=== PATIENT | male | born 1985 | race Caucasian/White ===

== ENCOUNTER 2017-01-15 16:52 | Observation (INO) | payer OTHER ==
[2017-01-15] MEDS ORDERED: Sodium Chloride 0.9% 1000 ML 1,000 ML IV STA (17:12)
[2017-01-15] MEDS ORDERED: Hydromorphone 1 mg/ml Ampule IV ONE ×3 (17:12→19:33)
[2017-01-15] MEDS ORDERED: Zofran 4 MG/2 ML VIAL IV ONE (17:12)
--- NOTE | 2017-01-15 17:17 | ERPHSYRPT ---
- History of Present Illness Time Seen by Provider: 01/15/17 17:12 Historian: patient Exam Limitations: no limitations Patient Subjective Stated Complaint: ABD PAIN AND VOMITING SINCE 0300 TODAY. ALSO HAVING FLANK PAIN. STATES HAS BRIGHT RED BLOOD IN STOOLS INTERMITTENTLY FOR TWO MONTHS. Triage Nursing Assessment: TO ROOM PER W/C, SKIN PALE, W/D, RESP NONLABORED. ABD SOFT, TENDER RLQ. 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 Past medical history includes GERD, gallbladder disease, irritable bowel syndrome, pancreatitis, depression, chronic abdominal pain Past surgical history includes shoulder surgery, ERCP, tonsillectomy adenoidectomy, cholecystectomy. Timing/Duration: today (3 AM today) Activities at Onset: rest Quality: aching Abdominal Pain Onset Location: epigastric, flank (right flank) Pain Radiation: epigastric, flank (right flank), scapula Severity of Pain-Current: moderate Modifying Factors: Improves With: nothing, vomiting Associated Symptoms: back (right flank pain), nausea, vomiting, No chest pain, No diaphoresis, No diarrhea, No fever/chills, No fatigue, No headache, No heartburn, No loss of appetite, No neck pain, No rash, No shortness of breath, No syncope, No testicular pain Previous symptoms: no prior history, other (patient has a history of chronic abdominal pain however he states this is different) Allergies/Adverse Reactions: No Known Drug Allergies Allergy (Verified 01/15/17 17:05) Home Medications: Omeprazole 20 MG [Prilosec 20 mg] 20 mg PO DAILY 12/02/13 [History] Ascorbic Acid 500 mg [Vitamin C 500 MG] 500 mg PO DAILY PRN PRN 08/04/15 [ History] Dicyclomine HCl [Bentyl] 20 mg PO DAILY 08/04/15 [History] Venlafaxine HCl ER 75 mg [Effexor XR 75 MG] 75 mg PO DAILY 08/04/15 [ History] Hx Tetanus, Diphtheria Vaccination/Date Given: No Hx Influenza Vaccination/Date Given: Yes Hx Pneumococcal Vaccination/Date Given: No - Review of Systems Constitutional: No Fever, No Chills Eyes: No Symptoms Ears, Nose, & Throat: No Symptoms Respiratory: No Cough, No Dyspnea Cardiac: No Chest Pain, No Edema, No Syncope Abdominal/Gastrointestinal: Abdominal Pain, Nausea, Vomiting, Hematochezia ( Chronic intermittent hematochezia), No Diarrhea, No Constipation, No Hematemesis , No Melena, No Dysphagia, No Appetite Changes Genitourinary Symptoms: No Dysuria Musculoskeletal: No Back Pain, No Neck Pain Skin: No Rash Neurological: No Dizziness, No Focal Weakness, No Sensory Changes Psychological: No Symptoms Endocrine: No Symptoms All Other Systems: Reviewed and Negative - Past Medical History Pertinent Past Medical History: No Neurological History: No Pertinent History ENT History: No Pertinent History Cardiac History: No Pertinent History Respiratory History: No Pertinent History Endocrine Medical History: No Pertinent History Musculoskeletal History: No Pertinent History GI Medical History: GERD, Gallbladder Disease, Irritable Bowel, Pancreatitis History: No Pertinent History Psycho-Social History: Depression Male Reproductive Disorders: No Pertinent History Other Medical History: HX OF ABD PAIN - Past Surgical History Past Surgical History: Yes Neuro Surgical History: No Pertinent History Cardiac: No Pertinent History Respiratory: No Pertinent History Gastrointestinal: Cholecystectomy Genitourinary: No Pertinent History Musculoskeletal: No Pertinent History, Orthopedic Surgery Male Surgical History: No Pertinent History Other Surgical History: R shoulder reconstruction. ERCP. T&A as child - Social History Smoking Status: Never smoker Exposure to second hand smoke: No Drug Use: none Patient Lives Alone: Yes - Nursing Vital Signs Nursing Vital Signs: Initial Vital Signs Temperature 98.9 F Temperature Source Oral Pulse Rate 85 Respiratory Rate 18 Blood Pressure [] 144/86 Pain Intensity 10 - Physical Exam General Appearance: moderate distress, other (well-developed well-nourished white male moderate distress) Eye Exam: PERRL/EOMI, eyes nml inspection Ears, Nose, Throat Exam: normal ENT inspection, pharynx normal, moist mucous membranes Neck Exam: normal inspection, non-tender, supple, full range of motion Respiratory Exam: normal breath sounds, lungs clear, No respiratory distress Cardiovascular Exam: regular rate/rhythm, normal heart sounds Gastrointestinal/Abdomen Exam: soft, normal bowel sounds, tenderness ( epigastric right upper quadrant tenderness) Back Exam: CVA tenderness (right flank tenderness) Extremity Exam: normal inspection, normal range of motion, pelvis stable Neurologic Exam: No motor deficits Skin Exam: normal color, warm, dry SpO2 Interpretation: normal (100%) SpO2: 100 Oxygen Delivery: Room Air - Course Nursing assessment & vital signs reviewed: Yes - CT Exams Abdomen/Pelvis CT Interpretation: Discussed w/radiologist (CT abdomen and pelvis: Compared to December 17, 2015.new mild fluid distended small bowel loops with fluid leveling , ileus vs. enteritis appendix 9 mm with new appendicolith but no wall thickening or stranding. cannot exclude mild or early appendicitis. Again scattered small mesenteric nodes. Probable adenitis. 13.5 cm splenomegaly.) Ordered Tests: Active Orders 24 hr Category Date Time Status IV Insertion STAT Care 01/15/17 17:12 Active ABDOMEN AND PELVIS W CONTRAST [CT] Stat Exams 01/15/17 17:52 Taken AMYLASE Stat Lab 01/15/17 17:10 Completed CBC W DIFF Stat Lab 01/15/17 17:10 Completed CMP Stat Lab 01/15/17 17:10 Completed LIPASE Stat Lab 01/15/17 17:10 Completed Lactic Acid Urgent Lab 01/15/17 17:30 Completed UA Stat Lab 01/15/17 18:30 Completed Medication Summary Discontinued Medications Generic Name Dose Route Start Last Admin Trade Name Freq PRN Reason Stop Dose Admin Hydromorphone HCl 1 mg 01/15/17 17:12 01/15/17 17:33 Hydromorphone 1 Mg/Ml Ampule IV 01/15/17 17:13 1 mg STAT ONE Administration Hydromorphone HCl Confirm 01/15/17 17:26 Hydromorphone 1 Mg/Ml Ampule Administered 01/15/17 17:27 Dose 1 mg .ROUTE .STK-MED ONE Hydromorphone HCl 1 mg 01/15/17 17:51 01/15/17 18:06 Hydromorphone 1 Mg/Ml Ampule IV 01/15/17 17:52 1 mg STAT ONE Administration Hydromorphone HCl Confirm 01/15/17 18:05 Hydromorphone 1 Mg/Ml Ampule Administered 01/15/17 18:06 Dose 1 mg .ROUTE .STK-MED ONE Sodium Chloride 1,000 mls @ 999 mls/hr 01/15/17 17:12 01/15/17 17:33 Sodium Chloride 0.9% 1000 Ml IV 01/15/17 18:12 999 mls/hr .Q1H1M STA Administration Sodium Chloride Confirm 01/15/17 17:22 Sodium Chloride 0.9% 1000 Ml Administered 01/15/17 17:23 Dose 1,000 mls @ ud .ROUTE .STK-MED ONE Ondansetron HCl 4 mg 01/15/17 17:12 01/15/17 17:33 Zofran 4 Mg/2 Ml Vial IV 01/15/17 17:13 4 mg STAT ONE Administration Ondansetron HCl Confirm 01/15/17 17:21 Zofran 4 Mg/2 Ml Vial Administered 01/15/17 17:22 Dose 4 mg .ROUTE .STK-MED ONE Lab/Rad Data: Laboratory Result Diagrams 01/15/17 17:10 01/15/17 17:10 Laboratory Results 01/15/17 01/15/17 01/15/17 Range/Units 18:30 17:30 17:10 WBC (4.0-10.5) K/mm3 RBC (4.1-5.6) M/mm3 Hgb (12.5-18.0) gm/dl Hct (42-50) % MCV (78-100) fl MCH (26-32) pg MCHC (32-36) g/dl RDW (11.5-14.0) % Plt Count (150-450) K/mm3 MPV (6-9.5) fl Gran % (36.0-66.0) % Lymphocytes % (24.0-44.0) % Monocytes % (0.0-12.0) % Eosinophils % (0.00-5.0) % Basophils % (0.0-0.4) % Basophils # (0-0.4) Sodium 141 (136-145) mEq/L Potassium 4.1 (3.5-5.1) mEq/L Chloride 100 (98-107) mEq/L Carbon Dioxide 28.0 (21-32) mEq/L Anion Gap 17.0 H (5-15) MEQ/L BUN 15 (9-20) mg/dL Creatinine 0.87 (0.55-1.30) mg/dl Estimated GFR > 60 ML/MIN Glucose 83 (70-110) MG/DL Lactic Acid 1.5 (0.4-2.0) Calcium 9.1 (8.5-10.1) mg/dL Total Bilirubin 0.8 (0.2-1.0) mg/dL AST 30 (15-37) U/L ALT 33 (12-78) U/L Alkaline Phosphatase 84 (46-116) U/L Serum Total Protein 8.6 H (6.4-8.2) gm/dL Albumin 4.8 (3.4-5.0) g/dL Amylase 66 (25-115) U/L Lipase 158 (73-393) U/L Ur Collection Type CLEAN CATCH Urine Color YELLOW (YELLOW) Urine Appearance CLEAR (CLEAR) Urine pH 7.5 (5-6) Ur Specific [place] 1.015 (1.005-1.025) Urine Protein NEGATIVE (Negative) Urine Glucose (UA) NEGATIVE (NEGATIVE) mg/dL Urine Ketones NEGATIVE (NEGATIVE) Urine Nitrite NEGATIVE (NEGATIVE) Urine Bilirubin NEGATIVE (NEGATIVE) Urine Urobilinogen 0.2 (0-1) mg/dL Urine WBC (Auto) NEGATIVE (NEGATIVE) Urine RBC (Auto) NEGATIVE (0-5) Shaji/ul Specimen Received 01/15/17:1830 01/15/17 Range/Units 17:10 WBC 13.5 H (4.0-10.5) K/mm3 RBC 5.16 (4.1-5.6) M/mm3 Hgb 15.8 (12.5-18.0) gm/dl Hct 47.7 (42-50) % MCV 92.4 (78-100) fl MCH 30.6 (26-32) pg MCHC 33.1 (32-36) g/dl RDW 12.8 (11.5-14.0) % Plt Count 302 (150-450) K/mm3 MPV 10.5 H (6-9.5) fl Gran % 84.3 H (36.0-66.0) % Lymphocytes % 6.2 L (24.0-44.0) % Monocytes % 8.5 (0.0-12.0) % Eosinophils % 0.9 (0.00-5.0) % Basophils % 0.1 (0.0-0.4) % Basophils # 0.01 (0-0.4) Sodium (136-145) mEq/L Potassium (3.5-5.1) mEq/L Chloride (98-107) mEq/L Carbon Dioxide (21-32) mEq/L Anion Gap (5-15) MEQ/L BUN (9-20) mg/dL Creatinine (0.55-1.30) mg/dl Estimated GFR ML/MIN Glucose (70-110) MG/DL Lactic Acid (0.4-2.0) Calcium (8.5-10.1) mg/dL Total Bilirubin (0.2-1.0) mg/dL AST (15-37) U/L ALT (12-78) U/L Alkaline Phosphatase (46-116) U/L Serum Total Protein (6.4-8.2) gm/dL Albumin (3.4-5.0) g/dL Amylase (25-115) U/L Lipase (73-393) U/L Ur Collection Type Urine Color (YELLOW) Urine Appearance (CLEAR) Urine pH (5-6) Ur Specific [place] (1.005-1.025) Urine Protein (Negative) Urine Glucose (UA) (NEGATIVE) mg/dL Urine Ketones (NEGATIVE) Urine Nitrite (NEGATIVE) Urine Bilirubin (NEGATIVE) Urine Urobilinogen (0-1) mg/dL Urine WBC (Auto) (NEGATIVE) Urine RBC (Auto) (0-5) Shaji/ul Specimen Received - Progress Progress: improved Progress Note: 01/15/17 19:34 31-year-old white male with history of irritable bowel syndrome chronic abdominal pain who has had a cholecystectomy in the past. He is having pain in the epigastric region right upper quadrant radiating to the right flank. CT of the abdomen shows new mild fluid distended small bowel loops with fluid leveling ileus versus enteritis there is also the appendix which is 9 mm with new appendicolith but no wall thickening or stranding cannot exclude mild or early appendicitis patient also with 13.5 cm splenomegaly patient is receiving his third milligram Dilaudid. Case is discussed with Dr. Barry Villafana who is rehabilitation construction specialist for Dr. Stuart. Will place patient on observation nothing by mouth IV fluids pain medication. I have also contacted Dr Fleming he recommends placing on observation with the patient's family doctor and he will consult with him in the morning. . - Departure Time of Disposition: 19:37 Departure Disposition: Observation Clinical Impression: Abdominal pain Qualifiers: Abdominal location: right upper quadrant Qualified Code(s): R10.11 - Right upper quadrant pain Condition: Fair Critical Care Time: No
[2017-01-15] MEDS ORDERED: Zofran 4 MG/2 ML VIAL ONE (17:21)
[2017-01-15] MEDS ORDERED: Sodium Chloride 0.9% 1000 ML 1,000 ML ONE (17:22)
[2017-01-15 17:24] LABS: BASOPHIL % 0.1 % (0.0-0.4); Eosinophil % 0.9 % (0.00-5.0); Granulocytes % 84.3 % (36.0-66.0); Lymphocytes % 6.2 % (24.0-44.0); Mean Cell Volume 92.4 fl (78-100); Mean Corpuscular Hemoglobin 30.6 pg (26-32); Mean Platelet Volume 10.5 fl (6-9.5); Monocytes % 8.5 % (0.0-12.0); Platelet Count 302 K/mm3 (150-450); Red Blood Count 5.16 M/mm3 (4.1-5.6); Red Cell Distribution Width 12.8 % (11.5-14.0); White Blood Count 13.5 K/mm3 (4.0-10.5)
[2017-01-15] MEDS ORDERED: Hydromorphone 1 mg/ml Ampule ONE ×3 (17:26→19:37)
[2017-01-15 17:47] LABS: ALBUMIN 4.8 g/dL (3.4-5.0); ALKALINE PHOSPHATASE 84 U/L (46-116); BILIRUBIN,TOTAL 0.8 mg/dL (0.2-1.0); BLOOD UREA NITROGEN 15 mg/dL (9-20); CHLORIDE 100 mEq/L (98-107); Glucose 83 MG/DL (70-110); LIPASE 158 U/L (73-393); Potassium 4.1 mEq/L (3.5-5.1); SGOT/AST 30 U/L (15-37); SGPT/ALT 33 U/L (12-78); SODIUM 141 mEq/L (136-145); Total Protein 8.6 gm/dL (6.4-8.2)
[2017-01-15 18:48] LABS: Collection Type CLEAN CATCH
[2017-01-15 18:53] LABS: COMPLETE URINE MICROSCOPIC? NO; Ph 7.5 (5-6)
[2017-01-15] MEDS ORDERED: Zofran 4 MG/2 ML VIAL IV PRN (20:24)
[2017-01-15] MEDS: Sodium Chloride 0.9% 1000 ML 1,000 ML IV SCH (20:43)
--- NOTE | 2017-01-15 20:49 | XRAY ---
Indication: Left abdominal pain, vomiting, and nausea. Syncope. Multiple contiguous axial images obtained through the abdomen and pelvis using 80 cc of Isovue-370 contrast only. Comparison: December 17, 2015. Lung bases again demonstrates bibasilar dependent atelectasis. Heart is not enlarged. Noncontrasted stomach and bowel loops appear nonobstructed. Stomach fluid distended with scattered tiny radiopacities presumed ingested medication. Small bowel loops are now mildly fluid distended throughout with some fluid leveling, ileus versus enteritis. No focal bowel dilatation. Appendix is now prominent up to 9 mm diameter with distal appendicolith but no wall thickening/stranding. Mild/early appendicitis is not completely excluded. No free fluid/air. There remains scattered small mesenteric nodes with minimal stranding, possible adenitis. Incidental 13.5 cm splenomegaly and cholecystectomy clips. Remaining liver, pancreas, spleen, adrenal glands, kidneys, ureters, bladder, and aorta appear unremarkable. Osseous structures intact. Impression: 1. New fluid distended stomach and small bowel loops, ileus versus gastroenteritis. 2. Appendix is now prominent with distal appendicolith but no wall thickening/stranding. Cannot completely exclude mild/early appendicitis in the right clinical setting. 3. Again scattered small mesenteric nodes with stranding, possible mesenteric adenitis. 4. Incidental splenomegaly. CTDI 20.16
[2017-01-15] MEDS: MORPHINE SULFATE 4 MG INJ IV PRN (21:14)
[2017-01-16] MEDS: DILAUDID 2 MG INJECTION IV PRN ×3 (00:54→17:05)
[2017-01-16] MEDS: Sodium Chloride 0.9% 1000 ML 1,000 ML IV SCH (05:28)
[2017-01-16] MEDS: MORPHINE SULFATE 4 MG INJ IV PRN (05:29)
[2017-01-16 05:34] LABS: ANION GAP 13.6 MEQ/L (5-15); BLOOD UREA NITROGEN 12 mg/dL (9-20); CHLORIDE 105 mEq/L (98-107); Glucose 86 MG/DL (70-110); SODIUM 141 mEq/L (136-145)
[2017-01-16 05:53] LABS: BASOPHIL % 0.3 % (0.0-0.4); Eosinophil % 1.1 % (0.00-5.0); Granulocytes % 70.3 % (36.0-66.0); Lymphocytes % 13.3 % (24.0-44.0); Mean Cell Volume 94.2 fl (78-100); Mean Corpuscular Hemoglobin 30.8 pg (26-32); Platelet Count 227 K/mm3 (150-450); Red Blood Count 4.28 M/mm3 (4.1-5.6); Red Cell Distribution Width 12.7 % (11.5-14.0)
[2017-01-16] MEDS ORDERED: DIPRIVAN 200 MG/20 ML IV ONE (08:00)
[2017-01-16] MEDS ORDERED: Zemuron 100 MG/10 ML IJ ONE (08:00)
[2017-01-16] MEDS ORDERED: BRIDION 200MG/2ML IV ONE (08:00)
[2017-01-16] MEDS ORDERED: SUBLIMAZE 250 MCG/5 ML IJ ONE (08:00)
[2017-01-16] MEDS ORDERED: Decadron 4 MG INJ IV ONE (08:00)
[2017-01-16] MEDS ORDERED: DILAUDID 2 MG INJECTION IV ONE (08:00)
[2017-01-16] MEDS ORDERED: TORAdol 30 mg Injection IJ ONE (08:00)
[2017-01-16] MEDS ORDERED: Versed 2 MG/2 ML Injection IV ONE (08:00)
[2017-01-16] MEDS ORDERED: Zofran 4 MG/2 ML VIAL IV ONE (08:00)
[2017-01-16] MEDS ORDERED: Quelicin Fliptop 200 MG/10 ML IV ONE (08:00)
[2017-01-16] MEDS ORDERED: BICITRA 30 ML CUP PO SCH (08:30)
[2017-01-16] MEDS ORDERED: Lactated Ringers 1,000 ML IV SCH (08:30)
[2017-01-16] MEDS ORDERED: Pepcid 20 MG VIAL IV SCH (08:30)
[2017-01-16] MEDS ORDERED: Sensorcaine 0.25% 10 ML ONE (08:54)
[2017-01-16] MEDS ORDERED: Lactated Ringers 1,000 ML IV ONE (08:55)
[2017-01-16] MEDS ORDERED: MEFOXIN 2 GM PREMIX** 50 ML IV SCH (09:00)
[2017-01-16] MEDS ORDERED: Transderm Scop 1.5MG Patch ONE (09:09)
[2017-01-16] MEDS ORDERED: DILAUDID 2 MG INJECTION ONE (10:36)
[2017-01-16] MEDS ORDERED: MORPHINE SULFATE 4 MG INJ IV PRN ×2 (11:24→18:15)
[2017-01-16] MEDS ORDERED: Vitamin C 500 MG PO PRN (11:28)
[2017-01-16] MEDS ORDERED: D5W/0.45NS W/ 20mEq KCl 1000 ML 1,000 ML IV SCH (11:30)
[2017-01-16] MEDS: Zosyn 3.375GM/100 Ml D5W 100 ML IV SCH ×3 (11:57→23:30)
[2017-01-16] MEDS: NORCO 5/325 MG PO PRN ×5 (11:57→22:34)
[2017-01-16] MEDS: Effexor XR 75 MG PO SCH (16:08)
--- NOTE | 2017-01-16 17:40 | PCM.HP ---
History of Present Illness - Chief Complaint Chief Complaint: abdominal pain Date: 01/16/17 History of Present Illness: is a 31 year old male. who had onset diffuse abdominal pains and vomiting at 03:00 yesterday it was not improving and he tried to go to work but the pain was too much. He had CT showing enteritis and appendicolith with enlarged appendix as well as evidence of ileus/enteritis. Dr. Ellsworth evaluated the patient and he had appendectomy this am. He still has the abdominal pain but it is improving he has not had any vomiting since this am. He has not passed gas or stool last bm was yesterday morning. He has eaten a small amount today. - Review of Systems Constitutional: Fatigue, No Fever, No Chills Eyes: No Symptoms Ears, Nose, & Throat: No Symptoms Respiratory: No Cough, No Short Of Breath Cardiac: No Chest Pain, No Edema, No Syncope Abdominal/Gastrointestinal: Abdominal Pain, Nausea, Vomiting, No Diarrhea Genitourinary Symptoms: No Dysuria Musculoskeletal: No Back Pain, No Neck Pain Skin: No Rash Neurological: No Dizziness, No Focal Weakness, No Sensory Changes Psychological: No Symptoms Endocrine: No Symptoms Hematologic/Lymphatic: No Symptoms Immunological/Allergic: No Symptoms Medications & Allergies Home Medications: Home Medication List Omeprazole 20 MG [Prilosec 20 mg] 20 mg PO DAILY 12/02/13 [History Confirmed ] Ascorbic Acid 500 mg [Vitamin C 500 MG] 500 mg PO DAILY PRN PRN 08/04/15 [ History Confirmed 01/15/17] Dicyclomine HCl [Bentyl] 20 mg PO DAILY 08/04/15 [History Confirmed 01/15/17] Venlafaxine HCl ER 75 mg [Effexor XR 75 MG] 75 mg PO DAILY 08/04/15 [ History Confirmed 01/15/17] Loratadine 10 mg [Claritin 10 mg] 10 mg PO DAILY 01/15/17 [History Confirmed 01/15/17] Allergies/Adverse Reactions: Allergies Allergy/AdvReac Type Severity Reaction Status Date / Time No Known Drug Allergies Allergy Verified 01/15/17 17:05 - Past Medical History Past Medical History: Yes Neurological History: No Pertinent History ENT History: No Pertinent History Cardiac History: No Pertinent History Respiratory History: No Pertinent History Endocrine Medical History: No Pertinent History Musculoskelatal History: No Pertinent History GI Medical History: GERD, Irritable Bowel, Pancreatitis History: No Pertinent History Pyscho-Social History: Depression Male Reproductive Disorders: No Pertinent History Comment: HX OF ABD PAIN - Past Surgical History Past Surgical History: Yes Neuro Surgical History: No Pertinent History Cardiac History: No Pertinent History Respiratory Surgery: No Pertinent History GI Surgical History: Cholecystectomy Genitourinary Surgical Hx: No Pertinent History Musculskeletal Surgical Hx: No Pertinent History Male Surgical History: No Pertinent History Other Surgical History: ERCP - Social History Smoking Status: Former smoker Exposure to second hand smoke: No Alcohol: Occasionally Drug Use: none - Physical Exam Vital Signs: Vital Signs - 24 hr Temp Pulse Resp BP BP Pulse Ox 01/16/17 15:54 97.0 F 62 16 102/59 96 01/16/17 13:43 98.2 F 79 18 110/64 94 L 01/16/17 12:45 98.1 F 93 H 18 119/74 95 01/16/17 12:17 98.4 F 82 20 123/76 94 L 01/16/17 11:45 98.2 F 94 H 20 124/71 95 01/16/17 11:28 98.1 F 76 18 114/68 94 L 01/16/17 11:11 98.4 F 78 18 113/71 94 L 01/16/17 08:25 98.1 F 79 18 100/56 96 01/16/17 07:30 98.1 F 79 20 100/56 96 01/16/17 04:00 98.3 F 79 18 115/71 93 L 01/16/17 00:00 98.6 F 94 H 18 121/80 95 01/15/17 21:17 98.6 F 93 H 17 135/85 100 01/15/17 19:38 100 General Appearance: no apparent distress Neurologic Exam: alert, oriented x 3, cooperative Eye Exam: PERRL/EOMI, No scleral icterus Ears, Nose, Throat Exam: moist mucous membranes Neck Exam: non-tender, supple Respiratory Exam: normal breath sounds, lungs clear, No crackles/rales Cardiovascular Exam: regular rate/rhythm, normal heart sounds, normal peripheral pulses, No murmur Gastrointestinal/Abdomen Exam: soft, normal bowel sounds, tenderness, other ( abdominal binder post op) Extremity Exam: normal inspection, No calf tenderness, No pedal edema Skin Exam: warm, dry, No rash Results - Labs Lab/Micro Results: Lab Results-Last 24 Hours 01/16/17 01/16/17 Range/Units 04:45 04:45 WBC 7.0 (4.0-10.5) K/mm3 RBC 4.28 (4.1-5.6) M/mm3 Hgb 13.2 (12.5-18.0) gm/dl Hct 40.3 L (42-50) % MCV 94.2 (78-100) fl MCH 30.8 (26-32) pg MCHC 32.8 (32-36) g/dl RDW 12.7 (11.5-14.0) % Plt Count 227 (150-450) K/mm3 MPV 10.0 H (6-9.5) fl Gran % 70.3 H (36.0-66.0) % Lymphocytes % 13.3 L (24.0-44.0) % Monocytes % 15.0 H (0.0-12.0) % Eosinophils % 1.1 (0.00-5.0) % Basophils % 0.3 (0.0-0.4) % Basophils # 0.02 (0-0.4) Sodium 141 (136-145) mEq/L Potassium 4.0 (3.5-5.1) mEq/L Chloride 105 (98-107) mEq/L Carbon Dioxide 26.0 (21-32) mEq/L Anion Gap 13.6 (5-15) MEQ/L BUN 12 (9-20) mg/dL Creatinine 0.82 (0.55-1.30) mg/dl Estimated GFR > 60 ML/MIN Glucose 86 (70-110) MG/DL Calcium 8.3 L (8.5-10.1) mg/dL Assessment/Plan (1) Enteritis Current Visit: Yes Status: Acute Code(s): K52.9 - NONINFECTIVE GASTROENTERITIS AND COLITIS, UNSPECIFIED (2) Appendicitis Current Visit: Yes Status: Suspected Qualifiers: Appendicitis type: acute appendicitis Assessment & Plan: s/p appendectomy today [facility] to [facility]c tomorrow if doing well on augmentin per surgery Code(s): K37 - UNSPECIFIED APPENDICITIS
[2017-01-17] MEDS: NORCO 5/325 MG PO PRN ×3 (04:28→10:40)
[2017-01-17 05:46] LABS: Mean Cell Volume 94.6 fl (78-100); Mean Corpuscular Hemoglobin 30.5 pg (26-32); Mean Platelet Volume 10.3 fl (6-9.5); Platelet Count 252 K/mm3 (150-450); Red Blood Count 4.29 M/mm3 (4.1-5.6); Red Cell Distribution Width 12.4 % (11.5-14.0); White Blood Count 9.8 K/mm3 (4.0-10.5)
[2017-01-17] MEDS: Zosyn 3.375GM/100 Ml D5W 100 ML IV SCH ×2 (05:57→11:46)
[2017-01-17] MEDS ORDERED: BENTYL 20 MG PO PRN (06:49)
[2017-01-17] MEDS: Effexor XR 75 MG PO SCH (09:24)
[2017-01-17] MEDS ORDERED: Protonix 40MG Tablet PO SCH (10:00)
[2017-01-17] MEDS ORDERED: NON-FORMULARY ITEM (Omeprazole 20 Mg [Prilosec 20 Mg] 20 MG) PO SCH (10:00)
[2017-01-17] MEDS ORDERED: BENTYL 20 MG PO SCH (10:00)
[2017-01-17] MEDS ORDERED: DICYCLOMINE HCL 20 MG PO SCH (10:00)
[2017-01-17] MEDS ORDERED: CLARITIN 10 MG PO SCH (10:00)
--- NOTE | 2017-01-17 10:12 | CONS ---
CONSULT DATE: 01/15/17 HISTORY OF PRESENT ILLNESS: The patient is a 31 y/o gentleman who had some upper abdominal and flank area aches and pains since 0300 earlier today. Had multiple episodes of vomiting. He usually has diarrhea on a regular basis and although he did not report it to me, I see he had a stay in the Emergency Room where he had some blood in the stool in the past. PAST MEDICAL HISTORY: He has had reflux. He has had irritable bowel syndrome. He has had history of cholecystectomy in the past and did have an endoscopic retrograde cholangiopancreatography. Apparently, had some depression in the past. Had some history of some chronic abdominal aches in with his stools. HOME MEDICATIONS: Has been on omeprazole, vitamin C, Bentyl, and Effexor. ALLERGIES: NKDA. FAMILY HISTORY: Cancer in the family. Otherwise, negative for inflammatory bowel disease. SOCIAL HISTORY: No smoking. Drinks alcohol on occasion, but denies abuse. PAST SURGICAL HISTORY: Has had shoulder surgery, endoscopic retrograde cholangiopancreatography, tonsillectomy and adenoidectomy, and cholecystectomy in the past. REVIEW OF SYSTEMS: 10 systems reviewed pertinent for the nausea and multiple episodes of vomiting. He denied any diarrhea today. Most of his pain has been in the mid to upper abdomen radiating back towards the right flank. No chest pain or palpitations. Other systems negative or noncontributory other than above and per admission assessment. PHYSICAL EXAMINATION: GENERAL: No acute distress. HEENT: Sclerae nonicteric. NECK: No JVD. CHEST: Equal excursion. Nonlabored breathing. ABDOMEN: Very soft. He has got some mild tenderness mid and upper abdomen radiating over towards the right flank. He is very soft over McBurney's. No rebound or guarding currently. EXTREMITIES: No significant edema. NEURO: Seems to moving extremities grossly symmetrically. CT showed some mild fluid distended small bowel loops, ileus vs enteritis. There was a 9 mm appendix, but not walk thickening, no stranding. Small mesentery nodes, possible adenitis. WBC was 13.5 with the vomiting. Hgb 15.8, platelets 302,000. Lactic acid level was normal. Liver function tests - No don't see that that was done. I guess it was done and normal. Creatinine 0.87. UA was fairly unremarkable. IMPRESSION: 1. MULTIPLE EPISODES OF VOMITING. SOME UPPER ABDOMINAL PAIN RADIATING BACK TO HIS RIGHT FLANK, UNCLEAR ETIOLOGY. Could be gastritis, gastroenteritis, or viral syndrome vs mesenteric adenitis. He had had an endoscopic retrograde cholangiopancreatography in the past. Could be a variation of some chronic pancreatitis vs given the flank location, could be a urinary etiology, although his UA looks fairly unremarkable. No kidney stones or ureteral stones on the CT scan. He does have a slightly prominent appendix, but there is no oral thickening or stranding to give him this degree of symptoms and expect more findings. Otherwise, no free air or collections. There are some fluid-filled bowel loops. So, whether this was atypical, whether this was simple gastroenteritis or viral syndrome, mesenteric adenitis vs atypical appendicitis is unclear at this time. Feel he needs continued IV hydration, bowel rest, follow serial exams and labs because he has got a very soft right lower quadrant at this time. Does not seem typical of typical appendicitis. He does understand though if he fails to improve or his pain more localizes down over the right lower quadrant, might need to consider laparoscopy, but at this time, will continue observation as his exam and history and symptoms are not typical for appendicitis at this time, but will follow with you and repeat labs and the exam tomorrow. Otherwise, no emergent surgery necessary at this moment and will reevaluate and recheck the labs tomorrow. Continue observation for now as no emergent surgery at this moment. The patient agrees to the plan. Thank you for the consult.
--- NOTE | 2017-01-17 10:50 | PROG NOTE ---
DATE: 01/16/17 UPDATE HISTORY: 31 y/o gentleman came in with vomiting and some abdominal pain. Overnight, he has had some persistent pain, still requiring Dilaudid narcotics, in right mid abdomen radiating back to his flank and his upper abdomen and little bit lower abdomen. His WBC is 7. However, he is still having symptoms. PHYSICAL EXAMINATION: NECK: No JVD. CHEST: Equal excursion. ABDOMEN: Soft. Still some persistent tenderness right mid abdomen. EXTREMITIES: No edema. IMPRESSION: DESPITE MEDICAL MANAGEMENT TRIAL, HIS SYMPTOMS HAVE FAILED TO IMPROVE OR RESOLVE. HE IS STILL HAVING PERSISTENT PAIN REQUIRING NARCOTICS. GIVEN THIS AND THE PHYSICAL EXAM FINDINGS, FEEL EVEN THOUGH HIS WBC IS NOT ELEVATED AT THE MOMENT, HE IS STILL HAVING SIGNIFICANT TENDERNESS AND REQUIRING NARCOTICS, SO FEEL HE WOULD BENEFIT FROM DIAGNOSTIC LAPAROSCOPY, POSSIBLE LAPAROSCOPIC APPENDECTOMY, POSSIBLE OPEN PENDING OPERATIVE FINDINGS. Risks and benefits explained in detail, but not limited to, bleeding; infection; risk of trocar injury or hernia; small risk of bowel, bladder, or blood vessel injury; small risk of subsequent intraabdominal abscess or fistula formation possibly requiring open procedure or percutaneous drainage even at a later date; general risks of anesthesia, deep vein thrombosis, pulmonary embolism, or pneumonia. He understands will look for other etiology that may need taken care of surgically, likely would remove the appendix given the appendicolith and the thickening. He understands that if it fails to improve his symptoms over time, he might need further work-up and/or testing possibly even eventual endoscopy. He understands this may or may not improve his symptoms, but given his persistent physical exam and persistent pain requiring narcotics, he agrees. Will proceed with diagnostic laparoscopy, laparoscopic appendectomy, possible open as well as general risks of anesthesia, deep vein thrombosis, pulmonary embolism, or pneumonia and risk of ileus and/or obstruction down the road. So, when OR time available, will proceed with diagnostic laparoscopy, laparoscopic appendectomy, possible open.
[2017-01-17 11:16] VITALS: BP 124/70; PULSE 78; O2SAT 98
--- NOTE | 2017-01-17 11:43 | OP ---
SURGERY DATE: 01/16/17 SURGERY TIME: 928 PREOPERATIVE DIAGNOSIS: 1. PERSISTENT RIGHT ABDOMINAL PAIN, THICKENED APPENDIX WITH APPENDICOLITH ON CT SCAN. POSTOPERATIVE DIAGNOSIS: 1. PERSISTENT RIGHT ABDOMINAL PAIN, THICKENED APPENDIX WITH APPENDICOLITH ON CT SCAN ALONG WITH SOME RIGHT-SIDED ABDOMINAL WALL ADHESIONS. PROCEDURE: 1. DIAGNOSTIC LAPAROSCOPY, LAPAROSCOPIC LYSIS OF RIGHT ABDOMINAL WALL ADHESIONS. 2. LAPAROSCOPIC APPENDECTOMY. SURGEON: Dr. Hao Ellsworth. ANESTHESIA: General. ESTIMATED BLOOD LOSS: Minimal. INDICATIONS: The patient had persistent right-sided abdominal pain that had failed to improve and still requiring narcotics. [place] he would benefit from diagnostic laparoscopy, laparoscopic appendectomy, possible open to evaluation for other etiology. Risks and benefits explained in detail, but not limited to. Consent was obtained. DESCRIPTION OF PROCEDURE AND FINDINGS: The patient was taken to the OR. General anesthesia was induced. The abdomen prepped and draped in the usual sterile fashion. After official time-out, no disagreement in planned procedure. Transverse incision made in the supraumbilical area. Fascia grasped and pulled up. Veress needle inserted. Tested with saline. Pneumoperitoneum accomplished insufflating from an open pressure of 0-15. 5 mm bladeless port and camera inserted without difficulty followed by a lower midline 5 mm port and a right mid to upper abdomen 12 mm port. Liver was unremarkable. He was status post cholecystectomy in the past. He had some mild erythema of the bowel, but no gross evidence of Crohn's. No gross evidence of any purulence. He did have some adhesions to the cecum and ascending colon and cecal area up to the anterior abdominal wall. These were carefully lysed in the sharp fashion with the laparoscopic ferdinand as well as some brief bursts of cautery staying well away from the viscera. The colon did not appear to be thickened at this area. No saundra evidence of saundra colitis right at the cecal or proximal ascending colon. He did have some erythema in the small bowel, but no gross evidence of any Crohn's disease. There were no signs of any purulence or perforation, but the distal part of the appendix was definitely thickened and engorged. It was felt he definitely warranted appendectomy. Otherwise, there was no obvious other etiology in the superficial anatomy of the abdomen that would warrant any other surgical intervention. Therefore, at this time, the adhesions were released from the appendix and the cecum from the lateral sidewall allowing the appendix and cecum to be mobilized upward. Once this was accomplished, sequential reloads with lozada reload was carefully fired across the mesoappendix staying against the appendiceal border elevating it well away from the retroperitoneum with the final staple stapling the appendix at the cecum. Some brief ooze from the mesoappendix which required some brief bursts of pinpoint cautery as necessary. Overall, had good hemostasis. The appendix placed in a Pleatman's sac, pulled free, and passed off. Port was replaced. A copious amount of irrigation accomplished in the right lower quadrant again until clear. Staple line in the cecum and mesoappendix appeared to have good hemostasis. No signs of any active bleeding or leakage. It was felt there was no benefit of drain placement. At this point, the 12 mm fascial defect closed with puncture closure device under direct vision with the camera and #1 Vicryl. Pneumoperitoneum decompressed. Wounds irrigated out. Skin incisions closed with 4-0 Vicryl. Steri-strips and sterile dressing applied. Patient tolerated the procedure well. There were no immediate complications. Findings discussed with the family out in the waiting area. Family was counseled that there was no pus around appendix or perforation. If his symptoms fail to improve over time, this will be viral issue or gastroenteritis or other etiology, but will continue on some IV antibiotics for possible early appendicitis overnight. They are going to reevaluate tomorrow.
--- NOTE | 2017-01-17 18:37 | PCM.DS ---
Discharge Summary Date of Admission: 01/15/17 20:18 Date of Discharge: 01/17/2017 Admitting Physician: IVA YARBROUGH Primary Care Provider: BOY EMMANUEL Allergies Allergies No Known Drug Allergies Allergy (Verified 01/15/17 17:05) Hospital Summary - Hospital Course Hospital Course: Presented with acute onset worsening nausea vomiting and abdominal pain found to have elevated wbc and ct with ileus vs gastroenteritis with enlarged appendix with appendicolith. He was given antibiotics and nausea control and fluids and evaluated by Dr. Ellsworth who prepped him for surgery for diagnositic laparoscopy found adhesions in the right colon and cecum area and these were lysed and appendix removed. See op report for full details. he tolerated po well after this was passing gas with no difficulty and pain was improving. He did not have any further vomiting and no fevers and wbc returned to normal range. - Vitals & Intake/Output Vital Signs: Vital Signs Temperature 98.8 F 01/17/17 11:16 Pulse Rate 78 01/17/17 11:16 Respiratory Rate 20 01/17/17 11:16 Blood Pressure 124/70 01/17/17 11:16 O2 Sat by Pulse Oximetry 98 01/17/17 11:16 Intake & Output: Intake & Output 01/15/17 01/16/17 01/17/17 01/18/17 11:59 11:59 11:59 11:59 Intake Total 797 3368 Balance 797 3368 Weight 92.221 kg - Lab Result Diagrams: 01/17/17 05:30 01/16/17 04:45 Lab Results-Last 24 Hrs: Lab Results-Last 24 Hours 01/17/17 Range/Units 05:30 WBC 9.8 (4.0-10.5) K/mm3 RBC 4.29 (4.1-5.6) M/mm3 Hgb 13.1 (12.5-18.0) gm/dl Hct 40.6 L (42-50) % MCV 94.6 (78-100) fl MCH 30.5 (26-32) pg MCHC 32.3 (32-36) g/dl RDW 12.4 (11.5-14.0) % Plt Count 252 (150-450) K/mm3 MPV 10.3 H (6-9.5) fl Discharge Exam General Appearance: no apparent distress Neurologic Exam: alert, oriented x 3, cooperative Skin Exam: warm, dry Eye Exam: EOMI, No scleral icterus Ears, Nose, Throat Exam: moist mucous membranes Neck Exam: non-tender, supple Cardiovascular Exam: regular rate/rhythm, normal heart sounds Gastrointestinal/Abdomen Exam: soft, normal bowel sounds, tenderness, No distention Extremity Exam: normal inspection, No calf tenderness, No pedal edema Final Diagnosis/Problem List - Final Discharge Diagnosis/Problem (1) Enteritis Status: Acute (2) Appendicitis Status: Suspected (3) Adhesion of abdominal wall Status: Acute - Discharge Discharge Date: 01/17/17 Disposition: Home, Self-Care Condition: Good Prescriptions: New Hydrocodone Bit/Acetaminophen [[place] 5-325 Tablet] 1 each PO Q4H PRN PRN #28 tablet PRN Reason: Pain Amoxicillin/Potassium Clav [Augmentin 875-125 Tablet] 875 mg PO BID #10 tablet No Action Omeprazole 20 MG [Prilosec 20 mg] 20 mg PO DAILY Venlafaxine HCl ER 75 mg [Effexor XR 75 MG] 75 mg PO DAILY Dicyclomine HCl [Bentyl] 20 mg PO DAILY Ascorbic Acid 500 mg [Vitamin C 500 MG] 500 mg PO DAILY PRN PRN PRN Reason: supplement Loratadine 10 mg [Claritin 10 mg] 10 mg PO DAILY Instructions: Appendectomy Follow up with: BOY EMMANUEL MD [Primary Care Provider] - () MIGNON ELLSWORTH [COURTESY STAFF] - 01/24/17 9:30 am ([facility]) Forms: Discharge Instructions, Work/School Release Form
== END 2017-01-17 13:00 | disposition home or self-care (01) ==
LOC: ED 16:52 → MED SURG 20:18
PROVIDERS: ADMIT Family Medicine; ATTEND Family Medicine
PROC: 0DTJ4ZZ Resection of Appendix, Percutaneous Endoscopic Approach (ICD-10-PCS; principal; 2017-01-16)
PROC: 0DNH4ZZ Release Cecum, Percutaneous Endoscopic Approach (ICD-10-PCS; 2017-01-16)
PROC: 0DN64ZZ Release Stomach, Percutaneous Endoscopic Approach (ICD-10-PCS; 2017-01-16)
PROC: 0DNK4ZZ Release Ascending Colon, Percutaneous Endoscopic Approach (ICD-10-PCS; 2017-01-16)
DX: K52.9 Noninfective gastroenteritis and colitis, unspecified (principal); K35.80 Unspecified acute appendicitis; K66.0 Peritoneal adhesions (postprocedural) (postinfection); K21.9 Gastro-esophageal reflux disease without esophagitis; F32.9 Major depressive disorder, single episode, unspecified
CPT/HCPCS: 00840; 36000; 36415; 74177; 80048; 80053; 81002; 82150; 83605; 83690; 85025; 85027; 96360; 96374; 96375; 96376; 99140; 99284; 99285; G0378; J0330; J0694; J1100; J1170; J1885; J2250; J2270; J2405; J2543; J2704; J3010; L0625

== ENCOUNTER 2017-11-24 16:31 | Observation (INO) | payer OTHER ==
[2017-11-24] MEDS ORDERED: DILAUDID 2 MG INJECTION IV PRN (17:26)
[2017-11-24] MEDS ORDERED: TYLENOL 325 MG PO PRN (17:27)
[2017-11-24] MEDS ORDERED: Lactated Ringers 1,000 ML IV SCH (17:30)
[2017-11-24] MEDS: Lactated Ringers 1,000 ML IV SCH (17:32)
[2017-11-24] MEDS: Zofran 4 MG/2 ML VIAL IV PRN ×2 (17:32→21:57)
[2017-11-24 17:42] LABS: BASOPHIL % 0.2 % (0.0-0.4); Basophil (Absolute #) 0.02 (0-0.4); Eosinophil % 1.7 % (0.00-5.0); Eosinophil (Absolute #) 0.15 (0-0.5); Granulocyte Absolute (ANC) 6.36 (1.4-6.9); Granulocytes % 73.8 % (36.0-66.0); Hematocrit 42.6 % (42-50); Hemoglobin 14.3 gm/dl (12.5-18.0); Lymphocyte (Absolute #) 1.13 (1.0-4.6); Lymphocytes % 13.1 % (24.0-44.0); Mean Cell Volume 89.7 fl (78-100); Mean Corpuscular Hemoglobin 30.1 pg (26-32); Mean Corpuscular Hgb Concent. 33.6 g/dl (32-36); Monocyte (Absolute #) 0.97 (0.0-1.3); Monocytes % 11.2 % (0.0-12.0); Platelet Count 243 K/mm3 (150-450); Red Blood Count 4.75 M/mm3 (4.1-5.6); Red Cell Distribution Width 12.3 % (11.5-14.0); White Blood Count 8.6 K/mm3 (4.0-10.5)
[2017-11-24 17:59] LABS: ALBUMIN 4.3 g/dL (3.4-5.0); ALKALINE PHOSPHATASE 71 U/L (46-116); AMYLASE 51 U/L (25-115); ANION GAP 14.8 MEQ/L (5-15); BLOOD UREA NITROGEN 6 mg/dL (9-20); CHLORIDE 103 mEq/L (98-107); Calcium 8.6 mg/dL (8.5-10.1); Creatinine 1 0.83 mg/dl (0.55-1.30); EST GLOMERULAR FILTRATION RATE > 60 ML/MIN; Glucose 90 MG/DL (70-110); LIPASE 114 U/L (73-393); Potassium 3.6 mEq/L (3.5-5.1); SGOT/AST 44 U/L (15-37); SGPT/ALT 63 U/L (12-78); SODIUM 137 mEq/L (136-145); Total Protein 7.9 gm/dL (6.4-8.2)
[2017-11-24] MEDS ORDERED: MORPHINE SULFATE 10 MG/ML IV PRN (18:30)
[2017-11-24] MEDS ORDERED: Hydromorphone 1 mg/ml Ampule IV ONE ×2 (19:36→19:50)
[2017-11-24] MEDS ORDERED: DILAUDID 2 MG INJECTION ONE (19:41)
[2017-11-24] MEDS ORDERED: DILAUDID 2 MG INJECTION IV ONE (19:50)
[2017-11-24] MEDS: DILAUDID 1 MG/1ML PCA IV PRN (20:38)
[2017-11-25] MEDS ORDERED: Hydromorphone 1 mg/ml Ampule IV ONE ×3 (00:56→01:30)
[2017-11-25] MEDS ORDERED: DILAUDID 2 MG INJECTION ONE (01:01)
[2017-11-25] MEDS ORDERED: DILAUDID 2 MG INJECTION IV ONE (01:30)
[2017-11-25] MEDS: Lactated Ringers 1,000 ML IV SCH ×3 (02:35→22:58)
[2017-11-25] MEDS: Zofran 4 MG/2 ML VIAL IV PRN ×2 (04:54→08:30)
--- NOTE | 2017-11-25 08:04 | PCM.HP ---
History of Present Illness - Chief Complaint Chief Complaint: Vomiting, Abdominal Pain History of Present Illness: is a 32 year old male who presented as direct admit with severe upper abdominal pain, nausea and vomiting that started yesterday. He has had similar episodes of severe abdominal pain, nausea and vomiting. 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 - Review of Systems Constitutional: No Fever, No Chills Respiratory: No Cough, No Short Of Breath Cardiac: No Chest Pain, No Edema, No Syncope Abdominal/Gastrointestinal: Abdominal Pain, Nausea, Vomiting, No Diarrhea, No Constipation Skin: No Rash All Other Systems: Reviewed and Negative Medications & Allergies Home Medications: Home Medication List Omeprazole 20 MG [Prilosec 20 mg] 20 mg PO DAILY 12/02/13 [History Confirmed ] Ascorbic Acid 500 mg [Vitamin C 500 MG] 500 mg PO DAILY 08/04/15 [History Confirmed 11/24/17] Dicyclomine HCl [Bentyl] 20 mg PO DAILY PRN PRN 08/04/15 [History Confirmed ] Venlafaxine HCl ER 75 mg [Effexor XR 75 MG] 75 mg PO DAILY 08/04/15 [ History Confirmed 11/24/17] Loratadine 10 mg [Claritin 10 mg] 10 mg PO DAILY 01/15/17 [History Confirmed 11/24/17] Allergies/Adverse Reactions: Allergies Allergy/AdvReac Type Severity Reaction Status Date / Time No Known Drug Allergies Allergy Verified 01/15/17 17:05 - Past Medical History Past Medical History: Yes Neurological History: No Pertinent History ENT History: No Pertinent History Cardiac History: No Pertinent History Respiratory History: No Pertinent History Endocrine Medical History: No Pertinent History Musculoskelatal History: No Pertinent History GI Medical History: GERD, Irritable Bowel, Pancreatitis History: No Pertinent History Pyscho-Social History: Depression Male Reproductive Disorders: No Pertinent History Comment: HX OF ABD PAIN - Past Surgical History Past Surgical History: Yes Neuro Surgical History: No Pertinent History Cardiac History: No Pertinent History Respiratory Surgery: No Pertinent History GI Surgical History: Cholecystectomy Genitourinary Surgical Hx: No Pertinent History Musculskeletal Surgical Hx: No Pertinent History Male Surgical History: No Pertinent History Other Surgical History: ERCP - Social History Smoking Status: Never smoker Exposure to second hand smoke: No Alcohol: Occasionally Drug Use: none - Physical Exam Vital Signs: Vital Signs - 24 hr Temp Pulse Resp BP Pulse Ox 11/25/17 07:26 98 F 90 18 128/80 98 11/25/17 04:15 98.2 F 85 16 126/77 93 L 11/25/17 00:10 98.2 F 70 16 121/80 96 11/24/17 20:19 98.2 F 74 16 134/89 98 11/24/17 16:59 98.1 F 81 22 138/96 100 General Appearance: no apparent distress, alert Eye Exam: PERRL/EOMI, eyes nml inspection Respiratory Exam: normal breath sounds, lungs clear, No respiratory distress Cardiovascular Exam: regular rate/rhythm, normal heart sounds, normal peripheral pulses Gastrointestinal/Abdomen Exam: soft, normal bowel sounds, tenderness (upper abdomen), No guarding, No rebound Extremity Exam: normal inspection, normal range of motion, pelvis stable Skin Exam: normal color, warm, dry, No rash Results - Labs Lab/Micro Results: Lab Results-Last 24 Hours 11/24/17 11/24/17 Range/Units 17:31 17:31 WBC 8.6 (4.0-10.5) K/mm3 RBC 4.75 (4.1-5.6) M/mm3 Hgb 14.3 (12.5-18.0) gm/dl Hct 42.6 (42-50) % MCV 89.7 (78-100) fl MCH 30.1 (26-32) pg MCHC 33.6 (32-36) g/dl RDW 12.3 (11.5-14.0) % Plt Count 243 (150-450) K/mm3 MPV 10.0 H (6-9.5) fl Gran % 73.8 H (36.0-66.0) % Lymphocytes % 13.1 L (24.0-44.0) % Monocytes % 11.2 (0.0-12.0) % Eosinophils % 1.7 (0.00-5.0) % Basophils % 0.2 (0.0-0.4) % Basophils # 0.02 (0-0.4) Sodium 137 (136-145) mEq/L Potassium 3.6 (3.5-5.1) mEq/L Chloride 103 (98-107) mEq/L Carbon Dioxide 23.0 (21-32) mEq/L Anion Gap 14.8 (5-15) MEQ/L BUN 6 L (9-20) mg/dL Creatinine 0.83 (0.55-1.30) mg/dl Estimated GFR > 60 ML/MIN Glucose 90 (70-110) MG/DL Calcium 8.6 (8.5-10.1) mg/dL Total Bilirubin 0.50 (0.2-1.0) mg/dL AST 44 H (15-37) U/L ALT 63 (12-78) U/L Alkaline Phosphatase 71 (46-116) U/L Serum Total Protein 7.9 (6.4-8.2) gm/dL Albumin 4.3 (3.4-5.0) g/dL Amylase 51 (25-115) U/L Lipase 114 (73-393) U/L - Radiology Impressions Radiology Exams & Impressions: Radiology Procedures Category Date Time Status ABDOMEN AND PELVIS W CONTRAST [CT] Urgent Exams 11/25/17 08:00 Ordered Assessment/Plan (1) Abdominal pain Current Visit: No Status: Acute Assessment & Plan: continue IV fluids, dilaudid [employer] dose will be increased from 0.2 to 0.4 due to poor pain control. needs ct abd/pelvis. pancareas enzymes are normal, labs are unremarkable. need to r/o ileus/SBO with CT scan. otherwise gutrest and fluids, pain and nausea meds. Code(s): R10.9 - UNSPECIFIED ABDOMINAL PAIN (2) Dehydration Current Visit: No Status: Acute Assessment & Plan: continue IV fluids Code(s): E86.0 - DEHYDRATION (3) Vomiting Current Visit: No Status: Acute Code(s): R11.10 - VOMITING, UNSPECIFIED
[2017-11-25] MEDS ORDERED: PROTONIX 40 MG IV IV SCH (08:15)
[2017-11-25] MEDS ORDERED: BENADRYL 50 MG/ML IV ONE ×2 (08:42→11:29)
[2017-11-25] MEDS ORDERED: DICYCLOMINE HCL 20 MG PO PRN (08:52)
[2017-11-25] MEDS: Pepcid 20 MG VIAL IV SCH ×2 (08:53→20:48)
[2017-11-25] MEDS ORDERED: BENTYL 20 MG PO PRN (08:55)
[2017-11-25] MEDS: Effexor XR 75 MG PO SCH (10:59)
--- NOTE | 2017-11-25 11:53 | XRAY ---
Indication: Abdominal pain, vomiting, and nausea. Multiple contiguous axial images obtained through the abdomen and pelvis using 80 cc of Isovue-370 contrast. Oral contrast also given. Comparison: January 15, 2017. Lung bases again demonstrates minimal bibasilar dependent atelectasis and new left lower lobe subsegmental atelectasis. No effusion. Heart is not enlarged. Contrasted stomach and bowel loops appear nonobstructed. Minimal sigmoid diverticulosis without diverticulitis. There has been interval appendectomy. Stable cholecystectomy. No free fluid/air. There remains scattered small mesenteric nodes with minimal stranding possibly adenitis. No pathologic retroperitoneal lymphadenopathy. Spleen remains enlarged today measuring 14 cm. Remaining liver, pancreas, spleen, adrenal glands, kidneys, ureters, bladder, and aorta appear unremarkable. Osseous structures intact. Impression: 1. Stable scattered small mesenteric nodes with stranding favoring mesenteric adenitis. 2. Status post appendectomy. No complications. 3. Incidental splenomegaly and sigmoid diverticulosis. CTDI 22.78
[2017-11-25] MEDS: Phenergan 25 MG INJ IV PRN ×2 (14:48→20:45)
[2017-11-26 05:55] LABS: BASOPHIL % 0.1 % (0.0-0.4); Basophil (Absolute #) 0.01 (0-0.4); Eosinophil % 1.3 % (0.00-5.0); Granulocyte Absolute (ANC) 5.05 (1.4-6.9); Granulocytes % 64.9 % (36.0-66.0); Hematocrit 37.3 % (42-50); Hemoglobin 12.1 gm/dl (12.5-18.0); Lymphocyte (Absolute #) 1.64 (1.0-4.6); Lymphocytes % 21.1 % (24.0-44.0); Mean Cell Volume 91.6 fl (78-100); Mean Corpuscular Hemoglobin 29.7 pg (26-32); Mean Corpuscular Hgb Concent. 32.4 g/dl (32-36); Mean Platelet Volume 9.7 fl (6-9.5); Monocyte (Absolute #) 0.98 (0.0-1.3); Monocytes % 12.6 % (0.0-12.0); Platelet Count 200 K/mm3 (150-450); Red Blood Count 4.07 M/mm3 (4.1-5.6); Red Cell Distribution Width 12.2 % (11.5-14.0); White Blood Count 7.8 K/mm3 (4.0-10.5)
[2017-11-26] MEDS: Zofran 4 MG/2 ML VIAL IV PRN ×2 (06:19→13:57)
[2017-11-26 06:21] LABS: ALBUMIN 3.5 g/dL (3.4-5.0); ALKALINE PHOSPHATASE 74 U/L (46-116); ANION GAP 11.1 MEQ/L (5-15); BLOOD UREA NITROGEN 7 mg/dL (9-20); CHLORIDE 104 mEq/L (98-107); Calcium 8.4 mg/dL (8.5-10.1); Creatinine 1 0.83 mg/dl (0.55-1.30); EST GLOMERULAR FILTRATION RATE > 60 ML/MIN; Glucose 77 MG/DL (70-110); Potassium 3.4 mEq/L (3.5-5.1); SGOT/AST 36 U/L (15-37); SGPT/ALT 66 U/L (12-78); SODIUM 141 mEq/L (136-145); Total Protein 6.6 gm/dL (6.4-8.2)
[2017-11-26] MEDS: Lactated Ringers 1,000 ML IV SCH ×2 (07:41→16:29)
[2017-11-26] MEDS: Phenergan 25 MG INJ IV PRN (08:35)
[2017-11-26] MEDS: Pepcid 20 MG VIAL IV SCH ×2 (08:39→21:01)
[2017-11-26] MEDS: Effexor XR 75 MG PO SCH (10:22)
[2017-11-26] MEDS: solu-MEDROL 125 MG IV SCH ×3 (11:08→23:41)
[2017-11-26] MEDS: FLAGYL 500 MG IVPB 500 MG/100 ML BAG IV SCH ×2 (11:08→18:19)
[2017-11-26 14:48] LABS: 027 TOX PROD PRESUMPTIVE NEGATIVE (NEGATIVE); TOXIGENIC C. DIFF ORG NEGATIVE (NEGATIVE)
[2017-11-27] MEDS: Lactated Ringers 1,000 ML IV SCH ×3 (01:09→09:11)
[2017-11-27] MEDS: FLAGYL 500 MG IVPB 500 MG/100 ML BAG IV SCH ×2 (01:09→10:33)
[2017-11-27] MEDS: solu-MEDROL 125 MG IV SCH (05:59)
[2017-11-27 06:34] LABS: Basophil (Absolute #) 0 (0-0.4); Eosinophil (Absolute #) 0 (0-0.5); Granulocyte Absolute (ANC) 9.05 (1.4-6.9); Granulocytes % 89.1 % (36.0-66.0); Hematocrit 37.4 % (42-50); Hemoglobin 12.3 gm/dl (12.5-18.0); Lymphocyte (Absolute #) 0.78 (1.0-4.6); Lymphocytes % 7.7 % (24.0-44.0); Mean Cell Volume 90.1 fl (78-100); Mean Corpuscular Hemoglobin 29.6 pg (26-32); Mean Corpuscular Hgb Concent. 32.9 g/dl (32-36); Mean Platelet Volume 9.7 fl (6-9.5); Monocyte (Absolute #) 0.32 (0.0-1.3); Monocytes % 3.2 % (0.0-12.0); Platelet Count 258 K/mm3 (150-450); Red Blood Count 4.15 M/mm3 (4.1-5.6); Red Cell Distribution Width 11.8 % (11.5-14.0); White Blood Count 10.2 K/mm3 (4.0-10.5)
[2017-11-27 06:53] LABS: ALBUMIN 3.5 g/dL (3.4-5.0); ALKALINE PHOSPHATASE 73 U/L (46-116); AMYLASE 58 U/L (25-115); ANION GAP 13.9 MEQ/L (5-15); BLOOD UREA NITROGEN 9 mg/dL (9-20); CHLORIDE 104 mEq/L (98-107); Carbon Dioxide 26.9 mEq/L (21-32); Creatinine 1 0.87 mg/dl (0.55-1.30); EST GLOMERULAR FILTRATION RATE > 60 ML/MIN; Glucose 181 MG/DL (70-110); LIPASE 164 U/L (73-393); Potassium 3.9 mEq/L (3.5-5.1); SGOT/AST 22 U/L (15-37); SGPT/ALT 57 U/L (12-78); SODIUM 141 mEq/L (136-145)
[2017-11-27 07:08] VITALS: BP 130/74; PULSE 90; O2SAT 97
[2017-11-27] MEDS: DILAUDID 1 MG/1ML PCA IV PRN ×2 (08:51→10:52)
[2017-11-27] MEDS: Effexor XR 75 MG PO SCH (09:08)
[2017-11-27] MEDS: Pepcid 20 MG VIAL IV SCH (09:08)
--- NOTE | 2017-11-27 09:44 | PCM.DCORD ---
- Discharge Discharge Date: 11/27/17 Disposition: Home, Self-Care Prescriptions: New Prednisone 10 mg [Deltasone 10 mg] 10 mg PO DAILY 9 Days #18 tablet Metronidazole 500 mg [Flagyl 500 MG] 500 mg PO TID #21 tablet Hydrocodone Bit/Acetaminophen [[place] 5-325 Tablet] 1 each PO QIDPRN PRN #20 tablet MDD 4 PRN Reason: Pain Continue Omeprazole 20 MG [Prilosec 20 mg] 20 mg PO DAILY Venlafaxine HCl ER 75 mg [Effexor XR 75 MG] 75 mg PO DAILY Dicyclomine HCl [Bentyl] 20 mg PO DAILY PRN PRN PRN Reason: Diarrhea Ascorbic Acid 500 mg [Vitamin C 500 MG] 500 mg PO DAILY Loratadine 10 mg [Claritin 10 mg] 10 mg PO DAILY Follow up with: BOY EMMANUEL MD [Primary Care Provider] - 1 Week Forms: Patient Portal Information
--- NOTE | 2017-11-27 10:07 | PCM.DCORD ---
- Discharge Discharge Date: 11/27/17 Prescriptions: New Prednisone 10 mg [Deltasone 10 mg] 10 mg PO DAILY 9 Days #18 tablet Metronidazole 500 mg [Flagyl 500 MG] 500 mg PO TID #21 tablet Hydrocodone Bit/Acetaminophen [[place] 5-325 Tablet] 1 each PO QIDPRN PRN #20 tablet MDD 4 PRN Reason: Pain Continue Omeprazole 20 MG [Prilosec 20 mg] 20 mg PO DAILY Venlafaxine HCl ER 75 mg [Effexor XR 75 MG] 75 mg PO DAILY Dicyclomine HCl [Bentyl] 20 mg PO DAILY PRN PRN PRN Reason: Diarrhea Ascorbic Acid 500 mg [Vitamin C 500 MG] 500 mg PO DAILY Loratadine 10 mg [Claritin 10 mg] 10 mg PO DAILY Follow up with: BOY EMMANUEL MD [Primary Care Provider] - 1 Week Forms: Patient Portal Information
--- NOTE | 2017-11-29 15:07 | DS ---
DISCHARGE DIAGNOSIS: ACUTE COLITIS. HOSPITAL COURSE: The patient is a 32 year-old white male patient who presented to the emergency room with complaints of abdominal pain severe in nature. Evaluation including CT scan only showed what they considered to be mesenteric adenitis. The patient was placed on NANOSYSTEMS ENGINEER pump and placed at gut rest and given IV fluids. He was seen on 11/26/2017 and placed on IV Solu-Medrol and IV Flagyl. The patient reported by the next morning he was feeling much better and requesting to go home. He had some toast and was taking clear liquids well. He was therefore felt to be ready for discharge home at that time. The patient's labs on the day of discharge showed glucose of 181, BUN 9, creatinine 0.87. Electrolytes, liver enzymes, amylase and lipase were all normal. White blood cell count was 10,200, hemoglobin 12.3, PLT count 258,000. The patient will be discharged home on Flagyl 500 mg t.i.d. for one week and prednisone 30 mg for three days, 20 for three days and 10 for three days. He is also asked to see Dr. Stuart in the office in the next coming week or so. There was discussion about the need for colonoscopy which he will pursue with Dr. Stuart. The patient was instructed to call us if he has any further problems in the interim. He was also given a prescription for [place] 5/325 mg #20 to take on four times a day basis for pain in the interim.
== END 2017-11-27 10:40 | disposition home or self-care (01) ==
LOC: MED SURG 16:51
PROVIDERS: ADMIT Family Medicine; ATTEND Family Medicine
DX: K52.9 Noninfective gastroenteritis and colitis, unspecified (principal); E86.0 Dehydration; R11.2 Nausea with vomiting, unspecified; K92.1 Melena
CPT/HCPCS: 36415; 74177; 80053; 82150; 82272; 83690; 85025; 85652; 87493; G0378; J1170; J1200; J2270; J2405; J2550; J2930; A9270-GY

== ENCOUNTER 2019-09-18 18:45 | Emergency (ER) | payer OTHER ==
--- NOTE | 2019-09-18 18:54 | ERPHSYRPT ---
- History of Present Illness Time Seen by Provider: 09/18/19 18:54 Source: patient Exam Limitations: no limitations Physician History: 34 y/o white male injured mid lower back lifting a morbidly obese female weighing over 350 lbs. he suddenly is experiencing bilat legs "on fire". not improving Timing/Duration: today Method of Injury: lifting Quality: burning, radiating, sharp Back Pain Location: T-spine, lumbar spine Back Pain Radiation: upper legs Severity of Pain-Max: moderate Severity of Pain-Current: moderate Associated Symptoms: lower back pain, muscle spasms, No urinary incontinence, No problems urinating, No numbness in legs/feet Previous symptoms: no prior history Allergies/Adverse Reactions: No Known Drug Allergies Allergy (Verified 09/18/19 18:56) Home Medications: Omeprazole 20 MG [Prilosec 20 mg] 20 mg PO DAILY 12/02/13 [History] Ascorbic Acid 500 mg [Vitamin C 500 MG] 500 mg PO DAILY 08/04/15 [History] Venlafaxine HCl ER 75 mg [Effexor XR 75 MG] 75 mg PO DAILY 08/04/15 [ History] Loratadine 10 mg [Claritin 10 mg] 10 mg PO DAILY 01/15/17 [History] Mesalamine [Apriso] 1.125 gm PO DAILY 09/18/19 [History] Hx Tetanus, Diphtheria Vaccination/Date Given: No Hx Influenza Vaccination/Date Given: Yes Hx Pneumococcal Vaccination/Date Given: No - Review of Systems Constitutional: No Symptoms Eyes: No Symptoms Ears, Nose, & Throat: No Symptoms Respiratory: No Symptoms Cardiac: No Symptoms Abdominal/Gastrointestinal: No Symptoms Genitourinary Symptoms: No Symptoms Musculoskeletal: Back Pain Neurological: No Symptoms Psychological: No Symptoms Endocrine: No Symptoms Hematologic/Lymphatic: No Symptoms Immunological/Allergic: No Symptoms All Other Systems: Reviewed and Negative - Past Medical History Pertinent Past Medical History: Yes Neurological History: No Pertinent History ENT History: No Pertinent History Cardiac History: No Pertinent History Respiratory History: No Pertinent History Endocrine Medical History: No Pertinent History Musculoskeletal History: No Pertinent History GI Medical History: GERD, Irritable Bowel, Pancreatitis History: No Pertinent History Psycho-Social History: Depression Male Reproductive Disorders: No Pertinent History Other Medical History: HX OF ABD PAIN - Past Surgical History Past Surgical History: Yes Neuro Surgical History: No Pertinent History Cardiac: No Pertinent History Respiratory: No Pertinent History Gastrointestinal: Cholecystectomy Genitourinary: No Pertinent History Musculoskeletal: No Pertinent History Male Surgical History: No Pertinent History Other Surgical History: ERCP - Social History Smoking Status: Never smoker Exposure to second hand smoke: No Drug Use: none Patient Lives Alone: Yes - Nursing Vital Signs Nursing Vital Signs: Initial Vital Signs Temperature 98.4 F 09/18/19 18:47 Pulse Rate 57 L 09/18/19 18:47 Blood Pressure 140/109 09/18/19 18:47 O2 Sat by Pulse Oximetry 99 09/18/19 18:47 Pain Scale Pain Intensity [Lower 7 Posterior Medial Back] Pain Intensity 8 - Physical Exam General Appearance: moderate distress, alert, anxiety Eye Exam: PERRL/EOMI, eyes nml inspection Ears, Nose, Throat Exam: normal ENT inspection, moist mucous membranes Neck Exam: normal inspection, non-tender, supple, full range of motion Respiratory Exam: normal breath sounds, lungs clear, airway intact, No chest tenderness, No respiratory distress Cardiovascular Exam: regular rate/rhythm, normal heart sounds, normal peripheral pulses Gastrointestinal Exam: No tenderness Rectal Exam: not done Back Exam: normal inspection, vertebral tenderness (thoracolumbar), decreased range of motion, muscle spasm Extremity Exam: normal inspection, normal range of motion, pelvis stable Neurologic Exam: alert, oriented x 3, cooperative, burner hand II-XII nml as tested, normal mood/affect, nml cerebellar function Skin Exam: normal color, dry Lymphatic Exam: No adenopathy SpO2 Interpretation: normal O2 Delivery: Room Air - Course Nursing assessment & vital signs reviewed: Yes Ordered Tests: Active Orders 24 hr Category Date Time Status IV Insertion STAT Care 09/18/19 19:18 Active LUMBAR SPINE W/O [CT] Stat Exams 09/18/19 19:18 Ordered THORACIC SPINE W/O CONTRAST [CT] Stat Exams 09/18/19 19:18 Ordered CBC W DIFF Stat Lab 09/18/19 19:35 Completed CMP Stat Lab 09/18/19 19:35 Completed UA W/RFX UR CULTURE Stat Lab 09/18/19 19:37 Completed Urine Triage Profile Stat Lab 09/18/19 19:37 Completed Medication Summary Discontinued Medications Generic Name Dose Route Start Last Admin Trade Name Freq PRN Reason Stop Dose Admin Hydromorphone HCl 1 mg 09/18/19 19:18 09/18/19 19:33 Hydromorphone 1 Mg/Ml Ampule IV 09/18/19 19:19 1 mg STAT ONE Administration Hydromorphone HCl 1 mg 09/18/19 20:37 09/18/19 20:47 Hydromorphone 1 Mg/Ml Ampule IV 09/18/19 20:38 1 mg STAT ONE Administration Sodium Chloride 1,000 mls @ 999 mls/hr 09/18/19 19:18 09/18/19 19:28 Sodium Chloride 0.9% 1000 Ml IV 09/18/19 20:18 999 mls/hr .Q1H1M STA Administration Lorazepam 1 mg 09/18/19 19:20 09/18/19 19:32 Ativan 2 Mg/1 Ml Vial IV 09/18/19 19:21 1 mg STAT ONE Administration Lorazepam 1 mg 09/18/19 20:37 09/18/19 20:15 Ativan 2 Mg/1 Ml Vial IV 09/18/19 20:38 1 mg STAT ONE Administration Methylprednisolone Sodium Succinate 125 mg 09/18/19 19:20 09/18/19 19:33 Solu-Medrol 125 Mg IV 09/18/19 19:21 125 mg STAT ONE Administration Ondansetron HCl 4 mg 09/18/19 19:18 09/18/19 19:32 Zofran 4 Mg/2 Ml Vial IV 09/18/19 19:19 4 mg STAT ONE Administration Lab/Rad Data: Laboratory Result Diagrams 09/18/19 19:35 09/18/19 19:35 Laboratory Results 09/18/19 09/18/19 09/18/19 Range/Units 19:37 19:37 19:35 WBC (4.0-10.5) K/mm3 RBC (4.1-5.6) M/mm3 Hgb (12.5-18.0) gm/dl Hct (42-50) % MCV (78-100) fl MCH (26-32) pg MCHC (32-36) g/dl RDW (11.5-14.0) % Plt Count (150-450) K/mm3 MPV (6-9.5) fl Gran % (36.0-66.0) % Eos # (Auto) (0-0.5) Absolute Lymphs (auto) (1.0-4.6) Absolute Monos (auto) (0.0-1.3) Lymphocytes % (24.0-44.0) % Monocytes % (0.0-12.0) % Eosinophils % (0.00-5.0) % Basophils % (0.0-0.4) % Absolute Granulocytes (1.4-6.9) Basophils # (0-0.4) Sodium 142 (137-145) mmol/L Potassium 4.2 (3.5-5.1) mmol/L Chloride 103 (98-107) mmol/L Carbon Dioxide 28 (22-30) mmol/L Anion Gap 15.7 H (5-15) MEQ/L BUN 14 (9-20) mg/dL Creatinine 0.88 (0.66-1.25) mg/dL Estimated GFR > 60.0 ML/MIN Glucose 80 (74-106) mg/dL Calcium 9.5 (8.4-10.2) mg/dL Total Bilirubin 0.40 (0.2-1.3) mg/dL AST 29 (17-59) U/L ALT 31 (0-50) U/L Alkaline Phosphatase 64 (38-126) U/L Serum Total Protein 8.4 H (6.3-8.2) g/dL Albumin 4.9 (3.5-5.0) g/dL Urine Color COLORLESS (YELLOW) Urine Appearance CLEAR (CLEAR) Urine pH 6.0 (5-6) Ur Specific [place] 1.004 (1.005-1.025) Urine Protein NEGATIVE (Negative) Urine Ketones NEGATIVE (NEGATIVE) Urine Blood NEGATIVE (0-5) Shaji/ul Urine Nitrite NEGATIVE (NEGATIVE) Urine Bilirubin NEGATIVE (NEGATIVE) Urine Urobilinogen NEGATIVE (0-1) mg/dL Ur Leukocyte Esterase NEGATIVE (NEGATIVE) Urine WBC (Auto) NONE (0-5) /HPF Urine RBC (Auto) NONE (0-2) /HPF U Epithel Cells (Auto) NONE (FEW) /HPF Urine Bacteria (Auto) NONE SEEN (NEGATIVE) /HPF Urine Culture Reflexed NO (NO) Urine Glucose NEGATIVE (NEGATIVE) mg/dL Urine Opiates Level NEGATIVE (NEGATIVE) Ur Methadone NEGATIVE (NEGATIVE) Urine Barbiturates NEGATIVE (NEGATIVE) Ur Phencyclidine (PCP) NEGATIVE (NEGATIVE) Urine Amphetamine NEGATIVE (NEGATIVE) U Benzodiazepine Level NEGATIVE (NEGATIVE) Urine Cocaine NEGATIVE (NEGATIVE) Urine Marijuana (THC) NEGATIVE (NEGATIVE) 09/18/19 Range/Units 19:35 WBC 7.8 (4.0-10.5) K/mm3 RBC 4.51 (4.1-5.6) M/mm3 Hgb 14.4 (12.5-18.0) gm/dl Hct 42.4 (42-50) % MCV 94.0 (78-100) fl MCH 31.9 (26-32) pg MCHC 34.0 (32-36) g/dl RDW 12.2 (11.5-14.0) % Plt Count 332 (150-450) K/mm3 MPV 10.4 H (6-9.5) fl Gran % 55.5 (36.0-66.0) % Eos # (Auto) 0.12 (0-0.5) Absolute Lymphs (auto) 2.41 (1.0-4.6) Absolute Monos (auto) 0.94 (0.0-1.3) Lymphocytes % 30.7 (24.0-44.0) % Monocytes % 12.0 (0.0-12.0) % Eosinophils % 1.5 (0.00-5.0) % Basophils % 0.3 (0.0-0.4) % Absolute Granulocytes 4.35 (1.4-6.9) Basophils # 0.02 (0-0.4) Sodium (137-145) mmol/L Potassium (3.5-5.1) mmol/L Chloride (98-107) mmol/L Carbon Dioxide (22-30) mmol/L Anion Gap (5-15) MEQ/L BUN (9-20) mg/dL Creatinine (0.66-1.25) mg/dL Estimated GFR ML/MIN Glucose (74-106) mg/dL Calcium (8.4-10.2) mg/dL Total Bilirubin (0.2-1.3) mg/dL AST (17-59) U/L ALT (0-50) U/L Alkaline Phosphatase (38-126) U/L Serum Total Protein (6.3-8.2) g/dL Albumin (3.5-5.0) g/dL Urine Color (YELLOW) Urine Appearance (CLEAR) Urine pH (5-6) Ur Specific [place] (1.005-1.025) Urine Protein (Negative) Urine Ketones (NEGATIVE) Urine Blood (0-5) Shaji/ul Urine Nitrite (NEGATIVE) Urine Bilirubin (NEGATIVE) Urine Urobilinogen (0-1) mg/dL Ur Leukocyte Esterase (NEGATIVE) Urine WBC (Auto) (0-5) /HPF Urine RBC (Auto) (0-2) /HPF U Epithel Cells (Auto) (FEW) /HPF Urine Bacteria (Auto) (NEGATIVE) /HPF Urine Culture Reflexed (NO) Urine Glucose (NEGATIVE) mg/dL Urine Opiates Level (NEGATIVE) Ur Methadone (NEGATIVE) Urine Barbiturates (NEGATIVE) Ur Phencyclidine (PCP) (NEGATIVE) Urine Amphetamine (NEGATIVE) U Benzodiazepine Level (NEGATIVE) Urine Cocaine (NEGATIVE) Urine Marijuana (THC) (NEGATIVE) - Progress Progress: improved Progress Note: 09/18/19 21:43 ct thoracic and lumbar spine-minimal l5-s1 bulging disc. no acute fx or subluxation. pt states he is feeling better. wants to go home. will give take home meds over night then rx to his pharmacy. Counseled pt/family regarding: lab results, diagnosis, need for follow-up, rad results - Departure Departure Disposition: Home Clinical Impression: Acute back pain Condition: Stable Critical Care Time: No Referrals: BOY WYNNE MD [Primary Care Provider] - Additional Instructions: follow up with dr. wynne for further management. return to ED if pain worsens. Forms: Work/School Release Form Prescriptions: Oxycodone HCl/Acetaminophen [Percocet 5-325 mg Tablet] 1 each PO Q6H PRN PRN # 12 tablet MDD 4 PRN Reason: Pain Diazepam [Valium] 2 mg PO TID PRN #8 tablet MDD 3 PRN Reason: Muscle Spasms Prednisone 5 mg [Deltasone 5 mg] 5 mg PO TID #12 tablet
[2019-09-18] MEDS ORDERED: Sodium Chloride 0.9% 1000 ML 1,000 ML IV STA (19:18)
[2019-09-18] MEDS ORDERED: Zofran 4 MG/2 ML VIAL IV ONE (19:18)
[2019-09-18] MEDS ORDERED: Hydromorphone 1 mg/ml Ampule IV ONE ×2 (19:18→20:37)
[2019-09-18] MEDS ORDERED: Ativan 2 MG/1 ML VIAL IV ONE ×3 (19:20→22:08)
[2019-09-18] MEDS ORDERED: solu-MEDROL 125 MG IV ONE (19:20)
[2019-09-18 19:39] LABS: Absolute Neutrophil Ct (ANC) 4.35 (1.4-6.9); BASOPHIL % 0.3 % (0.0-0.4); Basophil (Absolute #) 0.02 (0-0.4); Eosinophil % 1.5 % (0.00-5.0); Eosinophil (Absolute #) 0.12 (0-0.5); Hematocrit 42.4 % (42-50); Hemoglobin 14.4 gm/dl (12.5-18.0); Lymphocyte (Absolute #) 2.41 (1.0-4.6); Lymphocytes % 30.7 % (24.0-44.0); Mean Corpuscular Hemoglobin 31.9 pg (26-32); Mean Platelet Volume 10.4 fl (6-9.5); Monocyte (Absolute #) 0.94 (0.0-1.3); Neutrophil % 55.5 % (36.0-66.0); Platelet Count 332 K/mm3 (150-450); Red Blood Count 4.51 M/mm3 (4.1-5.6); Red Cell Distribution Width 12.2 % (11.5-14.0); White Blood Count 7.8 K/mm3 (4.0-10.5)
[2019-09-18 19:49] LABS: Appearance CLEAR (CLEAR); Bilirubin NEGATIVE (NEGATIVE); Blood NEGATIVE Ery/ul (0-5); Glucose NEGATIVE (NEGATIVE); Ketones NEGATIVE (NEGATIVE); Leukocyte Esterase NEGATIVE (NEGATIVE); Nitrite NEGATIVE (NEGATIVE); Protein,Urine Dip NEGATIVE (Negative); Specific Gravity 1.004 (1.005-1.025); Urobilinogen NEGATIVE mg/dL (0-1)
[2019-09-18 19:50] LABS: Bacteria NONE SEEN /HPF (NEGATIVE)
[2019-09-18 19:50] LABS: ALBUMIN 4.9 g/dL (3.5-5.0); ALKALINE PHOSPHATASE 64 U/L (38-126); ANION GAP 15.7 MEQ/L (5-15); BLOOD UREA NITROGEN 14 mg/dL (9-20); CHLORIDE 103 mmol/L (98-107); Calcium 9.5 mg/dL (8.4-10.2); Carbon Dioxide 28 mmol/L (22-30); Creatinine 1 0.88 mg/dL (0.66-1.25); Glucose 80 mg/dL (74-106); Potassium 4.2 mmol/L (3.5-5.1); SGOT/AST 29 U/L (17-59); SGPT/ALT 31 U/L (0-50); SODIUM 142 mmol/L (137-145); Total Protein 8.4 g/dL (6.3-8.2)
[2019-09-18 20:01] LABS: Amphetamine,Urine NEGATIVE (NEGATIVE); Barbiturate,Urine NEGATIVE (NEGATIVE); Benzodiazepine,Urine NEGATIVE (NEGATIVE); Cocaine,Urine NEGATIVE (NEGATIVE); Methadone,Urine NEGATIVE (NEGATIVE); Opiate,Urine NEGATIVE (NEGATIVE); PCP,Urine NEGATIVE (NEGATIVE); THC,Urine NEGATIVE (NEGATIVE)
[2019-09-18] MEDS ORDERED: PERCOCET TABLET 5/325MG PO STA (21:53)
[2019-09-18] MEDS ORDERED: DELTASONE 20 MG PO ONE (21:54)
[2019-09-18 22:40] VITALS: BP 147/98; PULSE 76; O2SAT 97
--- NOTE | 2019-09-19 09:14 | XRAY ---
Indication: Back pain following lifting injury. Multiple contiguous axial images obtained through the thoracic spine. Sagittal and coronal reformatted images obtained. Comparison: None Axial images negative for acute fracture, suspicious bony lesions, or spinal canal stenosis. Sagittal and coronal reformatted images demonstrates normal alignment with vertebral body heights/disc spaces maintained. Incidental tiny T8-T11 Schmorl nodes. No acute compression fracture or subluxation. Visualized noncontrasted soft tissues are unremarkable. Impression: 1. T8-T11 Schmorl nodes. 2. Remaining CT thoracic spine is negative. CT DI 128.23
--- NOTE | 2019-09-19 09:18 | XRAY ---
Indication: Back pain following lifting injury. Multiple contiguous axial images obtained through the lumbar spine. Sagittal and coronal reformatted images obtained. Comparison: CT abdomen/pelvis November 25, 2017 Axial images negative for acute fracture, suspicious bony lesions, or spinal canal stenosis. Stable minimal broad-based disc bulge at L4-S1 levels. Facets are symmetric. Sagittal and coronal reformatted images demonstrates normal alignment with stable minimal L5-S1 disc space narrowing. Remaining vertebral body heights/disc spaces maintained. No acute compression fracture or subluxation. Visualized noncontrasted soft tissues are unremarkable again with incidental right lower quadrant suture material. Impression: 1. Stable minimal L4-S1 degenerative disc bulge. 2. Remaining CT lumbar spine is negative. CT DI 109.51
== END 2019-09-18 22:33 | disposition home or self-care (01) ==
LOC: ED 18:45
DX: M54.6 Pain in thoracic spine (principal); M54.5 Low back pain; X50.0XXA Overexertion from strenuous movement or load, initial encounter; Y93.89 Activity, other specified; Y92.89 Other specified places as the place of occurrence of the external cause; M62.838 Other muscle spasm
CPT/HCPCS: 36000; 36415; 72128; 72131; 80053; 80307; 81001; 85025; 96374; 96375; 96376; 99284; J1170; J2060; J2405; J2930; A9270-GY

== ENCOUNTER 2019-10-15 03:26 | Observation (INO) | payer OTHER ==
--- NOTE | 2019-10-15 03:39 | ERPHSYRPT ---
- History of Present Illness Time Seen by Provider: 10/15/19 03:38 Historian: patient Exam Limitations: no limitations Physician History: 34 years old with history of Crohn's disease presented to the ER with intermittent abdominal pain but off and on diarrhea for the last 4 days and for the last 5 hours he is having multiple episodes of loose watery diarrhea but no hematochezia associated with moderate to severe generalized abdominal cramping with some radiation to left lower quadrant. Patient reports partial relief of pain with bowel movement and aggravated with palpation. He also has nausea and vomited times once. Denies any fever or chills. easily finish course of Z-Tom. Timing/Duration: today Activities at Onset: rest Quality: cramping, sharpness Abdominal Pain Onset Location: epigastric Pain Radiation: LLQ, back Severity of Pain-Max: moderate Severity of Pain-Current: moderate Modifying Factors: Improves With: movement Associated Symptoms: diarrhea, nausea, vomiting Previous symptoms: same symptoms as today Allergies/Adverse Reactions: No Known Drug Allergies Allergy (Verified 09/18/19 18:56) Home Medications: Omeprazole 20 MG [Prilosec 20 mg] 20 mg PO DAILY 12/02/13 [History] Ascorbic Acid 500 mg [Vitamin C 500 MG] 500 mg PO DAILY 08/04/15 [History] Venlafaxine HCl ER 75 mg [Effexor XR 75 MG] 75 mg PO DAILY 08/04/15 [ History] Loratadine 10 mg [Claritin 10 mg] 10 mg PO DAILY 01/15/17 [History] Mesalamine [Apriso] 1.125 gm PO DAILY 09/18/19 [History] Hx Tetanus, Diphtheria Vaccination/Date Given: No Hx Influenza Vaccination/Date Given: Yes Hx Pneumococcal Vaccination/Date Given: No - Review of Systems Constitutional: Fatigue, Malaise Eyes: No Symptoms Ears, Nose, & Throat: No Symptoms Respiratory: No Symptoms Cardiac: No Symptoms Abdominal/Gastrointestinal: Abdominal Pain, Nausea, Vomiting, Diarrhea Genitourinary Symptoms: No Symptoms Musculoskeletal: No Symptoms Skin: No Symptoms Neurological: No Symptoms Psychological: No Symptoms Endocrine: No Symptoms Hematologic/Lymphatic: No Symptoms Immunological/Allergic: No Symptoms - Past Medical History Pertinent Past Medical History: Yes Neurological History: No Pertinent History ENT History: No Pertinent History Cardiac History: No Pertinent History Respiratory History: No Pertinent History Endocrine Medical History: No Pertinent History Musculoskeletal History: No Pertinent History GI Medical History: GERD, Irritable Bowel, Pancreatitis History: No Pertinent History Psycho-Social History: Depression Male Reproductive Disorders: No Pertinent History Other Medical History: HX OF ABD PAIN - Past Surgical History Past Surgical History: Yes Neuro Surgical History: No Pertinent History Cardiac: No Pertinent History Respiratory: No Pertinent History Gastrointestinal: Cholecystectomy Genitourinary: No Pertinent History Musculoskeletal: No Pertinent History Male Surgical History: No Pertinent History Other Surgical History: ERCP - Social History Smoking Status: Never smoker Exposure to second hand smoke: No Drug Use: none Patient Lives Alone: Yes - Nursing Vital Signs Nursing Vital Signs: Initial Vital Signs Temperature 98.7 F 10/15/19 03:29 Pulse Rate 67 10/15/19 03:29 Respiratory Rate 20 10/15/19 03:29 Blood Pressure 138/89 10/15/19 03:29 O2 Sat by Pulse Oximetry 100 10/15/19 03:29 Pain Scale Pain Intensity 7 - Physical Exam General Appearance: mild distress Eye Exam: PERRL/EOMI, eyes nml inspection, No scleral icterus Ears, Nose, Throat Exam: normal ENT inspection, TMs normal, pharynx normal Neck Exam: normal inspection, non-tender, supple, full range of motion Respiratory Exam: normal breath sounds, lungs clear, respiratory distress Cardiovascular Exam: regular rate/rhythm, normal heart sounds Gastrointestinal/Abdomen Exam: soft, tenderness (generalized), guarding, No distention Back Exam: normal inspection, No CVA tenderness Extremity Exam: normal inspection Neurologic Exam: alert, oriented x 3, cooperative Skin Exam: normal color SpO2 Interpretation: normal O2 Delivery: Room Air Ordered Tests: Active Orders 24 hr Category Date Time Status IV Insertion STAT Care 10/15/19 03:49 Active ABDOMEN AND PELVIS W CONTRAST [CT] Stat Exams 10/15/19 03:51 Taken AMYLASE Stat Lab 10/15/19 04:00 Completed CBC W DIFF Stat Lab 10/15/19 04:00 Completed CMP Stat Lab 10/15/19 04:00 Completed LIPASE Stat Lab 10/15/19 04:00 Completed Transfer Order Routine Transfer 10/15/19 Ordered Medication Summary Discontinued Medications Generic Name Dose Route Start Last Admin Trade Name Freq PRN Reason Stop Dose Admin Hydromorphone HCl 0.5 mg 10/15/19 03:49 10/15/19 04:06 Hydromorphone 1 Mg/Ml Ampule IV 10/15/19 03:50 0.5 mg STAT ONE Administration Hydromorphone HCl Confirm 10/15/19 03:55 Hydromorphone 1 Mg/Ml Ampule Administered 10/15/19 03:56 Dose 1 mg .ROUTE .STK-MED ONE Hydromorphone HCl Confirm 10/15/19 04:47 Hydromorphone 1 Mg/Ml Ampule Administered 10/15/19 04:48 Dose 1 mg .ROUTE .STK-MED ONE Hydromorphone HCl 0.5 mg 10/15/19 04:51 10/15/19 05:00 Hydromorphone 1 Mg/Ml Ampule IV 10/15/19 04:52 0.5 mg STAT ONE Administration Sodium Chloride 1,000 mls @ 999 mls/hr 10/15/19 03:49 10/15/19 06:06 Sodium Chloride 0.9% 1000 Ml IV 10/15/19 04:49 Infused .Q1H1M STA Infusion Sodium Chloride Confirm 10/15/19 03:55 Sodium Chloride 0.9% 1000 Ml Administered 10/15/19 03:56 Dose 1,000 mls @ ud .ROUTE .STK-MED ONE Methylprednisolone Sodium Succinate 125 mg 10/15/19 03:56 10/15/19 04:12 Solu-Medrol 125 Mg IV 10/15/19 03:57 125 mg STAT ONE Administration Methylprednisolone Sodium Succinate Confirm 10/15/19 03:58 Solu-Medrol 125 Mg Administered 10/15/19 03:59 Dose 125 mg .ROUTE .STK-MED ONE Morphine Sulfate Confirm 10/15/19 05:25 Morphine Sulfate 4 Mg Inj Administered 10/15/19 05:26 Dose 4 mg .ROUTE .STK-MED ONE Morphine Sulfate 4 mg 10/15/19 06:28 10/15/19 06:33 Morphine Sulfate 4 Mg Inj IV 10/15/19 06:29 4 mg STAT ONE Administration Ondansetron HCl 4 mg 10/15/19 03:49 10/15/19 04:02 Zofran 4 Mg/2 Ml Vial IV 10/15/19 03:50 4 mg STAT ONE Administration Ondansetron HCl Confirm 10/15/19 03:53 Zofran 4 Mg/2 Ml Vial Administered 10/15/19 03:54 Dose 4 mg .ROUTE .STK-MED ONE Lab/Rad Data: Laboratory Result Diagrams 10/15/19 04:00 Laboratory Results 10/15/19 10/15/19 Range/Units 04:00 04:00 WBC 8.9 (4.0-10.5) K/mm3 RBC 4.36 (4.1-5.6) M/mm3 Hgb 13.6 (12.5-18.0) gm/dl Hct 40.0 L (42-50) % MCV 91.7 (78-100) fl MCH 31.2 (26-32) pg MCHC 34.0 (32-36) g/dl RDW 12.2 (11.5-14.0) % Plt Count 246 (150-450) K/mm3 MPV 9.6 H (6-9.5) fl Gran % 75.2 H (36.0-66.0) % Eos # (Auto) 0.12 (0-0.5) Absolute Lymphs (auto) 1.26 (1.0-4.6) Absolute Monos (auto) 0.82 (0.0-1.3) Lymphocytes % 14.1 L (24.0-44.0) % Monocytes % 9.2 (0.0-12.0) % Eosinophils % 1.3 (0.00-5.0) % Basophils % 0.2 (0.0-0.4) % Absolute Granulocytes 6.69 (1.4-6.9) Basophils # 0.02 (0-0.4) 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 Patient has multiple episodes of diarrhea while in the ER. Has normal white count, grossly unremarkable chemistries. CT showed fluid-filled loops of small and large bowel but no obstruction or colitis. GI panel is pending. Patient is given multiple doses of pain medication and fluid but still having significant pain. Discussed with Dr. Walker and patient is being admitted for IV hydration and pain control. 10/15/19 06:36 Discussed with : Mikey Will see patient in: hospital (observation) Counseled pt/family regarding: lab results, diagnosis, need for follow-up, rad results - Departure Departure Disposition: Home, Observation Clinical Impression: Gastroenteritis Abdominal pain Qualifiers: Abdominal location: generalized Qualified Code(s): R10.84 - Generalized abdominal pain Condition: Stable Critical Care Time: No Referrals: BOY EMMANUEL MD [Primary Care Provider] -
[2019-10-15] MEDS ORDERED: Hydromorphone 1 mg/ml Ampule IV ONE ×2 (03:49→04:51)
[2019-10-15] MEDS ORDERED: Sodium Chloride 0.9% 1000 ML 1,000 ML IV STA (03:49)
[2019-10-15] MEDS ORDERED: Zofran 4 MG/2 ML VIAL IV ONE (03:49)
[2019-10-15] MEDS ORDERED: Zofran 4 MG/2 ML VIAL ONE (03:53)
[2019-10-15] MEDS ORDERED: Sodium Chloride 0.9% 1000 ML 1,000 ML ONE (03:55)
[2019-10-15] MEDS ORDERED: Hydromorphone 1 mg/ml Ampule ONE ×2 (03:55→04:47)
[2019-10-15] MEDS ORDERED: solu-MEDROL 125 MG IV ONE (03:56)
[2019-10-15] MEDS ORDERED: solu-MEDROL 125 MG ONE (03:58)
[2019-10-15 04:09] LABS: Absolute Neutrophil Ct (ANC) 6.69 (1.4-6.9); BASOPHIL % 0.2 % (0.0-0.4); Basophil (Absolute #) 0.02 (0-0.4); Eosinophil % 1.3 % (0.00-5.0); Eosinophil (Absolute #) 0.12 (0-0.5); Hemoglobin 13.6 gm/dl (12.5-18.0); Lymphocyte (Absolute #) 1.26 (1.0-4.6); Lymphocytes % 14.1 % (24.0-44.0); Mean Cell Volume 91.7 fl (78-100); Mean Corpuscular Hemoglobin 31.2 pg (26-32); Mean Platelet Volume 9.6 fl (6-9.5); Monocyte (Absolute #) 0.82 (0.0-1.3); Monocytes % 9.2 % (0.0-12.0); Neutrophil % 75.2 % (36.0-66.0); Platelet Count 246 K/mm3 (150-450); Red Blood Count 4.36 M/mm3 (4.1-5.6); Red Cell Distribution Width 12.2 % (11.5-14.0); White Blood Count 8.9 K/mm3 (4.0-10.5)
[2019-10-15] MEDS ORDERED: MORPHINE SULFATE 4 MG INJ ONE (05:25)
[2019-10-15] MEDS ORDERED: MORPHINE SULFATE 4 MG INJ IV ONE (06:28)
[2019-10-15] MEDS ORDERED: MORPHINE SULFATE 4 MG INJ IV PRN (07:13)
[2019-10-15 07:37] LABS: 027 TOX PROD PRESUMPTIVE NEGATIVE (NEGATIVE); TOXIGENIC C. DIFF ORG NEGATIVE (NEGATIVE)
[2019-10-15] MEDS: Sodium Chloride 0.9% W/ 20 mEq KCl/LITER 1,000 ML IV SCH ×2 (07:49→18:40)
[2019-10-15] MEDS: Zofran 4 MG/2 ML VIAL IV PRN (08:20)
[2019-10-15] MEDS ORDERED: Levofloxacin 500MG/100ML D5W 500 MG/100 ML BAG IV STA (08:22)
[2019-10-15] MEDS ORDERED: MEDICATION INTERVENTION MC SCH (08:30)
--- NOTE | 2019-10-15 08:30 | PCM.HP ---
History of Present Illness - Chief Complaint Chief Complaint: gastroenteritis History of Present Illness: is a 34 year old male with a history of crohn's disease, he is having significant pain and diarrhea for the last several days and had terrible pain last night in his left upper quadrant. He is still having significant pain in the left upper abdomen with no improvement since admission. - Review of Systems Constitutional: No Fever, No Chills Respiratory: No Cough, No Short Of Breath Cardiac: No Chest Pain, No Edema, No Syncope Abdominal/Gastrointestinal: Abdominal Pain, Nausea, Diarrhea Genitourinary Symptoms: No Dysuria Skin: No Rash All Other Systems: Reviewed and Negative Medications & Allergies Home Medications: Home Medication List Omeprazole 20 MG [Prilosec 20 mg] 20 mg PO DAILY 12/02/13 [History Confirmed ] Ascorbic Acid 500 mg [Vitamin C 500 MG] 500 mg PO DAILY 08/04/15 [History Confirmed 10/15/19] Venlafaxine HCl ER 75 mg [Effexor XR 75 MG] 75 mg PO DAILY 08/04/15 [ History Confirmed 10/15/19] Loratadine 10 mg [Claritin 10 mg] 10 mg PO DAILY 01/15/17 [History Confirmed 10/15/19] Mesalamine [Apriso] 1.125 gm PO DAILY 09/18/19 [History Confirmed 10/15/19] Allergies/Adverse Reactions: Allergies Allergy/AdvReac Type Severity Reaction Status Date / Time No Known Drug Allergies Allergy Verified 09/18/19 18:56 - Past Medical History Past Medical History: Yes Neurological History: No Pertinent History ENT History: No Pertinent History Cardiac History: No Pertinent History Respiratory History: No Pertinent History Endocrine Medical History: No Pertinent History Musculoskelatal History: No Pertinent History GI Medical History: GERD, Irritable Bowel, Pancreatitis History: No Pertinent History Pyscho-Social History: Depression Male Reproductive Disorders: No Pertinent History Comment: HX OF ABD PAIN - Past Surgical History Past Surgical History: Yes Neuro Surgical History: No Pertinent History Cardiac History: No Pertinent History Respiratory Surgery: No Pertinent History GI Surgical History: Cholecystectomy Genitourinary Surgical Hx: No Pertinent History Musculskeletal Surgical Hx: No Pertinent History Male Surgical History: No Pertinent History Other Surgical History: ERCP - Social History Smoking Status: Never smoker Exposure to second hand smoke: No Alcohol: None, Weekly Drug Use: none - Physical Exam Vital Signs: Vital Signs - 24 hr Temp Pulse Resp BP Pulse Ox 10/15/19 08:04 98.3 F 65 16 117/66 92 L 10/15/19 06:01 75 139/94 95 10/15/19 05:17 71 144/96 94 L 10/15/19 03:29 98.7 F 67 20 138/89 100 General Appearance: no apparent distress Neurologic Exam: alert, oriented x 3, cooperative, normal mood/affect, nml cerebellar function, nml station & gait, sensation nml, No motor deficits Respiratory Exam: normal breath sounds, lungs clear, No respiratory distress Cardiovascular Exam: regular rate/rhythm Gastrointestinal/Abdomen Exam: soft, normal bowel sounds, tenderness, No distention, No mass, No guarding, No rebound Extremity Exam: normal inspection, normal range of motion, pelvis stable Skin Exam: normal color, warm, dry, No rash Results - Labs Lab/Micro Results: Lab Results-Last 24 Hours 10/15/19 10/15/19 10/15/19 Range/Units 04:00 04:00 06:01 WBC 8.9 (4.0-10.5) K/mm3 RBC 4.36 (4.1-5.6) M/mm3 Hgb 13.6 (12.5-18.0) gm/dl Hct 40.0 L (42-50) % MCV 91.7 (78-100) fl MCH 31.2 (26-32) pg MCHC 34.0 (32-36) g/dl RDW 12.2 (11.5-14.0) % Plt Count 246 (150-450) K/mm3 MPV 9.6 H (6-9.5) fl Gran % 75.2 H (36.0-66.0) % Eos # (Auto) 0.12 (0-0.5) Absolute Lymphs (auto) 1.26 (1.0-4.6) Absolute Monos (auto) 0.82 (0.0-1.3) Lymphocytes % 14.1 L (24.0-44.0) % Monocytes % 9.2 (0.0-12.0) % Eosinophils % 1.3 (0.00-5.0) % Basophils % 0.2 (0.0-0.4) % Absolute Granulocytes 6.69 (1.4-6.9) Basophils # 0.02 (0-0.4) Glucose CAREER CONSULTANT C. difficile Screen NEGATIVE (NEGATIVE) C.difficile [id number] PRESUMPTIVE NEGATIVE (NEGATIVE) - Radiology Impressions Radiology Exams & Impressions: Radiology Procedures Category Date Time Status ABDOMEN AND PELVIS W CONTRAST [CT] Stat Exams 10/15/19 03:51 Taken Assessment/Plan (1) Exacerbation of Crohn's disease of large intestine Current Visit: Yes Status: Acute Assessment & Plan: start levaquin, flagyl and IV solu medrol. ordered dilaudid prn for pain and zofran for nausea, on IV fluids at this time Code(s): K50.10 - CROHN'S DISEASE OF LARGE INTESTINE WITHOUT COMPLICATIONS (2) Dehydration Current Visit: No Status: Acute Code(s): E86.0 - DEHYDRATION
[2019-10-15] MEDS: DILAUDID 2 MG INJECTION IV PRN ×3 (08:58→20:03)
--- NOTE | 2019-10-15 08:58 | XRAY ---
Indication: Abdomen pain and diarrhea 4 days. History colitis/Crohn's disease. Multiple contiguous axial images obtained through the abdomen and pelvis using 80 cc Isovue 370 contrast only. Comparison: November 25, 2017. Lung bases again demonstrates minimal bilateral dependent atelectasis without infiltrate or effusion. Heart is not enlarged. Noncontrasted stomach and bowel loops appear nonobstructed. Again appendectomy and cholecystectomy. Small bowel loops are now mildly fluid distended with some fluid leveling, ileus versus enteritis. No free fluid/air. Remaining liver, pancreas, spleen, adrenal glands, kidneys, ureters, bladder, and aorta appear unremarkable. No pathologic retroperitoneal lymphadenopathy. Osseous structures intact. Impression: 1. New fluid distended small bowel loops with fluid leveling, ileus versus enteritis. 2. Remaining CT abdomen/pelvis with contrast exam is negative. Comment: Preliminary interpretation was made by [facility]. No critical discrepancy. CTDI 11.73
[2019-10-15] MEDS: Effexor XR 75 MG PO SCH (08:59)
[2019-10-15] MEDS: solu-MEDROL 125 MG IV SCH ×3 (08:59→18:44)
[2019-10-15] MEDS ORDERED: MESALAMINE PO SCH (10:00)
[2019-10-15] MEDS: FLAGYL 500 MG IVPB 500 MG/100 ML BAG IV SCH ×2 (12:04→18:33)
[2019-10-15] MEDS ORDERED: DILAUDID 2 MG INJECTION IV STA (22:50)
[2019-10-16] MEDS: solu-MEDROL 125 MG IV SCH ×4 (00:04→17:55)
[2019-10-16] MEDS: FLAGYL 500 MG IVPB 500 MG/100 ML BAG IV SCH ×4 (00:04→17:55)
[2019-10-16] MEDS: Sodium Chloride 0.9% W/ 20 mEq KCl/LITER 1,000 ML IV SCH ×4 (03:58→22:29)
[2019-10-16 05:08] LABS: Absolute Neutrophil Ct (ANC) 11.79 (1.4-6.9); BASOPHIL % 0.1 % (0.0-0.4); Basophil (Absolute #) 0.01 (0-0.4); Eosinophil (Absolute #) 0 (0-0.5); Hematocrit 36.8 % (42-50); Hemoglobin 12.3 gm/dl (12.5-18.0); Lymphocyte (Absolute #) 0.82 (1.0-4.6); Lymphocytes % 6.3 % (24.0-44.0); Mean Cell Volume 92.2 fl (78-100); Mean Corpuscular Hemoglobin 30.8 pg (26-32); Mean Corpuscular Hgb Concent. 33.4 g/dl (32-36); Mean Platelet Volume 9.9 fl (6-9.5); Monocyte (Absolute #) 0.45 (0.0-1.3); Monocytes % 3.4 % (0.0-12.0); Neutrophil % 90.2 % (36.0-66.0); Platelet Count 283 K/mm3 (150-450); Red Blood Count 3.99 M/mm3 (4.1-5.6); Red Cell Distribution Width 12.1 % (11.5-14.0); White Blood Count 13.1 K/mm3 (4.0-10.5)
[2019-10-16 05:14] LABS: ALBUMIN 3.8 g/dL (3.5-5.0); ALKALINE PHOSPHATASE 54 U/L (38-126); ANION GAP 10.6 MEQ/L (5-15); BLOOD UREA NITROGEN 10 mg/dL (9-20); CHLORIDE 107 mmol/L (98-107); Calcium 8.7 mg/dL (8.4-10.2); Carbon Dioxide 25 mmol/L (22-30); Creatinine 1 0.57 mg/dL (0.66-1.25); Glucose 152 mg/dL (74-106); Potassium 4.1 mmol/L (3.5-5.1); SGOT/AST 27 U/L (17-59); SGPT/ALT 39 U/L (0-50); SODIUM 139 mmol/L (137-145); Total Protein 6.6 g/dL (6.3-8.2)
--- NOTE | 2019-10-16 08:32 | PCM.DS ---
Discharge Summary Date of Admission: 10/15/19 07:00 Admitting Physician: BOY EMMANUEL Primary Care Provider: BOY EMMANUEL Allergies Allergies No Known Drug Allergies Allergy (Verified 09/18/19 18:56) Hospital Summary - Hospital Course Hospital Course: Pt is a 34 yo male pt of Dr. Emmanuel with Crohn's disease who was admitted to the hospital with an exacerbation. Placed on IV flagyl and levaquin and IV solumedrol. He was advanced to regular diet but has been eating bland diet. No stools since yesterday. Currently having no abdominal pain; getting ready to eat breakfast. If he can tolerate po and not have excessive pain, will be discharged to home this afternoon on po flagyl and levaquin with po prednisone, and follow up with Dr. Emmanuel OP in 1 week. We have discussed that it would be beneficial for him to rest after he is discharged to home, but he does have a shift coming up at work tomorrow and he will likely work that then have several days off. Pt is also interested in alcohol abstinence, would like to attend counseling on his own and is interested in Antabuse. - Vitals & Intake/Output Vital Signs: Vital Signs Temperature 97.7 F 10/16/19 07:05 Pulse Rate 73 10/16/19 07:05 Respiratory Rate 18 10/16/19 07:05 Blood Pressure 117/67 10/16/19 07:05 O2 Sat by Pulse Oximetry 98 10/16/19 07:05 Intake & Output: Intake & Output 10/13/19 10/14/19 10/15/19 10/16/19 11:59 11:59 11:59 11:59 Intake Total 3739 Output Total 500 4500 Balance -500 -761 Weight 103.5 kg - Lab Result Diagrams: 10/16/19 04:35 10/16/19 04:35 Lab Results-Last 24 Hrs: Lab Results-Last 24 Hours 10/16/19 10/16/19 Range/Units 04:35 04:35 WBC 13.1 H (4.0-10.5) K/mm3 RBC 3.99 L (4.1-5.6) M/mm3 Hgb 12.3 L (12.5-18.0) gm/dl Hct 36.8 L (42-50) % MCV 92.2 (78-100) fl MCH 30.8 (26-32) pg MCHC 33.4 (32-36) g/dl RDW 12.1 (11.5-14.0) % Plt Count 283 (150-450) K/mm3 MPV 9.9 H (6-9.5) fl Gran % 90.2 H (36.0-66.0) % Eos # (Auto) 0 (0-0.5) Absolute Lymphs (auto) 0.82 L (1.0-4.6) Absolute Monos (auto) 0.45 (0.0-1.3) Lymphocytes % 6.3 L (24.0-44.0) % Monocytes % 3.4 (0.0-12.0) % Eosinophils % 0.0 (0.00-5.0) % Basophils % 0.1 (0.0-0.4) % Absolute Granulocytes 11.79 H (1.4-6.9) Basophils # 0.01 (0-0.4) Sodium 139 (137-145) mmol/L Potassium 4.1 (3.5-5.1) mmol/L Chloride 107 (98-107) mmol/L Carbon Dioxide 25 (22-30) mmol/L Anion Gap 10.6 (5-15) MEQ/L BUN 10 (9-20) mg/dL Creatinine 0.57 L (0.66-1.25) mg/dL Estimated GFR > 60.0 ML/MIN Glucose 152 H (74-106) mg/dL Calcium 8.7 (8.4-10.2) mg/dL Total Bilirubin 0.40 (0.2-1.3) mg/dL AST 27 (17-59) U/L ALT 39 (0-50) U/L Alkaline Phosphatase 54 (38-126) U/L Serum Total Protein 6.6 (6.3-8.2) g/dL Albumin 3.8 (3.5-5.0) g/dL - Radiology Exams Ordered Rad Exams-Entire Visit: Radiology Procedures Category Date Time Status ABDOMEN AND PELVIS W CONTRAST [CT] Stat Exams 10/15/19 03:51 Completed Discharge Exam General Appearance: no apparent distress, alert Neurologic Exam: oriented x 3, cooperative Eye Exam: eyes nml inspection Ears, Nose, Throat Exam: moist mucous membranes Neck Exam: normal inspection Respiratory Exam: normal breath sounds, lungs clear, No crackles/rales, No rhonchi, No wheezing Cardiovascular Exam: regular rate/rhythm, normal heart sounds, No murmur Gastrointestinal/Abdomen Exam: soft, normal bowel sounds, No tenderness, No distention, No mass, No guarding, No rebound Back Exam: normal inspection, No rash Extremity Exam: normal inspection, No pedal edema, No swelling Skin Exam: normal color, warm, dry, No rash Final Diagnosis/Problem List - Final Discharge Diagnosis/Problem (1) Exacerbation of Crohn's disease of large intestine Current Visit: Yes Status: Acute Assessment & Plan: Much better, if nellie po well will send home today on po levaquin and flagyl to finish 10d and po prednisone x 7d. F/u with Dr. Emmanuel in 1 wk. Code(s): K50.10 - CROHN'S DISEASE OF LARGE INTESTINE WITHOUT COMPLICATIONS - Discharge Disposition: Home, Self-Care Condition: Good Prescriptions: New Prednisone 20 mg [Deltasone 20 mg] 20 mg PO DAILY #17 tablet Metronidazole 500 mg [Flagyl 500 MG] 500 mg PO TID #24 tablet Levofloxacin [Levaquin] 500 mg PO DAILY #8 tablet Tramadol HCl 50 mg [Ultram 50 mg] 50 mg PO TID PRN #21 tablet PRN Reason: Pain Continue Omeprazole 20 MG [Prilosec 20 mg] 20 mg PO DAILY Venlafaxine HCl ER 75 mg [Effexor XR 75 MG] 75 mg PO DAILY Ascorbic Acid 500 mg [Vitamin C 500 MG] 500 mg PO DAILY Loratadine 10 mg [Claritin 10 mg] 10 mg PO DAILY Mesalamine [Apriso] 1.125 gm PO DAILY Follow up with: BOY EMMANUEL MD [Primary Care Provider] - 1 Week
[2019-10-16] MEDS: Effexor XR 75 MG PO SCH (09:50)
[2019-10-16] MEDS: DILAUDID 2 MG INJECTION IV PRN ×5 (10:18→21:46)
[2019-10-16] MEDS: Zofran 4 MG/2 ML VIAL IV PRN (10:19)
[2019-10-16] MEDS ORDERED: DILAUDID 2 MG INJECTION IV STA (10:32)
[2019-10-16] MEDS ORDERED: NARCAN 2 MG/2 ML IV ONE ×2 (11:03→11:08)
[2019-10-16] MEDS: Narcan 0.4 MG/ML IV ONE ×4 (11:04→14:21)
[2019-10-16] MEDS ORDERED: Sodium Chloride 0.9% 1000 ML 1,000 ML IV STA (11:10)
[2019-10-16] MEDS ORDERED: Sodium Chloride 0.9% 1000 ML 1,000 ML ONE (11:11)
[2019-10-16] MEDS ORDERED: Narcan 0.4 MG/ML IV ONE (11:15)
[2019-10-16 11:21] LABS: Hematocrit 39.4 % (42-50); Hemoglobin 13.3 gm/dl (12.5-18.0); Mean Cell Volume 92.5 fl (78-100); Mean Corpuscular Hemoglobin 31.2 pg (26-32); Mean Corpuscular Hgb Concent. 33.8 g/dl (32-36); Mean Platelet Volume 9.5 fl (6-9.5); Platelet Count 290 K/mm3 (150-450); Red Blood Count 4.26 M/mm3 (4.1-5.6); Red Cell Distribution Width 12.3 % (11.5-14.0); White Blood Count 16.4 K/mm3 (4.0-10.5)
[2019-10-16 11:32] LABS: ALBUMIN 4.3 g/dL (3.5-5.0); ALKALINE PHOSPHATASE 59 U/L (38-126); ANION GAP 15.8 MEQ/L (5-15); BLOOD UREA NITROGEN 10 mg/dL (9-20); CHLORIDE 108 mmol/L (98-107); Calcium 9.2 mg/dL (8.4-10.2); Carbon Dioxide 23 mmol/L (22-30); Creatinine 1 0.63 mg/dL (0.66-1.25); Glucose 168 mg/dL (74-106); Potassium 3.9 mmol/L (3.5-5.1); SGOT/AST 29 U/L (17-59); SODIUM 143 mmol/L (137-145); Total Protein 7.4 g/dL (6.3-8.2)
[2019-10-16 11:39] LABS: SGPT/ALT 45 U/L (0-50)
[2019-10-16 11:45] LABS: AMYLASE 47 U/L (30-110); LIPASE 82 U/L (23-300)
--- NOTE | 2019-10-16 11:49 | XRAY ---
Indication: Abdomen pain. Seizure. Multiple contiguous axial images obtained through the abdomen and pelvis without contrast as ordered. Comparison: One day earlier. Lung bases demonstrates worsening subsegmental atelectasis. Heart is not enlarged. Stomach is now distended with food/fluid. Noncontrasted stomach and bowel loops remain nonobstructed. Stable appendectomy and cholecystectomy. Urinary bladder is now markedly distended, either from outlet obstruction versus neurogenic bladder. No free fluid/air. Remaining liver, pancreas, spleen, adrenal glands, kidneys, ureters, and aorta appear unremarkable for noncontrast exam. Impression: 1. Since yesterday's exam, new markedly distended urinary bladder. Rule out outlet obstruction versus neurogenic bladder. 2. Worsening bibasilar atelectasis. 3. Remaining CT abdomen/pelvis without contrast exam is negative. CT DI 20.76
--- NOTE | 2019-10-16 11:53 | XRAY ---
Indication: Code. Rapid seizure. Multiple contiguous axial images obtained through the head prior to and following 80 cc Isovue 370 contrast. Comparison: December 16, 2015. Again normal appearing brain parenchyma, ventricles, and bony calvarium. No abnormal enhancing intra or extra-axial mass. Visualized paranasal sinuses and mastoid air cells are clear. Impression: Normal CT head with and without contrast exam. CTDI 63.38
[2019-10-16] MEDS ORDERED: Ativan 2 MG/1 ML VIAL IV ONE (12:00)
[2019-10-16] MEDS ORDERED: TORAdol 30 mg Injection IV ONE (12:10)
[2019-10-16 14:03] LABS: Lactic Acid 2.9 (0.4-2.0)
[2019-10-16] MEDS ORDERED: Sodium Chloride 0.45% 500ML 500 ML IV ONE (14:51)
[2019-10-16] MEDS ORDERED: Sodium Chloride 0.9% 500 ML 500 ML IV ONE ×2 (14:55→16:57)
[2019-10-16 16:01] LABS: Lactic Acid 2.6 (0.4-2.0)
[2019-10-16] MEDS: TORAdol 30 mg Injection IV PRN (17:55)
[2019-10-16] MEDS: PROTONIX 40 MG IV IV SCH (19:50)
[2019-10-16] MEDS: Ativan 2 MG/1 ML VIAL IV PRN (21:45)
[2019-10-17] MEDS: FLAGYL 500 MG IVPB 500 MG/100 ML BAG IV SCH ×5 (00:02→23:37)
[2019-10-17] MEDS: solu-MEDROL 125 MG IV SCH ×5 (00:03→23:37)
[2019-10-17] MEDS: TORAdol 30 mg Injection IV PRN ×4 (00:03→18:46)
[2019-10-17] MEDS: ULTRAM 50 MG PO PRN ×3 (00:35→17:37)
[2019-10-17] MEDS: DILAUDID 2 MG INJECTION IV PRN ×9 (00:58→23:57)
[2019-10-17] MEDS ORDERED: BENTYL 20 MG PO ONE (01:31)
[2019-10-17] MEDS: Ativan 2 MG/1 ML VIAL IV PRN ×6 (02:37→21:00)
[2019-10-17] MEDS: Sodium Chloride 0.9% W/ 20 mEq KCl/LITER 1,000 ML IV SCH ×3 (05:33→22:42)
[2019-10-17 05:57] LABS: ALBUMIN 3.8 g/dL (3.5-5.0); ALKALINE PHOSPHATASE 46 U/L (38-126); ANION GAP 13.8 MEQ/L (5-15); BLOOD UREA NITROGEN 11 mg/dL (9-20); CHLORIDE 107 mmol/L (98-107); Calcium 8.7 mg/dL (8.4-10.2); Carbon Dioxide 25 mmol/L (22-30); Glucose 134 mg/dL (74-106); Potassium 4.3 mmol/L (3.5-5.1); SGOT/AST 22 U/L (17-59); SGPT/ALT 36 U/L (0-50); SODIUM 141 mmol/L (137-145); Total Protein 6.5 g/dL (6.3-8.2)
[2019-10-17 06:30] LABS: Absolute Neutrophil Ct (ANC) 14.93 (1.4-6.9); Basophil (Absolute #) 0 (0-0.4); Eosinophil % 0.1 % (0.00-5.0); Eosinophil (Absolute #) 0.01 (0-0.5); Hematocrit 37.1 % (42-50); Hemoglobin 12.2 gm/dl (12.5-18.0); Lymphocyte (Absolute #) 0.76 (1.0-4.6); Lymphocytes % 4.7 % (24.0-44.0); Mean Cell Volume 94.9 fl (78-100); Mean Corpuscular Hemoglobin 31.2 pg (26-32); Mean Corpuscular Hgb Concent. 32.9 g/dl (32-36); Mean Platelet Volume 10.2 fl (6-9.5); Monocytes % 3.1 % (0.0-12.0); Neutrophil % 92.1 % (36.0-66.0); Platelet Count 273 K/mm3 (150-450); Red Blood Count 3.91 M/mm3 (4.1-5.6); Red Cell Distribution Width 12.2 % (11.5-14.0); White Blood Count 16.2 K/mm3 (4.0-10.5)
--- NOTE | 2019-10-17 08:42 | PCM.NOTE ---
Date and Time: 10/17/19 0840 Subjective Assessment: events of yesterday noted, patient is sleepy this morning, continues to have intermittent pain in his abdomen. has recieved IV ativan for withdrawal symptoms , does have a history of syncope during painful episodes in the past Objective Exam General Appearance: no apparent distress, alert Respiratory Exam: normal breath sounds, lungs clear, No respiratory distress Cardiovascular Exam: regular rate/rhythm, normal heart sounds Gastrointestinal/Abdomen Exam: soft, No tenderness, No mass Extremity Exam: normal inspection, normal range of motion OBJECTIVE DATA Vital Signs: Vital Signs - 24 hr Temp Pulse Resp BP Pulse Ox 10/17/19 08:21 92 L 10/17/19 07:53 98 F 60 16 115/81 92 L 10/17/19 04:00 98.5 F 61 19 118/64 92 L 10/17/19 00:00 98.1 F 62 13 129/84 94 L 10/16/19 20:00 97.5 F 85 14 134/89 99 10/16/19 19:33 98 10/16/19 16:00 89 21 151/96 99 10/16/19 11:53 102 H 10/16/19 11:17 88 22 152/90 10/16/19 10:36 97 Pain Assessment - Last Documented Pain Intensity 5 Pain Scale Used 0-10 Pain Scale Intake and Output: Intake & Output 10/14/19 10/15/19 10/16/19 10/17/19 11:59 11:59 11:59 11:59 Intake Total 3979 5151 Output Total 500 5500 7000 Balance -211 -3772 -8230 Weight 103.5 kg Lab Results: Lab Results-Last 24 Hours 10/16/19 10/16/19 10/16/19 Range/Units 11:09 11:09 11:14 WBC 16.4 H (4.0-10.5) K/mm3 RBC 4.26 (4.1-5.6) M/mm3 Hgb 13.3 (12.5-18.0) gm/dl Hct 39.4 L (42-50) % MCV 92.5 (78-100) fl MCH 31.2 (26-32) pg MCHC 33.8 (32-36) g/dl RDW 12.3 (11.5-14.0) % Plt Count 290 (150-450) K/mm3 MPV 9.5 (6-9.5) fl Gran % (36.0-66.0) % Eos # (Auto) (0-0.5) Absolute Lymphs (auto) (1.0-4.6) Absolute Monos (auto) (0.0-1.3) Lymphocytes % (24.0-44.0) % Monocytes % (0.0-12.0) % Eosinophils % (0.00-5.0) % Basophils % (0.0-0.4) % Absolute Granulocytes (1.4-6.9) Basophils # (0-0.4) Sodium 143 (137-145) mmol/L Potassium 3.9 (3.5-5.1) mmol/L Chloride 108 H (98-107) mmol/L Carbon Dioxide 23 (22-30) mmol/L Anion Gap 15.8 H (5-15) MEQ/L BUN 10 (9-20) mg/dL Creatinine 0.63 L (0.66-1.25) mg/dL Estimated GFR > 60.0 ML/MIN Glucose 168 H (74-106) mg/dL Lactic Acid 4.0 H (0.4-2.0) Calcium 9.2 (8.4-10.2) mg/dL Total Bilirubin 0.30 (0.2-1.3) mg/dL AST 29 (17-59) U/L ALT 45 (0-50) U/L Alkaline Phosphatase 59 (38-126) U/L Serum Total Protein 7.4 (6.3-8.2) g/dL Albumin 4.3 (3.5-5.0) g/dL Amylase (30-110) U/L Lipase (23-300) U/L 10/16/19 10/16/19 10/16/19 Range/Units 11:14 13:23 15:50 WBC (4.0-10.5) K/mm3 RBC (4.1-5.6) M/mm3 Hgb (12.5-18.0) gm/dl Hct (42-50) % MCV (78-100) fl MCH (26-32) pg MCHC (32-36) g/dl RDW (11.5-14.0) % Plt Count (150-450) K/mm3 MPV (6-9.5) fl Gran % (36.0-66.0) % Eos # (Auto) (0-0.5) Absolute Lymphs (auto) (1.0-4.6) Absolute Monos (auto) (0.0-1.3) Lymphocytes % (24.0-44.0) % Monocytes % (0.0-12.0) % Eosinophils % (0.00-5.0) % Basophils % (0.0-0.4) % Absolute Granulocytes (1.4-6.9) Basophils # (0-0.4) Sodium (137-145) mmol/L Potassium (3.5-5.1) mmol/L Chloride (98-107) mmol/L Carbon Dioxide (22-30) mmol/L Anion Gap (5-15) MEQ/L BUN (9-20) mg/dL Creatinine (0.66-1.25) mg/dL Estimated GFR ML/MIN Glucose (74-106) mg/dL Lactic Acid 2.9 H 2.6 H (0.4-2.0) Calcium (8.4-10.2) mg/dL Total Bilirubin (0.2-1.3) mg/dL AST (17-59) U/L ALT (0-50) U/L Alkaline Phosphatase (38-126) U/L Serum Total Protein (6.3-8.2) g/dL Albumin (3.5-5.0) g/dL Amylase 47 (30-110) U/L Lipase 82 (23-300) U/L 10/16/19 10/17/19 10/17/19 Range/Units 18:45 05:40 05:40 WBC 16.2 H (4.0-10.5) K/mm3 RBC 3.91 L (4.1-5.6) M/mm3 Hgb 12.2 L (12.5-18.0) gm/dl Hct 37.1 L (42-50) % MCV 94.9 (78-100) fl MCH 31.2 (26-32) pg MCHC 32.9 (32-36) g/dl RDW 12.2 (11.5-14.0) % Plt Count 273 (150-450) K/mm3 MPV 10.2 H (6-9.5) fl Gran % 92.1 H (36.0-66.0) % Eos # (Auto) 0.01 (0-0.5) Absolute Lymphs (auto) 0.76 L (1.0-4.6) Absolute Monos (auto) 0.50 (0.0-1.3) Lymphocytes % 4.7 L (24.0-44.0) % Monocytes % 3.1 (0.0-12.0) % Eosinophils % 0.1 (0.00-5.0) % Basophils % 0.0 (0.0-0.4) % Absolute Granulocytes 14.93 H (1.4-6.9) Basophils # 0 (0-0.4) Sodium 141 (137-145) mmol/L Potassium 4.3 (3.5-5.1) mmol/L Chloride 107 (98-107) mmol/L Carbon Dioxide 25 (22-30) mmol/L Anion Gap 13.8 (5-15) MEQ/L BUN 11 (9-20) mg/dL Creatinine 0.60 L (0.66-1.25) mg/dL Estimated GFR > 60.0 ML/MIN Glucose 134 H (74-106) mg/dL Lactic Acid 1.8 (0.4-2.0) Calcium 8.7 (8.4-10.2) mg/dL Total Bilirubin 0.40 (0.2-1.3) mg/dL AST 22 (17-59) U/L ALT 36 (0-50) U/L Alkaline Phosphatase 46 (38-126) U/L Serum Total Protein 6.5 (6.3-8.2) g/dL Albumin 3.8 (3.5-5.0) g/dL Amylase (30-110) U/L Lipase (23-300) U/L Radiology Exams: Radiology Procedures Category Date Time Status ABDOMEN AND PELVIS W/0 CONTRAS [CT] Stat Exams 10/16/19 11:12 Completed HEAD W/WO CONTRAST [CT] Stat Exams 10/16/19 11:11 Completed Multi-Disciplinary Progress Notes: Multi-Disciplinary Progress Notes 10/16/19 14:40 Respiratory Note by Federico Rodriguez 10/16/19 1100 CODE RAPID CALLED TO THIS PATIENTS ROOM FOR SEIZURE LIKE ACTIVITY AND BEING NO RESPONSIVE. PATIENT HAD A 100% NRB ON BUT RESPIRATIONS WERE LABORED. SO I USED AN ADULT AMBU BAG WITH 100% O2 TO BREATH FOR PATIENT. I USED THE AMBU FOR APPROX 10 MINUTES. PATIENT WAS GIVEN NARCAN AND HE BEGAN TO COME AROUND AND START TO BREATH ON HIS OWN. I THEN CHANGED PATIENT BACK TO 100 % NRB AND WE TRANSPORTED HOME TO CAT SCAN. ONCE SCAN WAS DONE AND HE WAS BACK IN HIS ROOM WE CHANGED HIM BACK TO 2 LPM NASAL CANNULA. HE IS RESPONDING AND ANSWERING QUESTIONS APPROPRIATELY. WILL CHECK BACK ON PATIENT AND WEAN O2 NECESSARY. FEDERICO RODRIGUEZ RRT Initialized on 10/16/19 14:40 - END OF NOTE Assessment/Plan (1) Exacerbation of Crohn's disease of large intestine Current Visit: Yes Status: Acute Assessment & Plan: continue levaquin/flagyl and steroids at this time. Code(s): K50.10 - CROHN'S DISEASE OF LARGE INTESTINE WITHOUT COMPLICATIONS (2) Syncope Current Visit: Yes Status: Acute Assessment & Plan: get EEG today, differential includes vasovagal incident from pain vs seizure/ ETOH withdrawal, currently receiving IV ativan on detox protocol Code(s): R55 - SYNCOPE AND COLLAPSE (3) Dehydration Current Visit: No Status: Acute Code(s): E86.0 - DEHYDRATION
[2019-10-17] MEDS: Effexor XR 75 MG PO SCH ×2 (09:02→21:00)
[2019-10-17] MEDS: Zofran 4 MG/2 ML VIAL IV PRN (13:12)
[2019-10-17] MEDS: PROTONIX 40 MG IV IV SCH (19:45)
[2019-10-18] MEDS: TORAdol 30 mg Injection IV PRN (01:59)
[2019-10-18] MEDS: DILAUDID 2 MG INJECTION IV PRN (04:49)
[2019-10-18] MEDS: Ativan 2 MG/1 ML VIAL IV PRN (05:01)
[2019-10-18 05:18] LABS: Absolute Neutrophil Ct (ANC) 12.77 (1.4-6.9); BASOPHIL % 0.1 % (0.0-0.4); Basophil (Absolute #) 0.01 (0-0.4); Eosinophil (Absolute #) 0 (0-0.5); Hematocrit 39.1 % (42-50); Hemoglobin 12.9 gm/dl (12.5-18.0); Lymphocyte (Absolute #) 0.88 (1.0-4.6); Lymphocytes % 6.2 % (24.0-44.0); Mean Cell Volume 93.3 fl (78-100); Mean Corpuscular Hemoglobin 30.8 pg (26-32); Monocyte (Absolute #) 0.64 (0.0-1.3); Monocytes % 4.5 % (0.0-12.0); Neutrophil % 89.2 % (36.0-66.0); Platelet Count 306 K/mm3 (150-450); Red Blood Count 4.19 M/mm3 (4.1-5.6); White Blood Count 14.3 K/mm3 (4.0-10.5)
[2019-10-18 05:27] LABS: ALBUMIN 3.9 g/dL (3.5-5.0); ALKALINE PHOSPHATASE 49 U/L (38-126); BLOOD UREA NITROGEN 12 mg/dL (9-20); CHLORIDE 103 mmol/L (98-107); Calcium 9.2 mg/dL (8.4-10.2); Carbon Dioxide 30 mmol/L (22-30); Creatinine 1 0.62 mg/dL (0.66-1.25); Glucose 138 mg/dL (74-106); Potassium 4.6 mmol/L (3.5-5.1); SGOT/AST 21 U/L (17-59); SGPT/ALT 36 U/L (0-50); SODIUM 140 mmol/L (137-145); Total Protein 6.8 g/dL (6.3-8.2)
[2019-10-18] MEDS: FLAGYL 500 MG IVPB 500 MG/100 ML BAG IV SCH (06:17)
[2019-10-18] MEDS: solu-MEDROL 125 MG IV SCH (06:17)
[2019-10-18 07:48] VITALS: BP 137/90; PULSE 55
[2019-10-18 07:55] VITALS: O2SAT 96
[2019-10-18] MEDS ORDERED: OXYCODONE-ACETAMINOPHEN 10-325 PO PRN (07:56)
[2019-10-18] MEDS ORDERED: Effexor XR 75 MG PO SCH (08:07)
--- NOTE | 2019-10-18 08:51 | PCM.DS ---
Discharge Summary Date of Admission: 10/15/19 07:00 Admitting Physician: BOY EMMANUEL Primary Care Provider: BOY EMMANUEL Allergies Allergies No Known Drug Allergies Allergy (Verified 09/18/19 18:56) Hospital Summary - Hospital Course Hospital Course: patient admitted with abdominal pain and vomiting/diarrhea c/w acute flare of crohn's disease. had a syncopal episode which he has a history and eeg was wnl. tolerating po and pain improving at time of discharge - Vitals & Intake/Output Vital Signs: Vital Signs Temperature 97.7 F 10/18/19 07:47 Pulse Rate 55 L 10/18/19 07:47 Respiratory Rate 20 10/18/19 07:47 Blood Pressure 137/90 10/18/19 07:47 O2 Sat by Pulse Oximetry 96 10/18/19 07:54 Intake & Output: Intake & Output 10/15/19 10/16/19 10/17/19 10/18/19 11:59 11:59 11:59 11:59 Intake Total 3979 5271 5629 Output Total 500 5500 8100 4750 Balance -500 -5672 -9719 879 Weight 103.5 kg - Lab Result Diagrams: 10/18/19 04:28 10/18/19 04:28 Lab Results-Last 24 Hrs: Lab Results-Last 24 Hours 10/18/19 10/18/19 Range/Units 04:28 04:28 WBC 14.3 H (4.0-10.5) K/mm3 RBC 4.19 (4.1-5.6) M/mm3 Hgb 12.9 (12.5-18.0) gm/dl Hct 39.1 L (42-50) % MCV 93.3 (78-100) fl MCH 30.8 (26-32) pg MCHC 33.0 (32-36) g/dl RDW 12.0 (11.5-14.0) % Plt Count 306 (150-450) K/mm3 MPV 10.0 H (6-9.5) fl Gran % 89.2 H (36.0-66.0) % Eos # (Auto) 0 (0-0.5) Absolute Lymphs (auto) 0.88 L (1.0-4.6) Absolute Monos (auto) 0.64 (0.0-1.3) Lymphocytes % 6.2 L (24.0-44.0) % Monocytes % 4.5 (0.0-12.0) % Eosinophils % 0.0 (0.00-5.0) % Basophils % 0.1 (0.0-0.4) % Absolute Granulocytes 12.77 H (1.4-6.9) Basophils # 0.01 (0-0.4) Sodium 140 (137-145) mmol/L Potassium 4.6 (3.5-5.1) mmol/L Chloride 103 (98-107) mmol/L Carbon Dioxide 30 (22-30) mmol/L Anion Gap 12.0 (5-15) MEQ/L BUN 12 (9-20) mg/dL Creatinine 0.62 L (0.66-1.25) mg/dL Estimated GFR > 60.0 ML/MIN Glucose 138 H (74-106) mg/dL Calcium 9.2 (8.4-10.2) mg/dL Total Bilirubin 0.50 (0.2-1.3) mg/dL AST 21 (17-59) U/L ALT 36 (0-50) U/L Alkaline Phosphatase 49 (38-126) U/L Serum Total Protein 6.8 (6.3-8.2) g/dL Albumin 3.9 (3.5-5.0) g/dL - Radiology Exams Ordered Rad Exams-Entire Visit: Radiology Procedures Category Date Time Status ABDOMEN AND PELVIS W/0 CONTRAS [CT] Stat Exams 10/16/19 11:12 Completed HEAD W/WO CONTRAST [CT] Stat Exams 10/16/19 11:11 Completed - Procedures and Test Procedures and Tests throughout Hospitalization: Therapy Orders & Screens 10/16/19 12:31 EEG 41-60 Minutes (Normal) ONCE Comment: Reason For Exam: Diagnosis: gastroenteritis 10/17/19 20:59 Oxygen Nasal Cannula 2 lpm Comment: Diagnosis: gastroenteritis Discharge Exam General Appearance: no apparent distress, alert Respiratory Exam: normal breath sounds, lungs clear, No respiratory distress Cardiovascular Exam: regular rate/rhythm, normal heart sounds Gastrointestinal/Abdomen Exam: soft, No tenderness, No mass Extremity Exam: normal inspection, normal range of motion Skin Exam: normal color, warm, dry Final Diagnosis/Problem List - Final Discharge Diagnosis/Problem (1) Exacerbation of Crohn's disease of large intestine Current Visit: Yes Status: Acute Code(s): K50.10 - CROHN'S DISEASE OF LARGE INTESTINE WITHOUT COMPLICATIONS (2) Syncope Current Visit: Yes Status: Acute Code(s): R55 - SYNCOPE AND COLLAPSE (3) Dehydration Current Visit: No Status: Acute Code(s): E86.0 - DEHYDRATION - Discharge Disposition: Home, Self-Care Condition: Good Prescriptions: New Prednisone 20 mg [Deltasone 20 mg] 20 mg PO DAILY #17 tablet Metronidazole 500 mg [Flagyl 500 MG] 500 mg PO TID #24 tablet Levofloxacin [Levaquin] 500 mg PO DAILY #8 tablet Oxycodone / APAP 10/325 mg [Oxycodone-Acetaminophen 10-325] 1 tab PO Q4H PRN PRN #30 tablet MDD 5 PRN Reason: Pain Continue Omeprazole 20 MG [Prilosec 20 mg] 20 mg PO DAILY Venlafaxine HCl ER 75 mg [Effexor XR 75 MG] 75 mg PO DAILY Ascorbic Acid 500 mg [Vitamin C 500 MG] 500 mg PO DAILY Loratadine 10 mg [Claritin 10 mg] 10 mg PO DAILY Mesalamine [Apriso] 1.125 gm PO DAILY Follow up with: BOY EMMANUEL MD [Primary Care Provider] - 10/24/19 2:15 pm ADDI ISABEL MD [NON-STAFF PHY W/O PRIVILEGES] - 1 Week
[2019-10-18] MEDS ORDERED: Effexor ER 37.5 MG PO SCH (09:00)
== END 2019-10-18 12:15 | disposition home or self-care (01) ==
LOC: ED 03:26 → MED SURG 07:00 → ICU 10-16 11:25 → MED SURG 10-17 14:55
PROVIDERS: ADMIT Family Medicine; ATTEND Family Medicine
DX: K50.10 Crohn's disease of large intestine without complications (principal); R55 Syncope and collapse; E86.0 Dehydration; Z79.899 Other long term (current) drug therapy; Z72.89 Other problems related to lifestyle; K21.9 Gastro-esophageal reflux disease without esophagitis; F32.9 Major depressive disorder, single episode, unspecified
CPT/HCPCS: 36000; 36415; 70470; 74176; 74177; 80053; 82150; 83605; 83690; 85025; 85027; 87493; 94762; 95812; 96360; 96374; 96375; 96376; 99285; G0378; J1170; J1885; J1956; J2060; J2270; J2310; J2405; J2930; A9270-GY

== ENCOUNTER 2020-02-06 22:11 | Inpatient (IN) | payer OTHER ==
[2020-02-06] MEDS ORDERED: Zofran 4 MG/2 ML VIAL IV ONE (22:39)
[2020-02-06] MEDS ORDERED: Sodium Chloride 0.9% 1000 ML 1,000 ML IV STA ×2 (22:39→22:40)
[2020-02-06] MEDS ORDERED: MORPHINE SULFATE 4 MG INJ IV ONE (22:39)
[2020-02-06] MEDS ORDERED: TORAdol 30 mg Injection IV ONE (22:39)
[2020-02-06 22:49] LABS: Absolute Neutrophil Ct (ANC) 18.48 (1.4-6.9); Basophil (Absolute #) 0.01 (0-0.4); Eosinophil % 0.1 % (0.00-5.0); Eosinophil (Absolute #) 0.02 (0-0.5); Hematocrit 39.1 % (42-50); Hemoglobin 13.2 gm/dl (12.5-18.0); Lymphocyte (Absolute #) 0.89 (1.0-4.6); Lymphocytes % 4.2 % (24.0-44.0); Mean Cell Volume 90.1 fl (78-100); Mean Corpuscular Hemoglobin 30.4 pg (26-32); Mean Corpuscular Hgb Concent. 33.8 g/dl (32-36); Mean Platelet Volume 10.2 fl (7.5-11.0); Monocyte (Absolute #) 1.75 (0.0-1.3); Monocytes % 8.3 % (0.0-12.0); Neutrophil % 87.4 % (36.0-66.0); Platelet Count 296 K/mm3 (150-450); Red Blood Count 4.34 M/mm3 (4.1-5.6); Red Cell Distribution Width 12.3 % (11.5-14.0); White Blood Count 21.2 K/mm3 (4.0-10.5)
[2020-02-06 22:54] LABS: ALBUMIN 4.3 g/dL (3.5-5.0); ALKALINE PHOSPHATASE 85 U/L (38-126); ANION GAP 15.9 MEQ/L (5-15); BLOOD UREA NITROGEN 6 mg/dL (9-20); CHLORIDE 103 mmol/L (98-107); Calcium 9.1 mg/dL (8.4-10.2); Carbon Dioxide 22 mmol/L (22-30); Creatinine 1 0.65 mg/dL (0.66-1.25); Glucose 163 mg/dL (74-106); LIPASE 48 U/L (23-300); Potassium 3.4 mmol/L (3.5-5.1); SGOT/AST 34 U/L (17-59); SGPT/ALT 49 U/L (0-50); SODIUM 138 mmol/L (137-145); Total Protein 7.3 g/dL (6.3-8.2)
[2020-02-06] MEDS ORDERED: Sodium Chloride 0.9% 1000 ML 1,000 ML ONE (23:01)
[2020-02-06] MEDS ORDERED: Zosyn INJ 4.5 GM in D5w 100ML Mini Bag 100 ML 100 ML IV ONE (23:01)
[2020-02-06] MEDS ORDERED: Vancomycin 1GM/ Ns 250ML*** 250 ML IV SCH (23:15)
[2020-02-06] MEDS ORDERED: TORAdol 30 mg Injection ONE (23:17)
[2020-02-06] MEDS ORDERED: Zofran 4 MG/2 ML VIAL ONE (23:17)
[2020-02-06] MEDS ORDERED: Vancomycin 1GM/ Ns 250ML*** 250 ML IV ONE ×2 (23:18→23:23)
[2020-02-06] MEDS ORDERED: MORPHINE SULFATE 4 MG INJ ONE (23:18)
[2020-02-06] MEDS ORDERED: Zosyn INJ IV ONE (23:18)
[2020-02-06] MEDS ORDERED: D5w 100ML Mini Bag 100 ML 100 ML IV ONE (23:18)
--- NOTE | 2020-02-06 23:53 | ERPHSYRPT ---
- History of Present Illness Time Seen by Provider: 02/06/20 22:20 Historian: patient Exam Limitations: no limitations Patient Subjective Stated Complaint: fever, abd pain Triage Nursing Assessment: pt presented with fever at work 104, was 101 upon arrival to ER after taking 400 mg IBU. Pt achy and c/o abd pain, has hx of crohns and diverticulitis/osis. Lungs clear, cough, abd soft with hypoactive bs x4 quad, diarrhea x2 today. Physician History: Patient is a 34-year-old male with a history of Crohn's disease and diverticulitis presents to our ED with complaints of fever and abdominal pain. Patient was at work. He felt febrile. Patient checked his temperature and found it was 104. Patient arrived to our ED. Upon arrival triage vitals reveal temperature was 101. Patient stated that he had taken 400 mg of ibuprofen prior to arrival. Patient's abdominal pain described as an ache that is primarily at the lower abdomen and left flank area. Is well localized. No radiation. Patient voices no other complaints at this time. Timing/Duration: today Activities at Onset: none Quality: aching Severity of Pain-Max: moderate Severity of Pain-Current: moderate Modifying Factors: Improves With: movement, palpation Associated Symptoms: No chest pain, No diaphoresis, No diarrhea, No shortness of breath, No syncope Previous symptoms: same symptoms as today Allergies/Adverse Reactions: No Known Drug Allergies Allergy (Verified 02/06/20 22:21) Home Medications: Omeprazole 20 MG [Prilosec 20 mg] 20 mg PO DAILY 12/02/13 [History] Ascorbic Acid 500 mg [Vitamin C 500 MG] 500 mg PO DAILY 08/04/15 [History] Loratadine 10 mg [Claritin 10 mg] 10 mg PO DAILY 01/15/17 [History] Mesalamine [Apriso] 1.5 gm PO DAILY 09/18/19 [History] Hx Tetanus, Diphtheria Vaccination/Date Given: Yes Hx Influenza Vaccination/Date Given: Yes Hx Pneumococcal Vaccination/Date Given: No Immunizations Up to Date: Yes - Review of Systems Constitutional: No Fever, No Chills Eyes: No Symptoms Ears, Nose, & Throat: No Symptoms Respiratory: No Cough, No Dyspnea Cardiac: No Chest Pain, No Edema, No Syncope Abdominal/Gastrointestinal: Abdominal Pain, No Vomiting, No Diarrhea Genitourinary Symptoms: No Symptoms, No Dysuria Musculoskeletal: No Symptoms, No Back Pain, No Neck Pain Skin: No Symptoms, No Rash Neurological: No Symptoms, No Dizziness, No Focal Weakness, No Sensory Changes Psychological: No Symptoms Endocrine: No Symptoms All Other Systems: Reviewed and Negative - Past Medical History Pertinent Past Medical History: Yes Neurological History: No Pertinent History ENT History: No Pertinent History Cardiac History: No Pertinent History Respiratory History: No Pertinent History Endocrine Medical History: No Pertinent History Musculoskeletal History: No Pertinent History GI Medical History: Crohns Disease, Diverticulitis, Diverticulosis, GERD, Irritable Bowel, Pancreatitis History: No Pertinent History Psycho-Social History: Depression Male Reproductive Disorders: No Pertinent History Other Medical History: HX OF ABD PAIN - Past Surgical History Past Surgical History: Yes Neuro Surgical History: No Pertinent History Cardiac: No Pertinent History Respiratory: No Pertinent History Gastrointestinal: Appendectomy, Cholecystectomy Genitourinary: No Pertinent History Musculoskeletal: No Pertinent History Male Surgical History: No Pertinent History Other Surgical History: ERCP - Social History Smoking Status: Never smoker Exposure to second hand smoke: Yes Drug Use: none Patient Lives Alone: Yes - Nursing Vital Signs Nursing Vital Signs: Initial Vital Signs Temperature 101.0 F 02/06/20 22:13 Pulse Rate 138 H 02/06/20 22:13 Respiratory Rate 22 02/06/20 22:13 Blood Pressure 137/83 02/06/20 22:13 O2 Sat by Pulse Oximetry 97 02/06/20 22:13 Pain Scale Pain Intensity 5 - Physical Exam General Appearance: no apparent distress, alert Eye Exam: PERRL/EOMI, eyes nml inspection Ears, Nose, Throat Exam: normal ENT inspection, pharynx normal, moist mucous membranes Neck Exam: normal inspection, non-tender, supple, full range of motion Respiratory Exam: normal breath sounds, lungs clear, No respiratory distress Cardiovascular Exam: regular rate/rhythm, normal heart sounds Gastrointestinal/Abdomen Exam: soft, tenderness, No distention, No mass, No guarding, No pulsatile mass, No rebound Back Exam: normal inspection, normal range of motion, No CVA tenderness, No vertebral tenderness Extremity Exam: normal inspection, normal range of motion, pelvis stable Neurologic Exam: alert, oriented x 3, cooperative, normal mood/affect, nml cerebellar function, sensation nml, No motor deficits Skin Exam: normal color, warm, dry SpO2 Interpretation: normal SpO2: 97 O2 Delivery: Room Air Ordered Tests: Active Orders 24 hr Category Date Time Status IV Insertion STAT Care 02/06/20 22:40 Active ABDOMEN AND PELVIS W CONTRAST [CT] Stat Exams 02/06/20 22:41 Taken BLOOD CULTURE Stat Lab 02/06/20 23:00 Received CBC W DIFF Stat Lab 02/06/20 22:30 Completed CMP Stat Lab 02/06/20 22:30 Completed LIPASE Stat Lab 02/06/20 22:30 Completed Lactic Acid Stat Lab 02/06/20 22:40 Completed TROPONIN Q3H Lab 02/06/20 22:30 Completed TROPONIN Q3H Lab 02/07/20 01:45 Ordered TROPONIN Q3H Lab 02/07/20 04:45 Ordered TROPONIN Q3H Lab 02/07/20 07:45 Ordered TROPONIN Q3H Lab 02/07/20 10:45 Ordered UA W/RFX UR CULTURE Stat Lab 02/06/20 22:41 Uncollected Transfer Order Routine Transfer 02/07/20 Ordered Medication Summary Generic Name Dose Route Start Last Admin Trade Name Freq PRN Reason Stop Dose Admin Vancomycin HCl 250 mls @ 250 mls/hr 02/06/20 23:15 02/06/20 23:24 Vancomycin 1gm/ Ns 250ml IV 02/07/20 01:14 250 mls/hr Q1H JACQUELINE Administration Discontinued Medications Generic Name Dose Route Start Last Admin Trade Name Freq PRN Reason Stop Dose Admin Hydromorphone HCl 0.5 mg 02/07/20 00:33 02/07/20 00:38 Hydromorphone 1 Mg/Ml Ampule IV 02/07/20 00:34 0.5 mg STAT ONE Administration Hydromorphone HCl Confirm 02/07/20 00:37 Hydromorphone 1 Mg/Ml Ampule Administered 02/07/20 00:38 Dose 1 mg .ROUTE .STK-MED ONE Sodium Chloride 1,000 mls @ 999 mls/hr 02/06/20 22:39 02/07/20 00:31 Sodium Chloride 0.9% 1000 Ml IV 02/06/20 23:39 Infused .Q1H1M STA Infusion Sodium Chloride 1,000 mls @ 999 mls/hr 02/06/20 22:40 02/07/20 00:30 Sodium Chloride 0.9% 1000 Ml IV 02/06/20 23:40 Infused .Q1H1M STA Infusion Piperacillin Sod/Tazobactam 100 mls @ 100 mls/hr 02/06/20 23:01 02/06/20 23: 24 Sod 4.5 gm/ Dextrose IV 02/07/20 00:00 100 mls/hr STAT ONE Administration Sodium Chloride Confirm 02/06/20 23:01 Sodium Chloride 0.9% 1000 Ml Administered 02/06/20 23:02 Dose 1,000 mls @ ud .ROUTE .STK-MED ONE Dextrose Confirm 02/06/20 23:18 D5w 100ml Mini Bag 100 Ml Administered 02/06/20 23:19 Dose 100 mls @ ud IV .STK-MED ONE Ketorolac Tromethamine 30 mg 02/06/20 22:39 02/06/20 23:25 Toradol 30 Mg Injection IV 02/06/20 22:40 30 mg STAT ONE Administration Ketorolac Tromethamine Confirm 02/06/20 23:17 Toradol 30 Mg Injection Administered 02/06/20 23:18 Dose 30 mg .ROUTE .STK-MED ONE Morphine Sulfate 4 mg 02/06/20 22:39 02/06/20 23:26 Morphine Sulfate 4 Mg Inj IV 02/06/20 22:40 4 mg STAT ONE Administration Morphine Sulfate Confirm 02/06/20 23:18 Morphine Sulfate 4 Mg Inj Administered 02/06/20 23:19 Dose 4 mg .ROUTE .STK-MED ONE Ondansetron HCl 4 mg 02/06/20 22:39 02/06/20 23:25 Zofran 4 Mg/2 Ml Vial IV 02/06/20 22:40 4 mg STAT ONE Administration Ondansetron HCl Confirm 02/06/20 23:17 Zofran 4 Mg/2 Ml Vial Administered 02/06/20 23:18 Dose 4 mg .ROUTE .STK-MED ONE Piperacillin Sod/Tazobactam Sod Confirm 02/06/20 23:18 Zosyn Inj Administered 02/06/20 23:19 Dose 4.5 gm IV .STK-MED ONE Lab/Rad Data: Laboratory Result Diagrams 02/06/20 22:30 02/06/20 22:30 Laboratory Results 02/06/20 02/06/20 02/06/20 Range/Units 22:40 22:30 22:30 WBC (4.0-10.5) K/mm3 RBC (4.1-5.6) M/mm3 Hgb (12.5-18.0) gm/dl Hct (42-50) % MCV (78-100) fl MCH (26-32) pg MCHC (32-36) g/dl RDW (11.5-14.0) % Plt Count (150-450) K/mm3 MPV (7.5-11.0) fl Gran % (36.0-66.0) % Eos # (Auto) (0-0.5) Absolute Lymphs (auto) (1.0-4.6) Absolute Monos (auto) (0.0-1.3) Lymphocytes % (24.0-44.0) % Monocytes % (0.0-12.0) % Eosinophils % (0.00-5.0) % Basophils % (0.0-0.4) % Absolute Granulocytes (1.4-6.9) Basophils # (0-0.4) Sodium 138 (137-145) mmol/L Potassium 3.4 L (3.5-5.1) mmol/L Chloride 103 (98-107) mmol/L Carbon Dioxide 22 (22-30) mmol/L Anion Gap 15.9 H (5-15) MEQ/L BUN 6 L (9-20) mg/dL Creatinine 0.65 L (0.66-1.25) mg/dL Estimated GFR > 60.0 ML/MIN Glucose 163 H (74-106) mg/dL Lactic Acid 2.4 H (0.4-2.0) Calcium 9.1 (8.4-10.2) mg/dL Total Bilirubin 0.50 (0.2-1.3) mg/dL AST 34 (17-59) U/L ALT 49 (0-50) U/L Alkaline Phosphatase 85 (38-126) U/L Troponin I < 0.012 (0.000-0.034) ng/mL Serum Total Protein 7.3 (6.3-8.2) g/dL Albumin 4.3 (3.5-5.0) g/dL Lipase 48 (23-300) U/L 02/06/20 Range/Units 22:30 WBC 21.2 H (4.0-10.5) K/mm3 RBC 4.34 (4.1-5.6) M/mm3 Hgb 13.2 (12.5-18.0) gm/dl Hct 39.1 L (42-50) % MCV 90.1 (78-100) fl MCH 30.4 (26-32) pg MCHC 33.8 (32-36) g/dl RDW 12.3 (11.5-14.0) % Plt Count 296 (150-450) K/mm3 MPV 10.2 (7.5-11.0) fl Gran % 87.4 H (36.0-66.0) % Eos # (Auto) 0.02 (0-0.5) Absolute Lymphs (auto) 0.89 L (1.0-4.6) Absolute Monos (auto) 1.75 H (0.0-1.3) Lymphocytes % 4.2 L (24.0-44.0) % Monocytes % 8.3 (0.0-12.0) % Eosinophils % 0.1 (0.00-5.0) % Basophils % 0.0 (0.0-0.4) % Absolute Granulocytes 18.48 H (1.4-6.9) Basophils # 0.01 (0-0.4) Sodium (137-145) mmol/L Potassium (3.5-5.1) mmol/L Chloride (98-107) mmol/L Carbon Dioxide (22-30) mmol/L Anion Gap (5-15) MEQ/L BUN (9-20) mg/dL Creatinine (0.66-1.25) mg/dL Estimated GFR ML/MIN Glucose (74-106) mg/dL Lactic Acid (0.4-2.0) Calcium (8.4-10.2) mg/dL Total Bilirubin (0.2-1.3) mg/dL AST (17-59) U/L ALT (0-50) U/L Alkaline Phosphatase (38-126) U/L Troponin I (0.000-0.034) ng/mL Serum Total Protein (6.3-8.2) g/dL Albumin (3.5-5.0) g/dL Lipase (23-300) U/L - Progress Progress: improved Progress Note: 02/07/20 00:47 Patient reassessed. Pain improved. Work-up reveals pancolitis Crohn's flareup. Case discussed with Dr. Emmanuel. We will admit patient to observation for further evaluation and treatment. Plan of care discussed with patient. He agrees to admission to [facility] for further evaluation. Discussed with Dr.: Francois Will see patient in: hospital (observation) Counseled pt/family regarding: lab results, diagnosis, rad results - Departure Departure Disposition: Observation Clinical Impression: Crohn's colitis, Fever, Abdominal pain Condition: Stable Critical Care Time: No Referrals: BOY EMMANUEL MD [Primary Care Provider] -
[2020-02-07] MEDS ORDERED: Hydromorphone 1 mg/ml Ampule IV ONE (00:33)
[2020-02-07] MEDS ORDERED: Hydromorphone 1 mg/ml Ampule ONE (00:37)
[2020-02-07] MEDS ORDERED: Sodium Chloride 0.9% 1000 ML 1,000 ML IV STA (00:53)
[2020-02-07] MEDS ORDERED: Sodium Chloride 0.9% 1000 ML 2,000 ML ONE (00:54)
[2020-02-07 01:02] LABS: Appearance CLEAR (CLEAR); Bilirubin NEGATIVE (NEGATIVE); Blood NEGATIVE Ery/ul (0-5); Glucose NEGATIVE (NEGATIVE); Ketones NEGATIVE (NEGATIVE); Leukocyte Esterase NEGATIVE (NEGATIVE); Nitrite NEGATIVE (NEGATIVE); Protein,Urine Dip NEGATIVE (Negative); Specific Gravity 1.019 (1.005-1.025); Urobilinogen NEGATIVE mg/dL (0-1)
[2020-02-07] MEDS ORDERED: Zofran 4 MG/2 ML VIAL IV PRN (01:27)
[2020-02-07] MEDS ORDERED: DILAUDID 2 MG INJECTION IV PRN (01:27)
[2020-02-07] MEDS ORDERED: DILAUDID 1 MG/1ML PCA IV PRN (02:25)
[2020-02-07] MEDS ORDERED: DILAUDID 2 MG INJECTION IV ONE (02:26)
[2020-02-07 05:08] LABS: Hematocrit 38.1 % (42-50); Hemoglobin 12.5 gm/dl (12.5-18.0); Mean Cell Volume 92.3 fl (78-100); Mean Corpuscular Hemoglobin 30.3 pg (26-32); Mean Corpuscular Hgb Concent. 32.8 g/dl (32-36); Mean Platelet Volume 9.9 fl (7.5-11.0); Platelet Count 225 K/mm3 (150-450); Red Blood Count 4.13 M/mm3 (4.1-5.6); Red Cell Distribution Width 12.4 % (11.5-14.0); White Blood Count 21.9 K/mm3 (4.0-10.5)
[2020-02-07 05:29] LABS: ALBUMIN 3.6 g/dL (3.5-5.0); ALKALINE PHOSPHATASE 85 U/L (38-126); ANION GAP 10.2 MEQ/L (5-15); BLOOD UREA NITROGEN 6 mg/dL (9-20); CHLORIDE 111 mmol/L (98-107); Calcium 8.1 mg/dL (8.4-10.2); Carbon Dioxide 24 mmol/L (22-30); Creatinine 1 0.66 mg/dL (0.66-1.25); Glucose 110 mg/dL (74-106); Potassium 3.2 mmol/L (3.5-5.1); SGOT/AST 56 U/L (17-59); SGPT/ALT 72 U/L (0-50); SODIUM 141 mmol/L (137-145); Total Protein 6.4 g/dL (6.3-8.2)
[2020-02-07 06:30] LABS: BAND 8 % (0.0-2.0); Lymphocytes 3 % (24-44); Monocyte 6 % (0.0-12.0); Neutrophils 83 % (36.-66.); Total Cells Counted 100
[2020-02-07 06:32] LABS: ANISOCYTOSIS 1+; Platelet Estimate NORMAL (NORMAL); Poikilocytosis 1+; Toxic Granulation 1+
[2020-02-07] MEDS: Sodium Chloride 0.9% 1000 ML 1,000 ML IV SCH ×2 (06:42→17:25)
--- NOTE | 2020-02-07 09:12 | XRAY ---
Indication: Left lower quadrant pain. Fever and nausea. History Crohn's disease. Multiple contiguous axial images obtained through the abdomen and pelvis using 80 cc Isovue 370 contrast only. Comparison: October 16, 2019. Lung bases again demonstrates bibasilar atelectasis less than before. No infiltrate or effusion. Heart is not enlarged. Noncontrasted stomach and bowel loops appear nonobstructed. There is now mild fluid distended small and large bowel loops with minimal fluid leveling, ileus versus enterocolitis. Ileocecal junction demonstrate mild bowel wall thickening suggestive of Crohn's. No free fluid/air. Again previous reported appendectomy and cholecystectomy. Liver is mildly fatty in attenuation and enlarged measuring 21 cm. Remaining liver, pancreas, spleen, adrenal glands, kidneys, ureters, bladder, and aorta appear unremarkable. No pathologic retroperitoneal lymphadenopathy. Osseous structures intact. Impression: 1. Mild fluid distended small and large bowel loops with fluid leveling. Also mild ileocecal junction bowel wall thickening. Rule out Crohn's disease, ileus, enterocolitis. 2. Mild fatty hepatomegaly. Comment: Preliminary interpretation was made by [facility]. No critical discrepancy.
[2020-02-07] MEDS ORDERED: MOTRIN 600 MG PO PRN (09:34)
[2020-02-07] MEDS ORDERED: PHARMACY DOSING REQUIRED: DILAUDID PCA IV ONE (09:34)
[2020-02-07] MEDS ORDERED: TYLENOL 325 MG PO PRN (09:34)
[2020-02-07] MEDS: DILAUDID 1 MG/1ML PCA IV PRN (10:05)
[2020-02-07] MEDS ORDERED: Narcan 0.4 MG/ML IV PRN (10:30)
[2020-02-07] MEDS ORDERED: solu-MEDROL 125 MG IV ONE (10:55)
[2020-02-07] MEDS ORDERED: MEDICATION INTERVENTION PO SCH ×2 (11:15)
[2020-02-07] MEDS ORDERED: LIPASE PO SCH (11:30)
[2020-02-07] MEDS ORDERED: PROTEASE PO SCH (11:30)
[2020-02-07] MEDS ORDERED: AMYLASE PO SCH (11:30)
[2020-02-07] MEDS ORDERED: [UNRECOGNIZED DRUG - OTHER] PO SCH (11:30)
--- NOTE | 2020-02-07 11:42 | PCM.HP ---
History of Present Illness - Chief Complaint Chief Complaint: pancolitis History of Present Illness: is a 34 year old male arrived to ER last night, had acute onset of LLQ abd pain with fever, known hx of crohn's disease followed by Dr Solo. had a couple of loose stools, nausea, no blood in the stool, no recent travel or abx use. - Review of Systems Constitutional: Fever, Chills Respiratory: No Cough, No Short Of Breath Abdominal/Gastrointestinal: Abdominal Pain Genitourinary Symptoms: No Dysuria Skin: No Rash Medications & Allergies Home Medications: Home Medication List Omeprazole 20 MG [Prilosec 20 mg] 20 mg PO DAILY 12/02/13 [History Confirmed 10/17] Ascorbic Acid 500 mg [Vitamin C 500 MG] 500 mg PO DAILY 08/04/15 [History Confirmed 02/06/20] Loratadine 10 mg [Claritin 10 mg] 10 mg PO DAILY 01/15/17 [History Confirmed 02/06/20] Mesalamine [Apriso] 1.5 gm PO DAILY 09/18/19 [History Confirmed 02/06/20] Venlafaxine HCl ER 37.5 mg [Effexor ER 37.5 MG] 112.5 mg PO BID 30 Days tab 10/18/19 [Rx Confirmed 02/06/20] Lipase/Protease/Amylase [Trupti Santacruz 24,000 Units Capsule] 24,000 units PO AC 02/06 [History Confirmed 02/07/20] Allergies/Adverse Reactions: Allergies Allergy/AdvReac Type Severity Reaction Status Date / Time No Known Drug Allergies Allergy Verified 02/06/20 22:21 - Past Medical History Past Medical History: Yes Neurological History: No Pertinent History ENT History: No Pertinent History Cardiac History: No Pertinent History Respiratory History: No Pertinent History Endocrine Medical History: No Pertinent History Musculoskelatal History: No Pertinent History GI Medical History: Colitis, Crohns Disease, Diverticulitis, Diverticulosis, GERD, Irritable Bowel, Pancreatitis History: No Pertinent History Pyscho-Social History: Depression Male Reproductive Disorders: No Pertinent History Comment: HX OF ABD PAIN - Past Surgical History Past Surgical History: Yes Neuro Surgical History: No Pertinent History Cardiac History: No Pertinent History Respiratory Surgery: No Pertinent History GI Surgical History: Appendectomy, Cholecystectomy Genitourinary Surgical Hx: No Pertinent History Musculskeletal Surgical Hx: Other Male Surgical History: No Pertinent History Other Surgical History: ERCP, RECONSTRUCTIVE SURGERY TO RT SHOULDER - Social History Smoking Status: Former smoker Exposure to second hand smoke: No Alcohol: None Drug Use: none - Physical Exam Vital Signs: Vital Signs - 24 hr Temp Pulse Resp BP Pulse Ox 02/07/20 11:03 96 02/07/20 10:17 94 L 02/07/20 10:05 94 L 02/07/20 07:50 99.5 F 108 H 17 123/83 94 L 02/07/20 02:45 96 02/07/20 01:40 98.5 F 112 H 18 125/87 96 02/07/20 01:27 94 L 02/07/20 00:50 105 H 18 121/95 96 02/07/20 00:49 97 02/07/20 00:05 106 H 125/75 96 02/06/20 22:13 101.0 F 138 H 22 137/83 97 General Appearance: no apparent distress, alert Neurologic Exam: alert, oriented x 3, cooperative, normal mood/affect, nml cerebellar function, nml station & gait, sensation nml, No motor deficits Respiratory Exam: normal breath sounds, lungs clear, No respiratory distress Cardiovascular Exam: regular rate/rhythm, normal heart sounds, normal peripheral pulses Gastrointestinal/Abdomen Exam: soft, normal bowel sounds, No tenderness, No mass Results - Labs Lab/Micro Results: Lab Results-Last 24 Hours 02/06/20 02/06/20 02/06/20 Range/Units 22:30 22:30 22:30 WBC 21.2 H (4.0-10.5) K/mm3 RBC 4.34 (4.1-5.6) M/mm3 Hgb 13.2 (12.5-18.0) gm/dl Hct 39.1 L (42-50) % MCV 90.1 (78-100) fl MCH 30.4 (26-32) pg MCHC 33.8 (32-36) g/dl RDW 12.3 (11.5-14.0) % Plt Count 296 (150-450) K/mm3 MPV 10.2 (7.5-11.0) fl Gran % 87.4 H (36.0-66.0) % Eos # (Auto) 0.02 (0-0.5) Absolute Lymphs (auto) 0.89 L (1.0-4.6) Absolute Monos (auto) 1.75 H (0.0-1.3) Lymphocytes % 4.2 L (24.0-44.0) % Monocytes % 8.3 (0.0-12.0) % Eosinophils % 0.1 (0.00-5.0) % Basophils % 0.0 (0.0-0.4) % Absolute Granulocytes 18.48 H (1.4-6.9) Segmented Neutrophils (36.-66.) % Band Neutrophils (0.0-2.0) % Lymphocytes (Manual) (24-44) % Monocytes (Manual) (0.0-12.0) % Basophils # 0.01 (0-0.4) Toxic Granulation Platelet Estimate (NORMAL) RBC Morphology Poikilocytosis Anisocytosis Sodium 138 (137-145) mmol/L Potassium 3.4 L (3.5-5.1) mmol/L Chloride 103 (98-107) mmol/L Carbon Dioxide 22 (22-30) mmol/L Anion Gap 15.9 H (5-15) MEQ/L BUN 6 L (9-20) mg/dL Creatinine 0.65 L (0.66-1.25) mg/dL Estimated GFR > 60.0 ML/MIN Glucose 163 H (74-106) mg/dL Lactic Acid (0.4-2.0) Calcium 9.1 (8.4-10.2) mg/dL Total Bilirubin 0.50 (0.2-1.3) mg/dL AST 34 (17-59) U/L ALT 49 (0-50) U/L Alkaline Phosphatase 85 (38-126) U/L Troponin I < 0.012 (0.000-0.034) ng/mL Serum Total Protein 7.3 (6.3-8.2) g/dL Albumin 4.3 (3.5-5.0) g/dL Lipase 48 (23-300) U/L Urine Color (YELLOW) Urine Appearance (CLEAR) Urine pH (5-6) Ur Specific [place] (1.005-1.025) Urine Protein (Negative) Urine Ketones (NEGATIVE) Urine Blood (0-5) Shaji/ul Urine Nitrite (NEGATIVE) Urine Bilirubin (NEGATIVE) Urine Urobilinogen (0-1) mg/dL Ur Leukocyte Esterase (NEGATIVE) Urine WBC (Auto) (0-5) /HPF Urine RBC (Auto) (0-2) /HPF U Epithel Cells (Auto) (FEW) /HPF Urine Bacteria (Auto) (NEGATIVE) /HPF Urine Culture Reflexed (NO) Urine Glucose (NEGATIVE) mg/dL 02/06/20 02/07/20 02/07/20 Range/Units 22:40 00:47 00:49 WBC (4.0-10.5) K/mm3 RBC (4.1-5.6) M/mm3 Hgb (12.5-18.0) gm/dl Hct (42-50) % MCV (78-100) fl MCH (26-32) pg MCHC (32-36) g/dl RDW (11.5-14.0) % Plt Count (150-450) K/mm3 MPV (7.5-11.0) fl Gran % (36.0-66.0) % Eos # (Auto) (0-0.5) Absolute Lymphs (auto) (1.0-4.6) Absolute Monos (auto) (0.0-1.3) Lymphocytes % (24.0-44.0) % Monocytes % (0.0-12.0) % Eosinophils % (0.00-5.0) % Basophils % (0.0-0.4) % Absolute Granulocytes (1.4-6.9) Segmented Neutrophils (36.-66.) % Band Neutrophils (0.0-2.0) % Lymphocytes (Manual) (24-44) % Monocytes (Manual) (0.0-12.0) % Basophils # (0-0.4) Toxic Granulation Platelet Estimate (NORMAL) RBC Morphology Poikilocytosis Anisocytosis Sodium (137-145) mmol/L Potassium (3.5-5.1) mmol/L Chloride (98-107) mmol/L Carbon Dioxide (22-30) mmol/L Anion Gap (5-15) MEQ/L BUN (9-20) mg/dL Creatinine (0.66-1.25) mg/dL Estimated GFR ML/MIN Glucose (74-106) mg/dL Lactic Acid 2.4 H 1.1 (0.4-2.0) Calcium (8.4-10.2) mg/dL Total Bilirubin (0.2-1.3) mg/dL AST (17-59) U/L ALT (0-50) U/L Alkaline Phosphatase (38-126) U/L Troponin I (0.000-0.034) ng/mL Serum Total Protein (6.3-8.2) g/dL Albumin (3.5-5.0) g/dL Lipase (23-300) U/L Urine Color STRAW (YELLOW) Urine Appearance CLEAR (CLEAR) Urine pH 6.0 (5-6) Ur Specific [place] 1.019 (1.005-1.025) Urine Protein NEGATIVE (Negative) Urine Ketones NEGATIVE (NEGATIVE) Urine Blood NEGATIVE (0-5) Shaji/ul Urine Nitrite NEGATIVE (NEGATIVE) Urine Bilirubin NEGATIVE (NEGATIVE) Urine Urobilinogen NEGATIVE (0-1) mg/dL Ur Leukocyte Esterase NEGATIVE (NEGATIVE) Urine WBC (Auto) NONE (0-5) /HPF Urine RBC (Auto) NONE (0-2) /HPF U Epithel Cells (Auto) NONE (FEW) /HPF Urine Bacteria (Auto) NONE (NEGATIVE) /HPF Urine Culture Reflexed NO (NO) Urine Glucose NEGATIVE (NEGATIVE) mg/dL 02/07/20 02/07/20 02/07/20 Range/Units 01:47 04:32 04:32 WBC 21.9 H (4.0-10.5) K/mm3 RBC 4.13 (4.1-5.6) M/mm3 Hgb 12.5 (12.5-18.0) gm/dl Hct 38.1 L (42-50) % MCV 92.3 (78-100) fl MCH 30.3 (26-32) pg MCHC 32.8 (32-36) g/dl RDW 12.4 (11.5-14.0) % Plt Count 225 (150-450) K/mm3 MPV 9.9 (7.5-11.0) fl Gran % (36.0-66.0) % Eos # (Auto) (0-0.5) Absolute Lymphs (auto) (1.0-4.6) Absolute Monos (auto) (0.0-1.3) Lymphocytes % (24.0-44.0) % Monocytes % (0.0-12.0) % Eosinophils % (0.00-5.0) % Basophils % (0.0-0.4) % Absolute Granulocytes (1.4-6.9) Segmented Neutrophils 83 H (36.-66.) % Band Neutrophils 8 H (0.0-2.0) % Lymphocytes (Manual) 3 L (24-44) % Monocytes (Manual) 6 (0.0-12.0) % Basophils # (0-0.4) Toxic Granulation 1+ Platelet Estimate NORMAL (NORMAL) RBC Morphology ABNORMAL Poikilocytosis 1+ Anisocytosis 1+ Sodium 141 (137-145) mmol/L Potassium 3.2 L (3.5-5.1) mmol/L Chloride 111 H (98-107) mmol/L Carbon Dioxide 24 (22-30) mmol/L Anion Gap 10.2 (5-15) MEQ/L BUN 6 L (9-20) mg/dL Creatinine 0.66 (0.66-1.25) mg/dL Estimated GFR > 60.0 ML/MIN Glucose 110 H (74-106) mg/dL Lactic Acid (0.4-2.0) Calcium 8.1 L (8.4-10.2) mg/dL Total Bilirubin 0.70 (0.2-1.3) mg/dL AST 56 (17-59) U/L ALT 72 H (0-50) U/L Alkaline Phosphatase 85 (38-126) U/L Troponin I < 0.012 (0.000-0.034) ng/mL Serum Total Protein 6.4 (6.3-8.2) g/dL Albumin 3.6 (3.5-5.0) g/dL Lipase (23-300) U/L Urine Color (YELLOW) Urine Appearance (CLEAR) Urine pH (5-6) Ur Specific [place] (1.005-1.025) Urine Protein (Negative) Urine Ketones (NEGATIVE) Urine Blood (0-5) Shaji/ul Urine Nitrite (NEGATIVE) Urine Bilirubin (NEGATIVE) Urine Urobilinogen (0-1) mg/dL Ur Leukocyte Esterase (NEGATIVE) Urine WBC (Auto) (0-5) /HPF Urine RBC (Auto) (0-2) /HPF U Epithel Cells (Auto) (FEW) /HPF Urine Bacteria (Auto) (NEGATIVE) /HPF Urine Culture Reflexed (NO) Urine Glucose (NEGATIVE) mg/dL - Radiology Impressions Radiology Exams & Impressions: Radiology Procedures Category Date Time Status ABDOMEN AND PELVIS W CONTRAST [CT] Stat Exams 02/06/20 22:41 Completed - Other Procedures and Tests Respiratory Therapy 02/07/20 10:44 Oxygen NASAL CANNULA 2 lpm Assessment/Plan (1) Exacerbation of Crohn's disease of large intestine Current Visit: No Status: Acute Assessment & Plan: IV steroids, fluids, zosyn at this time. clear liquids Code(s): K50.10 - CROHN'S DISEASE OF LARGE INTESTINE WITHOUT COMPLICATIONS (2) Abdominal pain Current Visit: Yes Status: Acute Code(s): R10.9 - UNSPECIFIED ABDOMINAL PAIN (3) Fever Current Visit: Yes Status: Acute Code(s): R50.9 - FEVER, UNSPECIFIED
[2020-02-07] MEDS: Zosyn 3.375GM/100 Ml D5W 3.375 GM/100 ML IVPB IV SCH ×2 (12:36→17:26)
[2020-02-07] MEDS: Effexor ER 37.5 MG PO SCH ×2 (12:36→22:34)
[2020-02-07] MEDS: Protonix 40MG Tablet PO SCH (12:37)
[2020-02-07] MEDS ORDERED: BENADRYL 50 MG/ML IV PRN (15:04)
[2020-02-07] MEDS: solu-MEDROL 125 MG IV SCH (17:26)
[2020-02-07] MEDS: BENADRYL 50 MG/ML IV PRN ×3 (17:26→22:40)
[2020-02-08] MEDS: Zosyn 3.375GM/100 Ml D5W 3.375 GM/100 ML IVPB IV SCH ×4 (00:51→18:37)
[2020-02-08] MEDS: solu-MEDROL 125 MG IV SCH ×4 (00:52→17:43)
[2020-02-08] MEDS: BENADRYL 50 MG/ML IV PRN ×7 (00:52→23:10)
[2020-02-08] MEDS: Sodium Chloride 0.9% 1000 ML 1,000 ML IV SCH ×2 (03:29→14:02)
[2020-02-08 05:09] LABS: Absolute Neutrophil Ct (ANC) 19.76 (1.4-6.9); Basophil (Absolute #) 0.01 (0-0.4); Eosinophil (Absolute #) 0 (0-0.5); Hematocrit 36.1 % (42-50); Lymphocyte (Absolute #) 0.62 (1.0-4.6); Lymphocytes % 2.9 % (24.0-44.0); Mean Cell Volume 91.2 fl (78-100); Mean Corpuscular Hemoglobin 30.3 pg (26-32); Mean Corpuscular Hgb Concent. 33.2 g/dl (32-36); Mean Platelet Volume 9.8 fl (7.5-11.0); Monocyte (Absolute #) 0.84 (0.0-1.3); Neutrophil % 93.1 % (36.0-66.0); Platelet Count 229 K/mm3 (150-450); Red Blood Count 3.96 M/mm3 (4.1-5.6); Red Cell Distribution Width 12.3 % (11.5-14.0); White Blood Count 21.2 K/mm3 (4.0-10.5)
[2020-02-08 05:45] LABS: ALBUMIN 3.6 g/dL (3.5-5.0); ALKALINE PHOSPHATASE 76 U/L (38-126); ANION GAP 10.6 MEQ/L (5-15); BLOOD UREA NITROGEN 9 mg/dL (9-20); CHLORIDE 104 mmol/L (98-107); Calcium 8.9 mg/dL (8.4-10.2); Carbon Dioxide 26 mmol/L (22-30); Creatinine 1 0.49 mg/dL (0.66-1.25); Glucose 138 mg/dL (74-106); Potassium 3.9 mmol/L (3.5-5.1); SGOT/AST 28 U/L (17-59); SGPT/ALT 56 U/L (0-50); SODIUM 137 mmol/L (137-145); Total Protein 6.4 g/dL (6.3-8.2)
[2020-02-08 06:27] LABS: Slide Review 1 YES
[2020-02-08] MEDS: DILAUDID 1 MG/1ML PCA IV PRN ×2 (07:38→22:05)
--- NOTE | 2020-02-08 08:32 | PCM.NOTE ---
Date and Time: 02/08/20830 Subjective Assessment: patient notes some improvement in symptoms, continues to have some diarrhea and nausea/vomiting. pain is slightly improved Objective Exam General Appearance: no apparent distress Neurologic Exam: alert, oriented x 3, cooperative Respiratory Exam: normal breath sounds, lungs clear, No respiratory distress Cardiovascular Exam: regular rate/rhythm, normal heart sounds Gastrointestinal/Abdomen Exam: tenderness (LLQ/RLQ), No guarding, No rebound Extremity Exam: normal inspection, normal range of motion OBJECTIVE DATA Vital Signs: Vital Signs - 24 hr Temp Pulse Resp BP Pulse Ox 02/08/20 07:38 96 02/08/20 07:26 97.3 F 73 18 127/82 96 02/08/20 06:32 96 02/08/20 04:00 97.7 F 67 18 131/85 95 02/08/20 00:00 98.2 F 85 20 137/84 96 02/07/20 20:00 97.9 F 88 20 138/87 97 02/07/20 18:07 96 02/07/20 16:00 98.3 F 82 16 134/86 97 02/07/20 12:00 99.8 F 101 H 17 120/71 97 02/07/20 11:03 96 02/07/20 10:45 89 L 02/07/20 10:17 94 L 02/07/20 10:05 94 L Pain Assessment - Last Documented Pain Intensity 4 Pain Scale Used [facility] Intake and Output: Intake & Output 02/05/20 02/06/20 02/07/20 02/08/20 11:59 11:59 11:59 11:59 Intake Total 240 6557 Output Total 800 Balance -560 6557 Weight 99.5 kg Lab Results: Lab Results-Last 24 Hours 02/08/20 02/08/20 Range/Units 05:04 05:04 WBC 21.2 H (4.0-10.5) K/mm3 RBC 3.96 L (4.1-5.6) M/mm3 Hgb 12.0 L (12.5-18.0) gm/dl Hct 36.1 L (42-50) % MCV 91.2 (78-100) fl MCH 30.3 (26-32) pg MCHC 33.2 (32-36) g/dl RDW 12.3 (11.5-14.0) % Plt Count 229 (150-450) K/mm3 MPV 9.8 (7.5-11.0) fl Gran % 93.1 H (36.0-66.0) % Eos # (Auto) 0 (0-0.5) Absolute Lymphs (auto) 0.62 L (1.0-4.6) Absolute Monos (auto) 0.84 (0.0-1.3) Lymphocytes % 2.9 L (24.0-44.0) % Monocytes % 4.0 (0.0-12.0) % Eosinophils % 0.0 (0.00-5.0) % Basophils % 0.0 (0.0-0.4) % Absolute Granulocytes 19.76 H (1.4-6.9) Basophils # 0.01 (0-0.4) Sodium 137 (137-145) mmol/L Potassium 3.9 D (3.5-5.1) mmol/L Chloride 104 (98-107) mmol/L Carbon Dioxide 26 (22-30) mmol/L Anion Gap 10.6 (5-15) MEQ/L BUN 9 (9-20) mg/dL Creatinine 0.49 L (0.66-1.25) mg/dL Estimated GFR > 60.0 ML/MIN Glucose 138 H (74-106) mg/dL Calcium 8.9 (8.4-10.2) mg/dL Total Bilirubin 0.50 (0.2-1.3) mg/dL AST 28 (17-59) U/L ALT 56 H (0-50) U/L Alkaline Phosphatase 76 (38-126) U/L Serum Total Protein 6.4 (6.3-8.2) g/dL Albumin 3.6 (3.5-5.0) g/dL Slides for Path Review YES Radiology Exams: Radiology Procedures Category Date Time Status ABDOMEN AND PELVIS W CONTRAST [CT] Stat Exams 02/06/20 22:41 Completed Assessment/Plan (1) Exacerbation of Crohn's disease of large intestine Current Visit: No Status: Acute Assessment & Plan: continue fluids, IV solu medrol and zosyn. elevation of wbc related to steroids Code(s): K50.10 - CROHN'S DISEASE OF LARGE INTESTINE WITHOUT COMPLICATIONS (2) Abdominal pain Current Visit: Yes Status: Acute Code(s): R10.9 - UNSPECIFIED ABDOMINAL PAIN (3) Fever Current Visit: Yes Status: Acute Code(s): R50.9 - FEVER, UNSPECIFIED
[2020-02-08] MEDS: Compazine 10 MG/2 ML IV PRN ×3 (09:16→23:51)
[2020-02-08] MEDS ORDERED: MESALAMINE 1.5 GM PO SCH (10:00)
[2020-02-08] MEDS ORDERED: NON-FORMULARY ITEM (Omeprazole 20 Mg [Prilosec 20 Mg] 20 MG) PO SCH (10:00)
[2020-02-08] MEDS: Protonix 40MG Tablet PO SCH (11:30)
[2020-02-08] MEDS: Effexor ER 37.5 MG PO SCH ×2 (11:31→21:03)
[2020-02-08 18:52] LABS: Adenovirus F 40/41 NEGATIVE (NEGATIVE); Astrovirus NEGATIVE (NEGATIVE); Campylobacter NEGATIVE (NEGATIVE); Cryptosporidium NEGATIVE (NEGATIVE); Cyclospora cayentanensis NEGATIVE (NEGATIVE); Entamoeaba histolytica NEGATIVE (NEGATIVE); Enteroaggregative E.coli NEGATIVE (NEGATIVE); Enteropathogenic E.coli NEGATIVE (NEGATIVE); Enterotoxigenic E.coli NEGATIVE (NEGATIVE); Giardia lamblia NEGATIVE (NEGATIVE); Norovirus GI/GII NEGATIVE (NEGATIVE); Plesiomonas shigelloides NEGATIVE (NEGATIVE); Rotavirus A NEGATIVE (NEGATIVE); Salmonella NEGATIVE (NEGATIVE); Sapovirus NEGATIVE (NEGATIVE); Shiga-like toxin prod.E.coli NEGATIVE (NEGATIVE); Vibrio NEGATIVE (NEGATIVE); Vibrio cholerae NEGATIVE (NEGATIVE); Yersinia enterocolitica NEGATIVE (NEGATIVE)
[2020-02-08 18:54] LABS: C. Difficile Organism POSITIVE (NEGATIVE)
[2020-02-08] MEDS ORDERED: Flagyl 500 MG PO SCH (22:00)
[2020-02-09] MEDS: Sodium Chloride 0.9% 1000 ML 1,000 ML IV SCH ×3 (01:21→21:40)
[2020-02-09] MEDS: solu-MEDROL 125 MG IV SCH ×3 (01:22→18:22)
[2020-02-09] MEDS: BENADRYL 50 MG/ML IV PRN ×8 (03:01→23:05)
[2020-02-09 05:02] LABS: ALBUMIN 3.1 g/dL (3.5-5.0); ALKALINE PHOSPHATASE 71 U/L (38-126); ANION GAP 7.1 MEQ/L (5-15); BLOOD UREA NITROGEN 11 mg/dL (9-20); CHLORIDE 106 mmol/L (98-107); Calcium 8.4 mg/dL (8.4-10.2); Carbon Dioxide 28 mmol/L (22-30); Creatinine 1 0.51 mg/dL (0.66-1.25); Glucose 134 mg/dL (74-106); Potassium 3.6 mmol/L (3.5-5.1); SGOT/AST 21 U/L (17-59); SGPT/ALT 41 U/L (0-50); SODIUM 138 mmol/L (137-145); Total Protein 5.8 g/dL (6.3-8.2)
[2020-02-09 05:07] LABS: Hematocrit 33.1 % (42-50); Mean Cell Volume 91.4 fl (78-100); Mean Corpuscular Hemoglobin 30.4 pg (26-32); Mean Corpuscular Hgb Concent. 33.2 g/dl (32-36); Mean Platelet Volume 10.5 fl (7.5-11.0); Platelet Count 282 K/mm3 (150-450); Red Blood Count 3.62 M/mm3 (4.1-5.6); Red Cell Distribution Width 12.3 % (11.5-14.0); White Blood Count 21.6 K/mm3 (4.0-10.5)
[2020-02-09 06:48] LABS: BAND 17 % (0.0-2.0); Lymphocytes 3 % (24-44); Monocyte 5 % (0.0-12.0); Neutrophils 75 % (36.-66.); Platelet Estimate NORMAL (NORMAL); Total Cells Counted 100; Toxic Granulation 1+
--- NOTE | 2020-02-09 07:40 | PCM.NOTE ---
Date and Time: 02/09/20 0739 Subjective Assessment: c/o abdominal pain - Review of Systems Constitutional: No Fever, No Chills Eyes: No Symptoms Ears, Nose, & Throat: No Symptoms Respiratory: No Cough, No Short Of Breath Cardiac: No Chest Pain, No Edema, No Syncope Abdominal/Gastrointestinal: No Abdominal Pain, No Nausea, No Vomiting, No Diarrhea Genitourinary Symptoms: No Dysuria Musculoskeletal: No Back Pain, No Neck Pain Skin: No Rash Neurological: No Dizziness, No Focal Weakness, No Sensory Changes Psychological: No Symptoms Endocrine: No Symptoms Hematologic/Lymphatic: No Symptoms Immunological/Allergic: No Symptoms Objective Exam General Appearance: no apparent distress, alert Neurologic Exam: alert, oriented x 3, cooperative, normal mood/affect, nml cerebellar function, sensation nml, No motor deficits Skin Exam: normal color, warm, dry Eye Exam: PERRL, EOMI, eyes nml inspection Ears, Nose, Throat Exam: normal ENT inspection, pharynx normal, moist mucous membranes Neck Exam: normal inspection, non-tender, supple, full range of motion Respiratory Exam: normal breath sounds, lungs clear, No respiratory distress Cardiovascular Exam: regular rate/rhythm, normal heart sounds Gastrointestinal/Abdomen Exam: soft, No tenderness, No mass Extremity Exam: normal inspection, normal range of motion Back Exam: normal inspection, normal range of motion, No CVA tenderness, No vertebral tenderness Male Genitalia Exam: deferred Rectal Exam: deferred OBJECTIVE DATA Vital Signs: Vital Signs - 24 hr Temp Pulse Resp BP Pulse Ox 02/09/20 06:50 98 02/09/20 05:57 97 02/09/20 04:08 97.8 F 66 18 144/87 97 02/09/20 03:38 97 02/09/20 03:35 97 02/09/20 00:00 99 02/08/20 23:43 98.0 F 76 20 145/82 99 02/08/20 23:38 99 02/08/20 22:05 97 02/08/20 20:25 99 02/08/20 20:10 98.8 F 70 18 164/95 97 02/08/20 20:00 97 02/08/20 19:38 97 02/08/20 18:41 96 02/08/20 16:00 98.1 F 91 H 18 141/91 96 02/08/20 12:00 97.6 F 76 16 124/83 96 Pain Assessment - Last Documented Pain Intensity 5 Pain Scale Used 0-10 Pain Scale Intake and Output: Intake & Output 02/06/20 02/07/20 02/08/20 02/09/20 11:59 11:59 11:59 11:59 Intake Total 240 7037 7366 Output Total 800 5700 Balance -560 7037 1666 Weight 99.5 kg Lab Results: Lab Results-Last 24 Hours 02/08/20 02/09/20 02/09/20 Range/Units 15:12 04:45 04:45 WBC 21.6 H (4.0-10.5) K/mm3 RBC 3.62 L (4.1-5.6) M/mm3 Hgb 11.0 L (12.5-18.0) gm/dl Hct 33.1 L (42-50) % MCV 91.4 (78-100) fl MCH 30.4 (26-32) pg MCHC 33.2 (32-36) g/dl RDW 12.3 (11.5-14.0) % Plt Count 282 (150-450) K/mm3 MPV 10.5 (7.5-11.0) fl Segmented Neutrophils 75 H (36.-66.) % Band Neutrophils 17 H (0.0-2.0) % Lymphocytes (Manual) 3 L (24-44) % Monocytes (Manual) 5 (0.0-12.0) % Toxic Granulation 1+ Platelet Estimate NORMAL (NORMAL) RBC Morphology NORMAL Sodium 138 (137-145) mmol/L Potassium 3.6 (3.5-5.1) mmol/L Chloride 106 (98-107) mmol/L Carbon Dioxide 28 (22-30) mmol/L Anion Gap 7.1 (5-15) MEQ/L BUN 11 (9-20) mg/dL Creatinine 0.51 L (0.66-1.25) mg/dL Estimated GFR > 60.0 ML/MIN Glucose 134 H (74-106) mg/dL Calcium 8.4 (8.4-10.2) mg/dL Total Bilirubin 0.40 (0.2-1.3) mg/dL AST 21 (17-59) U/L ALT 41 (0-50) U/L Alkaline Phosphatase 71 (38-126) U/L Serum Total Protein 5.8 L (6.3-8.2) g/dL Albumin 3.1 L (3.5-5.0) g/dL Stl C. cayetanensis PCR NEGATIVE (NEGATIVE) Stl Adenov F 40/41 PCR NEGATIVE (NEGATIVE) Stool Astrovirus (PCR) NEGATIVE (NEGATIVE) Stool Cryptosporidium PCR NEGATIVE (NEGATIVE) Stool EPEC (PCR) NEGATIVE (NEGATIVE) Stool EAEC (PCR) NEGATIVE (NEGATIVE) Stl E. histolytica PCR NEGATIVE (NEGATIVE) Stl P. shigelloides PCR NEGATIVE (NEGATIVE) Stool Sapovirus (PCR) NEGATIVE (NEGATIVE) St Y.enterocolitica PCR NEGATIVE (NEGATIVE) Stool Vibrio (PCR) NEGATIVE (NEGATIVE) Stl Vibrio cholerae PCR NEGATIVE (NEGATIVE) Stl Norovirus GI/GII PCR NEGATIVE (NEGATIVE) Campylobacter (PCR) NEGATIVE (NEGATIVE) C. difficile (PCR) POSITIVE A (NEGATIVE) Enterotoxigenic E. coli NEGATIVE (NEGATIVE) E.coli Shiga Toxins NEGATIVE (NEGATIVE) Giardia lamblia NEGATIVE (NEGATIVE) Rotavirus A (PCR) NEGATIVE (NEGATIVE) Salmonella (PCR) NEGATIVE (NEGATIVE) Shigella (PCR) NEGATIVE (NEGATIVE) Multi-Disciplinary Progress Notes: Multi-Disciplinary Progress Notes 02/08/20 10:32 Case Management Note by Arabella Rosales PATIENT CONTINUES TO DENY ANY NEEDS REGARDING DC AT THIS TIME. HE REPORTS HE HAS FAMILY SUPPORT WELL Initialized on 02/08/20 10:32 - END OF NOTE Assessment/Plan (1) C. difficile colitis Current Visit: Yes Status: Acute Code(s): A04.72 - ENTEROCOLITIS D/T CLOSTRIDIUM DIFFICILE, NOT SPCF RECUR (2) Crohn's colitis Current Visit: Yes Status: Acute Code(s): K50.10 - CROHN'S DISEASE OF LARGE INTESTINE WITHOUT COMPLICATIONS
[2020-02-09] MEDS: Compazine 10 MG/2 ML IV PRN ×2 (07:47→23:16)
[2020-02-09] MEDS: Effexor ER 37.5 MG PO SCH ×2 (10:43→20:41)
[2020-02-09] MEDS: Protonix 40MG Tablet PO SCH (10:43)
[2020-02-09] MEDS: FLAGYL 500 MG IVPB 500 MG/100 ML BAG IV SCH ×2 (10:43→18:22)
[2020-02-10] MEDS: FLAGYL 500 MG IVPB 500 MG/100 ML BAG IV SCH ×3 (02:19→17:11)
[2020-02-10] MEDS: solu-MEDROL 125 MG IV SCH ×3 (02:21→17:11)
[2020-02-10] MEDS: BENADRYL 50 MG/ML IV PRN ×6 (02:25→20:39)
[2020-02-10 05:59] LABS: Hematocrit 35.2 % (42-50); Hemoglobin 11.7 gm/dl (12.5-18.0); Mean Cell Volume 91.4 fl (78-100); Mean Corpuscular Hemoglobin 30.4 pg (26-32); Mean Corpuscular Hgb Concent. 33.2 g/dl (32-36); Mean Platelet Volume 10.3 fl (7.5-11.0); Platelet Count 310 K/mm3 (150-450); Red Blood Count 3.85 M/mm3 (4.1-5.6); Red Cell Distribution Width 12.4 % (11.5-14.0); White Blood Count 17.6 K/mm3 (4.0-10.5)
[2020-02-10 06:07] LABS: ALBUMIN 3.3 g/dL (3.5-5.0); ALKALINE PHOSPHATASE 71 U/L (38-126); BLOOD UREA NITROGEN 12 mg/dL (9-20); CHLORIDE 105 mmol/L (98-107); Calcium 8.3 mg/dL (8.4-10.2); Carbon Dioxide 28 mmol/L (22-30); Glucose 135 mg/dL (74-106); Potassium 3.7 mmol/L (3.5-5.1); SGOT/AST 16 U/L (17-59); SGPT/ALT 33 U/L (0-50); SODIUM 138 mmol/L (137-145); Total Protein 6.1 g/dL (6.3-8.2)
[2020-02-10] MEDS: Compazine 10 MG/2 ML IV PRN ×3 (08:29→21:58)
[2020-02-10 08:34] LABS: BAND 14 % (0.0-2.0); Lymphocytes 6 % (24-44); Monocyte 1 % (0.0-12.0); Neutrophils 79 % (36.-66.); Total Cells Counted 100
[2020-02-10 08:35] LABS: Platelet Estimate NORMAL (NORMAL); Toxic Granulation 1+
--- NOTE | 2020-02-10 08:35 | PCM.NOTE ---
Date and Time: 02/10/20833 Subjective Assessment: feeling better - Review of Systems Constitutional: No Fever, No Chills Eyes: No Symptoms Ears, Nose, & Throat: No Symptoms Respiratory: No Cough, No Short Of Breath Cardiac: No Chest Pain, No Edema, No Syncope Abdominal/Gastrointestinal: No Abdominal Pain, No Nausea, No Vomiting, No Diarrhea Genitourinary Symptoms: No Dysuria Musculoskeletal: No Back Pain, No Neck Pain Skin: No Rash Neurological: No Dizziness, No Focal Weakness, No Sensory Changes Psychological: No Symptoms Endocrine: No Symptoms Hematologic/Lymphatic: No Symptoms Immunological/Allergic: No Symptoms Objective Exam General Appearance: no apparent distress, alert Neurologic Exam: alert, oriented x 3, cooperative, normal mood/affect, nml cerebellar function, sensation nml, No motor deficits Skin Exam: normal color, warm, dry Eye Exam: PERRL, EOMI, eyes nml inspection Ears, Nose, Throat Exam: normal ENT inspection, pharynx normal, moist mucous membranes Neck Exam: normal inspection, non-tender, supple, full range of motion Respiratory Exam: normal breath sounds, lungs clear, No respiratory distress Cardiovascular Exam: regular rate/rhythm, normal heart sounds Gastrointestinal/Abdomen Exam: soft, No tenderness, No mass Extremity Exam: normal inspection, normal range of motion Back Exam: normal inspection, normal range of motion, No CVA tenderness, No vertebral tenderness Male Genitalia Exam: deferred Rectal Exam: deferred OBJECTIVE DATA Vital Signs: Vital Signs - 24 hr Temp Pulse Resp BP Pulse Ox 02/10/20 08:00 98.0 F 62 14 160/96 95 02/10/20 07:00 96 02/10/20 06:39 96 02/10/20 06:05 96 02/10/20 03:38 97.8 F 59 L 17 133/82 97 02/10/20 03:00 97 02/09/20 23:46 98.4 F 64 16 158/102 97 02/09/20 23:38 97 02/09/20 23:00 97 02/09/20 20:16 98.3 F 71 18 136/78 97 02/09/20 20:07 97 02/09/20 19:38 97 02/09/20 19:00 98 02/09/20 16:00 98.3 F 71 18 147/96 98 02/09/20 12:00 97.9 F 70 16 151/95 99 Pain Assessment - Last Documented Pain Intensity 2 Pain Scale Used [facility] Intake and Output: Intake & Output 02/07/20 02/08/20 02/09/20 02/10/20 11:59 11:59 11:59 11:59 Intake Total 240 7037 7846 4107 Output Total 800 6300 4300 Balance -560 7037 1546 -193 Weight 99.5 kg Lab Results: Lab Results-Last 24 Hours 02/10/20 02/10/20 Range/Units 05:40 05:40 WBC 17.6 H (4.0-10.5) K/mm3 RBC 3.85 L (4.1-5.6) M/mm3 Hgb 11.7 L (12.5-18.0) gm/dl Hct 35.2 L (42-50) % MCV 91.4 (78-100) fl MCH 30.4 (26-32) pg MCHC 33.2 (32-36) g/dl RDW 12.4 (11.5-14.0) % Plt Count 310 (150-450) K/mm3 MPV 10.3 (7.5-11.0) fl Sodium 138 (137-145) mmol/L Potassium 3.7 (3.5-5.1) mmol/L Chloride 105 (98-107) mmol/L Carbon Dioxide 28 (22-30) mmol/L Anion Gap 9.0 (5-15) MEQ/L BUN 12 (9-20) mg/dL Creatinine 0.50 L (0.66-1.25) mg/dL Estimated GFR > 60.0 ML/MIN Glucose 135 H (74-106) mg/dL Calcium 8.3 L (8.4-10.2) mg/dL Total Bilirubin 0.40 (0.2-1.3) mg/dL AST 16 L (17-59) U/L ALT 33 (0-50) U/L Alkaline Phosphatase 71 (38-126) U/L Serum Total Protein 6.1 L (6.3-8.2) g/dL Albumin 3.3 L (3.5-5.0) g/dL Assessment/Plan (1) C. difficile colitis Current Visit: Yes Status: Acute Assessment & Plan: Last Vital Signs Temp 98.0 F 02/10/20 08:00 Pulse 62 03/15/20 08:00 Resp 14 02/10/20 08:00 BP 160/96 02/10/20 08:00 Pulse Ox 95 02/10/20 08:00 Allergies No Known Drug Allergies Allergy (Verified 02/06/20 22:21) Active Medications Acetaminophen (Tylenol 325 Mg) 650 mg PO Q6H PRN PRN PRN Reason: PAIN AND/OR FEVER Stop: 03/08/20 09:33 Diphenhydramine HCl (Benadryl 50 Mg/Ml) 25 mg IV Q2H PRN PRN PRN Reason: ITCHING Stop: 03/08/20 16:48 Last Admin: 02/10/20 02:25 Dose: 25 mg Hydromorphone HCl (Dilaudid 1 Mg/1ml [place] Automatic) 30 mg IV UD PRN PRN Reason: PAIN Stop: 02/12/20 09:42 Last Admin: 02/08/20 22:05 Dose: 30 mg Sodium Chloride (Sodium Chloride 0.9% 1000 Ml) 1,000 mls @ 100 mls/hr IV .Q10H JACQUELINE Stop: 03/08/20 01:26 Last Admin: 02/09/20 21:40 Dose: 100 mls/hr Metronidazole (Flagyl 500 Mg Ivpb) 500 mg in 100 mls @ 200 mls/hr IV Q8H JACQUELINE Stop: 03/10/20 09:59 Last Admin: 02/10/20 02:19 Dose: 200 mls/hr Ibuprofen (Motrin 600 Mg) 600 mg PO TIDP PRN PRN Reason: MODERATE PAIN Stop: 03/08/20 09:33 Methylprednisolone Sodium Succinate (Solu-Medrol 125 Mg) 80 mg IV Q8H JACQUELINE Stop: 03/10/20 01:59 Last Admin: 02/10/20 02:21 Dose: 80 mg Miscellaneous Information (Medication Intervention) 1 each PO .RN TO CHECK ON JACQUELINE Stop: 03/08/20 11:14 Miscellaneous Information (Medication Intervention) 1 each PO .RN TO CHECK ON JACQUELINE Stop: 03/08/20 11:14 Naloxone HCl (Narcan 0.4 Mg/Ml) 0.2 - 0.4 mg IV PRN PRN PRN Reason: RESP. DEPRESSION / DLOC Stop: 03/08/20 10:29 Ondansetron HCl (Zofran 4 Mg/2 Ml Vial) 4 mg IV Q6H PRN PRN PRN Reason: NAUSEA/VOMITING Stop: 03/08/20 01:26 Last Admin: 02/07/20 12:53 Dose: 4 mg Pantoprazole Sodium (Protonix 40mg Tablet) 40 mg PO DAILY JACQUELINE Stop: 03/08/20 11:59 Last Admin: 02/09/20 10:43 Dose: 40 mg Prochlorperazine Edisylate (Compazine 10 Mg/2 Ml) 5 mg IV Q6H PRN PRN PRN Reason: VOMITING Stop: 03/09/20 08:50 Last Admin: 02/09/20 23:16 Dose: 5 mg Venlafaxine HCl (Effexor Er 37.5 Mg) 112.5 mg PO BID [facility] Stop: 03/08/20 11:59 Last Admin: 02/09/20 20:41 Dose: 112.5 mg Intake & Output 02/09/20 02/10/20 11:59 11:59 Intake Total 7846 4107 Output Total 6300 4300 Balance 1546 -193 Orders 02/09/20 10:00 Metronidazole 500 mg Premix [Flagyl 500 mg Ivpb] 500 mg in 100 ml IV Q8H 02/09/20 Lunch [place] Diet Lab Tests 02/10/20 02/10/20 05:40 05:40 WBC 17.6 H RBC 3.85 L Hgb 11.7 L Hct 35.2 L MCV 91.4 MCH 30.4 MCHC 33.2 RDW 12.4 Plt Count 310 MPV 10.3 Sodium 138 Potassium 3.7 Chloride 105 Carbon Dioxide 28 Anion Gap 9.0 BUN 12 Creatinine 0.50 L Estimated GFR > 60.0 Glucose 135 H Calcium 8.3 L Total Bilirubin 0.40 AST 16 L ALT 33 Alkaline Phosphatase 71 Serum Total Protein 6.1 L Albumin 3.3 L Code(s): A04.72 - ENTEROCOLITIS D/T CLOSTRIDIUM DIFFICILE, NOT SPCF RECUR (2) Crohn's colitis Current Visit: Yes Status: Acute Code(s): K50.10 - CROHN'S DISEASE OF LARGE INTESTINE WITHOUT COMPLICATIONS
[2020-02-10] MEDS: Sodium Chloride 0.9% 1000 ML 1,000 ML IV SCH ×2 (08:36→20:39)
[2020-02-10] MEDS: Protonix 40MG Tablet PO SCH (10:03)
[2020-02-10] MEDS: Effexor ER 37.5 MG PO SCH ×2 (10:03→21:59)
[2020-02-11] MEDS: FLAGYL 500 MG IVPB 500 MG/100 ML BAG IV SCH ×2 (02:06→09:31)
[2020-02-11] MEDS: solu-MEDROL 125 MG IV SCH ×2 (02:07→09:31)
[2020-02-11] MEDS: BENADRYL 50 MG/ML IV PRN (02:08)
[2020-02-11] MEDS: NORCO 5/325 MG PO PRN ×3 (06:20→15:36)
--- NOTE | 2020-02-11 08:31 | PCM.DS ---
Discharge Summary Date of Admission: 02/08/20 08:31 Admitting Physician: BOY EMMANUEL Primary Care Provider: BOY EMMANUEL Allergies Allergies No Known Drug Allergies Allergy (Verified 02/06/20 22:21) Hospital Summary - Hospital Course Hospital Course: patient was admitted with abdominal pain, diarrhea and flare of crohn's. tested positive for c diff, improved now. diarrhea has improved, he is tolerating po intake and pain is greatly improved. - Vitals & Intake/Output Vital Signs: Vital Signs Temperature 98.6 F 02/11/20 04:15 Pulse Rate 67 02/11/20 04:15 Respiratory Rate 17 02/11/20 04:15 Blood Pressure 140/102 02/11/20 04:15 O2 Sat by Pulse Oximetry 98 02/11/20 04:15 Intake & Output: Intake & Output 02/08/20 02/09/20 02/10/20 02/11/20 11:59 11:59 11:59 11:59 Intake Total 7037 7846 4347 5173 Output Total 6300 4300 2800 Balance 7037 1546 47 2373 - Lab Result Diagrams: 02/10/20 05:40 02/10/20 05:40 Lab Results-Last 24 Hrs: Lab Results-Last 24 Hours 02/10/20 Range/Units 05:40 Segmented Neutrophils 79 H (36.-66.) % Band Neutrophils 14 H (0.0-2.0) % Lymphocytes (Manual) 6 L (24-44) % Monocytes (Manual) 1 (0.0-12.0) % Toxic Granulation 1+ Platelet Estimate NORMAL (NORMAL) RBC Morphology NORMAL Micro Results-Entire Visit: Microbiology 02/06/20 23:00 Blood Culture - Preliminary Blood NO GROWTH TO DATE 02/06/20 23:00 Blood Culture - Preliminary Blood NO GROWTH TO DATE - Procedures and Test Procedures and Tests throughout Hospitalization: Therapy Orders & Screens 02/07/20 10:44 Oxygen NASAL CANNULA 2 lpm Comment: Diagnosis: pancolitis Discharge Exam General Appearance: no apparent distress, alert Neurologic Exam: alert, oriented x 3, cooperative, normal mood/affect, nml cerebellar function, sensation nml, No motor deficits Respiratory Exam: normal breath sounds, lungs clear, No respiratory distress Cardiovascular Exam: regular rate/rhythm, normal heart sounds Gastrointestinal/Abdomen Exam: soft, No tenderness, No mass Extremity Exam: normal inspection, normal range of motion Skin Exam: normal color, warm, dry Final Diagnosis/Problem List - Final Discharge Diagnosis/Problem (1) Exacerbation of Crohn's disease of large intestine Current Visit: No Status: Acute Assessment & Plan: prednisone taper and norco prn Code(s): K50.10 - CROHN'S DISEASE OF LARGE INTESTINE WITHOUT COMPLICATIONS (2) C. difficile colitis Current Visit: Yes Status: Acute Assessment & Plan: 10 days of flagyl at home Code(s): A04.72 - ENTEROCOLITIS D/T CLOSTRIDIUM DIFFICILE, NOT SPCF RECUR (3) Abdominal pain Current Visit: Yes Status: Acute Code(s): R10.9 - UNSPECIFIED ABDOMINAL PAIN (4) Fever Current Visit: Yes Status: Acute Code(s): R50.9 - FEVER, UNSPECIFIED - Discharge Disposition: Home, Self-Care Condition: Good Prescriptions: New Prednisone 20 mg [Deltasone 20 mg] 20 mg PO UD #18 tablet Metronidazole 500 mg [Flagyl 500 MG] 500 mg PO QID #40 tablet Hydrocodone/APAP 5-325 Tab^^^ [Gaines 5-325 Tablet^^^] 1 tab PO Q6HPRN PRN # 28 tablet MDD 6 PRN Reason: Pain Continue Omeprazole 20 MG [Prilosec 20 mg] 20 mg PO DAILY Ascorbic Acid 500 mg [Vitamin C 500 MG] 500 mg PO DAILY Loratadine 10 mg [Claritin 10 mg] 10 mg PO DAILY Mesalamine [Apriso] 1.5 gm PO DAILY Venlafaxine HCl ER 37.5 mg [Effexor ER 37.5 MG] 112.5 mg PO BID 30 Days tab Lipase/Protease/Amylase [Creon Dr 24,000 Units Capsule] 24,000 units PO AC Follow up with: BOY EMMANUEL MD [Primary Care Provider] - 1 Week
[2020-02-11] MEDS: Protonix 40MG Tablet PO SCH (09:30)
[2020-02-11] MEDS: Effexor ER 37.5 MG PO SCH (09:30)
[2020-02-11] MEDS ORDERED: DILAUDID 2 MG INJECTION IV STA (09:45)
[2020-02-11] MEDS: Compazine 10 MG/2 ML IV PRN (10:14)
[2020-02-11 12:55] VITALS: BP 112/70; PULSE 58; O2SAT 95
[2020-02-11] MEDS ORDERED: NON-FORMULARY ITEM PO SCH (17:00)
== END 2020-02-11 16:10 | disposition home or self-care (01) | DRG 387 ==
LOC: ED 22:11 → MED SURG 02-07 01:26 → OBSVTOIN 02-08 08:31
PROVIDERS: ADMIT Family Medicine; ATTEND Family Medicine
DX: K50.10 Crohn's disease of large intestine without complications (principal); A04.72 Enterocolitis due to Clostridium difficile, not specified as recurrent; R10.9 Unspecified abdominal pain; R50.9 Fever, unspecified; Z79.899 Other long term (current) drug therapy
CPT/HCPCS: 36000; 36415; 74177; 80053; 81001; 83605; 83690; 84484; 85025; 87040; 87507; 93268; 94760; 94762; 96360; 96374; 99285; G0378; J1170; J1200; J1885; J2270; J2405; J2543; J2930; J3370; A9270-GY

== ENCOUNTER 2020-05-14 19:24 | Emergency (ER) | payer OTHER ==
[2020-05-14 19:40] VITALS: O2SAT 97
[2020-05-14] MEDS ORDERED: Adacel Vial IM ONE ×2 (19:47→19:56)
[2020-05-14 20:42] LABS: Absolute Neutrophil Ct (ANC) 4.01 (1.4-6.9); BASOPHIL % 0.3 % (0.0-0.4); Basophil (Absolute #) 0.02 (0-0.4); Eosinophil % 3.5 % (0.00-5.0); Eosinophil (Absolute #) 0.26 (0-0.5); Hematocrit 40.7 % (42-50); Hemoglobin 13.6 gm/dl (12.5-18.0); Lymphocyte (Absolute #) 2.24 (1.0-4.6); Lymphocytes % 30.5 % (24.0-44.0); Mean Cell Volume 90.8 fl (78-100); Mean Corpuscular Hemoglobin 30.4 pg (26-32); Mean Corpuscular Hgb Concent. 33.4 g/dl (32-36); Mean Platelet Volume 10.6 fl (7.5-11.0); Monocyte (Absolute #) 0.81 (0.0-1.3); Neutrophil % 54.7 % (36.0-66.0); Platelet Count 309 K/mm3 (150-450); Red Blood Count 4.48 M/mm3 (4.1-5.6); Red Cell Distribution Width 12.6 % (11.5-14.0); White Blood Count 7.3 K/mm3 (4.0-10.5)
[2020-05-14 20:45] LABS: ALBUMIN 4.9 g/dL (3.5-5.0); ALKALINE PHOSPHATASE 66 U/L (38-126); ANION GAP 13.3 MEQ/L (5-15); BLOOD UREA NITROGEN 10 mg/dL (9-20); CHLORIDE 101 mmol/L (98-107); Calcium 9.2 mg/dL (8.4-10.2); Carbon Dioxide 29 mmol/L (22-30); Creatinine 1 0.77 mg/dL (0.66-1.25); Glucose 83 mg/dL (74-106); Potassium 3.6 mmol/L (3.5-5.1); SGOT/AST 24 U/L (17-59); SGPT/ALT 22 U/L (0-50); SODIUM 139 mmol/L (137-145); Total Protein 7.9 g/dL (6.3-8.2)
--- NOTE | 2020-05-14 21:01 | ERPHSYRPT ---
- History of Present Illness Time Seen by Provider: 05/14/20 20:54 Source: patient Exam Limitations: no limitations Patient Subjective Stated Complaint: Pt was starting IV on pt in ER 7. After starting IV, pt in room 7 then jerked and bumped IV causing needle to poke pt in left 2nd finger. Finger was washed with soap/water and hand machine driller used. Triage Nursing Assessment: Pt was starting IV on pt in ER 7. After starting IV, pt in room 7 then jerked and bumped IV causing needle to poke pt in left 2nd finger. Finger was washed with soap/water and hand machine driller used. Physician History: Pt states he had a needle stick on his left index finger @ 1830 at [facility] ER. Pt denies fever, cough, chest pain, shortness of air. Allergies/Adverse Reactions: No Known Drug Allergies Allergy (Verified 05/14/20 19:42) Home Medications: Omeprazole 20 MG [Prilosec 20 mg] 20 mg PO DAILY 12/02/13 [History] Ascorbic Acid 500 mg [Vitamin C 500 MG] 500 mg PO DAILY 08/04/15 [History] Loratadine 10 mg [Claritin 10 mg] 10 mg PO DAILY 01/15/17 [History] Mesalamine [Apriso] 1.5 gm PO DAILY 09/18/19 [History] Hx Tetanus, Diphtheria Vaccination/Date Given: Yes Hx Influenza Vaccination/Date Given: Yes Hx Pneumococcal Vaccination/Date Given: Yes Immunizations Up to Date: Yes Travel Risk - International Travel Have you traveled outside of the country in past 3 weeks: No - Coronavirus Screening Are you exhibiting any of the following symptoms?: No Close contact with a COVID-19 positive Pt in past 14-21 Days: No - Review of Systems Constitutional: No Fever, No Chills Respiratory: No Cough, No Dyspnea Cardiac: No Chest Pain Abdominal/Gastrointestinal: No Abdominal Pain, No Vomiting All Other Systems: Reviewed and Negative - Past Medical History Pertinent Past Medical History: Yes Neurological History: No Pertinent History ENT History: No Pertinent History Cardiac History: No Pertinent History Respiratory History: No Pertinent History Endocrine Medical History: No Pertinent History Musculoskeletal History: No Pertinent History GI Medical History: Crohns Disease, GERD History: No Pertinent History Psycho-Social History: Depression Male Reproductive Disorders: No Pertinent History Other Medical History: HX OF ABD PAIN - Past Surgical History Past Surgical History: Yes Neuro Surgical History: No Pertinent History Cardiac: No Pertinent History Respiratory: No Pertinent History Gastrointestinal: Appendectomy, Cholecystectomy Genitourinary: No Pertinent History Musculoskeletal: No Pertinent History Male Surgical History: Vasectomy Other Surgical History: ERCP, RECONSTRUCTIVE SURGERY TO RT SHOULDER - Social History Smoking Status: Former smoker Exposure to second hand smoke: No Drug Use: none Patient Lives Alone: Yes - Nursing Vital Signs Nursing Vital Signs: Initial Vital Signs Temperature 98.4 F 05/14/20 19:31 Pulse Rate 92 H 05/14/20 19:31 Respiratory Rate 18 05/14/20 19:31 Blood Pressure 130/72 05/14/20 19:31 O2 Sat by Pulse Oximetry 97 05/14/20 19:31 Pain Scale Pain Intensity 0 - Physical Exam General Appearance: alert Extremity Exam: other (full rom of left shoulder, elbow, wrist and hand; good sensation of left hand digits; ~1 mm diameter puncture wound over dorsal aspect of distal phalanx of left index finger.) Neurologic Exam: alert, cooperative SpO2 Interpretation: normal SpO2: 97 O2 Delivery: Room Air - Course Nursing assessment & vital signs reviewed: Yes Ordered Tests: Active Orders 24 hr Category Date Time Status Wound Care STAT Care 05/14/20 19:47 Active CBC W DIFF Stat Lab 05/14/20 19:47 Completed CMP Stat Lab 05/14/20 19:47 Completed Medication Summary Discontinued Medications Generic Name Dose Route Start Last Admin Trade Name Freq PRN Reason Stop Dose Admin Diphtheria/Tetanus/Acell Pertussis 0.5 ml 05/14/20 19:47 05/14/20 19:58 Adacel Vial IM 05/14/20 19:48 0.5 ml .ONCE ONE Administration Diphtheria/Tetanus/Acell Pertussis Confirm 05/14/20 19:56 Adacel Vial Administered 05/14/20 19:57 Dose 0.5 ml IM .STK-MED ONE Lab/Rad Data: Laboratory Result Diagrams 05/14/20 19:47 05/14/20 19:47 Laboratory Results 05/14/20 05/14/20 Range/Units 19:47 19:47 WBC 7.3 (4.0-10.5) K/mm3 RBC 4.48 (4.1-5.6) M/mm3 Hgb 13.6 (12.5-18.0) gm/dl Hct 40.7 L (42-50) % MCV 90.8 (78-100) fl MCH 30.4 (26-32) pg MCHC 33.4 (32-36) g/dl RDW 12.6 (11.5-14.0) % Plt Count 309 (150-450) K/mm3 MPV 10.6 (7.5-11.0) fl Gran % 54.7 (36.0-66.0) % Eos # (Auto) 0.26 (0-0.5) Absolute Lymphs (auto) 2.24 (1.0-4.6) Absolute Monos (auto) 0.81 (0.0-1.3) Lymphocytes % 30.5 (24.0-44.0) % Monocytes % 11.0 (0.0-12.0) % Eosinophils % 3.5 (0.00-5.0) % Basophils % 0.3 (0.0-0.4) % Absolute Granulocytes 4.01 (1.4-6.9) Basophils # 0.02 (0-0.4) Sodium 139 (137-145) mmol/L Potassium 3.6 (3.5-5.1) mmol/L Chloride 101 (98-107) mmol/L Carbon Dioxide 29 (22-30) mmol/L Anion Gap 13.3 (5-15) MEQ/L BUN 10 (9-20) mg/dL Creatinine 0.77 (0.66-1.25) mg/dL Estimated GFR > 60.0 ML/MIN Glucose 83 (74-106) mg/dL Calcium 9.2 (8.4-10.2) mg/dL Total Bilirubin 0.50 (0.2-1.3) mg/dL AST 24 (17-59) U/L ALT 22 (0-50) U/L Alkaline Phosphatase 66 (38-126) U/L Serum Total Protein 7.9 (6.3-8.2) g/dL Albumin 4.9 (3.5-5.0) g/dL - Progress Progress: unchanged - Departure Departure Disposition: Home Clinical Impression: Puncture wound of left index finger Condition: Stable Critical Care Time: No [facility] [Primary Care Provider] - Instructions: Wound Care (DC) Additional Instructions: Neosporin & bandage to left index finger wound daily for the next week.
[2020-05-14 21:19] VITALS: BP 140/70; PULSE 76
[2020-05-16 11:14] LABS: Hepatitis C Antibody by EIA Non Reactive (Non Reactive)
[2020-05-16 11:15] LABS: Hepatitis B Sur Ag Screen Non Reactive (Non Reactive)
== END 2020-05-14 21:19 | disposition home or self-care (01) ==
LOC: ER - EH 19:24
DX: S61.231A Puncture wound without foreign body of left index finger without damage to nail, initial encounter (principal); W46.1XXA Contact with contaminated hypodermic needle, initial encounter; Y93.F9 Activity, other caregiving; Y92.230 Patient room in hospital as the place of occurrence of the external cause; Y99.0 Civilian activity done for income or pay
CPT/HCPCS: 36415; 80053; 85025; 86317; 86701; 86702; 86803; 87340; 87389; 90471; 90715; 99283

== ENCOUNTER 2022-01-21 19:32 | Observation (INO) | payer OTHER ==
[2022-01-21] MEDS ORDERED: Sodium Chloride 0.9% 1000 ML 1,000 ML IV STA (19:51)
--- NOTE | 2022-01-21 19:53 | ERPHSYRPT ---
- History of Present Illness Time Seen by Provider: 01/21/22 19:40 Historian: patient Patient Subjective Stated Complaint: c/o nausea, vomiting, abd pain Triage Nursing Assessment: pt c/o abd pain since yesterday, nausea, vomiting. Pain is to LUQ and goes to LLQ. Abd soft with active bs X4 quad, tender on palpation. Pt had 1 BM today, soft. Physician History: Patient is a 36-year-old male with a history of Crohn's colitis presents to our ED with complaints of abdominal pain nausea and vomiting that started yesterday. Abdominal pain is mostly the left upper and left lower quadrant. Pain described as an ache that is localized. No radiation. Pain worse with palpation. Pain improved with rest. No diarrhea. Patient had a soft stool today. No associated trauma. No fever. Symptoms are constant. Symptoms are moderate in intensity. Patient voices no other complaints or concerns at this time. Timing/Duration: yesterday Activities at Onset: none Quality: aching Abdominal Pain Onset Location: LUQ, LLQ Pain Radiation: no radiation Severity of Pain-Max: moderate Severity of Pain-Current: mild Modifying Factors: Improves With: palpation Associated Symptoms: nausea, vomiting Previous symptoms: same symptoms as today Allergies/Adverse Reactions: No Known Drug Allergies Allergy (Verified 01/21/22 19:41) Home Medications: Omeprazole 20 MG [Prilosec 20 mg] 20 mg PO DAILY 12/02/13 [History] Ascorbic Acid 500 mg [Vitamin C 500 MG] 500 mg PO DAILY 08/04/15 [History] Loratadine 10 mg [Claritin 10 mg] 10 mg PO DAILY 01/15/17 [History] Mesalamine [Apriso] 1.5 gm PO DAILY 09/18/19 [History] Venlafaxine HCl ER 37.5 mg [Effexor ER 37.5 MG] 75 mg PO DAILY 01/21/22 [History] Hx Tetanus, Diphtheria Vaccination/Date Given: Yes Hx Influenza Vaccination/Date Given: Yes Hx Pneumococcal Vaccination/Date Given: No Immunizations Up to Date: Yes Travel Risk - International Travel Have you traveled outside of the country in past 3 weeks: No - Coronavirus Screening Are you exhibiting any of the following symptoms?: Yes Symptoms: Vomiting/Diarrhea Close contact with a COVID-19 positive Pt in past 14-21 Days: No - Vaccine Status Have you recieved a Covid-19 vaccination: Yes 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 - Vaccination Dates Date of 2cond Vaccination (if applicable): Dec, 2020 - Review of Systems Constitutional: No Symptoms, No Fever, No Chills Eyes: No Symptoms Ears, Nose, & Throat: No Symptoms Respiratory: No Symptoms, No Cough, No Dyspnea Cardiac: No Symptoms, No Chest Pain, No Edema, No Syncope Abdominal/Gastrointestinal: No Symptoms, No Abdominal Pain, No Nausea, No Vomiting, No Diarrhea Genitourinary Symptoms: No Symptoms, No Dysuria Musculoskeletal: No Symptoms, No Back Pain, No Neck Pain Skin: No Symptoms, No Rash Neurological: No Symptoms, No Dizziness, No Focal Weakness, No Sensory Changes Psychological: No Symptoms Endocrine: No Symptoms Hematologic/Lymphatic: No Symptoms Immunological/Allergic: No Symptoms All Other Systems: Reviewed and Negative - Past Medical History Pertinent Past Medical History: Yes Neurological History: No Pertinent History ENT History: No Pertinent History Cardiac History: No Pertinent History Respiratory History: No Pertinent History Endocrine Medical History: Other Musculoskeletal History: No Pertinent History GI Medical History: Crohns Disease, Diverticulitis, GERD, Pancreatitis History: No Pertinent History Psycho-Social History: Depression Male Reproductive Disorders: No Pertinent History Other Medical History: FATTY LIVER, ACID REFLUX, CROHNS. - Past Surgical History Past Surgical History: Yes Neuro Surgical History: No Pertinent History Cardiac: No Pertinent History Respiratory: No Pertinent History Gastrointestinal: Appendectomy, Cholecystectomy Genitourinary: No Pertinent History Musculoskeletal: No Pertinent History Male Surgical History: Vasectomy Other Surgical History: ERCP, RECONSTRUCTIVE SURGERY TO RT SHOULDER, PREVIOUS ALCOHOLIC - Social History Smoking Status: Never smoker Exposure to second hand smoke: No Drug Use: none Patient Lives Alone: Yes - Nursing Vital Signs Nursing Vital Signs: Initial Vital Signs Temperature 98.2 F 01/21/22 19:32 Pulse Rate 91 H 01/21/22 19:32 Respiratory Rate 18 01/21/22 19:32 Blood Pressure 130/96 01/21/22 19:32 O2 Sat by Pulse Oximetry 100 01/21/22 19:32 Pain Scale Pain Intensity 5 - Physical Exam General Appearance: no apparent distress, alert Eye Exam: PERRL/EOMI, eyes nml inspection Ears, Nose, Throat Exam: normal ENT inspection, pharynx normal, moist mucous membranes Neck Exam: normal inspection, non-tender, supple, full range of motion Respiratory Exam: normal breath sounds, lungs clear, airway intact, No respiratory distress Cardiovascular Exam: regular rate/rhythm, normal heart sounds, normal peripheral pulses Gastrointestinal/Abdomen Exam: soft, normal bowel sounds, tenderness, other (Tenderness palpation left upper and lower quadrants of abdomen. Overlying soft tissue intact. No signs of trauma.), No mass, No guarding Back Exam: normal inspection, normal range of motion, No CVA tenderness, No vertebral tenderness Extremity Exam: normal inspection, normal range of motion, pelvis stable Neurologic Exam: alert, oriented x 3, cooperative, normal mood/affect, nml cerebellar function, sensation nml, No motor deficits Skin Exam: normal color, warm, dry, No rash Lymphatic Exam: No adenopathy SpO2 Interpretation: normal SpO2: 100 O2 Delivery: Room Air - Course Nursing assessment & vital signs reviewed: Yes - CT Exams Abdomen/Pelvis CT Interpretation: Tele-radiologist Report (Impression CT abdomen pelvis is enterocolitis. Diarrheal illness. Mild atherosclerotic changes of the arteries. Bowel wall thickening of portions of the small bowel and colon.) Ordered Tests: Active Orders 24 hr Category Date Time Status IV Insertion STAT Care 01/21/22 19:51 Active ABDOMEN AND PELVIS W CONTRAST [CT] Stat Exams 01/21/22 19:51 Taken CBC W DIFF Stat Lab 01/21/22 20:05 Completed CMP Stat Lab 01/21/22 20:05 Completed LIPASE Stat Lab 01/21/22 20:05 Completed TROPONIN Q3H Lab 01/21/22 20:05 Completed UA W/RFX UR CULTURE Stat Lab 01/21/22 19:51 Ordered Medication Summary Discontinued Medications Generic Name Dose Route Start Last Admin Trade Name Freq PRN Reason Stop Dose Admin Hydromorphone HCl 1 mg 01/21/22 19:55 01/21/22 20:01 Hydromorphone 1 Mg/1ml Inj 1 Mg/Ml Syringe IV 01/21/22 19:56 1 mg STAT ONE Administration Hydromorphone HCl Confirm 01/21/22 19:58 Hydromorphone 1 Mg/1ml Inj 1 Mg/Ml Syringe Administered 01/21/22 19:59 Dose 1 mg .ROUTE .[facility]-MED ONE Hydromorphone HCl Confirm 01/21/22 21:07 Hydromorphone 1 Mg/1ml Inj 1 Mg/Ml Syringe Administered 01/21/22 21:08 Dose 1 mg .ROUTE .[facility]-MED ONE Hydromorphone HCl 1 mg 01/21/22 21:58 01/21/22 21:15 Hydromorphone 1 Mg/1ml Inj 1 Mg/Ml Syringe IV 01/21/22 21:59 1 mg STAT ONE Administration Hydromorphone HCl Confirm 01/21/22 22:16 Hydromorphone 1 Mg/1ml Inj 1 Mg/Ml Syringe Administered 01/21/22 22:17 Dose 1 mg .ROUTE .[facility]-MED ONE Hydromorphone HCl 1 mg 01/21/22 23:16 01/21/22 23:19 Hydromorphone 1 Mg/1ml Inj 1 Mg/Ml Syringe IV 01/21/22 23:17 1 mg STAT ONE Administration Hydromorphone HCl Confirm 01/21/22 23:18 Hydromorphone 1 Mg/1ml Inj 1 Mg/Ml Syringe Administered 01/21/22 23:19 Dose 1 mg .ROUTE .[facility]-MED ONE Sodium Chloride 1,000 mls @ 999 mls/hr 01/21/22 19:51 01/21/22 20:01 Sodium Chloride 0.9% 1000 Ml IV 01/21/22 20:51 999 mls/hr .Q1H1M STA Administration Sodium Chloride Confirm 01/21/22 19:55 Sodium Chloride 0.9% 1000 Ml Administered 01/21/22 19:56 Dose 1,000 mls @ ud .ROUTE .[facility]-MED ONE Ondansetron HCl 4 mg 01/21/22 19:55 01/21/22 20:01 Ondansetron Hcl 4 Mg/2 Ml Vial IV 01/21/22 19:56 4 mg STAT ONE Administration Ondansetron HCl Confirm 01/21/22 19:57 Ondansetron Hcl 4 Mg/2 Ml Vial Administered 01/21/22 19:58 Dose 4 mg .ROUTE .[facility]-MED ONE Ondansetron HCl 4 mg 01/21/22 21:05 01/21/22 21:15 Ondansetron Hcl 4 Mg/2 Ml Vial IV 01/21/22 21:06 4 mg STAT ONE Administration Ondansetron HCl Confirm 01/21/22 21:08 Ondansetron Hcl 4 Mg/2 Ml Vial Administered 01/21/22 21:09 Dose 4 mg .ROUTE .[facility] ONE Prochlorperazine Edisylate 10 mg 01/21/22 22:41 01/21/22 23:00 Prochlorperazine Edisylate 10 Mg/2 Ml Vial IV 01/21/22 22:42 10 mg STAT ONE Administration Prochlorperazine Edisylate Confirm 01/21/22 23:00 Prochlorperazine Edisylate 10 Mg/2 Ml Vial Administered 01/21/22 23:01 Dose 10 mg .ROUTE .[facility] ONE Lab/Rad Data: Laboratory Result Diagrams 01/21/22 20:05 01/21/22 20:05 Laboratory Results 01/21/22 01/21/22 01/21/22 Range/Units 22:55 20:05 20:05 WBC (4.0-10.5) K/mm3 RBC (4.1-5.6) M/mm3 Hgb (12.5-18.0) gm/dl Hct (42-50) % MCV (78-100) fl MCH (26-32) pg MCHC (32-36) g/dl RDW (11.5-14.0) % Plt Count (150-450) K/mm3 MPV (7.5-11.0) fl Gran % (36.0-66.0) % Eos # (Auto) (0-0.5) Absolute Lymphs (auto) (1.0-4.6) Absolute Monos (auto) (0.0-1.3) Lymphocytes % (24.0-44.0) % Monocytes % (0.0-12.0) % Eosinophils % (0.00-5.0) % Basophils % (0.0-0.4) % Absolute Granulocytes (1.4-6.9) Basophils # (0-0.4) Sodium 136 L (137-145) mmol/L Potassium 4.0 (3.5-5.1) mmol/L Chloride 101 (98-107) mmol/L Carbon Dioxide 24 (22-30) mmol/L Anion Gap 14.9 (5-15) MEQ/L BUN 11 (9-20) mg/dL Creatinine 0.74 (0.66-1.25) mg/dL Estimated GFR > 60.0 ML/MIN Glucose 94 (74-106) mg/dL Calcium 8.9 (8.4-10.2) mg/dL Total Bilirubin 0.70 (0.2-1.3) mg/dL AST 31 (17-59) U/L ALT 42 (0-50) U/L Alkaline Phosphatase 60 (38-126) U/L Troponin I < 0.012 (0.000-0.034) ng/mL Serum Total Protein 7.6 (6.3-8.2) g/dL Albumin 4.7 (3.5-5.0) g/dL Lipase 104 (23-300) U/L Influenza Type A Ag NEGATIVE (NEGATIVE) Influenza Type B Ag NEGATIVE (NEGATIVE) RSV (PCR) NEGATIVE (Negative) SARS-CoV-2 (PCR) NEGATIVE (NEGATIVE) Slides for Path Review 01/21/22 Range/Units 20:05 WBC 10.1 (4.0-10.5) K/mm3 RBC 5.10 (4.1-5.6) M/mm3 Hgb 15.5 (12.5-18.0) gm/dl Hct 45.4 (42-50) % MCV 89.0 (78-100) fl MCH 30.4 (26-32) pg MCHC 34.1 (32-36) g/dl RDW 12.4 (11.5-14.0) % Plt Count 276 (150-450) K/mm3 MPV 9.5 (7.5-11.0) fl Gran % 87.1 H (36.0-66.0) % Eos # (Auto) 0.12 (0-0.5) Absolute Lymphs (auto) 0.58 L (1.0-4.6) Absolute Monos (auto) 0.59 (0.0-1.3) Lymphocytes % 5.7 L (24.0-44.0) % Monocytes % 5.8 (0.0-12.0) % Eosinophils % 1.2 (0.00-5.0) % Basophils % 0.2 (0.0-0.4) % Absolute Granulocytes 8.83 H (1.4-6.9) Basophils # 0.02 (0-0.4) Sodium (137-145) mmol/L Potassium (3.5-5.1) mmol/L Chloride (98-107) mmol/L Carbon Dioxide (22-30) mmol/L Anion Gap (5-15) MEQ/L BUN (9-20) mg/dL Creatinine (0.66-1.25) mg/dL Estimated GFR ML/MIN Glucose (74-106) mg/dL Calcium (8.4-10.2) mg/dL Total Bilirubin (0.2-1.3) mg/dL AST (17-59) U/L ALT (0-50) U/L Alkaline Phosphatase (38-126) U/L Troponin I (0.000-0.034) ng/mL Serum Total Protein (6.3-8.2) g/dL Albumin (3.5-5.0) g/dL Lipase (23-300) U/L Influenza Type A Ag (NEGATIVE) Influenza Type B Ag (NEGATIVE) RSV (PCR) (Negative) SARS-CoV-2 (PCR) (NEGATIVE) Slides for Path Review YES - Progress Progress: improved Progress Note: Patient reassessed. Patient still experiencing significant discomfort and nausea. Patient has not tolerating p.o. Case discussed with Dr. Stuart. We will admit patient to the floor for further evaluation and treatment. Covid test pending. Patient agrees to admission [facility] for further evaluation and treatment. 01/21/22 22:40 01/21/22 22:45 Covid test negative. Patient will be transferred to the floor to the care of Dr. Stuart. Portions of this note were created with voice recognition technology. There may be grammatical, spelling, punctuation or sound alike errors 01/22/22 00:[address] Francois Will see patient in: hospital (observation) Counseled pt/family regarding: lab results, diagnosis, rad results - Departure Departure Disposition: Observation Clinical Impression: Enterocolitis, Intractable abdominal pain, Intractable nausea and vomiting, Diarrhea, Mild atherosclerotic disease Condition: Stable Critical Care Time: No
[2022-01-21] MEDS ORDERED: Zofran 4 MG/2 ML VIAL IV ONE ×2 (19:55→21:05)
[2022-01-21] MEDS ORDERED: Sodium Chloride 0.9% 1000 ML 1,000 ML ONE (19:55)
[2022-01-21] MEDS ORDERED: Hydromorphone 1 mg/ml Injection IV ONE ×3 (19:55→23:16)
[2022-01-21] MEDS ORDERED: Zofran 4 MG/2 ML VIAL ONE ×2 (19:57→21:08)
[2022-01-21] MEDS ORDERED: Hydromorphone 1 mg/ml Injection ONE ×4 (19:58→23:18)
[2022-01-21 20:08] LABS: Absolute Neutrophil Ct (ANC) 8.83 (1.4-6.9); Basophil (Absolute #) 0.02 (0-0.4); Eosinophil % 1.2 % (0.00-5.0); Eosinophil (Absolute #) 0.12 (0-0.5); Hematocrit 45.4 % (42-50); Hemoglobin 15.5 gm/dl (12.5-18.0); Lymphocyte (Absolute #) 0.58 (1.0-4.6); Lymphocytes % 5.7 % (24.0-44.0); Mean Corpuscular Hemoglobin 30.4 pg (26-32); Mean Corpuscular Hgb Concent. 34.1 g/dl (32-36); Mean Platelet Volume 9.5 fl (7.5-11.0); Monocyte (Absolute #) 0.59 (0.0-1.3); Monocytes % 5.8 % (0.0-12.0); Neutrophil % 87.1 % (36.0-66.0); Platelet Count 276 K/mm3 (150-450); Red Cell Distribution Width 12.4 % (11.5-14.0); White Blood Count 10.1 K/mm3 (4.0-10.5)
[2022-01-21 20:19] LABS: ALBUMIN 4.7 g/dL (3.5-5.0); ALKALINE PHOSPHATASE 60 U/L (38-126); ANION GAP 14.9 MEQ/L (5-15); BLOOD UREA NITROGEN 11 mg/dL (9-20); CHLORIDE 101 mmol/L (98-107); Calcium 8.9 mg/dL (8.4-10.2); Carbon Dioxide 24 mmol/L (22-30); Creatinine 1 0.74 mg/dL (0.66-1.25); EST GLOMERULAR FILTRATION RATE > 60.0 ML/MIN; Glucose 94 mg/dL (74-106); LIPASE 104 U/L (23-300); SGOT/AST 31 U/L (17-59); SGPT/ALT 42 U/L (0-50); SODIUM 136 mmol/L (137-145); Total Protein 7.6 g/dL (6.3-8.2)
[2022-01-21] MEDS ORDERED: Compazine 10 MG/2 ML IV ONE (22:41)
[2022-01-21] MEDS ORDERED: Compazine 10 MG/2 ML ONE (23:00)
[2022-01-21 23:19] LABS: Slide Review 1 YES
[2022-01-21 23:50] LABS: INFLUENZA A NEGATIVE (NEGATIVE); INFLUENZA B NEGATIVE (NEGATIVE); RESPIRATORY SYNCTIAL VIRUS NEGATIVE (Negative); SARS-CoV-2 Xpert Express NEGATIVE (NEGATIVE)
[2022-01-22] MEDS ORDERED: Zofran 4 MG/2 ML VIAL IV PRN (00:21)
[2022-01-22] MEDS: Sodium Chloride 0.9% 1000 ML 1,000 ML IV SCH ×2 (00:54→09:28)
[2022-01-22 01:14] LABS: Appearance CLEAR (CLEAR); Bilirubin NEGATIVE (NEGATIVE); Blood NEGATIVE Ery/ul (0-5); Glucose NEGATIVE (NEGATIVE); Ketones SMALL (NEGATIVE); Leukocyte Esterase NEGATIVE (NEGATIVE); Mucus SLIGHT /HPF (NEGATIVE); Nitrite NEGATIVE (NEGATIVE); Protein,Urine Dip NEGATIVE (Negative); Specific Gravity 1.055 (1.005-1.025); Urobilinogen NEGATIVE mg/dL (0-1); WBC 0-2 /HPF (0-5)
[2022-01-22] MEDS: Hydromorphone 1 mg/ml Injection IV PRN ×3 (01:17→11:19)
[2022-01-22 05:35] LABS: Absolute Neutrophil Ct (ANC) 6.54 (1.4-6.9); Basophil (Absolute #) 0.01 (0-0.4); Eosinophil % 0.6 % (0.00-5.0); Eosinophil (Absolute #) 0.05 (0-0.5); Hematocrit 42.2 % (42-50); Hemoglobin 14.2 gm/dl (12.5-18.0); Lymphocyte (Absolute #) 0.51 (1.0-4.6); Lymphocytes % 6.6 % (24.0-44.0); Mean Cell Volume 90.9 fl (78-100); Mean Corpuscular Hemoglobin 30.6 pg (26-32); Mean Corpuscular Hgb Concent. 33.6 g/dl (32-36); Mean Platelet Volume 9.6 fl (7.5-11.0); Monocyte (Absolute #) 0.62 (0.0-1.3); Neutrophil % 84.7 % (36.0-66.0); Platelet Count 250 K/mm3 (150-450); Red Blood Count 4.64 M/mm3 (4.1-5.6); Red Cell Distribution Width 12.4 % (11.5-14.0); White Blood Count 7.7 K/mm3 (4.0-10.5)
[2022-01-22 05:45] LABS: ALBUMIN 3.9 g/dL (3.5-5.0); ALKALINE PHOSPHATASE 51 U/L (38-126); ANION GAP 11.8 MEQ/L (5-15); BLOOD UREA NITROGEN 11 mg/dL (9-20); CHLORIDE 105 mmol/L (98-107); Calcium 7.9 mg/dL (8.4-10.2); Carbon Dioxide 24 mmol/L (22-30); Creatinine 1 0.67 mg/dL (0.66-1.25); EST GLOMERULAR FILTRATION RATE > 60.0 ML/MIN; Glucose 104 mg/dL (74-106); Potassium 3.9 mmol/L (3.5-5.1); SGOT/AST 28 U/L (17-59); SGPT/ALT 42 U/L (0-50); SODIUM 137 mmol/L (137-145); Total Protein 6.4 g/dL (6.3-8.2)
[2022-01-22] MEDS ORDERED: Compazine 10 MG/2 ML IV PRN (08:13)
--- NOTE | 2022-01-22 08:18 | PCM.HP ---
History of Present Illness - Chief Complaint Chief Complaint: enteritis History of Present Illness: is a 36 year old male with a history of crohn's disease, he has not had a flare in about 2 years, he developed pain in the stomach with vomiting and diarrhea, pain in left upper abdomen consistent with previous flares, no blood in the stool, no recent travel, no fever. - Review of Systems Constitutional: No Fever, No Chills Respiratory: No Cough, No Short Of Breath Cardiac: No Chest Pain, No Edema, No Syncope Abdominal/Gastrointestinal: Abdominal Pain, Nausea, Vomiting, Diarrhea Skin: No Rash All Other Systems: Reviewed and Negative Medications & Allergies Home Medications: Home Medication List Omeprazole 20 MG [Prilosec 20 mg] 20 mg PO DAILY 12/02/13 [History Confirmed 01/21/22] Ascorbic Acid 500 mg [Vitamin C 500 MG] 500 mg PO DAILY 08/04/15 [History Confirmed 01/21/22] Loratadine 10 mg [Claritin 10 mg] 10 mg PO DAILY 01/15/17 [History Confirmed 01/21/22] Mesalamine [Apriso] 1.5 gm PO DAILY 09/18/19 [History Confirmed 01/21/22] Venlafaxine HCl ER 37.5 mg [Effexor ER 37.5 MG] 75 mg PO DAILY 01/21/22 [History Confirmed 01/21/22] Allergies/Adverse Reactions: Allergies Allergy/AdvReac Type Severity Reaction Status Date / Time No Known Drug Allergies Allergy Verified 01/21/22 19:41 - Past Medical History Past Medical History: Yes Neurological History: No Pertinent History ENT History: No Pertinent History Cardiac History: No Pertinent History Respiratory History: No Pertinent History Endocrine Medical History: Other Musculoskelatal History: No Pertinent History GI Medical History: Crohns Disease, Diverticulitis, GERD, Pancreatitis History: No Pertinent History Pyscho-Social History: Depression Male Reproductive Disorders: No Pertinent History Comment: FATTY LIVER, ACID REFLUX, CROHNS. - Past Surgical History Past Surgical History: Yes Neuro Surgical History: No Pertinent History Cardiac History: No Pertinent History Respiratory Surgery: No Pertinent History GI Surgical History: Appendectomy, Cholecystectomy Genitourinary Surgical Hx: No Pertinent History Musculskeletal Surgical Hx: No Pertinent History Male Surgical History: Vasectomy Other Surgical History: ERCP, RECONSTRUCTIVE SURGERY TO RT SHOULDER, PREVIOUS ALCOHOLIC - Social History Smoking Status: Former smoker Exposure to second hand smoke: No Alcohol: None Drug Use: none - Physical Exam Vital Signs: Vital Signs - 24 hr Temp Pulse Resp BP Pulse Ox 01/22/22 08:00 98.6 F 96 H 14 130/80 94 L 01/22/22 07:20 94 L 01/22/22 04:00 97.2 F 98 H 16 102/64 94 L 01/22/22 00:29 97.2 F 104 H 16 101/62 93 L 01/22/22 00:23 100 01/22/22 00:21 93 L 01/22/22 00:00 104 H 18 127/85 95 01/21/22 23:00 107 H 18 139/85 95 01/21/22 22:05 94 H 134/93 96 01/21/22 21:05 79 16 141/97 99 01/21/22 20:05 94 H 16 123/83 100 01/21/22 19:32 98.2 F 91 H 18 130/96 100 General Appearance: mild distress Neurologic Exam: alert, oriented x 3 Respiratory Exam: normal breath sounds, lungs clear, No respiratory distress Cardiovascular Exam: regular rate/rhythm, normal heart sounds, normal peripheral pulses Gastrointestinal/Abdomen Exam: soft, tenderness, No distention, No guarding, No rebound Extremity Exam: normal inspection, normal range of motion, pelvis stable Skin Exam: normal color, warm, dry, No rash Results - Labs Lab/Micro Results: Lab Results-Last 24 Hours 01/21/22 01/21/22 01/21/22 Range/Units 20:05 20:05 20:05 WBC 10.1 (4.0-10.5) K/mm3 RBC 5.10 (4.1-5.6) M/mm3 Hgb 15.5 (12.5-18.0) gm/dl Hct 45.4 (42-50) % MCV 89.0 (78-100) fl MCH 30.4 (26-32) pg MCHC 34.1 (32-36) g/dl RDW 12.4 (11.5-14.0) % Plt Count 276 (150-450) K/mm3 MPV 9.5 (7.5-11.0) fl Gran % 87.1 H (36.0-66.0) % Eos # (Auto) 0.12 (0-0.5) Absolute Lymphs (auto) 0.58 L (1.0-4.6) Absolute Monos (auto) 0.59 (0.0-1.3) Lymphocytes % 5.7 L (24.0-44.0) % Monocytes % 5.8 (0.0-12.0) % Eosinophils % 1.2 (0.00-5.0) % Basophils % 0.2 (0.0-0.4) % Absolute Granulocytes 8.83 H (1.4-6.9) Basophils # 0.02 (0-0.4) Sodium 136 L (137-145) mmol/L Potassium 4.0 (3.5-5.1) mmol/L Chloride 101 (98-107) mmol/L Carbon Dioxide 24 (22-30) mmol/L Anion Gap 14.9 (5-15) MEQ/L BUN 11 (9-20) mg/dL Creatinine 0.74 (0.66-1.25) mg/dL Estimated GFR > 60.0 ML/MIN Glucose 94 (74-106) mg/dL Calcium 8.9 (8.4-10.2) mg/dL Total Bilirubin 0.70 (0.2-1.3) mg/dL AST 31 (17-59) U/L ALT 42 (0-50) U/L Alkaline Phosphatase 60 (38-126) U/L Troponin I < 0.012 (0.000-0.034) ng/mL Serum Total Protein 7.6 (6.3-8.2) g/dL Albumin 4.7 (3.5-5.0) g/dL Lipase 104 (23-300) U/L Urine Color (YELLOW) Urine Appearance (CLEAR) Urine pH (5-6) Ur Specific [place] (1.005-1.025) Urine Protein (Negative) Urine Ketones (NEGATIVE) Urine Blood (0-5) Shaji/ul Urine Nitrite (NEGATIVE) Urine Bilirubin (NEGATIVE) Urine Urobilinogen (0-1) mg/dL Ur Leukocyte Esterase (NEGATIVE) Urine WBC (Auto) (0-5) /HPF Urine RBC (Auto) (0-2) /HPF U Epithel Cells (Auto) (FEW) /HPF Urine Bacteria (Auto) (NEGATIVE) /HPF Urine Mucus (Auto) (NEGATIVE) /HPF Urine Culture Reflexed (NO) Urine Glucose (NEGATIVE) mg/dL Influenza Type A Ag (NEGATIVE) Influenza Type B Ag (NEGATIVE) RSV (PCR) (Negative) SARS-CoV-2 (PCR) (NEGATIVE) Slides for Path Review YES 01/21/22 01/22/22 01/22/22 Range/Units 22:55 01:05 05:00 WBC 7.7 (4.0-10.5) K/mm3 RBC 4.64 (4.1-5.6) M/mm3 Hgb 14.2 (12.5-18.0) gm/dl Hct 42.2 (42-50) % MCV 90.9 (78-100) fl MCH 30.6 (26-32) pg MCHC 33.6 (32-36) g/dl RDW 12.4 (11.5-14.0) % Plt Count 250 (150-450) K/mm3 MPV 9.6 (7.5-11.0) fl Gran % 84.7 H (36.0-66.0) % Eos # (Auto) 0.05 (0-0.5) Absolute Lymphs (auto) 0.51 L (1.0-4.6) Absolute Monos (auto) 0.62 (0.0-1.3) Lymphocytes % 6.6 L (24.0-44.0) % Monocytes % 8.0 (0.0-12.0) % Eosinophils % 0.6 (0.00-5.0) % Basophils % 0.1 (0.0-0.4) % Absolute Granulocytes 6.54 (1.4-6.9) Basophils # 0.01 (0-0.4) Sodium (137-145) mmol/L Potassium (3.5-5.1) mmol/L Chloride (98-107) mmol/L Carbon Dioxide (22-30) mmol/L Anion Gap (5-15) MEQ/L BUN (9-20) mg/dL Creatinine (0.66-1.25) mg/dL Estimated GFR ML/MIN Glucose (74-106) mg/dL Calcium (8.4-10.2) mg/dL Total Bilirubin (0.2-1.3) mg/dL AST (17-59) U/L ALT (0-50) U/L Alkaline Phosphatase (38-126) U/L Troponin I (0.000-0.034) ng/mL Serum Total Protein (6.3-8.2) g/dL Albumin (3.5-5.0) g/dL Lipase (23-300) U/L Urine Color YELLOW (YELLOW) Urine Appearance CLEAR (CLEAR) Urine pH 5.0 (5-6) Ur Specific [place] 1.055 (1.005-1.025) Urine Protein NEGATIVE (Negative) Urine Ketones SMALL (NEGATIVE) Urine Blood NEGATIVE (0-5) Shaji/ul Urine Nitrite NEGATIVE (NEGATIVE) Urine Bilirubin NEGATIVE (NEGATIVE) Urine Urobilinogen NEGATIVE (0-1) mg/dL Ur Leukocyte Esterase NEGATIVE (NEGATIVE) Urine WBC (Auto) 0-2 (0-5) /HPF Urine RBC (Auto) NONE (0-2) /HPF U Epithel Cells (Auto) NONE (FEW) /HPF Urine Bacteria (Auto) NONE (NEGATIVE) /HPF Urine Mucus (Auto) SLIGHT (NEGATIVE) /HPF Urine Culture Reflexed NO (NO) Urine Glucose NEGATIVE (NEGATIVE) mg/dL Influenza Type A Ag NEGATIVE (NEGATIVE) Influenza Type B Ag NEGATIVE (NEGATIVE) RSV (PCR) NEGATIVE (Negative) SARS-CoV-2 (PCR) NEGATIVE (NEGATIVE) Slides for Path Review 01/22/22 Range/Units 05:00 WBC (4.0-10.5) K/mm3 RBC (4.1-5.6) M/mm3 Hgb (12.5-18.0) gm/dl Hct (42-50) % MCV (78-100) fl MCH (26-32) pg MCHC (32-36) g/dl RDW (11.5-14.0) % Plt Count (150-450) K/mm3 MPV (7.5-11.0) fl Gran % (36.0-66.0) % Eos # (Auto) (0-0.5) Absolute Lymphs (auto) (1.0-4.6) Absolute Monos (auto) (0.0-1.3) Lymphocytes % (24.0-44.0) % Monocytes % (0.0-12.0) % Eosinophils % (0.00-5.0) % Basophils % (0.0-0.4) % Absolute Granulocytes (1.4-6.9) Basophils # (0-0.4) Sodium 137 (137-145) mmol/L Potassium 3.9 (3.5-5.1) mmol/L Chloride 105 (98-107) mmol/L Carbon Dioxide 24 (22-30) mmol/L Anion Gap 11.8 (5-15) MEQ/L BUN 11 (9-20) mg/dL Creatinine 0.67 (0.66-1.25) mg/dL Estimated GFR > 60.0 ML/MIN Glucose 104 (74-106) mg/dL Calcium 7.9 L (8.4-10.2) mg/dL Total Bilirubin 0.80 (0.2-1.3) mg/dL AST 28 (17-59) U/L ALT 42 (0-50) U/L Alkaline Phosphatase 51 (38-126) U/L Troponin I (0.000-0.034) ng/mL Serum Total Protein 6.4 (6.3-8.2) g/dL Albumin 3.9 (3.5-5.0) g/dL Lipase (23-300) U/L Urine Color (YELLOW) Urine Appearance (CLEAR) Urine pH (5-6) Ur Specific [place] (1.005-1.025) Urine Protein (Negative) Urine Ketones (NEGATIVE) Urine Blood (0-5) Shaji/ul Urine Nitrite (NEGATIVE) Urine Bilirubin (NEGATIVE) Urine Urobilinogen (0-1) mg/dL Ur Leukocyte Esterase (NEGATIVE) Urine WBC (Auto) (0-5) /HPF Urine RBC (Auto) (0-2) /HPF U Epithel Cells (Auto) (FEW) /HPF Urine Bacteria (Auto) (NEGATIVE) /HPF Urine Mucus (Auto) (NEGATIVE) /HPF Urine Culture Reflexed (NO) Urine Glucose (NEGATIVE) mg/dL Influenza Type A Ag (NEGATIVE) Influenza Type B Ag (NEGATIVE) RSV (PCR) (Negative) SARS-CoV-2 (PCR) (NEGATIVE) Slides for Path Review - Radiology Impressions Radiology Exams & Impressions: Radiology Procedures Category Date Time Status ABDOMEN AND PELVIS W CONTRAST [CT] Stat Exams 01/21/22 19:51 Taken Assessment/Plan (1) Exacerbation of Crohn's disease of large intestine Current Visit: Yes Status: Acute Assessment & Plan: plan to start on levaquin/flagyl and IV steroids. has IV fluids, nausea and pain meds Code(s): K50.10 - CROHN'S DISEASE OF LARGE INTESTINE WITHOUT COMPLICATIONS
--- NOTE | 2022-01-22 08:35 | XRAY ---
Exam: CT of the abdomen and pelvis with IV contrast from 01/21/2022. CTDI: 6.86 mGy Comparison: CT of the abdomen and pelvis with IV contrast from 02/06/2020. Indication: 36-year-old male with left upper quadrant abdominal pain for 2 days; history of prior colitis; consider recurrent colitis; history of prior cholecystectomy and appendectomy. Technique: Post-IV contrast axial images were obtained through the abdomen and pelvis during automated injection of 80 cc of Isovue 370 contrast material. Reconstructed coronal and sagittal images were created and reviewed. Findings: The lung bases reveal minimal compression atelectatic changes at the posterior aspect of the lung bases. No infiltrates or pleural fluid is seen. The heart size appears within normal limits. The liver appears of unremarkable size on the current exam. I do not appreciate hepatic steatosis. However, within the inferior medial aspect of the right hepatic lobe on axial image #30, there is a small 0.9 cm round low-attenuation density which is not appreciated on the prior study. This might represent a small hepatic cyst. Other etiologies cannot be completely excluded due to its small size. No biliary duct distention is seen. The gallbladder is surgically absent with surgical clips seen within the subhepatic space. The spleen appears of unremarkable size and displays no mass. The pancreas and adrenal glands appear normal. The kidneys are of normal size and reveal no mass, obvious calculi, or hydronephrosis. Both kidneys function on delay images. The ureters are opacified in portions on the delay images and appear unremarkable. Mild bilateral extrarenal pelvi are seen. I see no evidence of abdominal aortic aneurysm or abnormal retroperitoneal lymphadenopathy. Mild vascular calcification is seen at the origin of the right internal iliac artery. There is no free intraperitoneal air or ventral abdominal wall hernia. Nondilated fluid filled small bowel is seen within the right hemiabdomen and lower abdomen/pelvis. I also note fluid within the right hemicolon. This may be due to diarrhea. I do not appreciate any significant bowel wall thickening or obstruction. The appendix is surgically absent. There is a suggestion of some minimal sigmoid colon diverticulosis without evidence of acute diverticulitis. I see no free intraperitoneal fluid. No other pelvic mass or abnormal pelvic lymphadenopathy is seen. The urinary bladder appears distended and unremarkable. The seminal vesicles and prostate gland appear within normal limits. Skeleton reveals no acute fracture or aggressive bone lesion. A few tiny Schmorl's nodes are seen within the lower thoracic spine and upper lumbar spine. Impression: 1. Nondilated fluid-filled small bowel is seen within the right hemiabdomen and lower abdomen/pelvis, as well as a right hemicolon. This may be due to a diarrheal state. Correlate clinically regarding an ileus versus enterocolitis. I do not appreciate significant bowel wall thickening. 2. Minimal sigmoid colon diverticulosis. 3. Both the gallbladder and appendix are surgically absent. 4. Within the inferior aspect of the right hepatic lobe, there is a 0.9 cm round low-attenuation density which could possibly represent a cyst. Other etiologies are not completely excluded. I appreciate no hepatomegaly or hepatic steatosis on the current study. 5. No other acute process is seen within the abdomen or pelvis.
[2022-01-22 09:18] LABS: Slide Review 1 YES
[2022-01-22] MEDS: solu-MEDROL 80 MG, Sterile H2O 10 ml 2 ML IV SCH ×4 (09:28→13:55)
[2022-01-22] MEDS: FLAGYL 500 MG IVPB 500 MG/100 ML BAG IV SCH ×2 (09:28→13:55)
[2022-01-22] MEDS ORDERED: Effexor XR 75 MG PO SCH (10:00)
[2022-01-22] MEDS ORDERED: Protonix 40MG Tablet PO SCH (10:00)
[2022-01-22] MEDS ORDERED: MESALAMINE 0.375 GM PO SCH (10:00)
[2022-01-22] MEDS ORDERED: NON-FORMULARY ITEM (Omeprazole 20 Mg [Prilosec 20 Mg] 20 MG Capsule.Dr) PO SCH (10:00)
[2022-01-22] MEDS ORDERED: Levofloxacin 500MG/100ML D5W 500 MG/100 ML BAG IV SCH (10:00)
[2022-01-22] MEDS ORDERED: MEDICATION INTERVENTION PO SCH (10:00)
[2022-01-22] MEDS ORDERED: solu-MEDROL W/DILUENT 500 MG IV SCH (12:00)
[2022-01-22 14:01] VITALS: BP 123/81; PULSE 85; O2SAT 93
--- NOTE | 2022-01-22 16:09 | PCM.DCORD ---
- Discharge Disposition: Home, Self-Care Condition: Stable Prescriptions: New Prochlorperazine Maleate [Compazine] 10 mg PO Q6HPRN PRN #30 tablet PRN Reason: Nausea Prednisone 20 mg [Deltasone 20 mg] 20 mg PO UD #18 tablet Metronidazole 500 mg [Flagyl 500 MG] 500 mg PO TID #21 tablet Levofloxacin [Levofloxacin 500 MG Tablet] 500 mg PO DAILY #7 tablet Tramadol HCl 50 mg [Ultram 50 mg] 50 mg PO Q6H PRN PRN #28 tablet PRN Reason: Pain Continue Omeprazole 20 MG [Prilosec 20 mg] 20 mg PO DAILY Ascorbic Acid 500 mg [Vitamin C 500 MG] 500 mg PO DAILY Loratadine 10 mg [Claritin 10 mg] 10 mg PO DAILY Mesalamine [Apriso] 1.5 gm PO DAILY Venlafaxine HCl ER 37.5 mg [Effexor ER 37.5 MG] 75 mg PO DAILY Follow up with: BOY EMMANUEL MD [Primary Care Provider] - 1 Week
== END 2022-01-22 16:32 | disposition home or self-care (01) ==
LOC: ED 19:32 → MED SURG 01-22 00:05 → OBSVTOIN 01-22 00:05 → INTOOBSV 01-22 00:05 → OBSVTOIN 01-22 08:15
PROVIDERS: ADMIT Family Medicine; ATTEND Family Medicine
DX: K50.10 Crohn's disease of large intestine without complications (principal); K21.9 Gastro-esophageal reflux disease without esophagitis; Z20.828 Contact with and (suspected) exposure to other viral communicable diseases; Z79.899 Other long term (current) drug therapy
CPT/HCPCS: 0241U; 36000; 36415; 74177; 80053; 81001; 83690; 84484; 85025; 93268; 94762; 96374; 96375; 96376; 99285; G0378; J1170; J1956; J2405; J2930; A9270-GY

== ENCOUNTER 2022-03-10 11:53 | Day surgery (SDC) | payer OTHER ==
[2022-03-10] MEDS ORDERED: BUPIVACAINE 0.5% VIAL IJ ONE (11:54)
[2022-03-10] MEDS ORDERED: Decadron 4 MG INJ IV ONE (11:54)
[2022-03-10] MEDS ORDERED: Depo-Medrol 40 MG/ML IM ONE (11:54)
[2022-03-10] MEDS ORDERED: Xylocaine 1% Vial 30 ML PF IJ ONE (11:54)
[2022-03-10] MEDS ORDERED: DIPRIVAN 200 MG/20 ML IV ONE (14:41)
[2022-03-10] MEDS ORDERED: Lactated Ringers 1,000 ML IV ONE (14:41)
--- NOTE | 2022-03-10 16:41 | XRAY ---
Indication: Left SI joint and left piriformis injections. Intraoperative fluoroscopy provided for 37 seconds. 3 digital spot images submitted for interpretation demonstrates posterior needle tip projecting over the inferior left SI joint. Second needle tip projects over the left piriformis muscle with small amount of contrast injected for needle tip placement. Correlate with intraoperative findings/report.
--- NOTE | 2022-03-10 16:45 | XRAY ---
37 seconds fluoroscopy time in surgery for injections of the left SI joint and left piriformis muscle.
== END 2022-03-10 15:02 | disposition home or self-care (01) ==
LOC: SDC-PAIN 11:53
PROVIDERS: ATTEND Psychiatry & Neurology Pain Medicine
DX: M46.1 Sacroiliitis, not elsewhere classified (principal); M79.18 Myalgia, other site; Z79.899 Other long term (current) drug therapy
CPT/HCPCS: 20552; 27096; 72202; 77002; G0260; J1030; J1100; J2001; J2704; Q9966

== ENCOUNTER 2022-05-31 11:47 | Observation (INO) | payer OTHER ==
[2022-05-31] MEDS ORDERED: D50W 50 ml Abboject IV ONE ×2 (11:48→12:19)
[2022-05-31] MEDS ORDERED: Sodium Chloride 0.9% 1000 ML 1,000 ML ONE ×2 (11:48→13:04)
[2022-05-31] MEDS ORDERED: Zofran 4 MG/2 ML VIAL ONE ×2 (11:48→15:19)
[2022-05-31] MEDS ORDERED: SUBLIMAZE 100 MCG/2 ML ONE (12:08)
[2022-05-31] MEDS ORDERED: Sodium Chloride 0.9% 1000 ML 1,000 ML IV STA ×2 (12:10→13:09)
[2022-05-31] MEDS ORDERED: Zofran 4 MG/2 ML VIAL IV ONE ×2 (12:10→15:45)
[2022-05-31] MEDS ORDERED: SUBLIMAZE 100 MCG/2 ML IV ONE ×2 (12:10→12:21)
[2022-05-31] MEDS ORDERED: Ativan 2 MG/1 ML VIAL IV ONE (12:21)
--- NOTE | 2022-05-31 12:22 | ERPHSYRPT ---
- History of Present Illness Time Seen by Provider: 05/31/22 12:10 Historian: patient Exam Limitations: no limitations Patient Subjective Stated Complaint: "I'm going to puke... My abdomen is hurting so bad, I've had diarrhea since 11 last night". Triage Nursing Assessment: This patient is an employee of [employer] and became sick on shift, after an episode of diarrhea he stated he needed help. Pt was pale, clammy, and hot to touch. Pt appeared to have near syncopal episode. Pt began to vomit and complain of left sided abdominal pains, rating pain 7/10 scale. Pt is alert but appears very weak. Respirations are slightly labored, lung sounds clear throughout. Bowel sounds hyperactive and noted tenderness to left sided abdomen upon exam. 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 He is complaining of abdominal pain generalized more on the left side with associated multiple episodes of loose stool and is unable to hold much down. Pain is moderate to severe sharp cramping. He started to have nausea at this morning and patient was mildly diaphoretic with blood sugar of 67, given half ampule of D50 and improved to 150s. No fever chills reported. Feeling weak fatigued tired and dehydrated. Timing/Duration: yesterday, gradual onset, worse Activities at Onset: rest Quality: sharpness Abdominal Pain Onset Location: LLQ, flank Severity of Pain-Max: moderate Severity of Pain-Current: moderate Modifying Factors: Worsens With: vomiting Associated Symptoms: diarrhea, nausea, vomiting Allergies/Adverse Reactions: No Known Drug Allergies Allergy (Verified 05/31/22 12:15) Home Medications: Omeprazole 20 MG [Prilosec 20 mg] 20 mg PO DAILY 12/02/13 [History] Ascorbic Acid 500 mg [Vitamin C 500 MG] 500 mg PO DAILY 08/04/15 [History] Loratadine 10 mg [Claritin 10 mg] 10 mg PO DAILY 01/15/17 [History] Mesalamine [Apriso] 1.5 gm PO DAILY 09/18/19 [History] Venlafaxine HCl ER 37.5 mg [Effexor ER 37.5 MG] 75 mg PO DAILY 01/21/22 [History] Hx Tetanus, Diphtheria Vaccination/Date Given: Yes Hx Influenza Vaccination/Date Given: Yes Hx Pneumococcal Vaccination/Date Given: No Immunizations Up to Date: Yes Travel Risk - International Travel Have you traveled outside of the country in past 3 weeks: No - Coronavirus Screening Are you exhibiting any of the following symptoms?: Yes Symptoms: Vomiting/Diarrhea Close contact with a COVID-19 positive Pt in past 14-21 Days: No - Vaccine Status Have you recieved a Covid-19 vaccination: Yes Branch Maker: Moderna - Vaccination Dates Date of 2cond Vaccination (if applicable): 12/2020 - Review of Systems Constitutional: Fatigue, Weakness Eyes: No Symptoms Ears, Nose, & Throat: No Symptoms Respiratory: No Symptoms Cardiac: No Symptoms Abdominal/Gastrointestinal: Abdominal Pain, Nausea, Vomiting, Diarrhea Genitourinary Symptoms: No Symptoms Musculoskeletal: No Symptoms Skin: No Symptoms Neurological: No Symptoms Psychological: No Symptoms Endocrine: No Symptoms Hematologic/Lymphatic: No Symptoms Immunological/Allergic: No Symptoms - Past Medical History Pertinent Past Medical History: Yes Neurological History: No Pertinent History ENT History: No Pertinent History Cardiac History: No Pertinent History Respiratory History: No Pertinent History Endocrine Medical History: Other Musculoskeletal History: No Pertinent History GI Medical History: Crohns Disease, Diverticulitis, GERD, Pancreatitis History: No Pertinent History Psycho-Social History: Depression Male Reproductive Disorders: No Pertinent History Other Medical History: FATTY LIVER, ACID REFLUX, CROHNS. - Past Surgical History Past Surgical History: Yes Neuro Surgical History: No Pertinent History Cardiac: No Pertinent History Respiratory: No Pertinent History Gastrointestinal: Appendectomy, Cholecystectomy Genitourinary: No Pertinent History Musculoskeletal: No Pertinent History Male Surgical History: Vasectomy Other Surgical History: ERCP, RECONSTRUCTIVE SURGERY TO RT SHOULDER, PREVIOUS ALCOHOLIC - Social History Smoking Status: Former smoker Exposure to second hand smoke: No Drug Use: none Patient Lives Alone: No - Nursing Vital Signs Nursing Vital Signs: Initial Vital Signs Temperature 97.9 F 05/31/22 12:06 Pulse Rate 77 05/31/22 12:06 Respiratory Rate 24 05/31/22 12:06 Blood Pressure 106/76 05/31/22 12:06 O2 Sat by Pulse Oximetry 100 05/31/22 12:06 Pain Scale Pain Intensity 7 - Physical Exam General Appearance: no apparent distress, alert Eye Exam: PERRL/EOMI, eyes nml inspection Ears, Nose, Throat Exam: normal ENT inspection, TMs normal, pharynx normal, moist mucous membranes Neck Exam: normal inspection, non-tender, supple, full range of motion Respiratory Exam: normal breath sounds, lungs clear Cardiovascular Exam: regular rate/rhythm, normal heart sounds Gastrointestinal/Abdomen Exam: soft, normal bowel sounds, tenderness (Generalized more on the left side with some guarding without rebound t enderness.) Back Exam: normal inspection, normal range of motion Extremity Exam: normal inspection, normal range of motion, pelvis stable Neurologic Exam: alert, oriented x 3, cooperative, pain management nurse II-XII nml as tested, normal mood/affect, nml cerebellar function, sensation nml Skin Exam: normal color SpO2 Interpretation: normal SpO2: 100 O2 Delivery: Room Air Ordered Tests: Active Orders 24 hr Category Date Time Status EKG-ER Only STAT Care 05/31/22 12:10 Active IV Insertion STAT Care 05/31/22 12:10 Active NPO (ED) STAT Care 05/31/22 12:10 Active ABDOMEN AND PELVIS W/0 CONTRAS [CT] Stat Exams 05/31/22 12:11 Taken BLOOD CULTURE Stat Lab 05/31/22 12:30 Received CBC W DIFF Stat Lab 05/31/22 12:30 Completed CMP Stat Lab 05/31/22 12:30 Completed LIPASE Stat Lab 05/31/22 12:30 Completed Lactic Acid Stat Lab 05/31/22 12:20 Completed MAG [MAGNESIUM] Stat Lab 05/31/22 12:30 Completed POCT GLUCOSE Stat Lab 05/31/22 12:31 Completed PROCALCITONIN Stat Lab 05/31/22 12:30 Completed TROPONIN Q3H Lab 05/31/22 12:30 Completed TROPONIN Q3H Lab 05/31/22 15:15 Ordered TROPONIN Q3H Lab 05/31/22 18:15 Ordered TROPONIN Q3H Lab 05/31/22 21:15 Ordered TROPONIN Q3H Lab 06/01/22 00:15 Ordered UA W/RFX CULTURE Stat Lab 05/31/22 Ordered Medication Summary Generic Name Dose Route Start Last Admin Trade Name Freq PRN Reason Stop Dose Admin Sodium Chloride 1,000 mls @ 999 mls/hr 05/31/22 13:09 05/31/22 13:11 Sodium Chloride 0.9% 1000 Ml IV 05/31/22 14:09 999 mls/hr .Q1H1M STA Administration Discontinued Medications Generic Name Dose Route Start Last Admin Trade Name Teresa PRN Reason Stop Dose Admin Dextrose 25 ml 05/31/22 12:19 05/31/22 12:21 Dextrose 50%-Water 50 Ml Abboject IV 05/31/22 12:20 25 ml STAT ONE Administration Fentanyl Citrate Confirm 05/31/22 12:08 Fentanyl Citrate 100 Mcg/2 Ml* Vial Administered 05/31/22 12:09 Dose 100 mcg .ROUTE .STK-MED ONE Fentanyl Citrate 50 mcg 05/31/22 12:10 05/31/22 12:18 Fentanyl Citrate 100 Mcg/2 Ml* Vial IV 05/31/22 12:11 50 mcg STAT ONE Administration Fentanyl Citrate 50 mcg 05/31/22 12:21 05/31/22 12:24 Fentanyl Citrate 100 Mcg/2 Ml* Vial IV 05/31/22 12:22 50 mcg STAT ONE Administration Hydromorphone HCl 0.5 mg 05/31/22 13:02 05/31/22 13:10 Hydromorphone 1 Mg/1ml Inj 1 Mg/Ml Syringe IV 05/31/22 13:03 0.5 mg STAT ONE Administration Hydromorphone HCl Confirm 05/31/22 13:04 Hydromorphone 1 Mg/1ml Inj 1 Mg/Ml Syringe Administered 05/31/22 13:05 Dose 1 mg .ROUTE .STK-MED ONE Sodium Chloride 1,000 mls @ 999 mls/hr 05/31/22 12:10 05/31/22 12:18 Sodium Chloride 0.9% 1000 Ml IV 05/31/22 13:10 999 mls/hr .Q1H1M STA Administration Sodium Chloride Confirm 05/31/22 13:04 Sodium Chloride 0.9% 1000 Ml Administered 05/31/22 13:05 Dose 1,000 mls @ ud .ROUTE .STK-MED ONE Lorazepam 1 mg 05/31/22 12:21 05/31/22 12:23 Lorazepam 2 Mg/1 Ml 2 Mg Vial IV 05/31/22 12:22 1 mg STAT ONE Administration Lorazepam Confirm 05/31/22 12:23 Lorazepam 2 Mg/1 Ml 2 Mg Vial Administered 05/31/22 12:24 Dose 2 mg .ROUTE .STK-MED ONE Ondansetron HCl 4 mg 05/31/22 12:10 05/31/22 12:18 Ondansetron Hcl 4 Mg/2 Ml Vial IV 05/31/22 12:11 4 mg STAT ONE Administration Lab/Rad Data: Laboratory Result Diagrams 05/31/22 12:30 05/31/22 12:30 Laboratory Results 05/31/22 05/31/22 05/31/22 Range/Units 12:31 12:30 12:30 WBC (4.0-10.5) x10^3/uL RBC (4.1-5.6) x10^6/uL Hgb (12.5-18.0) g/dL Hct (42-50) % MCV (78-100) fL MCH (26-32) pg MCHC (32-36) g/dL RDW (11.5-14.0) % Plt Count (150-450) x10^3/uL MPV (7.5-11.0) fL Gran % (36.0-66.0) % Immature Gran % (Auto) (0.00-0.4) % Nucleat RBC Rel Count (0.00-0.1) % Eos # (Auto) (0-0.5) x10^3/uL Immature Gran # (Auto) (0.00-0.03) x10^3u/L Absolute Lymphs (auto) (1.0-4.6) x10^3/uL Absolute Monos (auto) (0.0-1.3) x10^3/uL Absolute Nucleated RBC (0.00-0.01) x10^3u/L Lymphocytes % (24.0-44.0) % Monocytes % (0.0-12.0) % Eosinophils % (0.00-5.0) % Basophils % (0.0-0.4) % Absolute Granulocytes (1.4-6.9) x10^3/uL Basophils # (0-0.4) x10^3/uL Sodium (137-145) mmol/L Potassium (3.5-5.1) mmol/L Chloride (98-107) mmol/L Carbon Dioxide (22-30) mmol/L Anion Gap (5-15) MEQ/L BUN (9-20) mg/dL Creatinine (0.66-1.25) mg/dL Estimated GFR ML/MIN Glucose (74-106) mg/dL POC Glucometer 124 H (74 to 106) mg/dL Lactic Acid (0.4-2.0) Calcium (8.4-10.2) mg/dL Magnesium (1.6-2.3) mg/dL Total Bilirubin (0.2-1.3) mg/dL AST (17-59) U/L ALT (0-50) U/L Alkaline Phosphatase (38-126) U/L Troponin I < 0.012 (0.000-0.034) ng/mL Serum Total Protein (6.3-8.2) g/dL Albumin (3.5-5.0) g/dL Lipase (23-300) U/L Procalcitonin 0.056 (0.030-0.080) ng/mL 05/31/22 05/31/22 05/31/22 Range/Units 12:30 12:30 12:30 WBC 13.7 H (4.0-10.5) x10^3/uL RBC 4.84 (4.1-5.6) x10^6/uL Hgb 14.5 (12.5-18.0) g/dL Hct 43.9 (42-50) % MCV 90.7 (78-100) fL MCH 30.0 (26-32) pg MCHC 33.0 (32-36) g/dL RDW 12.0 (11.5-14.0) % Plt Count 322 (150-450) x10^3/uL MPV 9.5 (7.5-11.0) fL Gran % 82.9 H (36.0-66.0) % Immature Gran % (Auto) 0.4 (0.00-0.4) % Nucleat RBC Rel Count 0.0 (0.00-0.1) % Eos # (Auto) 0.11 (0-0.5) x10^3/uL Immature Gran # (Auto) 0.05 H (0.00-0.03) x10^3u/L Absolute Lymphs (auto) 1.04 (1.0-4.6) x10^3/uL Absolute Monos (auto) 1.11 (0.0-1.3) x10^3/uL Absolute Nucleated RBC 0.00 (0.00-0.01) x10^3u/L Lymphocytes % 7.6 L (24.0-44.0) % Monocytes % 8.1 (0.0-12.0) % Eosinophils % 0.8 (0.00-5.0) % Basophils % 0.2 (0.0-0.4) % Absolute Granulocytes 11.32 H (1.4-6.9) x10^3/uL Basophils # 0.03 (0-0.4) x10^3/uL Sodium 139 (137-145) mmol/L Potassium 4.4 (3.5-5.1) mmol/L Chloride 103 (98-107) mmol/L Carbon Dioxide 22 (22-30) mmol/L Anion Gap 19.2 H (5-15) MEQ/L BUN 17 (9-20) mg/dL Creatinine 0.82 (0.66-1.25) mg/dL Estimated GFR > 60.0 ML/MIN Glucose 89 (74-106) mg/dL POC Glucometer (74 to 106) mg/dL Lactic Acid (0.4-2.0) Calcium 9.7 (8.4-10.2) mg/dL Magnesium 1.7 (1.6-2.3) mg/dL Total Bilirubin 0.60 (0.2-1.3) mg/dL AST 51 (17-59) U/L ALT 48 (0-50) U/L Alkaline Phosphatase 72 (38-126) U/L Troponin I (0.000-0.034) ng/mL Serum Total Protein 7.7 (6.3-8.2) g/dL Albumin 4.9 (3.5-5.0) g/dL Lipase 155 (23-300) U/L Procalcitonin (0.030-0.080) ng/mL 05/31/22 Range/Units 12:20 WBC (4.0-10.5) x10^3/uL RBC (4.1-5.6) x10^6/uL Hgb (12.5-18.0) g/dL Hct (42-50) % MCV (78-100) fL MCH (26-32) pg MCHC (32-36) g/dL RDW (11.5-14.0) % Plt Count (150-450) x10^3/uL MPV (7.5-11.0) fL Gran % (36.0-66.0) % Immature Gran % (Auto) (0.00-0.4) % Nucleat RBC Rel Count (0.00-0.1) % Eos # (Auto) (0-0.5) x10^3/uL Immature Gran # (Auto) (0.00-0.03) x10^3u/L Absolute Lymphs (auto) (1.0-4.6) x10^3/uL Absolute Monos (auto) (0.0-1.3) x10^3/uL Absolute Nucleated RBC (0.00-0.01) x10^3u/L Lymphocytes % (24.0-44.0) % Monocytes % (0.0-12.0) % Eosinophils % (0.00-5.0) % Basophils % (0.0-0.4) % Absolute Granulocytes (1.4-6.9) x10^3/uL Basophils # (0-0.4) x10^3/uL Sodium (137-145) mmol/L Potassium (3.5-5.1) mmol/L Chloride (98-107) mmol/L Carbon Dioxide (22-30) mmol/L Anion Gap (5-15) MEQ/L BUN (9-20) mg/dL Creatinine (0.66-1.25) mg/dL Estimated GFR ML/MIN Glucose (74-106) mg/dL POC Glucometer (74 to 106) mg/dL Lactic Acid 1.6 (0.4-2.0) Calcium (8.4-10.2) mg/dL Magnesium (1.6-2.3) mg/dL Total Bilirubin (0.2-1.3) mg/dL AST (17-59) U/L ALT (0-50) U/L Alkaline Phosphatase (38-126) U/L Troponin I (0.000-0.034) ng/mL Serum Total Protein (6.3-8.2) g/dL Albumin (3.5-5.0) g/dL Lipase (23-300) U/L Procalcitonin (0.030-0.080) ng/mL - Progress Progress: improved Progress Note: 05/31/22 14:03 36-year-old is evaluated for abdominal pain with diarrhea and vomiting, patient was hypoglycemic, given half ampule of D50 and it improved. Given fluids and symptomatic treatment for pain. On reevaluation feeling better. Work-up showed white count of 13, chemistries consistent with dehydration. Obtain CT abdomen pelvis without contrast which consistent with diarrheal disease and no obvious colitis/diverticulitis are obstruction etc. Discussed with Dr. Bruno, reviewed history, work-up and patient is excepted for admission. Discussed with : Saqib Will see patient in: hospital (observation) Counseled pt/family regarding: lab results, diagnosis, need for follow-up, rad results - Departure Departure Disposition: Observation Clinical Impression: Acute gastroenteritis, Generalized weakness Condition: Stable Critical Care Time: No Referrals: BOY EMMANUEL MD [Primary Care Provider] - Follow up/PCP as directed
[2022-05-31] MEDS ORDERED: Ativan 2 MG/1 ML VIAL ONE (12:23)
[2022-05-31 12:44] LABS: Absolute Neutrophil Ct (ANC) 11.32 x10^3/uL (1.4-6.9); Basophil (Absolute #) 0.03 x10^3/uL (0-0.4); Eosinophil % 0.8 % (0.00-5.0); Eosinophil (Absolute #) 0.11 x10^3/uL (0-0.5); Hematocrit 43.9 % (42-50); Hemoglobin 14.5 g/dL (12.5-18.0); Lymphocyte (Absolute #) 1.04 x10^3/uL (1.0-4.6); Lymphocytes % 7.6 % (24.0-44.0); Mean Cell Volume 90.7 fL (78-100); Mean Platelet Volume 9.5 fL (7.5-11.0); Monocyte (Absolute #) 1.11 x10^3/uL (0.0-1.3); Monocytes % 8.1 % (0.0-12.0); Neutrophil % 82.9 % (36.0-66.0); Platelet Count 322 x10^3/uL (150-450); Red Blood Count 4.84 x10^6/uL (4.1-5.6); White Blood Count 13.7 x10^3/uL (4.0-10.5)
[2022-05-31] MEDS ORDERED: Hydromorphone 1 mg/ml Injection IV ONE ×2 (13:02→15:45)
[2022-05-31] MEDS ORDERED: Hydromorphone 1 mg/ml Injection ONE ×4 (13:04→20:31)
[2022-05-31 13:09] LABS: ALBUMIN 4.9 g/dL (3.5-5.0); ALKALINE PHOSPHATASE 72 U/L (38-126); ANION GAP 19.2 MEQ/L (5-15); BLOOD UREA NITROGEN 17 mg/dL (9-20); CHLORIDE 103 mmol/L (98-107); Calcium 9.7 mg/dL (8.4-10.2); Carbon Dioxide 22 mmol/L (22-30); Creatinine 1 0.82 mg/dL (0.66-1.25); EST GLOMERULAR FILTRATION RATE > 60.0 ML/MIN; Glucose 89 mg/dL (74-106); LIPASE 155 U/L (23-300); Potassium 4.4 mmol/L (3.5-5.1); SGOT/AST 51 U/L (17-59); SGPT/ALT 48 U/L (0-50); SODIUM 139 mmol/L (137-145); Total Protein 7.7 g/dL (6.3-8.2)
[2022-05-31 15:06] LABS: INFLUENZA A NEGATIVE (NEGATIVE); INFLUENZA B NEGATIVE (NEGATIVE); RESPIRATORY SYNCTIAL VIRUS NEGATIVE (Negative); SARS-CoV-2 Xpert Express NEGATIVE (NEGATIVE)
[2022-05-31] MEDS ORDERED: Zofran 4 MG/2 ML VIAL IV PRN (16:15)
[2022-05-31] MEDS ORDERED: TYLENOL 325 MG PO PRN (16:15)
[2022-05-31] MEDS ORDERED: MORPHINE SULFATE 4 MG INJ IV PRN (16:15)
[2022-05-31 16:35] LABS: Mucus SLIGHT /HPF (NEGATIVE)
[2022-05-31] MEDS ORDERED: PROMETHEGAN RC ONE (16:36)
[2022-05-31] MEDS ORDERED: MORPHINE SULFATE 4 MG INJ ONE (16:38)
[2022-05-31] MEDS: Sodium Chloride 0.9% 1000 ML 1,000 ML IV SCH (16:47)
[2022-05-31 17:03] LABS: Appearance CLEAR (CLEAR); Bilirubin NEGATIVE (NEGATIVE); Dipstick done @ ? MAIN LAB; Glucose NEGATIVE (NEGATIVE); Ketones NEGATIVE (NEGATIVE); Nitrite NEGATIVE (NEGATIVE); Ph 5.5 (5-6); Protein,Urine Dip NEGATIVE (Negative); RBC NEGATIVE Ery/ul (0-5); Urine Cultured Indicated? NO; Urobilinogen 0.2 mg/dL (0-1)
[2022-05-31] MEDS: Hydromorphone 1 mg/ml Injection IV PRN ×2 (17:29→20:35)
[2022-05-31] MEDS: FLAGYL 500 MG IVPB 500 MG/100 ML BAG IV SCH (17:30)
[2022-05-31 17:58] LABS: 027 TOX PROD PRESUMPTIVE NEGATIVE (NEGATIVE); TOXIGENIC C. DIFF ORG NEGATIVE (NEGATIVE)
--- NOTE | 2022-05-31 19:24 | XRAY ---
Indication: Abdomen pain, nausea/vomiting, and diarrhea. History Crohn's disease. Multiple contiguous axial images obtained through the abdomen and pelvis without contrast. Comparison: January 21, 2022. Lung bases again demonstrates minimal dependent atelectasis. No infiltrate or effusion. Heart not enlarged. Stomach is markedly distended with food/fluid. Mild fluid distended small bowel loops without focal bowel dilatation or obstruction. Again sigmoid diverticulosis, appendectomy, and cholecystectomy. There are again scattered subcentimeter mid abdomen mesenteric nodes favoring adenitis. No free fluid/air. Again fatty liver. Previous small inferior right lobe hepatic hemangioma not seen on this noncontrast exam. Remaining liver, pancreas, spleen, adrenal glands, kidneys, ureters, bladder, and aorta are unremarkable for noncontrast exam. Osseous structures intact. Impression: 1. Markedly fluid/food distended stomach presumed from recent meal. 2. Again scattered subcentimeter mesenteric nodes favoring adenitis. 3. Chronic findings including sigmoid diverticulosis and fatty liver. Comment: Preliminary interpretation made by [facility]. No critical discrepancy.
[2022-05-31] MEDS ORDERED: PHENERGAN 25 MG ONE (20:46)
[2022-05-31] MEDS ORDERED: Phenergan 25 MG INJ ONE (21:53)
[2022-05-31] MEDS ORDERED: Sodium Chloride 0.9% 100 ML ONE (21:54)
[2022-05-31] MEDS ORDERED: PHENERGAN 25 MG PO SCH (22:00)
[2022-05-31] MEDS: Phenergan 25 MG INJ*** 25 MG in Sodium Chloride 0.9% 100 ML IV PRN (22:04)
[2022-05-31] MEDS: SUBLIMAZE 100 MCG/2 ML IV PRN ×2 (22:04→23:53)
[2022-06-01] MEDS ORDERED: Phenergan 25 MG INJ ONE ×2 (01:51→05:02)
[2022-06-01] MEDS ORDERED: Sodium Chloride 0.9% 100 ML ONE ×2 (01:52→05:03)
[2022-06-01] MEDS: FLAGYL 500 MG IVPB 500 MG/100 ML BAG IV SCH ×3 (02:15→17:43)
[2022-06-01] MEDS: SUBLIMAZE 100 MCG/2 ML IV PRN ×2 (02:17→05:22)
[2022-06-01] MEDS: Phenergan 25 MG INJ*** 25 MG in Sodium Chloride 0.9% 100 ML IV PRN ×5 (02:19→22:20)
[2022-06-01] MEDS: Sodium Chloride 0.9% 1000 ML 1,000 ML IV SCH (02:25)
[2022-06-01 06:07] LABS: Absolute Neutrophil Ct (ANC) 4.08 x10^3/uL (1.4-6.9); Basophil (Absolute #) 0.01 x10^3/uL (0-0.4); Eosinophil % 0.6 % (0.00-5.0); Eosinophil (Absolute #) 0.03 x10^3/uL (0-0.5); Hematocrit 37.4 % (42-50); Hemoglobin 12.2 g/dL (12.5-18.0); Lymphocyte (Absolute #) 0.78 x10^3/uL (1.0-4.6); Lymphocytes % 14.3 % (24.0-44.0); Mean Cell Volume 91.7 fL (78-100); Mean Corpuscular Hemoglobin 29.9 pg (26-32); Mean Corpuscular Hgb Concent. 32.6 g/dL (32-36); Mean Platelet Volume 9.2 fL (7.5-11.0); Monocyte (Absolute #) 0.53 x10^3/uL (0.0-1.3); Monocytes % 9.7 % (0.0-12.0); Platelet Count 224 x10^3/uL (150-450); Red Blood Count 4.08 x10^6/uL (4.1-5.6); Red Cell Distribution Width 12.4 % (11.5-14.0); White Blood Count 5.4 x10^3/uL (4.0-10.5)
[2022-06-01] MEDS ORDERED: SUBLIMAZE 100 MCG/2 ML IV PRN (06:57)
[2022-06-01 07:07] LABS: ALBUMIN 3.2 g/dL (3.5-5.0); ALKALINE PHOSPHATASE 43 U/L (38-126); ANION GAP 11.9 MEQ/L (5-15); BLOOD UREA NITROGEN 9 mg/dL (9-20); CHLORIDE 110 mmol/L (98-107); Calcium 7.4 mg/dL (8.4-10.2); Carbon Dioxide 22 mmol/L (22-30); Creatinine 1 0.68 mg/dL (0.66-1.25); EST GLOMERULAR FILTRATION RATE > 60.0 ML/MIN; Glucose 98 mg/dL (74-106); Potassium 3.9 mmol/L (3.5-5.1); SGOT/AST 20 U/L (17-59); SGPT/ALT 26 U/L (0-50); SODIUM 140 mmol/L (137-145); Total Protein 5.7 g/dL (6.3-8.2)
[2022-06-01] MEDS: DILAUDID 1 MG/1ML PCA IV PRN (08:26)
--- NOTE | 2022-06-01 08:31 | PCM.HP ---
History of Present Illness - Chief Complaint Chief Complaint: Acute Gastroenteritis History of Present Illness: is a 36 year old male pt of DR. Islas with Crohn's dz who was admitted through ER yesterday with gastroenteritis. He had started feeling ill about 11 pm, with abd pain (L sided), N/V/D and poor po intake (no fever). Went to work the next day as usual, then had some diarrhea and near syncopal episode. Pain was 7/10 at that time. BS was 67; improved to [address] abd/pelvis with fluid/food in stomach, mesenteric adenitis, and diverticulosis. Overnight, pt has continued to have abd pain; morphine did not help. Tried to start dilaudid BOBBIN HAULER, but it was unavailable at the time so did dosing of dilaudid 1mg which did not help the pain appreciably. Changed to fentanyl IV, 50 mcg q2h which got him through the night, but this morning he is still having 7/10 pain so we are now starting the dilaudid BOBBIN HAULER. He has fought nausea and vomiting all night as well. zofran wasn't working; did phenergan [place] and he still vomited within the hour. Have been doing phenergan scheduled. He tried compazine at home with no relief. Will start alternating droperidol with the phenergan. May give a dose of ativan prn if the droperidol is not helping. Last hospitalization was in Dec 2021. His GI specialist is Dr. Solo. - Review of Systems Constitutional: No Fever Abdominal/Gastrointestinal: Abdominal Pain, Nausea, Vomiting, Diarrhea, Appetite Changes All Other Systems: Reviewed and Negative Medications & Allergies Home Medications: Home Medication List Omeprazole 20 MG [Prilosec 20 mg] 20 mg PO DAILY 12/02/13 [History Confirmed 05/31/22] Ascorbic Acid 500 mg [Vitamin C 500 MG] 500 mg PO DAILY 08/04/15 [History Confirmed 05/31/22] Loratadine 10 mg [Claritin 10 mg] 10 mg PO DAILY 01/15/17 [History Confirmed 05/31/22] Mesalamine [Apriso] 1.5 gm PO DAILY 09/18/19 [History Confirmed 05/31/22] Venlafaxine HCl ER 37.5 mg [Effexor ER 37.5 MG] 75 mg PO DAILY 01/21/22 [History Confirmed 05/31/22] Prochlorperazine Maleate [Compazine] 10 mg PO Q6HPRN PRN #30 tablet 01/22/22 [Rx Confirmed 05/31/22] Allergies/Adverse Reactions: Allergies Allergy/AdvReac Type Severity Reaction Status Date / Time No Known Drug Allergies Allergy Verified 05/31/22 12:15 - Past Medical History Past Medical History: Yes Neurological History: No Pertinent History ENT History: No Pertinent History Cardiac History: No Pertinent History Respiratory History: No Pertinent History Endocrine Medical History: Other Musculoskelatal History: No Pertinent History GI Medical History: Crohns Disease, Diverticulitis, GERD, Pancreatitis History: No Pertinent History Pyscho-Social History: Depression Male Reproductive Disorders: No Pertinent History Comment: FATTY LIVER, ACID REFLUX, CROHNS. - Past Surgical History Past Surgical History: Yes Neuro Surgical History: No Pertinent History Cardiac History: No Pertinent History Respiratory Surgery: No Pertinent History GI Surgical History: Appendectomy, Cholecystectomy Genitourinary Surgical Hx: No Pertinent History Musculskeletal Surgical Hx: No Pertinent History Male Surgical History: Vasectomy Other Surgical History: ERCP, RECONSTRUCTIVE SURGERY TO RT SHOULDER, PREVIOUS ALCOHOLIC - Social History Smoking Status: Never smoker Exposure to second hand smoke: No Alcohol: None Drug Use: none - Physical Exam Vital Signs: Vital Signs - 24 hr Temp Pulse Resp BP Pulse Ox 06/01/22 07:41 97.6 F 70 16 166/87 99 06/01/22 04:00 97.1 F 75 16 112/73 94 L 05/31/22 23:54 97.0 F 96 H 16 125/76 95 05/31/22 19:31 97.5 F 85 16 96/52 95 05/31/22 16:50 98.6 F 80 16 121/80 95 05/31/22 16:37 98.6 F 80 16 121/80 95 05/31/22 15:00 108 H 20 96 05/31/22 14:47 108 H 20 128/67 97 05/31/22 14:06 100 05/31/22 14:00 93 H 16 109/83 95 05/31/22 13:00 102 H 16 103/68 97 05/31/22 12:06 97.9 F 77 24 106/76 100 General Appearance: mild distress, alert Neurologic Exam: oriented x 3, cooperative Eye Exam: eyes nml inspection Ears, Nose, Throat Exam: moist mucous membranes Neck Exam: normal inspection Respiratory Exam: normal breath sounds, lungs clear, No crackles/rales, No rhonchi, No wheezing Cardiovascular Exam: regular rate/rhythm, normal heart sounds, No murmur Gastrointestinal/Abdomen Exam: soft, normal bowel sounds, tenderness (diffuse, worse in LUQ and LLQ), No distention, No mass, No guarding, No rebound Back Exam: normal inspection, No rash Extremity Exam: normal inspection, No pedal edema, No swelling Skin Exam: normal color, warm, dry, No rash Results - Labs Lab/Micro Results: Lab Results-Last 24 Hours 05/31/22 05/31/22 05/31/22 Range/Units 12:20 12:30 12:30 WBC 13.7 H (4.0-10.5) x10^3/uL RBC 4.84 (4.1-5.6) x10^6/uL Hgb 14.5 (12.5-18.0) g/dL Hct 43.9 (42-50) % MCV 90.7 (78-100) fL MCH 30.0 (26-32) pg MCHC 33.0 (32-36) g/dL RDW 12.0 (11.5-14.0) % Plt Count 322 (150-450) x10^3/uL MPV 9.5 (7.5-11.0) fL Gran % 82.9 H (36.0-66.0) % Immature Gran % (Auto) 0.4 (0.00-0.4) % Nucleat RBC Rel Count 0.0 (0.00-0.1) % Eos # (Auto) 0.11 (0-0.5) x10^3/uL Immature Gran # (Auto) 0.05 H (0.00-0.03) x10^3u/L Absolute Lymphs (auto) 1.04 (1.0-4.6) x10^3/uL Absolute Monos (auto) 1.11 (0.0-1.3) x10^3/uL Absolute Nucleated RBC 0.00 (0.00-0.01) x10^3u/L Lymphocytes % 7.6 L (24.0-44.0) % Monocytes % 8.1 (0.0-12.0) % Eosinophils % 0.8 (0.00-5.0) % Basophils % 0.2 (0.0-0.4) % Absolute Granulocytes 11.32 H (1.4-6.9) x10^3/uL Basophils # 0.03 (0-0.4) x10^3/uL Sodium 139 (137-145) mmol/L Potassium 4.4 (3.5-5.1) mmol/L Chloride 103 (98-107) mmol/L Carbon Dioxide 22 (22-30) mmol/L Anion Gap 19.2 H (5-15) MEQ/L BUN 17 (9-20) mg/dL Creatinine 0.82 (0.66-1.25) mg/dL Estimated GFR > 60.0 ML/MIN Glucose 89 (74-106) mg/dL POC Glucometer (74 to 106) mg/dL Lactic Acid 1.6 (0.4-2.0) Calcium 9.7 (8.4-10.2) mg/dL Magnesium (1.6-2.3) mg/dL Total Bilirubin 0.60 (0.2-1.3) mg/dL AST 51 (17-59) U/L ALT 48 (0-50) U/L Alkaline Phosphatase 72 (38-126) U/L Troponin I (0.000-0.034) ng/mL Serum Total Protein 7.7 (6.3-8.2) g/dL Albumin 4.9 (3.5-5.0) g/dL Lipase 155 (23-300) U/L Procalcitonin (0.030-0.080) ng/mL Urinalys Dipstick Clnc Urine Color (YELLOW) Urine Appearance (CLEAR) Urine pH (5-6) Ur Specific Welch (1.005-1.025) POC Urine Protein Conf (Negative) Urine Ketones (NEGATIVE) Urine Nitrite (NEGATIVE) Urine Bilirubin (NEGATIVE) Urine Urobilinogen (0-1) mg/dL Urine Leukocytes (NEGATIVE) Urine WBC (Auto) (0-5) /HPF Urine RBC (Auto) (0-2) /HPF U Epithel Cells (Auto) (FEW) /HPF Urine Bacteria (Auto) (NEGATIVE) /HPF Urine RBC (0-5) Shaji/ul Urine Mucus (Auto) (NEGATIVE) /HPF Ur Culture Indicated? Urine Glucose (NEGATIVE) mg/dL C. difficile Screen (NEGATIVE) C.difficile 027-NAP1-B1 (NEGATIVE) Influenza Type A Ag (NEGATIVE) Influenza Type B Ag (NEGATIVE) RSV (PCR) (Negative) SARS-CoV-2 (PCR) (NEGATIVE) 05/31/22 05/31/22 05/31/22 Range/Units 12:30 12:30 12:30 WBC (4.0-10.5) x10^3/uL RBC (4.1-5.6) x10^6/uL Hgb (12.5-18.0) g/dL Hct (42-50) % MCV (78-100) fL MCH (26-32) pg MCHC (32-36) g/dL RDW (11.5-14.0) % Plt Count (150-450) x10^3/uL MPV (7.5-11.0) fL Gran % (36.0-66.0) % Immature Gran % (Auto) (0.00-0.4) % Nucleat RBC Rel Count (0.00-0.1) % Eos # (Auto) (0-0.5) x10^3/uL Immature Gran # (Auto) (0.00-0.03) x10^3u/L Absolute Lymphs (auto) (1.0-4.6) x10^3/uL Absolute Monos (auto) (0.0-1.3) x10^3/uL Absolute Nucleated RBC (0.00-0.01) x10^3u/L Lymphocytes % (24.0-44.0) % Monocytes % (0.0-12.0) % Eosinophils % (0.00-5.0) % Basophils % (0.0-0.4) % Absolute Granulocytes (1.4-6.9) x10^3/uL Basophils # (0-0.4) x10^3/uL Sodium (137-145) mmol/L Potassium (3.5-5.1) mmol/L Chloride (98-107) mmol/L Carbon Dioxide (22-30) mmol/L Anion Gap (5-15) MEQ/L BUN (9-20) mg/dL Creatinine (0.66-1.25) mg/dL Estimated GFR ML/MIN Glucose (74-106) mg/dL POC Glucometer (74 to 106) mg/dL Lactic Acid (0.4-2.0) Calcium (8.4-10.2) mg/dL Magnesium 1.7 (1.6-2.3) mg/dL Total Bilirubin (0.2-1.3) mg/dL AST (17-59) U/L ALT (0-50) U/L Alkaline Phosphatase (38-126) U/L Troponin I < 0.012 (0.000-0.034) ng/mL Serum Total Protein (6.3-8.2) g/dL Albumin (3.5-5.0) g/dL Lipase (23-300) U/L Procalcitonin 0.056 (0.030-0.080) ng/mL Urinalys Dipstick Clnc Urine Color (YELLOW) Urine Appearance (CLEAR) Urine pH (5-6) Ur Specific Welch (1.005-1.025) POC Urine Protein Conf (Negative) Urine Ketones (NEGATIVE) Urine Nitrite (NEGATIVE) Urine Bilirubin (NEGATIVE) Urine Urobilinogen (0-1) mg/dL Urine Leukocytes (NEGATIVE) Urine WBC (Auto) (0-5) /HPF Urine RBC (Auto) (0-2) /HPF U Epithel Cells (Auto) (FEW) /HPF Urine Bacteria (Auto) (NEGATIVE) /HPF Urine RBC (0-5) Shaji/ul Urine Mucus (Auto) (NEGATIVE) /HPF Ur Culture Indicated? Urine Glucose (NEGATIVE) mg/dL C. difficile Screen (NEGATIVE) C.difficile 027-NAP1-B1 (NEGATIVE) Influenza Type A Ag (NEGATIVE) Influenza Type B Ag (NEGATIVE) RSV (PCR) (Negative) SARS-CoV-2 (PCR) (NEGATIVE) 05/31/22 05/31/22 05/31/22 Range/Units 12:31 14:17 16:13 WBC (4.0-10.5) x10^3/uL RBC (4.1-5.6) x10^6/uL Hgb (12.5-18.0) g/dL Hct (42-50) % MCV (78-100) fL MCH (26-32) pg MCHC (32-36) g/dL RDW (11.5-14.0) % Plt Count (150-450) x10^3/uL MPV (7.5-11.0) fL Gran % (36.0-66.0) % Immature Gran % (Auto) (0.00-0.4) % Nucleat RBC Rel Count (0.00-0.1) % Eos # (Auto) (0-0.5) x10^3/uL Immature Gran # (Auto) (0.00-0.03) x10^3u/L Absolute Lymphs (auto) (1.0-4.6) x10^3/uL Absolute Monos (auto) (0.0-1.3) x10^3/uL Absolute Nucleated RBC (0.00-0.01) x10^3u/L Lymphocytes % (24.0-44.0) % Monocytes % (0.0-12.0) % Eosinophils % (0.00-5.0) % Basophils % (0.0-0.4) % Absolute Granulocytes (1.4-6.9) x10^3/uL Basophils # (0-0.4) x10^3/uL Sodium (137-145) mmol/L Potassium (3.5-5.1) mmol/L Chloride (98-107) mmol/L Carbon Dioxide (22-30) mmol/L Anion Gap (5-15) MEQ/L BUN (9-20) mg/dL Creatinine (0.66-1.25) mg/dL Estimated GFR ML/MIN Glucose (74-106) mg/dL POC Glucometer 124 H (74 to 106) mg/dL Lactic Acid (0.4-2.0) Calcium (8.4-10.2) mg/dL Magnesium (1.6-2.3) mg/dL Total Bilirubin (0.2-1.3) mg/dL AST (17-59) U/L ALT (0-50) U/L Alkaline Phosphatase (38-126) U/L Troponin I (0.000-0.034) ng/mL Serum Total Protein (6.3-8.2) g/dL Albumin (3.5-5.0) g/dL Lipase (23-300) U/L Procalcitonin (0.030-0.080) ng/mL Urinalys Dipstick Clnc MAIN LAB Urine Color YELLOW (YELLOW) Urine Appearance CLEAR (CLEAR) Urine pH 5.5 (5-6) Ur Specific Welch 1.020 (1.005-1.025) POC Urine Protein Conf NEGATIVE (Negative) Urine Ketones NEGATIVE (NEGATIVE) Urine Nitrite NEGATIVE (NEGATIVE) Urine Bilirubin NEGATIVE (NEGATIVE) Urine Urobilinogen 0.2 (0-1) mg/dL Urine Leukocytes NEGATIVE (NEGATIVE) Urine WBC (Auto) 3-5 (0-5) /HPF Urine RBC (Auto) NONE (0-2) /HPF U Epithel Cells (Auto) NONE (FEW) /HPF Urine Bacteria (Auto) NONE (NEGATIVE) /HPF Urine RBC NEGATIVE (0-5) Shaji/ul Urine Mucus (Auto) SLIGHT (NEGATIVE) /HPF Ur Culture Indicated? NO Urine Glucose NEGATIVE (NEGATIVE) mg/dL C. difficile Screen (NEGATIVE) C.difficile 027-NAP1-B1 (NEGATIVE) Influenza Type A Ag NEGATIVE (NEGATIVE) Influenza Type B Ag NEGATIVE (NEGATIVE) RSV (PCR) NEGATIVE (Negative) SARS-CoV-2 (PCR) NEGATIVE (NEGATIVE) 05/31/22 05/31/22 05/31/22 Range/Units 16:22 16:34 19:23 WBC (4.0-10.5) x10^3/uL RBC (4.1-5.6) x10^6/uL Hgb (12.5-18.0) g/dL Hct (42-50) % MCV (78-100) fL MCH (26-32) pg MCHC (32-36) g/dL RDW (11.5-14.0) % Plt Count (150-450) x10^3/uL MPV (7.5-11.0) fL Gran % (36.0-66.0) % Immature Gran % (Auto) (0.00-0.4) % Nucleat RBC Rel Count (0.00-0.1) % Eos # (Auto) (0-0.5) x10^3/uL Immature Gran # (Auto) (0.00-0.03) x10^3u/L Absolute Lymphs (auto) (1.0-4.6) x10^3/uL Absolute Monos (auto) (0.0-1.3) x10^3/uL Absolute Nucleated RBC (0.00-0.01) x10^3u/L Lymphocytes % (24.0-44.0) % Monocytes % (0.0-12.0) % Eosinophils % (0.00-5.0) % Basophils % (0.0-0.4) % Absolute Granulocytes (1.4-6.9) x10^3/uL Basophils # (0-0.4) x10^3/uL Sodium (137-145) mmol/L Potassium (3.5-5.1) mmol/L Chloride (98-107) mmol/L Carbon Dioxide (22-30) mmol/L Anion Gap (5-15) MEQ/L BUN (9-20) mg/dL Creatinine (0.66-1.25) mg/dL Estimated GFR ML/MIN Glucose (74-106) mg/dL POC Glucometer 80 91 (74 to 106) mg/dL Lactic Acid (0.4-2.0) Calcium (8.4-10.2) mg/dL Magnesium (1.6-2.3) mg/dL Total Bilirubin (0.2-1.3) mg/dL AST (17-59) U/L ALT (0-50) U/L Alkaline Phosphatase (38-126) U/L Troponin I (0.000-0.034) ng/mL Serum Total Protein (6.3-8.2) g/dL Albumin (3.5-5.0) g/dL Lipase (23-300) U/L Procalcitonin (0.030-0.080) ng/mL Urinalys Dipstick Clnc Urine Color (YELLOW) Urine Appearance (CLEAR) Urine pH (5-6) Ur Specific Welch (1.005-1.025) POC Urine Protein Conf (Negative) Urine Ketones (NEGATIVE) Urine Nitrite (NEGATIVE) Urine Bilirubin (NEGATIVE) Urine Urobilinogen (0-1) mg/dL Urine Leukocytes (NEGATIVE) Urine WBC (Auto) (0-5) /HPF Urine RBC (Auto) (0-2) /HPF U Epithel Cells (Auto) (FEW) /HPF Urine Bacteria (Auto) (NEGATIVE) /HPF Urine RBC (0-5) Shaji/ul Urine Mucus (Auto) (NEGATIVE) /HPF Ur Culture Indicated? Urine Glucose (NEGATIVE) mg/dL C. difficile Screen NEGATIVE (NEGATIVE) C.difficile 027-NAP1-B1 PRESUMPTIVE NEGATIVE (NEGATIVE) Influenza Type A Ag (NEGATIVE) Influenza Type B Ag (NEGATIVE) RSV (PCR) (Negative) SARS-CoV-2 (PCR) (NEGATIVE) 05/31/22 06/01/22 06/01/22 Range/Units 21:32 06:06 06:06 WBC 5.4 (4.0-10.5) x10^3/uL RBC 4.08 L (4.1-5.6) x10^6/uL Hgb 12.2 L (12.5-18.0) g/dL Hct 37.4 L (42-50) % MCV 91.7 (78-100) fL MCH 29.9 (26-32) pg MCHC 32.6 (32-36) g/dL RDW 12.4 (11.5-14.0) % Plt Count 224 (150-450) x10^3/uL MPV 9.2 (7.5-11.0) fL Gran % 75.0 H (36.0-66.0) % Immature Gran % (Auto) 0.2 (0.00-0.4) % Nucleat RBC Rel Count 0.0 (0.00-0.1) % Eos # (Auto) 0.03 (0-0.5) x10^3/uL Immature Gran # (Auto) 0.01 (0.00-0.03) x10^3u/L Absolute Lymphs (auto) 0.78 L (1.0-4.6) x10^3/uL Absolute Monos (auto) 0.53 (0.0-1.3) x10^3/uL Absolute Nucleated RBC 0.00 (0.00-0.01) x10^3u/L Lymphocytes % 14.3 L (24.0-44.0) % Monocytes % 9.7 (0.0-12.0) % Eosinophils % 0.6 (0.00-5.0) % Basophils % 0.2 (0.0-0.4) % Absolute Granulocytes 4.08 (1.4-6.9) x10^3/uL Basophils # 0.01 (0-0.4) x10^3/uL Sodium 140 (137-145) mmol/L Potassium 3.9 (3.5-5.1) mmol/L Chloride 110 H (98-107) mmol/L Carbon Dioxide 22 (22-30) mmol/L Anion Gap 11.9 (5-15) MEQ/L BUN 9 (9-20) mg/dL Creatinine 0.68 (0.66-1.25) mg/dL Estimated GFR > 60.0 ML/MIN Glucose 98 (74-106) mg/dL POC Glucometer 98 (74 to 106) mg/dL Lactic Acid (0.4-2.0) Calcium 7.4 L D (8.4-10.2) mg/dL Magnesium (1.6-2.3) mg/dL Total Bilirubin 0.50 (0.2-1.3) mg/dL AST 20 (17-59) U/L ALT 26 (0-50) U/L Alkaline Phosphatase 43 (38-126) U/L Troponin I (0.000-0.034) ng/mL Serum Total Protein 5.7 L (6.3-8.2) g/dL Albumin 3.2 L (3.5-5.0) g/dL Lipase (23-300) U/L Procalcitonin (0.030-0.080) ng/mL Urinalys Dipstick Clnc Urine Color (YELLOW) Urine Appearance (CLEAR) Urine pH (5-6) Ur Specific Welch (1.005-1.025) POC Urine Protein Conf (Negative) Urine Ketones (NEGATIVE) Urine Nitrite (NEGATIVE) Urine Bilirubin (NEGATIVE) Urine Urobilinogen (0-1) mg/dL Urine Leukocytes (NEGATIVE) Urine WBC (Auto) (0-5) /HPF Urine RBC (Auto) (0-2) /HPF U Epithel Cells (Auto) (FEW) /HPF Urine Bacteria (Auto) (NEGATIVE) /HPF Urine RBC (0-5) Shaji/ul Urine Mucus (Auto) (NEGATIVE) /HPF Ur Culture Indicated? Urine Glucose (NEGATIVE) mg/dL C. difficile Screen (NEGATIVE) C.difficile 027-NAP1-B1 (NEGATIVE) Influenza Type A Ag (NEGATIVE) Influenza Type B Ag (NEGATIVE) RSV (PCR) (Negative) SARS-CoV-2 (PCR) (NEGATIVE) 06/01/22 Range/Units 07:29 WBC (4.0-10.5) x10^3/uL RBC (4.1-5.6) x10^6/uL Hgb (12.5-18.0) g/dL Hct (42-50) % MCV (78-100) fL MCH (26-32) pg MCHC (32-36) g/dL RDW (11.5-14.0) % Plt Count (150-450) x10^3/uL MPV (7.5-11.0) fL Gran % (36.0-66.0) % Immature Gran % (Auto) (0.00-0.4) % Nucleat RBC Rel Count (0.00-0.1) % Eos # (Auto) (0-0.5) x10^3/uL Immature Gran # (Auto) (0.00-0.03) x10^3u/L Absolute Lymphs (auto) (1.0-4.6) x10^3/uL Absolute Monos (auto) (0.0-1.3) x10^3/uL Absolute Nucleated RBC (0.00-0.01) x10^3u/L Lymphocytes % (24.0-44.0) % Monocytes % (0.0-12.0) % Eosinophils % (0.00-5.0) % Basophils % (0.0-0.4) % Absolute Granulocytes (1.4-6.9) x10^3/uL Basophils # (0-0.4) x10^3/uL Sodium (137-145) mmol/L Potassium (3.5-5.1) mmol/L Chloride (98-107) mmol/L Carbon Dioxide (22-30) mmol/L Anion Gap (5-15) MEQ/L BUN (9-20) mg/dL Creatinine (0.66-1.25) mg/dL Estimated GFR ML/MIN Glucose (74-106) mg/dL POC Glucometer 79 (74 to 106) mg/dL Lactic Acid (0.4-2.0) Calcium (8.4-10.2) mg/dL Magnesium (1.6-2.3) mg/dL Total Bilirubin (0.2-1.3) mg/dL AST (17-59) U/L ALT (0-50) U/L Alkaline Phosphatase (38-126) U/L Troponin I (0.000-0.034) ng/mL Serum Total Protein (6.3-8.2) g/dL Albumin (3.5-5.0) g/dL Lipase (23-300) U/L Procalcitonin (0.030-0.080) ng/mL Urinalys Dipstick Clnc Urine Color (YELLOW) Urine Appearance (CLEAR) Urine pH (5-6) Ur Specific Welch (1.005-1.025) POC Urine Protein Conf (Negative) Urine Ketones (NEGATIVE) Urine Nitrite (NEGATIVE) Urine Bilirubin (NEGATIVE) Urine Urobilinogen (0-1) mg/dL Urine Leukocytes (NEGATIVE) Urine WBC (Auto) (0-5) /HPF Urine RBC (Auto) (0-2) /HPF U Epithel Cells (Auto) (FEW) /HPF Urine Bacteria (Auto) (NEGATIVE) /HPF Urine RBC (0-5) Shaji/ul Urine Mucus (Auto) (NEGATIVE) /HPF Ur Culture Indicated? Urine Glucose (NEGATIVE) mg/dL C. difficile Screen (NEGATIVE) C.difficile 027-NAP1-B1 (NEGATIVE) Influenza Type A Ag (NEGATIVE) Influenza Type B Ag (NEGATIVE) RSV (PCR) (Negative) SARS-CoV-2 (PCR) (NEGATIVE) Accuchecks Date 05/31/22 Date 05/31/22 Date 05/31/22 Time 21:46 Time 19:25 - Radiology Impressions Radiology Exams & Impressions: Radiology Procedures Category Date Time Status ABDOMEN AND PELVIS W/0 CONTRAS [CT] Stat Exams 05/31/22 12:11 Completed Assessment/Plan (1) Acute gastroenteritis Current Visit: Yes Status: Acute Assessment & Plan: C. diff negative. Added flagyl on admission; WBC are normal this morning. Slight elevation yesterday could have been due to vomiting. With CT results, my concern is that sounds like his last meal was probably over 12 hours prior to the scan; offered decompression with NG last night. Code(s): K52.9 - NONINFECTIVE GASTROENTERITIS AND COLITIS, UNSPECIFIED (2) Exacerbation of Crohn's disease of large intestine Current Visit: No Status: Acute Assessment & Plan: try adding steroid IV Code(s): K50.10 - CROHN'S DISEASE OF LARGE INTESTINE WITHOUT COMPLICATIONS (3) Intractable abdominal pain Current Visit: No Status: Acute Assessment & Plan: start dilaudid BOBBIN HAULER. on telemetry and pulse ox. Code(s): R10.9 - UNSPECIFIED ABDOMINAL PAIN (4) Intractable nausea and vomiting Current Visit: No Status: Acute Assessment & Plan: alternate phenergan and droperidol Code(s): R11.2 - NAUSEA WITH VOMITING, UNSPECIFIED
[2022-06-01] MEDS ORDERED: solu-MEDROL 125 MG, Sterile H2O 10 ml 2 ML IV ONE ×2 (08:33)
[2022-06-01] MEDS: PROTONIX 40 MG IV IV SCH (09:35)
[2022-06-01] MEDS: Lactated Ringers 1,000 ML IV SCH ×2 (09:46→20:55)
[2022-06-01] MEDS ORDERED: MEDICATION INTERVENTION MC SCH (10:30)
[2022-06-01] MEDS: solu-MEDROL 80 MG, Sterile H2O 10 ml 2 ML IV SCH ×4 (14:59→22:20)
[2022-06-01] MEDS: Effexor XR 75 MG PO SCH (15:00)
[2022-06-02] MEDS: FLAGYL 500 MG IVPB 500 MG/100 ML BAG IV SCH ×2 (01:52→07:58)
[2022-06-02] MEDS ORDERED: solu-MEDROL ONE (05:43)
[2022-06-02] MEDS: solu-MEDROL 80 MG, Sterile H2O 10 ml 2 ML IV SCH ×2 (06:16)
[2022-06-02] MEDS: DILAUDID 1 MG/1ML PCA IV PRN ×2 (06:25→09:55)
[2022-06-02 07:34] VITALS: BP 120/77; PULSE 63; O2SAT 98
[2022-06-02] MEDS: Lactated Ringers 1,000 ML IV SCH (07:57)
[2022-06-02] MEDS ORDERED: Phenergan 25 MG INJ ONE (08:49)
[2022-06-02] MEDS: Phenergan 25 MG INJ*** 25 MG in Sodium Chloride 0.9% 100 ML IV PRN (09:07)
[2022-06-02] MEDS: Effexor XR 75 MG PO SCH (09:35)
[2022-06-02] MEDS: PROTONIX 40 MG IV IV SCH (09:35)
--- NOTE | 2022-06-02 09:56 | PCM.DS ---
Discharge Summary Date of Admission: 05/31/22 16:13 Admitting Physician: GERDA GOLDMAN Primary Care Provider: BOY EMMANUEL Allergies Allergies No Known Drug Allergies Allergy (Verified 05/31/22 12:15) Hospital Summary - Hospital Course Hospital Course: patient admitted with abdominal pain, nausea, vomiting and diarrhea, typical for flare of crohns disease. responded well to treatment, tolerating po and feeling much better now. - Vitals & Intake/Output Vital Signs: Vital Signs Temperature 97.3 F 06/02/22 07:33 Pulse Rate 63 06/02/22 07:33 Respiratory Rate 16 06/02/22 07:33 Blood Pressure 120/77 06/02/22 07:33 O2 Sat by Pulse Oximetry 98 06/02/22 07:33 Intake & Output: Intake & Output 05/30/22 05/31/22 06/01/22 06/02/22 11:59 11:59 11:59 11:59 Intake Total 3192 4974 Output Total 1800 Balance 1392 4974 Weight 96.7 kg 97.1 kg - Lab Result Diagrams: 06/01/22 06:06 06/01/22 06:06 Lab Results-Last 24 Hrs: Lab Results-Last 24 Hours 06/01/22 06/01/22 06/01/22 Range/Units 11:34 14:10 16:39 POC Glucometer 89 113 H (74 to 106) mg/dL Hemoglobin A1c 5.05 (4.5-6.0) % 06/01/22 06/02/22 Range/Units 20:56 07:25 POC Glucometer 113 H 105 (74 to 106) mg/dL Hemoglobin A1c (4.5-6.0) % Micro Results-Entire Visit: Microbiology 05/31/22 12:30 Blood Culture - Preliminary Blood NO GROWTH TO DATE 05/31/22 12:00 Blood Culture - Preliminary Blood NO GROWTH TO DATE Accuchecks Date 06/02/22 Date 06/01/22 Date 06/01/22 Time 07:39 Time 16:45 Time 11:45 - Radiology Exams Ordered Rad Exams-Entire Visit: Radiology Procedures Category Date Time Status ABDOMEN AND PELVIS W/0 CONTRAS [CT] Stat Exams 05/31/22 12:11 Completed Discharge Exam General Appearance: no apparent distress Neurologic Exam: alert, oriented x 3 Respiratory Exam: normal breath sounds, lungs clear, No respiratory distress Cardiovascular Exam: regular rate/rhythm, normal heart sounds Gastrointestinal/Abdomen Exam: soft, normal bowel sounds, No tenderness, No distention, No guarding Extremity Exam: normal inspection, normal range of motion Skin Exam: normal color, warm, dry Final Diagnosis/Problem List - Final Discharge Diagnosis/Problem (1) Exacerbation of Crohn's disease of large intestine Current Visit: No Status: Acute Assessment & Plan: home on po cipro, tramadol for pain and phenergan for nausea. Code(s): K50.10 - CROHN'S DISEASE OF LARGE INTESTINE WITHOUT COMPLICATIONS (2) Intractable nausea and vomiting Current Visit: No Status: Acute Code(s): R11.2 - NAUSEA WITH VOMITING, UNSPECIFIED - Discharge Disposition: Home, Self-Care Condition: Stable Prescriptions: New Ciprofloxacin [Cipro 500 MG] 500 mg PO BID #14 tablet Promethazine HCl 12.5 mg PO Q6H PRN PRN #30 tablet PRN Reason: Nausea Tramadol HCl 50 mg [Ultram 50 mg] 50 mg PO Q6H PRN PRN #28 tablet PRN Reason: Pain Continue Omeprazole 20 MG [Prilosec 20 mg] 20 mg PO DAILY Ascorbic Acid 500 mg [Vitamin C 500 MG] 500 mg PO DAILY Loratadine 10 mg [Claritin 10 mg] 10 mg PO DAILY Mesalamine [Apriso] 1.5 gm PO DAILY Venlafaxine HCl ER 37.5 mg [Effexor ER 37.5 MG] 75 mg PO DAILY Discontinued Prochlorperazine Maleate [Compazine] 10 mg PO Q6HPRN PRN #30 tablet PRN Reason: Nausea Follow up with: BOY EMMANUEL MD [Primary Care Provider] - 06/11/22 10:45 am
[2022-06-02] MEDS ORDERED: MESALAMINE 0.375 GM PO SCH (10:00)
[2022-06-03 13:09] LABS: Adenovirus F40/41 Not Detected (Not Detected); Astrovirus Not Detected (Not Detected); Campylobacter Not Detected (Not Detected); Cryptosporidium Not Detected (Not Detected); Cyclospora cayetanensis Not Detected (Not Detected); Entamoeba histolytica Not Detected (Not Detected); Enteroaggregative E coli Not Detected (Not Detected); Enterpathogenic E coli Not Detected (Not Detected); Entertoxigenic E coli Not Detected (Not Detected); Giardia lamblia Not Detected (Not Detected); Norovirus GI/GII Detected (Not Detected); Plesiomonas shigelloides Not Detected (Not Detected); Rotavirus A Not Detected (Not Detected); Salmonella Not Detected (Not Detected); Shig-toxin-producing E coli Not Detected (Not Detected); Shigella/Enterinvasive E coli Not Detected (Not Detected); Vibrio Not Detected (Not Detected); Vibrio cholerae Not Detected (Not Detected); Yersinia enterocolitica Not Detected (Not Detected)
[2022-06-03 14:04] LABS: Sapovirus Not Detected (Not Detected)
== END 2022-06-02 10:50 | disposition home or self-care (01) ==
LOC: ED 11:47 → MED SURG 16:13
PROVIDERS: ADMIT Family Medicine; ATTEND Family Medicine
DX: K50.10 Crohn's disease of large intestine without complications (principal); R11.2 Nausea with vomiting, unspecified; R55 Syncope and collapse; K21.9 Gastro-esophageal reflux disease without esophagitis; Z20.828 Contact with and (suspected) exposure to other viral communicable diseases; Z79.899 Other long term (current) drug therapy
CPT/HCPCS: 0241U; 36000; 36415; 74176; 80053; 81015; 82947; 83036; 83605; 83690; 83735; 84145; 84484; 85025; 87040; 87493; 87507; 93005; 96360; 96361; 96374; 96375; 96376; 99285; 93268; J1170; J2060; J2270; J2405; J2550; J2930; J3010; A9270-GY; G0378

== ENCOUNTER 2022-10-30 08:11 | Inpatient (IN) | payer OTHER ==
[2022-10-30] MEDS ORDERED: Sodium Chloride 0.9% 1000 ML 1,000 ML IV STA (08:26)
[2022-10-30] MEDS ORDERED: Hydromorphone 1 mg/ml Injection IV ONE (08:26)
[2022-10-30] MEDS ORDERED: Compazine 10 MG/2 ML IV ONE (08:26)
[2022-10-30] MEDS ORDERED: Sodium Chloride 0.9% 1000 ML 1,000 ML ONE (08:28)
[2022-10-30] MEDS ORDERED: Compazine 10 MG/2 ML ONE (08:28)
[2022-10-30] MEDS ORDERED: Hydromorphone 1 mg/ml Injection ONE (08:28)
--- NOTE | 2022-10-30 08:29 | ERPHSYRPT ---
- History of Present Illness Time Seen by Provider: 10/30/22 08:27 Historian: patient Exam Limitations: no limitations Patient Subjective Stated Complaint: C/O Left sided abdominal pain with N/V and diarrhea that started yesterday morning. Constant abdominal cramping with intermittent sharp pains. Triage Nursing Assessment: Patient ambulated back to ED hunched over holding left side of stomach. He is alert and oriented. No SOB. Bowel sounds present. Abdomen is soft. Physician History: C/O Left sided abdominal pain with N/V and diarrhea that started yesterday morning. Constant abdominal cramping with intermittent sharp pains. Timing/Duration: yesterday Activities at Onset: none Quality: cramping Abdominal Pain Onset Location: LLQ Pain Radiation: no radiation Severity of Pain-Max: severe Severity of Pain-Current: severe Modifying Factors: Improves With: nothing Associated Symptoms: diarrhea, loss of appetite, nausea, vomiting, No fever/chills Previous symptoms: same symptoms as today Allergies/Adverse Reactions: No Known Drug Allergies Allergy (Verified 10/30/22 08:12) Home Medications: Omeprazole 20 MG [Prilosec 20 mg] 20 mg PO DAILY 12/02/13 [History] Ascorbic Acid 500 mg [Vitamin C 500 MG] 500 mg PO DAILY 08/04/15 [History] Loratadine 10 mg [Claritin 10 mg] 10 mg PO DAILY 01/15/17 [History] Mesalamine [Apriso] 1.5 gm PO DAILY 09/18/19 [History] Venlafaxine HCl ER 37.5 mg [Effexor ER 37.5 MG] 75 mg PO DAILY 01/21/22 [History] Hx Tetanus, Diphtheria Vaccination/Date Given: Yes Hx Influenza Vaccination/Date Given: Yes Hx Pneumococcal Vaccination/Date Given: No Immunizations Up to Date: Yes Travel Risk - International Travel Have you traveled outside of the country in past 3 weeks: No - Coronavirus Screening Are you exhibiting any of the following symptoms?: Yes Symptoms: Vomiting/Diarrhea, Headaches/Body Aches/Fatigue - Vaccine Status Have you recieved a Covid-19 vaccination: Yes [employer]: Moderna - Vaccination Dates Date of 2cond Vaccination (if applicable): 12/2020 - Review of Systems Constitutional: Weakness, No Fever, No Chills Eyes: No Symptoms Ears, Nose, & Throat: No Symptoms Respiratory: No Cough, No Dyspnea Cardiac: No Chest Pain, No Edema, No Syncope Abdominal/Gastrointestinal: Abdominal Pain, Nausea, Vomiting, Diarrhea, Appetite Changes Genitourinary Symptoms: No Dysuria Musculoskeletal: No Back Pain, No Neck Pain Skin: No Rash Neurological: No Dizziness, No Focal Weakness, No Sensory Changes Psychological: No Symptoms Endocrine: No Symptoms All Other Systems: Reviewed and Negative - Past Medical History Pertinent Past Medical History: Yes Neurological History: No Pertinent History ENT History: No Pertinent History Cardiac History: No Pertinent History Respiratory History: No Pertinent History Endocrine Medical History: Other Musculoskeletal History: No Pertinent History GI Medical History: Crohns Disease, Diverticulitis, GERD, Pancreatitis History: No Pertinent History Psycho-Social History: Depression Male Reproductive Disorders: No Pertinent History Other Medical History: FATTY LIVER, ACID REFLUX, CROHNS. - Past Surgical History Past Surgical History: Yes Neuro Surgical History: No Pertinent History Cardiac: No Pertinent History Respiratory: No Pertinent History Gastrointestinal: Appendectomy, Cholecystectomy Genitourinary: No Pertinent History Musculoskeletal: No Pertinent History Male Surgical History: Vasectomy Other Surgical History: ERCP, RECONSTRUCTIVE SURGERY TO RT SHOULDER, PREVIOUS ALCOHOLIC - Social History Smoking Status: Former smoker Exposure to second hand smoke: No Drug Use: none Patient Lives Alone: No - Nursing Vital Signs Nursing Vital Signs: Initial Vital Signs Temperature 98.2 F 10/30/22 08:15 Pulse Rate 73 10/30/22 08:15 Respiratory Rate 18 10/30/22 08:15 Blood Pressure 151/100 10/30/22 08:15 O2 Sat by Pulse Oximetry 99 10/30/22 08:15 Pain Scale Pain Intensity 8 - Physical Exam General Appearance: no apparent distress, alert Eye Exam: PERRL/EOMI, eyes nml inspection Ears, Nose, Throat Exam: normal ENT inspection, pharynx normal, moist mucous membranes Neck Exam: normal inspection, non-tender, supple, full range of motion Respiratory Exam: normal breath sounds, lungs clear, No respiratory distress Cardiovascular Exam: regular rate/rhythm, normal heart sounds Gastrointestinal/Abdomen Exam: soft, tenderness (LLQ), No mass Back Exam: normal inspection, normal range of motion, No CVA tenderness, No vertebral tenderness Extremity Exam: normal inspection, normal range of motion, pelvis stable Neurologic Exam: alert, oriented x 3, cooperative, normal mood/affect, nml cerebellar function, sensation nml, No motor deficits Skin Exam: normal color, warm, dry SpO2: 99 - Course Nursing assessment & vital signs reviewed: Yes Ordered Tests: Active Orders 24 hr Category Date Time Status AMYLASE Stat Lab 10/30/22 08:15 Completed CBC W DIFF Stat Lab 10/30/22 08:15 Completed CMP Stat Lab 10/30/22 08:15 Completed LIPASE Stat Lab 10/30/22 08:15 Completed Medication Summary Generic Name Dose Route Start Last Admin Trade Name Freq PRN Reason Stop Dose Admin Sodium Chloride 1,000 mls @ 999 mls/hr 10/30/22 08:26 10/30/22 08:29 Sodium Chloride 0.9% 1000 Ml IV 10/30/22 09:26 999 mls/hr .Q1H1M STA Administration Discontinued Medications Generic Name Dose Route Start Last Admin Trade Name Freq PRN Reason Stop Dose Admin Methylprednisolone Sodium 0 mg 10/30/22 08:54 10/30/22 08:56 Succinate 125 mg/ Sterile IV 10/30/22 08:55 125 mg Water 2 ml STAT ONE Administration Hydromorphone HCl 1 mg 10/30/22 08:26 10/30/22 08:29 Hydromorphone 1 Mg/1ml Inj 1 Mg/Ml Syringe IV 10/30/22 08:27 1 mg STAT ONE Administration Hydromorphone HCl Confirm 10/30/22 08:28 Hydromorphone 1 Mg/1ml Inj 1 Mg/Ml Syringe Administered 10/30/22 08:29 Dose 1 mg .ROUTE .STK-MED ONE Sodium Chloride Confirm 10/30/22 08:28 Sodium Chloride 0.9% 1000 Ml Administered 10/30/22 08:29 Dose 1,000 mls @ ud .ROUTE .STK-MED ONE Methylprednisolone Sodium Succinate Confirm 10/30/22 08:56 Methylprednis Sod Succ 125 Mg/2 Ml Vial Administered 10/30/22 08:57 Dose 125 mg .ROUTE .STK-MED ONE Prochlorperazine Edisylate 10 mg 10/30/22 08:26 10/30/22 08:29 Prochlorperazine Edisylate 10 Mg/2 Ml Vial IV 10/30/22 08:27 10 mg STAT ONE Administration Prochlorperazine Edisylate Confirm 10/30/22 08:28 Prochlorperazine Edisylate 10 Mg/2 Ml Vial Administered 10/30/22 08:29 Dose 10 mg .ROUTE .STK-MED ONE Sterile Water Confirm 10/30/22 08:56 Water For Injection,Sterile 10 Ml Vial Administered 10/30/22 08:57 Dose 10 ml IJ .STK-MED ONE Lab/Rad Data: Laboratory Result Diagrams 10/30/22 08:15 10/30/22 08:15 Laboratory Results 10/30/22 10/30/22 Range/Units 08:15 08:15 WBC 5.1 (4.0-10.5) x10^3/uL RBC 4.65 (4.1-5.6) x10^6/uL Hgb 14.2 (12.5-18.0) g/dL Hct 42.2 (42-50) % MCV 90.8 (78-100) fL MCH 30.5 (26-32) pg MCHC 33.6 (32-36) g/dL RDW 12.0 (11.5-14.0) % Plt Count 297 (150-450) x10^3/uL MPV 9.6 (7.5-11.0) fL Gran % 57.7 (36.0-66.0) % Immature Gran % (Auto) 0.2 (0.00-0.4) % Nucleat RBC Rel Count 0.0 (0.00-0.1) % Eos # (Auto) 0.13 (0-0.5) x10^3/uL Immature Gran # (Auto) 0.01 (0.00-0.03) x10^3u/L Absolute Lymphs (auto) 1.35 (1.0-4.6) x10^3/uL Absolute Monos (auto) 0.65 (0.0-1.3) x10^3/uL Absolute Nucleated RBC 0.00 (0.00-0.01) x10^3u/L Lymphocytes % 26.3 (24.0-44.0) % Monocytes % 12.7 H (0.0-12.0) % Eosinophils % 2.5 (0.00-5.0) % Basophils % 0.6 (0.0-0.4) % Absolute Granulocytes 2.96 (1.4-6.9) x10^3/uL Basophils # 0.03 (0-0.4) x10^3/uL Sodium 138 (137-145) mmol/L Potassium 3.9 (3.5-5.1) mmol/L Chloride 105 (98-107) mmol/L Carbon Dioxide 26 (22-30) mmol/L Anion Gap 10.5 (5-15) MEQ/L BUN 11 (9-20) mg/dL Creatinine 0.76 (0.66-1.25) mg/dL Estimated GFR > 60.0 ML/MIN Glucose 86 (74-106) mg/dL Calcium 8.9 (8.4-10.2) mg/dL Total Bilirubin 0.50 (0.2-1.3) mg/dL AST 23 (17-59) U/L ALT 36 (0-50) U/L Alkaline Phosphatase 54 (38-126) U/L Serum Total Protein 7.5 (6.3-8.2) g/dL Albumin 4.6 (3.5-5.0) g/dL Amylase 81 (30-110) U/L Lipase 65 (23-300) U/L - Progress Progress: improved, pain not gone completely Counseled pt/family regarding: lab results, diagnosis, need for follow-up - Departure Departure Disposition: Home Clinical Impression: Intractable nausea and vomiting, Exacerbation of Crohn's disease of large intestine Condition: Stable Critical Care Time: No Referrals: BOY EMMANUEL MD [Primary Care Provider] - Follow up/PCP as directed Instructions: Severe Abdominal Pain, Crohn's Disease (DC) Additional Instructions: Discharge/Care Plan IVA REESE was seen on 10/30/22 in the Emergency Room. The patient was counseled regarding Diagnosis,Lab results, Imaging studies, need for follow up and when to return to the Emergency Room. Prescriptions given: Discharge Note I have spoken with the patient and/or caregivers. I have explained the patient's condition, diagnosis and treatment plan based on the information available to me at this time. I have answered the patient's and/or caregiver's questions and addressed any concerns. The patient and/or caregivers have as good understanding of the patient's diagnosis, condition and treatment plan as can be expected at this point. The vital signs have been stable. The patient's condition is stable and appropriate for discharge from the emergency department. The patient will pursue further outpatient evaluation with the primary care physician or other designated or consulting physician as outlined in the discharge instructions. The patient and/or caregivers are agreeable to this plan of care and follow-up instructions have been explained in detail. The patient and/or caregivers have received these instruction. The patient/and or caregivers are aware that any significant change in condition or worsening of symptoms should prompt an immediate return to this or the closest emergency department or call 911. HUGHIVA GARRETT was seen on 10/30/22 n the Emergency Room. At that time you were treated for an emergent condition, during your visit Laboratory, Radiology and/or other procedures may have been ordered. It is very important that you follow-up with your Primary Care Physician BOY EMMANUEL within the next 24- 48 hours to review your Emergency Room visit and the final results of testing that was ordered. Some test results such as Urine Cultures, Blood Cultures, and other cultures if ordered will not be finalized for 24-48 hours. If you do not have a Primary Care Provider please call the medical records department at [phone] to obtain a copy of your results or you may sign into our patient portal to obtain these results by visiting us @ [email or web address] and completing the following steps: 1. Click on the Patient Portal link 2. Click the Patient Self Enrollment Link to complete the enrollment form and entering your 3. Once the enrollment form is completed you will receive an email with a temporary ID and password at the email address you provided. 4. Next choose a user name and password. Your user name must be at least 4 characters long and your password must be at least 4 characters long. 5. Choose a security question from the list and provide your answer to the question. If you already have signed into the Health Portal you may access your Health Care Information 20/06 by the following steps: 1. Login to our website @ [email or web address] 2. Enter your original user name and password. FAQS The [facility] Health Portal is an online tool that contains your Lab Results, Radiology Reports, Visit History, Discharge Instructions and Health Summary Lab and Radiology Results will not be available for 72 hours on the portal. The Portal is a secure site, passwords are encryted and URLs are re-written so they cannot be copied and pasted. You and authorized family members are the only ones who can access your Portal. Also there is a timeout feature that protects your information if you leave the Portal page open. If you have technical difficulty please use the Contact Us link on the page this will allow you to submit any questions you have regarding the Portal or you may contact the Medical Record Department at [phone]. Prescriptions: Prochlorperazine Maleate 5 mg* [Compazine 5 MG] 5 mg PO Q6H #28 tablet Tramadol HCl 50 mg [Ultram 50 mg] 50 mg PO Q6H #28 tablet
[2022-10-30 08:38] LABS: Absolute Neutrophil Ct (ANC) 2.96 x10^3/uL (1.4-6.9); Basophil (Absolute #) 0.03 x10^3/uL (0-0.4); Eosinophil % 2.5 % (0.00-5.0); Eosinophil (Absolute #) 0.13 x10^3/uL (0-0.5); Hematocrit 42.2 % (42-50); Hemoglobin 14.2 g/dL (12.5-18.0); Lymphocyte (Absolute #) 1.35 x10^3/uL (1.0-4.6); Lymphocytes % 26.3 % (24.0-44.0); Mean Cell Volume 90.8 fL (78-100); Mean Corpuscular Hemoglobin 30.5 pg (26-32); Mean Corpuscular Hgb Concent. 33.6 g/dL (32-36); Mean Platelet Volume 9.6 fL (7.5-11.0); Monocyte (Absolute #) 0.65 x10^3/uL (0.0-1.3); Monocytes % 12.7 % (0.0-12.0); Neutrophil % 57.7 % (36.0-66.0); Platelet Count 297 x10^3/uL (150-450); Red Blood Count 4.65 x10^6/uL (4.1-5.6); White Blood Count 5.1 x10^3/uL (4.0-10.5)
[2022-10-30 08:50] LABS: ALBUMIN 4.6 g/dL (3.5-5.0); ALKALINE PHOSPHATASE 54 U/L (38-126); AMYLASE 81 U/L (30-110); ANION GAP 10.5 MEQ/L (5-15); BLOOD UREA NITROGEN 11 mg/dL (9-20); CHLORIDE 105 mmol/L (98-107); Calcium 8.9 mg/dL (8.4-10.2); Carbon Dioxide 26 mmol/L (22-30); Creatinine 1 0.76 mg/dL (0.66-1.25); EST GLOMERULAR FILTRATION RATE > 60.0 ML/MIN; Glucose 86 mg/dL (74-106); LIPASE 65 U/L (23-300); Potassium 3.9 mmol/L (3.5-5.1); SGOT/AST 23 U/L (17-59); SGPT/ALT 36 U/L (0-50); SODIUM 138 mmol/L (137-145); Total Protein 7.5 g/dL (6.3-8.2)
[2022-10-30] MEDS ORDERED: solu-MEDROL 125 MG, Sterile H2O 10 ml 2 ML IV ONE ×2 (08:54)
[2022-10-30] MEDS ORDERED: Sterile H2O 10 ml IJ ONE ×3 (08:56→22:58)
[2022-10-30] MEDS ORDERED: solu-MEDROL ONE ×3 (08:56→22:58)
[2022-10-30 09:13] LABS: INFLUENZA A NEGATIVE (NEGATIVE); INFLUENZA B NEGATIVE (NEGATIVE); RESPIRATORY SYNCTIAL VIRUS NEGATIVE (Negative); SARS-CoV-2 Xpert Express NEGATIVE (NEGATIVE)
--- NOTE | 2022-10-30 17:45 | PCM.HP ---
History of Present Illness - Chief Complaint Chief Complaint: c/o severe abdominal pain for 1 day History of Present Illness: is a 37 year old male.C/O Left sided abdominal pain with N/V and diarrhea that started yesterday morning. Constant abdominal cramping with intermittent sharp pains. Timing/Duration: yesterday Activities at Onset: none Quality: cramping Abdominal Pain Onset Location: LLQ Pain Radiation: no radiation Severity of Pain-Max: severe Severity of Pain-Current: severe Modifying Factors: Improves With: nothing Associated Symptoms: diarrhea, loss of appetite, nausea, vomiting, No fever/chills Previous symptoms: same symptoms as today - Review of Systems Constitutional: No Fever, No Chills Eyes: No Symptoms Ears, Nose, & Throat: No Symptoms Respiratory: No Cough, No Short Of Breath Cardiac: No Chest Pain, No Edema, No Syncope Abdominal/Gastrointestinal: Abdominal Pain, Nausea, Vomiting, Diarrhea Genitourinary Symptoms: No Dysuria Musculoskeletal: No Back Pain, No Neck Pain Skin: No Rash Neurological: No Dizziness, No Focal Weakness, No Sensory Changes Psychological: No Symptoms Endocrine: No Symptoms Hematologic/Lymphatic: No Symptoms Immunological/Allergic: No Symptoms Medications & Allergies Home Medications: Home Medication List Omeprazole 20 MG [Prilosec 20 mg] 20 mg PO DAILY 12/02/13 [History Confirmed 10/30/22] Ascorbic Acid 500 mg [Vitamin C 500 MG] 500 mg PO DAILY 08/04/15 [History Confirmed 10/30/22] Loratadine 10 mg [Claritin 10 mg] 10 mg PO DAILY 01/15/17 [History Confirmed 10/30/22] Mesalamine [Apriso] 1.5 gm PO DAILY 09/18/19 [History Confirmed 10/30/22] Venlafaxine HCl ER 37.5 mg [Effexor ER 37.5 MG] 75 mg PO DAILY 01/21/22 [History Confirmed 10/30/22] Tramadol HCl 50 mg [Ultram 50 mg] 50 mg PO Q6H PRN PRN #28 tablet 06/02/22 [Rx Confirmed 10/30/22] Prochlorperazine Maleate 5 mg* [Compazine 5 MG] 5 mg PO Q6H #28 tablet 10/30/22 [Rx] Tramadol HCl 50 mg [Ultram 50 mg] 50 mg PO Q6H #28 tablet 10/30/22 [Rx] Allergies/Adverse Reactions: Allergies Allergy/AdvReac Type Severity Reaction Status Date / Time No Known Drug Allergies Allergy Verified 10/30/22 08:12 - Past Medical History Past Medical History: Yes Neurological History: No Pertinent History ENT History: No Pertinent History Cardiac History: No Pertinent History Respiratory History: No Pertinent History Endocrine Medical History: Other Musculoskelatal History: No Pertinent History GI Medical History: Crohns Disease, Diverticulitis, GERD, Pancreatitis History: No Pertinent History Pyscho-Social History: Depression Male Reproductive Disorders: No Pertinent History Comment: FATTY LIVER, ACID REFLUX, CROHNS. - Past Surgical History Past Surgical History: Yes Neuro Surgical History: No Pertinent History Cardiac History: No Pertinent History Respiratory Surgery: No Pertinent History GI Surgical History: Appendectomy, Cholecystectomy Genitourinary Surgical Hx: No Pertinent History Musculskeletal Surgical Hx: No Pertinent History Male Surgical History: Vasectomy Other Surgical History: ERCP, RECONSTRUCTIVE SURGERY TO RT SHOULDER, PREVIOUS ALCOHOLIC - Social History Smoking Status: Former smoker Exposure to second hand smoke: No Alcohol: None Drug Use: none - Physical Exam Vital Signs: Vital Signs - 24 hr Temp Pulse Resp BP Pulse Ox 10/30/22 09:20 99 10/30/22 09:11 70 112/71 100 10/30/22 08:15 98.2 F 73 18 151/100 99 General Appearance: no apparent distress, alert Neurologic Exam: alert, oriented x 3, cooperative, normal mood/affect, nml cerebellar function, nml station & gait, sensation nml, No motor deficits Eye Exam: PERRL/EOMI, eyes nml inspection Ears, Nose, Throat Exam: normal ENT inspection, TMs normal, pharynx normal, moist mucous membranes Neck Exam: normal inspection, non-tender, supple, full range of motion Respiratory Exam: normal breath sounds, lungs clear, No respiratory distress Cardiovascular Exam: regular rate/rhythm, normal heart sounds, normal peripheral pulses Gastrointestinal/Abdomen Exam: tenderness, rebound, No mass Back Exam: normal inspection, normal range of motion, No CVA tenderness, No vertebral tenderness Extremity Exam: normal inspection, normal range of motion, pelvis stable Skin Exam: normal color, warm, dry, No rash Lymphatic Exam: No adenopathy Results - Labs Lab/Micro Results: Lab Results-Last 24 Hours 10/30/22 10/30/22 10/30/22 Range/Units 08:15 08:15 08:40 WBC 5.1 (4.0-10.5) x10^3/uL RBC 4.65 (4.1-5.6) x10^6/uL Hgb 14.2 (12.5-18.0) g/dL Hct 42.2 (42-50) % MCV 90.8 (78-100) fL MCH 30.5 (26-32) pg MCHC 33.6 (32-36) g/dL RDW 12.0 (11.5-14.0) % Plt Count 297 (150-450) x10^3/uL MPV 9.6 (7.5-11.0) fL Gran % 57.7 (36.0-66.0) % Immature Gran % (Auto) 0.2 (0.00-0.4) % Nucleat RBC Rel Count 0.0 (0.00-0.1) % Eos # (Auto) 0.13 (0-0.5) x10^3/uL Immature Gran # (Auto) 0.01 (0.00-0.03) x10^3u/L Absolute Lymphs (auto) 1.35 (1.0-4.6) x10^3/uL Absolute Monos (auto) 0.65 (0.0-1.3) x10^3/uL Absolute Nucleated RBC 0.00 (0.00-0.01) x10^3u/L Lymphocytes % 26.3 (24.0-44.0) % Monocytes % 12.7 H (0.0-12.0) % Eosinophils % 2.5 (0.00-5.0) % Basophils % 0.6 (0.0-0.4) % Absolute Granulocytes 2.96 (1.4-6.9) x10^3/uL Basophils # 0.03 (0-0.4) x10^3/uL Sodium 138 (137-145) mmol/L Potassium 3.9 (3.5-5.1) mmol/L Chloride 105 (98-107) mmol/L Carbon Dioxide 26 (22-30) mmol/L Anion Gap 10.5 (5-15) MEQ/L BUN 11 (9-20) mg/dL Creatinine 0.76 (0.66-1.25) mg/dL Estimated GFR > 60.0 ML/MIN Glucose 86 (74-106) mg/dL Calcium 8.9 (8.4-10.2) mg/dL Total Bilirubin 0.50 (0.2-1.3) mg/dL AST 23 (17-59) U/L ALT 36 (0-50) U/L Alkaline Phosphatase 54 (38-126) U/L Serum Total Protein 7.5 (6.3-8.2) g/dL Albumin 4.6 (3.5-5.0) g/dL Amylase 81 (30-110) U/L Lipase 65 (23-300) U/L Influenza Type A Ag NEGATIVE (NEGATIVE) Influenza Type B Ag NEGATIVE (NEGATIVE) RSV (PCR) NEGATIVE (Negative) SARS-CoV-2 (PCR) NEGATIVE (NEGATIVE) Assessment/Plan (1) Exacerbation of Crohn's disease of large intestine Current Visit: Yes Status: Acute Assessment & Plan: Chief Complaint Diagnosis acute exacerbation of crohns dis Allergies Allergy/AdvReac Type Severity Reaction Status Date / Time No Known Drug Allergies Allergy Verified 10/30/22 08:12 Vital Signs (Last 24 hours) Temp Pulse Resp BP Pulse Ox 10/30/22 09:20 99 10/30/22 09:11 70 112/71 100 10/30/22 08:15 98.2 F 73 18 151/100 99 Home Medications Medication Instructions Recorded Confirmed Last Taken Type Prochlorperazine Maleate 5 mg* 5 mg PO Q6H #28 tablet 10/30/22 Unknown Rx [Compazine 5 MG] Tramadol HCl 50 mg [Ultram 50 50 mg PO Q6H #28 tablet 10/30/22 Unknown Rx mg] Current Medications Generic Name Dose Route Start Last Admin Trade Name Freq PRN Reason Stop Dose Admin Methylprednisolone Sodium 0 mg 10/30/22 18:00 Succinate 60 mg/ Sterile Water IV 11/29/22 17:59 2 ml Q6HT JACQUELINE Famotidine 20 mg 10/30/22 22:00 Famotidine 20 Mg/1 Vial IV 11/29/22 21:59 Q12HT JACQUELINE Hydromorphone/Sodium Chloride 30 mg 10/30/22 17:40 Hydromorphone Hcl/0.9% Nacl/Pf 30 Mg/30 Ml Earth Mover.Syring IV 11/29/22 17:39 .STANDARD [employer] DOSING PRN SEVERE PAIN/POST OP PAIN Potassium Chloride/Sodium Chloride 1,000 mls @ 100 mls/hr 10/30/22 17:45 Sodium Chloride 0.9% W/ 20 Meq Kcl/Liter IV 11/29/22 17:44 .Q10H JACQUELINE Levofloxacin/Dextrose 500 mg in 100 mls @ 100 mls/hr 10/31/22 10:00 Levofloxacin 500mg/100ml D5w IV 11/30/22 09:59 Q24H10 JACQUELINE Lorazepam 1 mg 10/30/22 17:40 Lorazepam 2 Mg/1 Ml 2 Mg Vial IV 11/29/22 17:39 Q4H PRN PRN ANXIETY/AGITATION Ondansetron HCl 4 mg 10/30/22 17:40 Ondansetron Hcl 4 Mg/2 Ml Vial IV 11/29/22 17:39 Q6H PRN PRN NAUSEA/VOMITING Pantoprazole Sodium 40 mg 10/31/22 10:00 Pantoprazole 40 Mg Vial IV 11/30/22 09:59 Q24H10 JACQUELINE Discontinued Medications Generic Name Dose Route Start Last Admin Trade Name Freq PRN Reason Stop Dose Admin Methylprednisolone Sodium 0 mg 10/30/22 08:54 10/30/22 08:56 Succinate 125 mg/ Sterile IV 10/30/22 08:55 125 mg Water 2 ml STAT ONE Administration Hydromorphone HCl 1 mg 10/30/22 08:26 10/30/22 08:29 Hydromorphone 1 Mg/1ml Inj 1 Mg/Ml Syringe IV 10/30/22 08:27 1 mg STAT ONE Administration Hydromorphone HCl Confirm 10/30/22 08:28 Hydromorphone 1 Mg/1ml Inj 1 Mg/Ml Syringe Administered 10/30/22 08:29 Dose 1 mg .ROUTE .STK-MED ONE Sodium Chloride 1,000 mls @ 999 mls/hr 10/30/22 08:26 10/30/22 09:47 Sodium Chloride 0.9% 1000 Ml IV 10/30/22 09:26 Infused .Q1H1M STA Infusion Sodium Chloride Confirm 10/30/22 08:28 Sodium Chloride 0.9% 1000 Ml Administered 10/30/22 08:29 Dose 1,000 mls @ ud .ROUTE .STK-MED ONE Methylprednisolone Sodium Succinate Confirm 10/30/22 08:56 Methylprednis Sod Succ 125 Mg/2 Ml Vial Administered 10/30/22 08:57 Dose 125 mg .ROUTE .STK-MED ONE Prochlorperazine Edisylate 10 mg 10/30/22 08:26 10/30/22 08:29 Prochlorperazine Edisylate 10 Mg/2 Ml Vial IV 10/30/22 08:27 10 mg STAT ONE Administration Prochlorperazine Edisylate Confirm 10/30/22 08:28 Prochlorperazine Edisylate 10 Mg/2 Ml Vial Administered 10/30/22 08:29 Dose 10 mg .ROUTE .STK-MED ONE Sterile Water Confirm 10/30/22 08:56 Water For Injection,Sterile 10 Ml Vial Administered 10/30/22 08:57 Dose 10 ml IJ .STK-MED ONE Intake & Output (Last 24 hours) 10/28/22 10/29/22 10/30/22 10/31/22 11:59 11:59 11:59 11:59 Weight 92.533 kg Laboratory Results (Last 24 hours) 10/30/22 10/30/22 10/30/22 08:40 08:15 08:15 WBC 5.1 RBC 4.65 Hgb 14.2 Hct 42.2 MCV 90.8 MCH 30.5 MCHC 33.6 RDW 12.0 Plt Count 297 MPV 9.6 Gran % 57.7 Immature Gran % (Auto) 0.2 Nucleat RBC Rel Count 0.0 Eos # (Auto) 0.13 Immature Gran # (Auto) 0.01 Absolute Lymphs (auto) 1.35 Absolute Monos (auto) 0.65 Absolute Nucleated RBC 0.00 Lymphocytes % 26.3 Monocytes % 12.7 H Eosinophils % 2.5 Basophils % 0.6 Absolute Granulocytes 2.96 Basophils # 0.03 Sodium 138 Potassium 3.9 Chloride 105 Carbon Dioxide 26 Anion Gap 10.5 BUN 11 Creatinine 0.76 Estimated GFR > 60.0 Glucose 86 Calcium 8.9 Total Bilirubin 0.50 AST 23 ALT 36 Alkaline Phosphatase 54 Serum Total Protein 7.5 Albumin 4.6 Amylase 81 Lipase 65 Influenza Type A Ag NEGATIVE Influenza Type B Ag NEGATIVE RSV (PCR) NEGATIVE SARS-CoV-2 (PCR) NEGATIVE Orders (Last 24 hours) Category Date Time Status Up Ad Mary Lou ROUTINE Activity 10/30/22 17:41 Ordered Code Status Order ROUTINE Care 10/30/22 17:40 Ordered IV Care Q6H Care 10/30/22 17:[address] in Observation ROUTINE Care 10/30/22 17:40 Ordered Clear Liquid Diet 10/30/22 Dinner Ordered AMYLASE Stat Lab 10/30/22 08:15 Completed CBC W DIFF AM.LAB Lab 10/31/22 04:00 Ordered CBC W DIFF Stat Lab 10/30/22 08:15 Completed CMP AM.LAB Lab 10/31/22 04:00 Ordered CMP Stat Lab 10/30/22 08:15 Completed COVID/FLU/RSV Panel Stat Lab 10/30/22 08:40 Completed LIPASE Stat Lab 10/30/22 08:15 Completed Famotidine 20 mg Vial [Pepcid 20 MG VIAL] Med 10/30/22 22:00 Ordered 20 mg IV Q12HT Hydromorphone 1 mg/1Ml Inj [Hydromorphone 1 mg/ml Med 10/30/22 08:28 Discontinued Injection] 1 mg .ROUTE .STK-MED ONE Hydromorphone 1 mg/1Ml Inj [Hydromorphone 1 mg/ml Med 10/30/22 08:26 Discontinued Injection] 1 mg IV STAT ONE Hydromorphone HCl/0.9% NaCl/Pf [Hydromorphone 30 mg/30 Med 10/30/22 17:40 Ordered ml-Ns] 30 mg IV .STANDARD [employer] DOSING PRN Levaquin 500 mg Ivpb Q24h Med 10/31/22 10:00 Ordered Levofloxacin [Levofloxacin 500MG/100ML D5W] 500 mg in 100 ml IV Q24H10 Lorazepam 2 mg/1 ml [Ativan 2 MG/1 ML VIAL] Med 10/30/22 17:40 Ordered 1 mg IV Q4H PRN PRN Methylprednis Sod Succ 125 mg* [solu-MEDROL] Med 10/30/22 08:56 Discontinued 125 mg .ROUTE .STK-MED ONE Methylprednis Sod Succ 125 mg* [solu-MEDROL] 125 mg Med 10/30/22 08:54 Disco ntinued Water For Injection,Sterile [Sterile H2O 10 ml] 2 ml IV STAT NaCl 0.9% 1000 ml [Sodium Chloride 0.9% 1000 ML] 1,000 Med 10/30/22 08:28 Discontinued ml .ROUTE UD NaCl 0.9% 1000 ml [Sodium Chloride 0.9% 1000 ML] 1,000 Med 10/30/22 08:26 Discontinued ml IV 999 mls/hr NaCl 0.9% 1000ML + KCl 20Meq @ 100 ml/Hr Med 10/30/22 17:45 Ordered NaCl 0.9% 1000 ml + KCl 20 Meq [Sodium Chloride 0.9% W/ 20 mEq KCl/LITER] 1,000 ml IV 100 mls/hr Ondansetron HCl 4 mg/2 ml [Zofran 4 MG/2 ML VIAL] Med 10/30/22 17:40 Ordered 4 mg IV Q6H PRN PRN Pantoprazole 40 mg [Protonix 40 mg IV] Med 10/31/22 10:00 Ordered 40 mg IV Q24H10 Prochlorperazine 10 mg/2 ml [Compazine 10 MG/2 ML Med 10/30/22 08:28 Discontinued ] 10 mg .ROUTE .STK-MED ONE Prochlorperazine 10 mg/2 ml [Compazine 10 MG/2 ML Med 10/30/22 08:26 Discontinued ] 10 mg IV STAT ONE Solu-Medrol 60 mg IV Q6ht Med 10/30/22 18:00 Ordered Methylprednis Sod Succ 125 mg* [solu-MEDROL] 60 mg Water For Injection,Sterile [Sterile H2O 10 ml] 2 ml IV Q6HT Water For Injection,Sterile [Sterile H2O 10 ml] Med 10/30/22 08:56 Discontinued 10 ml IJ .STK-MED ONE Code(s): K50.10 - CROHN'S DISEASE OF LARGE INTESTINE WITHOUT COMPLICATIONS
[2022-10-30] MEDS: solu-MEDROL 60 MG, Sterile H2O 10 ml 2 ML IV SCH ×4 (18:05→23:03)
[2022-10-30] MEDS: Ativan 2 MG/1 ML VIAL IV PRN ×2 (18:05→22:43)
[2022-10-30] MEDS: Sodium Chloride 0.9% W/ 20 mEq KCl/LITER 1,000 ML IV SCH (18:15)
[2022-10-30] MEDS: HYDROMORPHONE 30 MG/30 ML-NS IV PRN (18:15)
[2022-10-30] MEDS ORDERED: Levofloxacin 500MG/100ML D5W 500 MG/100 ML BAG IV SCH (19:01)
[2022-10-30] MEDS: Pepcid 20 MG VIAL IV SCH (22:43)
[2022-10-30] MEDS: Zofran 4 MG/2 ML VIAL IV PRN (22:43)
[2022-10-31] MEDS ORDERED: Phenergan 25 MG INJ*** 25 MG in Sodium Chloride 0.9% 100 ML IV ONE (01:39)
[2022-10-31] MEDS ORDERED: Phenergan 25 MG INJ ONE (01:40)
[2022-10-31] MEDS ORDERED: Sodium Chloride 0.9% 100 ML ONE (01:41)
[2022-10-31] MEDS: Ativan 2 MG/1 ML VIAL IV PRN ×5 (02:33→22:48)
[2022-10-31 04:42] LABS: Absolute Neutrophil Ct (ANC) 12.85 x10^3/uL (1.4-6.9); Basophil (Absolute #) 0.02 x10^3/uL (0-0.4); Eosinophil (Absolute #) 0 x10^3/uL (0-0.5); Hematocrit 38.6 % (42-50); Hemoglobin 13.3 g/dL (12.5-18.0); Lymphocyte (Absolute #) 0.71 x10^3/uL (1.0-4.6); Mean Cell Volume 90.2 fL (78-100); Mean Corpuscular Hemoglobin 31.1 pg (26-32); Mean Corpuscular Hgb Concent. 34.5 g/dL (32-36); Mean Platelet Volume 9.7 fL (7.5-11.0); Monocyte (Absolute #) 0.45 x10^3/uL (0.0-1.3); Monocytes % 3.2 % (0.0-12.0); Neutrophil % 91.1 % (36.0-66.0); Platelet Count 289 x10^3/uL (150-450); Red Blood Count 4.28 x10^6/uL (4.1-5.6); Red Cell Distribution Width 12.3 % (11.5-14.0); White Blood Count 14.1 x10^3/uL (4.0-10.5)
[2022-10-31 04:53] LABS: ALBUMIN 4.4 g/dL (3.5-5.0); ALKALINE PHOSPHATASE 48 U/L (38-126); ANION GAP 10.8 MEQ/L (5-15); BLOOD UREA NITROGEN 10 mg/dL (9-20); CHLORIDE 103 mmol/L (98-107); Calcium 8.6 mg/dL (8.4-10.2); Carbon Dioxide 25 mmol/L (22-30); Creatinine 1 0.63 mg/dL (0.66-1.25); EST GLOMERULAR FILTRATION RATE > 60.0 ML/MIN; Glucose 144 mg/dL (74-106); Potassium 4.9 mmol/L (3.5-5.1); SGOT/AST 18 U/L (17-59); SGPT/ALT 31 U/L (0-50); SODIUM 134 mmol/L (137-145); Total Protein 6.9 g/dL (6.3-8.2)
[2022-10-31] MEDS ORDERED: solu-MEDROL ONE (05:07)
[2022-10-31] MEDS ORDERED: Sterile H2O 10 ml IJ ONE (05:07)
[2022-10-31] MEDS: solu-MEDROL 60 MG, Sterile H2O 10 ml 2 ML IV SCH ×6 (05:14→18:22)
[2022-10-31] MEDS: Zofran 4 MG/2 ML VIAL IV PRN ×2 (05:14→17:38)
[2022-10-31] MEDS: Sodium Chloride 0.9% W/ 20 mEq KCl/LITER 1,000 ML IV SCH (05:14)
--- NOTE | 2022-10-31 08:06 | XRAY ---
Indication: Abdomen pain. Multiple contiguous axial images obtained through the abdomen and pelvis without contrast. Comparison: May 31, 2022 Lung bases again demonstrates subsegmental atelectasis more than before. No infiltrate or effusion. Heart not enlarged. Stomach is moderately fluid distended. Noncontrasted stomach and bowel loops appear nonobstructed. Lower midabdomen fluid distended small bowel loops with fluid leveling either ileus versus enteritis. Radiopacities throughout the colon either ingested medication, bismuth, or barium. Appendectomy and cholecystectomy reported. No free fluid/air. Remaining liver, pancreas, spleen, adrenal glands, kidneys, ureters, bladder, and aorta are unremarkable for noncontrast exam. Osseous structures intact. Impression: 1. Mild fluid distended small bowel loops, ileus versus enteritis. 2. Remaining CT abdomen/pelvis without contrast exam is negative. Comment: Preliminary interpretation made by [facility]. No critical discrepancy.
--- NOTE | 2022-10-31 08:58 | PCM.NOTE ---
Date and Time: 10/31/22 0856 Subjective Assessment: still c/o abdominal pain and nausea - Review of Systems Constitutional: No Fever, No Chills Eyes: No Symptoms Ears, Nose, & Throat: No Symptoms Respiratory: No Cough, No Short Of Breath Cardiac: No Chest Pain, No Edema, No Syncope Abdominal/Gastrointestinal: Abdominal Pain, Nausea, Vomiting, Diarrhea, Appetite Changes Genitourinary Symptoms: No Dysuria Musculoskeletal: No Back Pain, No Neck Pain Skin: No Rash Neurological: No Dizziness, No Focal Weakness, No Sensory Changes Psychological: No Symptoms Endocrine: No Symptoms Hematologic/Lymphatic: No Symptoms Immunological/Allergic: No Symptoms Objective Exam General Appearance: moderate distress, alert Neurologic Exam: alert, oriented x 3, cooperative, sensation nml, No motor deficits Skin Exam: normal color, warm, dry Eye Exam: PERRL, EOMI, eyes nml inspection Ears, Nose, Throat Exam: normal ENT inspection, pharynx normal, moist mucous membranes Neck Exam: normal inspection, non-tender, supple, full range of motion Respiratory Exam: normal breath sounds, lungs clear, No respiratory distress Cardiovascular Exam: regular rate/rhythm, normal heart sounds Gastrointestinal/Abdomen Exam: soft, normal bowel sounds, tenderness, No mass, No rebound Extremity Exam: normal inspection, normal range of motion Back Exam: normal inspection, normal range of motion, No CVA tenderness, No vertebral tenderness Male Genitalia Exam: deferred Rectal Exam: deferred OBJECTIVE DATA Vital Signs: Vital Signs - 24 hr Temp Pulse Resp BP Pulse Ox 10/31/22 08:00 98.2 F 68 16 115/73 96 10/31/22 07:36 95 10/31/22 04:00 97.5 F 81 18 130/93 94 L 10/31/22 02:15 16 97 10/30/22 23:44 97.6 F 101 H 16 138/73 98 10/30/22 22:30 16 98 10/30/22 19:20 96 10/30/22 18:29 98.5 F 95 H 18 129/75 98 10/30/22 09:20 99 10/30/22 09:11 70 112/71 100 Pain Assessment - Last Documented Pain Intensity 5 Pain Scale Used 0-10 Pain Scale Intake and Output: Intake & Output 12/01/22 12/02/22 12/03/22 12/04/22 11:59 11:59 11:59 11:59 Intake Total 1841 Output Total 1 Balance 1840 Weight 92.533 kg 93.5 kg Lab Results: Lab Results-Last 24 Hours 10/30/22 10/31/22 10/31/22 Range/Units 08:40 04:15 04:15 WBC 14.1 H (4.0-10.5) x10^3/uL RBC 4.28 (4.1-5.6) x10^6/uL Hgb 13.3 (12.5-18.0) g/dL Hct 38.6 L (42-50) % MCV 90.2 (78-100) fL MCH 31.1 (26-32) pg MCHC 34.5 (32-36) g/dL RDW 12.3 (11.5-14.0) % Plt Count 289 (150-450) x10^3/uL MPV 9.7 (7.5-11.0) fL Gran % 91.1 H (36.0-66.0) % Immature Gran % (Auto) 0.6 H (0.00-0.4) % Nucleat RBC Rel Count 0.0 (0.00-0.1) % Eos # (Auto) 0 (0-0.5) x10^3/uL Immature Gran # (Auto) 0.08 H (0.00-0.03) x10^3u/L Absolute Lymphs (auto) 0.71 L (1.0-4.6) x10^3/uL Absolute Monos (auto) 0.45 (0.0-1.3) x10^3/uL Absolute Nucleated RBC 0.00 (0.00-0.01) x10^3u/L Lymphocytes % 5.0 L (24.0-44.0) % Monocytes % 3.2 (0.0-12.0) % Eosinophils % 0.0 (0.00-5.0) % Basophils % 0.1 (0.0-0.4) % Absolute Granulocytes 12.85 H (1.4-6.9) x10^3/uL Basophils # 0.02 (0-0.4) x10^3/uL Sodium 134 L (137-145) mmol/L Potassium 4.9 D (3.5-5.1) mmol/L Chloride 103 (98-107) mmol/L Carbon Dioxide 25 (22-30) mmol/L Anion Gap 10.8 (5-15) MEQ/L BUN 10 (9-20) mg/dL Creatinine 0.63 L (0.66-1.25) mg/dL Estimated GFR > 60.0 ML/MIN Glucose 144 H (74-106) mg/dL Calcium 8.6 (8.4-10.2) mg/dL Total Bilirubin 0.50 (0.2-1.3) mg/dL AST 18 (17-59) U/L ALT 31 (0-50) U/L Alkaline Phosphatase 48 (38-126) U/L Serum Total Protein 6.9 (6.3-8.2) g/dL Albumin 4.4 (3.5-5.0) g/dL Influenza Type A Ag NEGATIVE (NEGATIVE) Influenza Type B Ag NEGATIVE (NEGATIVE) RSV (PCR) NEGATIVE (Negative) SARS-CoV-2 (PCR) NEGATIVE (NEGATIVE) Radiology Exams: Radiology Procedures Category Date Time Status ABDOMEN AND PELVIS W/0 CONTRAS [CT] Urgent Exams 10/31/22 01:[address]/ABDOMEN AND PELVIS W/0 CONTRAS Indication: Abdomen pain. Multiple contiguous axial images obtained through the abdomen and pelvis without contrast. Comparison: May 31, 2022 Lung bases again demonstrates subsegmental atelectasis more than before. No infiltrate or effusion. Heart not enlarged. Stomach is moderately fluid distended. Noncontrasted stomach and bowel loops appear nonobstructed. Lower midabdomen fluid distended small bowel loops with fluid leveling either ileus versus enteritis. Radiopacities throughout the colon either ingested medication, bismuth, or barium. Appendectomy and cholecystectomy reported. No free fluid/air. Remaining liver, pancreas, spleen, adrenal glands, kidneys, ureters, bladder, and aorta are unremarkable for noncontrast exam. Osseous structures intact. Impression: 1. Mild fluid distended small bowel loops, ileus versus enteritis. 2. Remaining CT abdomen/pelvis without contrast exam is negative. Assessment/Plan (1) Exacerbation of Crohn's disease of large intestine Current Visit: Yes Status: Acute Assessment & Plan: Chief Complaint Diagnosis c/o severe abdominal pain for 1 day Allergies Allergy/AdvReac Type Severity Reaction Status Date / Time No Known Drug Allergies Allergy Verified 10/30/22 08:12 Vital Signs (Last 24 hours) Temp Pulse Resp BP Pulse Ox 10/31/22 08:00 98.2 F 68 16 115/73 96 10/31/22 07:36 95 10/31/22 04:00 97.5 F 81 18 130/93 94 L 10/31/22 02:15 16 97 10/30/22 23:44 97.6 F 101 H 16 138/73 98 10/30/22 22:30 16 98 10/30/22 19:20 96 10/30/22 18:29 98.5 F 95 H 18 129/75 98 10/30/22 09:20 99 10/30/22 09:11 70 112/71 100 Home Medications Medication Instructions Recorded Confirmed Last Taken Type Prochlorperazine Maleate 5 mg* 5 mg PO Q6H #28 tablet 10/30/22 Unknown Rx [Compazine 5 MG] Current Medications Generic Name Dose Route Start Last Admin Trade Name Binhq PRN Reason Stop Dose Admin Methylprednisolone Sodium 0 mg 10/30/22 18:00 10/31/22 05:14 Succinate 60 mg/ Sterile Water IV 11/29/22 17:59 60 mg 2 ml Q6HT JACQUELINE Administration Famotidine 20 mg 10/30/22 22:00 10/30/22 22:43 Famotidine 20 Mg/1 Vial IV 11/29/22 21:59 20 mg Q12HT JACQUELINE Administration Hydromorphone/Sodium Chloride 30 mg 10/30/22 17:40 10/30/22 18:15 Hydromorphone Hcl/0.9% Nacl/Pf 30 Mg/30 Ml Wind Tunnel Mechanic.Syring IV 11/29/22 17:39 30 mg .STANDARD [employer] MARKETING STRATEGIST DOSING PRN Administration SEVERE PAIN/POST OP PAIN Levofloxacin/Dextrose 500 mg in 100 mls @ 100 mls/hr 10/31/22 22:00 Levofloxacin 500mg/100ml D5w IV 11/29/22 19:00 QPM JACQUELINE Lactated Ringer's 1,000 mls @ 150 mls/hr 10/31/22 09:00 Lactated Ringers IV 11/30/22 08:59 .Q6H40M JACQUELINE Promethazine HCl 25 mg/ Sodium 101 mls @ 200 mls/hr 10/31/22 08:45 Chloride IV 11/30/22 08:44 Q6H PRN PRN UNCONTROLLED NAUSEA Lorazepam 1 mg 10/30/22 17:40 10/31/22 08:35 Lorazepam 2 Mg/1 Ml 2 Mg Vial IV 11/29/22 17:39 1 mg Q4H PRN PRN Administration ANXIETY/AGITATION Ondansetron HCl 4 mg 10/30/22 17:40 10/31/22 05:14 Ondansetron Hcl 4 Mg/2 Ml Vial IV 11/29/22 17:39 4 mg Q6H PRN PRN Administration NAUSEA/VOMITING Pantoprazole Sodium 40 mg 10/31/22 10:00 Pantoprazole 40 Mg Vial IV 11/30/22 09:59 Q24H10 JACQUELINE Discontinued Medications Generic Name Dose Route Start Last Admin Trade Name Freq PRN Reason Stop Dose Admin Methylprednisolone Sodium 0 mg 10/30/22 08:54 10/30/22 08:56 Succinate 125 mg/ Sterile IV 10/30/22 08:55 125 mg Water 2 ml STAT ONE Administration Hydromorphone HCl 1 mg 10/30/22 08:26 10/30/22 08:29 Hydromorphone 1 Mg/1ml Inj 1 Mg/Ml Syringe IV 10/30/22 08:27 1 mg STAT ONE Administration Hydromorphone HCl Confirm 10/30/22 08:28 Hydromorphone 1 Mg/1ml Inj 1 Mg/Ml Syringe Administered 10/30/22 08:29 Dose 1 mg .ROUTE .STK-MED ONE Sodium Chloride 1,000 mls @ 999 mls/hr 10/30/22 08:26 10/30/22 09:47 Sodium Chloride 0.9% 1000 Ml IV 10/30/22 09:26 Infused .Q1H1M STA Infusion Sodium Chloride Confirm 10/30/22 08:28 Sodium Chloride 0.9% 1000 Ml Administered 10/30/22 08:29 Dose 1,000 mls @ ud .ROUTE .STK-MED ONE Potassium Chloride/Sodium Chloride 1,000 mls @ 100 mls/hr 10/30/22 17:45 10/31/22 05:14 Sodium Chloride 0.9% W/ 20 Meq Kcl/Liter IV 11/29/22 17:44 100 mls/hr .Q10H JACQUELINE Administration Levofloxacin/Dextrose 500 mg in 100 mls @ 100 mls/hr 10/31/22 10:00 Levofloxacin 500mg/100ml D5w IV 11/30/22 09:59 Q24H10 JACQUELINE Levofloxacin/Dextrose 500 mg in 100 mls @ 100 mls/hr 10/30/22 19:01 10/30/22 19:05 Levofloxacin 500mg/100ml D5w IV 11/29/22 18:59 100 mls/hr Q24H10 JACQUELINE Administration Promethazine HCl 25 mg/ Sodium 101 mls @ 200 mls/hr 10/31/22 01:39 10/31/22 01:49 Chloride IV 10/31/22 02:09 200 mls/hr ONCE ONE Administration Sodium Chloride Confirm 10/31/22 01:41 Sodium Chloride 0.9% Administered 10/31/22 01:42 Dose 100 mls @ ud .ROUTE .STK-MED ONE Methylprednisolone Sodium Succinate Confirm 10/30/22 08:56 Methylprednis Sod Succ 125 Mg/2 Ml Vial Administered 10/30/22 08:57 Dose 125 mg .ROUTE .STK-MED ONE Methylprednisolone Sodium Succinate Confirm 10/30/22 17:59 Methylprednis Sod Succ 125 Mg/2 Ml Vial Administered 10/30/22 18:00 Dose 125 mg .ROUTE .STK-MED ONE Methylprednisolone Sodium Succinate Confirm 10/30/22 22:58 Methylprednis Sod Succ 125 Mg/2 Ml Vial Administered 10/30/22 22:59 Dose 125 mg .ROUTE .STK-MED ONE Methylprednisolone Sodium Succinate Confirm 10/31/22 05:07 Methylprednis Sod Succ 125 Mg/2 Ml Vial Administered 10/31/22 05:08 Dose 125 mg .ROUTE .STK-MED ONE Prochlorperazine Edisylate 10 mg 10/30/22 08:26 10/30/22 08:29 Prochlorperazine Edisylate 10 Mg/2 Ml Vial IV 10/30/22 08:27 10 mg STAT ONE Administration Prochlorperazine Edisylate Confirm 10/30/22 08:28 Prochlorperazine Edisylate 10 Mg/2 Ml Vial Administered 10/30/22 08:29 Dose 10 mg .ROUTE .STK-MED ONE Promethazine HCl Confirm 10/31/22 01:40 Promethazine Hcl 25 Mg/Ml Vial Administered 10/31/22 01:41 Dose 25 mg .ROUTE .STK-MED ONE Sterile Water Confirm 10/30/22 08:56 Water For Injection,Sterile 10 Ml Vial Administered 10/30/22 08:57 Dose 10 ml IJ .STK-MED ONE Sterile Water Confirm 10/30/22 17:59 Water For Injection,Sterile 10 Ml Vial Administered 10/30/22 18:00 Dose 10 ml IJ .STK-MED ONE Sterile Water Confirm 10/30/22 22:58 Water For Injection,Sterile 10 Ml Vial Administered 10/30/22 22:59 Dose 10 ml IJ .STK-MED ONE Sterile Water Confirm 10/31/22 05:07 Water For Injection,Sterile 10 Ml Vial Administered 10/31/22 05:08 Dose 10 ml IJ .STK-MED ONE Intake & Output (Last 24 hours) 10/28/22 10/29/22 10/30/22 10/31/22 11:59 11:59 11:59 11:59 Intake Total 1841 Output Total 1 Balance 1840 Weight 92.533 kg 93.5 kg Laboratory Results (Last 24 hours) 10/31/22 10/31/22 10/30/22 04:15 04:15 08:40 WBC 14.1 H RBC 4.28 Hgb 13.3 Hct 38.6 L MCV 90.2 MCH 31.1 MCHC 34.5 RDW 12.3 Plt Count 289 MPV 9.7 Gran % 91.1 H Immature Gran % (Auto) 0.6 H Nucleat RBC Rel Count 0.0 Eos # (Auto) 0 Immature Gran # (Auto) 0.08 H Absolute Lymphs (auto) 0.71 L Absolute Monos (auto) 0.45 Absolute Nucleated RBC 0.00 Lymphocytes % 5.0 L Monocytes % 3.2 Eosinophils % 0.0 Basophils % 0.1 Absolute Granulocytes 12.85 H Basophils # 0.02 Sodium 134 L Potassium 4.9 D Chloride 103 Carbon Dioxide 25 Anion Gap 10.8 BUN 10 Creatinine 0.63 L Estimated GFR > 60.0 Glucose 144 H Calcium 8.6 Total Bilirubin 0.50 AST 18 ALT 31 Alkaline Phosphatase 48 Serum Total Protein 6.9 Albumin 4.4 Influenza Type A Ag NEGATIVE Influenza Type B Ag NEGATIVE RSV (PCR) NEGATIVE SARS-CoV-2 (PCR) NEGATIVE Orders (Last 24 hours) Category Date Time Status Up Ad Mary Lou ROUTINE Activity 10/30/22 17:41 Active Code Status Order ROUTINE Care 10/30/22 17:40 Active IV Care Q6H Care 10/30/22 17:[address] in Observation ROUTINE Care 10/30/22 17:40 Active Clear Liquid Diet 10/30/22 Dinner Active ABDOMEN AND PELVIS W/0 CONTRAS [CT] Urgent Exams 10/31/22 01:35 Completed AMYLASE Stat Lab 10/30/22 08:15 Completed CBC W DIFF AM.LAB Lab 10/31/22 04:15 Completed CBC W DIFF Stat Lab 10/30/22 08:15 Completed CMP AM.LAB Lab 10/31/22 04:15 Completed CMP Stat Lab 10/30/22 08:15 Completed COVID/FLU/RSV Panel Stat Lab 10/30/22 08:40 Completed LIPASE Stat Lab 10/30/22 08:15 Completed Famotidine 20 mg Vial [Pepcid 20 MG VIAL] Med 10/30/22 22:00 Active 20 mg IV Q12HT Hydromorphone 1 mg/1Ml Inj [Hydromorphone 1 mg/ml Med 10/30/22 08:28 Discontinued Injection] 1 mg .ROUTE .STK-MED ONE Hydromorphone 1 mg/1Ml Inj [Hydromorphone 1 mg/ml Med 10/30/22 08:26 Discontinued Injection] 1 mg IV STAT ONE Hydromorphone HCl/0.9% NaCl/Pf [Hydromorphone 30 mg/30 Med 10/30/22 17:40 Active ml-Ns] 30 mg IV .STANDARD [employer] MARKETING STRATEGIST DOSING PRN Levofloxacin [Levofloxacin 500MG/100ML D5W] Med 10/30/22 19:01 Discontinued 500 mg in 100 ml IV Q24H10 Levofloxacin [Levofloxacin 500MG/100ML D5W] Med 10/31/22 10:00 Discontinued 500 mg in 100 ml IV Q24H10 Levofloxacin [Levofloxacin 500MG/100ML D5W] Med 10/31/22 22:00 Active 500 mg in 100 ml IV QPM Lorazepam 2 mg/1 ml [Ativan 2 MG/1 ML VIAL] Med 10/30/22 17:40 Active 1 mg IV Q4H PRN PRN Methylprednis Sod Succ 125 mg* [solu-MEDROL] Med 10/30/22 08:56 Discontinued 125 mg .ROUTE .STK-MED ONE Methylprednis Sod Succ 125 mg* [solu-MEDROL] Med 10/30/22 17:59 Discontinued 125 mg .ROUTE .STK-MED ONE Methylprednis Sod Succ 125 mg* [solu-MEDROL] Med 10/30/22 22:58 Discontinued 125 mg .ROUTE .STK-MED ONE Methylprednis Sod Succ 125 mg* [solu-MEDROL] Med 10/31/22 05:07 Discontinued 125 mg .ROUTE .STK-MED ONE Methylprednis Sod Succ 125 mg* [solu-MEDROL] 125 mg Med 10/30/22 08:54 Discontinued Water For Injection,Sterile [Sterile H2O 10 ml] 2 ml IV STAT Methylprednis Sod Succ 125 mg* [solu-MEDROL] 60 mg Med 10/30/22 18:00 Active Water For Injection,Sterile [Sterile H2O 10 ml] 2 ml IV Q6HT NaCl 0.9% 1000 ml + KCl 20 Meq [Sodium Chloride 0.9% W/ Med 10/30/22 17:45 Discontinued 20 mEq KCl/LITER] 1,000 ml IV 100 mls/hr NaCl 0.9% 1000 ml [Sodium Chloride 0.9% 1000 ML] 1,000 Med 10/30/22 08:28 Discontinued ml .ROUTE UD NaCl 0.9% 1000 ml [Sodium Chloride 0.9% 1000 ML] 1,000 Med 10/30/22 08:26 Discontinued ml IV 999 mls/hr NaCl 0.9% [Sodium Chloride 0.9%] 100 ml Med 10/31/22 01:41 Discontinued .ROUTE UD Ondansetron HCl 4 mg/2 ml [Zofran 4 MG/2 ML VIAL] Med 10/30/22 17:40 Active 4 mg IV Q6H PRN PRN Pantoprazole 40 mg [Protonix 40 mg IV] Med 10/31/22 10:00 Active 40 mg IV Q24H10 Prochlorperazine 10 mg/2 ml [Compazine 10 MG/2 ML Med 10/30/22 08:28 Discontinued ] 10 mg .ROUTE .STK-MED ONE Prochlorperazine 10 mg/2 ml [Compazine 10 MG/2 ML Med 10/30/22 08:26 Discontinued ] 10 mg IV STAT ONE Promethazine HCl 25 mg Amp [Phenergan 25 MG INJ] Med 10/31/22 01:40 Discontinued 25 mg .ROUTE .STK-MED ONE Promethazine HCl 25 mg Amp [Phenergan 25 MG INJ] Med 10/31/22 01:39 Discontinued 25 mg NaCl 0.9% [Sodium Chloride 0.9%] 100 ml IV ONCE Promethazine HCl 25 mg Amp [Phenergan 25 MG INJ] Med 10/31/22 08:45 Active 25 mg NaCl 0.9% [Sodium Chloride 0.9%] 100 ml IV Q6H PRN Ringers Solution,Lactated [Lactated Ringers] 1,000 ml Med 10/31/22 09:00 Active IV 150 mls/hr Water For Injection,Sterile [Sterile H2O 10 ml] Med 10/30/22 08:56 Discontinued 10 ml IJ .STK-MED ONE Water For Injection,Sterile [Sterile H2O 10 ml] Med 10/30/22 17:59 Discontinued 10 ml IJ .STK-MED ONE Water For Injection,Sterile [Sterile H2O 10 ml] Med 10/30/22 22:58 Discontinued 10 ml IJ .STK-MED ONE Water For Injection,Sterile [Sterile H2O 10 ml] Med 10/31/22 05:07 Discontinued 10 ml IJ .STK-MED ONE Oxygen Nasal Cannula 2 lpm RT 10/30/22 18:30 Active Pulse Oximetry .continuos RT 10/30/22 19:39 Active Patient Care Notes (Last 24 hours) 10/31/22 01:54 Nursing Note by Sarah Hare This nurse contacted Dr. Jasso and notified him that patient stated that his pain had intensified and nausea was back before time for zofran to be administered again. Order received for IV phenergan and for CT abd/pelvis to be done now. Pt informed of POC. Initialized on 10/31/22 01:54 - END OF NOTE Code(s): K50.10 - CROHN'S DISEASE OF LARGE INTESTINE WITHOUT COMPLICATIONS
[2022-10-31] MEDS: Lactated Ringers 1,000 ML IV SCH ×2 (09:02→16:47)
[2022-10-31] MEDS: Phenergan 25 MG INJ*** 25 MG in Sodium Chloride 0.9% 100 ML IV PRN ×3 (09:03→21:34)
[2022-10-31] MEDS ORDERED: Levofloxacin 500MG/100ML D5W 500 MG/100 ML BAG IV SCH ×2 (10:00→22:00)
[2022-10-31] MEDS ORDERED: PROTONIX 40 MG IV IV SCH (10:00)
[2022-10-31] MEDS: Pepcid 20 MG VIAL IV SCH ×2 (11:16→21:34)
[2022-10-31] MEDS: FLAGYL 500 MG IVPB 500 MG/100 ML BAG IV SCH ×2 (14:44→22:48)
[2022-11-01] MEDS: Lactated Ringers 1,000 ML IV SCH ×4 (00:02→17:38)
[2022-11-01] MEDS: solu-MEDROL 60 MG, Sterile H2O 10 ml 2 ML IV SCH ×8 (00:02→18:41)
[2022-11-01] MEDS: Zofran 4 MG/2 ML VIAL IV PRN (00:07)
[2022-11-01] MEDS: Phenergan 25 MG INJ*** 25 MG in Sodium Chloride 0.9% 100 ML IV PRN (04:31)
[2022-11-01] MEDS: Ativan 2 MG/1 ML VIAL IV PRN ×4 (04:57→18:54)
[2022-11-01] MEDS: FLAGYL 500 MG IVPB 500 MG/100 ML BAG IV SCH ×3 (06:04→21:21)
[2022-11-01] MEDS: HYDROMORPHONE 30 MG/30 ML-NS IV PRN (08:13)
[2022-11-01] MEDS ORDERED: Compazine 10 MG/2 ML IV PRN (08:36)
--- NOTE | 2022-11-01 08:36 | PCM.NOTE ---
Date and Time: 11/01/22 0834 Subjective Assessment: patient is anxious, unable to rest and pain is not well controlled. Objective Exam General Appearance: mild distress, anxiety Neurologic Exam: alert, oriented x 3, cooperative Respiratory Exam: normal breath sounds, lungs clear, No respiratory distress Cardiovascular Exam: regular rate/rhythm, normal heart sounds Gastrointestinal/Abdomen Exam: soft, tenderness (left abdomen), No mass, No guarding, No rebound Extremity Exam: normal inspection, normal range of motion OBJECTIVE DATA Vital Signs: Vital Signs - 24 hr Temp Pulse Resp BP BP Pulse Ox 11/01/22 08:13 12 92 L 11/01/22 08:00 98.2 F 89 16 166/85 98 11/01/22 07:31 96 11/01/22 04:57 66 14 111/70 11/01/22 04:00 98.8 F 76 16 107/68 95 11/01/22 00:00 98.2 F 75 16 134/73 94 L 10/31/22 22:48 90 16 134/75 10/31/22 20:00 98.6 F 97 H 17 152/90 96 10/31/22 18:47 95 10/31/22 16:00 98 F 70 16 149/81 93 L 10/31/22 14:15 18 96 10/31/22 11:52 98.6 F 83 18 133/78 92 L Pain Assessment - Last Documented Pain Intensity 7 Pain Scale Used 0-10 Pain Scale Intake and Output: Intake & Output 10/29/22 10/30/22 10/31/22 11/01/22 11:59 11:59 11:59 11:59 Intake Total 2201 6877 Output Total 1 Balance 2200 6877 Weight 92.533 kg 93.5 kg Radiology Exams: Radiology Procedures Category Date Time Status ABDOMEN AND PELVIS W/0 CONTRAS [CT] Urgent Exams 10/31/22 01:35 Completed Assessment/Plan (1) Exacerbation of Crohn's disease of large intestine Current Visit: Yes Status: Acute Assessment & Plan: continue levaquin/flagyl and IV steroids. pharmacy to adjust DELIVERY MANAGER dose Code(s): K50.10 - CROHN'S DISEASE OF LARGE INTESTINE WITHOUT COMPLICATIONS (2) Intractable nausea and vomiting Current Visit: Yes Status: Acute Code(s): R11.2 - NAUSEA WITH VOMITING, UNSPECIFIED
[2022-11-01] MEDS ORDERED: PHARMACY DOSING REQUIRED: DILAUDID PCA IV PRN (09:56)
[2022-11-01] MEDS ORDERED: NON-FORMULARY ITEM (Omeprazole 20 Mg [Prilosec 20 Mg] 20 MG Capsule.Dr) PO SCH (10:00)
[2022-11-01] MEDS ORDERED: MESALAMINE 0.375 GM PO SCH (10:00)
[2022-11-01] MEDS ORDERED: Effexor ER 37.5 MG PO SCH (10:00)
[2022-11-01] MEDS ORDERED: MEDICATION INTERVENTION MC SCH (10:00)
[2022-11-01] MEDS ORDERED: Narcan 0.4 MG/ML IV PRN (10:16)
[2022-11-01] MEDS ORDERED: HYDROMORPHONE 30 MG/30 ML-NS IV PRN (10:18)
[2022-11-01] MEDS: Pepcid 20 MG VIAL IV SCH ×2 (10:45→21:21)
[2022-11-01] MEDS: Levofloxacin 500MG/100ML D5W 500 MG/100 ML BAG IV SCH (10:47)
[2022-11-01] MEDS: Effexor XR 75 MG PO SCH (10:48)
[2022-11-01] MEDS: Protonix 40MG Tablet PO SCH (10:54)
[2022-11-01] MEDS ORDERED: DILAUDID 1 MG/1ML PCA SYRINGE IV PRN (12:04)
[2022-11-01] MEDS: Compazine 10 MG/2 ML IV PRN ×2 (14:25→20:53)
[2022-11-02] MEDS: solu-MEDROL 60 MG, Sterile H2O 10 ml 2 ML IV SCH ×8 (00:11→17:59)
[2022-11-02] MEDS: Lactated Ringers 1,000 ML IV SCH ×3 (00:42→17:04)
[2022-11-02] MEDS: Ativan 2 MG/1 ML VIAL IV PRN ×3 (03:20→20:14)
[2022-11-02] MEDS: Compazine 10 MG/2 ML IV PRN ×3 (03:20→13:45)
[2022-11-02 04:47] LABS: Absolute Neutrophil Ct (ANC) 12.02 x10^3/uL (1.4-6.9); Basophil (Absolute #) 0.02 x10^3/uL (0-0.4); Eosinophil (Absolute #) 0 x10^3/uL (0-0.5); Hematocrit 35.2 % (42-50); Hemoglobin 11.5 g/dL (12.5-18.0); Lymphocyte (Absolute #) 0.56 x10^3/uL (1.0-4.6); Lymphocytes % 4.2 % (24.0-44.0); Mean Cell Volume 92.9 fL (78-100); Mean Corpuscular Hemoglobin 30.3 pg (26-32); Mean Corpuscular Hgb Concent. 32.7 g/dL (32-36); Mean Platelet Volume 9.5 fL (7.5-11.0); Monocytes % 3.8 % (0.0-12.0); Neutrophil % 91.2 % (36.0-66.0); Platelet Count 243 x10^3/uL (150-450); Red Blood Count 3.79 x10^6/uL (4.1-5.6); White Blood Count 13.2 x10^3/uL (4.0-10.5)
[2022-11-02] MEDS: FLAGYL 500 MG IVPB 500 MG/100 ML BAG IV SCH ×3 (05:14→22:21)
[2022-11-02 05:20] LABS: ALBUMIN 3.6 g/dL (3.5-5.0); ALKALINE PHOSPHATASE 41 U/L (38-126); ANION GAP 11.2 MEQ/L (5-15); BLOOD UREA NITROGEN 12 mg/dL (9-20); CHLORIDE 100 mmol/L (98-107); Calcium 8.3 mg/dL (8.4-10.2); Carbon Dioxide 28 mmol/L (22-30); Creatinine 1 0.59 mg/dL (0.66-1.25); EST GLOMERULAR FILTRATION RATE > 60.0 ML/MIN; Glucose 131 mg/dL (74-106); MAGNESIUM 1.7 mg/dL (1.6-2.3); SGOT/AST 16 U/L (17-59); SGPT/ALT 27 U/L (0-50); SODIUM 136 mmol/L (137-145); Total Protein 5.6 g/dL (6.3-8.2)
[2022-11-02 05:57] LABS: Slide Review 1 YES
--- NOTE | 2022-11-02 09:07 | XRAY ---
Indication: Abdomen pain. History Crohn's disease. Multiple contiguous axial images obtained through the abdomen and pelvis without contrast. Comparison: October 31, 2022 Lung bases again demonstrate subsegmental atelectasis. Heart not enlarged. Lower abdomen degraded by respiration artifact. Again radiopacities throughout the colon either just medication, bismuth, or barium. Noncontrasted stomach and small bowel loops nonobstructed. Again appendectomy and cholecystectomy reported. No free fluid/air. Remaining liver, pancreas, spleen, adrenal glands, kidneys, ureters, bladder, and aorta are unremarkable for noncontrast exam. Impression: Negative CT abdomen/pelvis without contrast exam. Comment: Preliminary interpretation made by [facility]. No critical discrepancy.
[2022-11-02] MEDS: Protonix 40MG Tablet PO SCH (10:10)
[2022-11-02] MEDS: Effexor XR 75 MG PO SCH (10:10)
[2022-11-02] MEDS: Neurontin PO SCH ×3 (10:11→22:20)
[2022-11-02] MEDS: Pepcid 20 MG VIAL IV SCH ×2 (10:11→22:21)
[2022-11-02] MEDS: Levofloxacin 500MG/100ML D5W 500 MG/100 ML BAG IV SCH (11:14)
--- NOTE | 2022-11-02 13:14 | PCM.DS ---
Discharge Summary Date of Admission: 10/30/22 17:45 Admitting Physician: PEGGY FAIR Primary Care Provider: BOY EMMANUEL Allergies Allergies No Known Drug Allergies Allergy (Verified 10/30/22 08:12) Hospital Summary - Hospital Course Hospital Course: Pt is 37 yo male pt of Dr. Emmanuel' with Crohn's disease who was admitted with exacerbation of Crohn's with nausea and vomiting. He also c/o abd pain, which was difficult to control. His [employer] SERV[employer] TECHNICIAN had to be adjusted yesterday. However since this morning, when I examined him, he is feeling better. Only used SHOP SERVICE TECHNICIAN x 1 this morning and that has been about 4 hours ago. He tolerated some jello and would like to be discharged to home. CT abd/pelvis done 10/31/22, ileus v enteritis. CT abd/pelvis repeated 11/02/22 is negative. WBC 13.2 this morning, were 5.1 on admission. eGFR > 60. He will be sent home on levaquin and flagyl (is on day #2 today) and prednisone. F/u wtih Dr. Emmanuel in 1 week. - Vitals & Intake/Output Vital Signs: Vital Signs Temperature 98.9 F 11/02/22 11:22 Pulse Rate 66 11/02/22 11:22 Respiratory Rate 16 11/02/22 11:22 Blood Pressure 160/97 11/02/22 11:22 O2 Sat by Pulse Oximetry 95 11/02/22 11:22 Intake & Output: Intake & Output 10/31/22 11/01/22 11/02/22 11/03/22 11:59 11:59 11:59 11:59 Intake Total 2201 6877 4718 Output Total 1 Balance 2200 6877 4718 Weight 93.5 kg - Lab Result Diagrams: 11/02/22 04:20 11/02/22 04:20 Lab Results-Last 24 Hrs: Lab Results-Last 24 Hours 11/02/22 11/02/22 Range/Units 04:20 04:20 WBC 13.2 H (4.0-10.5) x10^3/uL RBC 3.79 L (4.1-5.6) x10^6/uL Hgb 11.5 L (12.5-18.0) g/dL Hct 35.2 L (42-50) % MCV 92.9 (78-100) fL MCH 30.3 (26-32) pg MCHC 32.7 (32-36) g/dL RDW 12.0 (11.5-14.0) % Plt Count 243 (150-450) x10^3/uL MPV 9.5 (7.5-11.0) fL Gran % 91.2 H (36.0-66.0) % Immature Gran % (Auto) 0.6 H (0.00-0.4) % Nucleat RBC Rel Count 0.0 (0.00-0.1) % Eos # (Auto) 0 (0-0.5) x10^3/uL Immature Gran # (Auto) 0.08 H (0.00-0.03) x10^3u/L Absolute Lymphs (auto) 0.56 L (1.0-4.6) x10^3/uL Absolute Monos (auto) 0.50 (0.0-1.3) x10^3/uL Absolute Nucleated RBC 0.00 (0.00-0.01) x10^3u/L Lymphocytes % 4.2 L (24.0-44.0) % Monocytes % 3.8 (0.0-12.0) % Eosinophils % 0.0 (0.00-5.0) % Basophils % 0.2 (0.0-0.4) % Absolute Granulocytes 12.02 H (1.4-6.9) x10^3/uL Basophils # 0.02 (0-0.4) x10^3/uL Sodium 136 L (137-145) mmol/L Potassium 4.0 (3.5-5.1) mmol/L Chloride 100 (98-107) mmol/L Carbon Dioxide 28 (22-30) mmol/L Anion Gap 11.2 (5-15) MEQ/L BUN 12 (9-20) mg/dL Creatinine 0.59 L (0.66-1.25) mg/dL Estimated GFR > 60.0 ML/MIN Glucose 131 H (74-106) mg/dL Calcium 8.3 L (8.4-10.2) mg/dL Magnesium 1.7 (1.6-2.3) mg/dL Total Bilirubin 0.50 (0.2-1.3) mg/dL AST 16 L (17-59) U/L ALT 27 (0-50) U/L Alkaline Phosphatase 41 (38-126) U/L Serum Total Protein 5.6 L (6.3-8.2) g/dL Albumin 3.6 (3.5-5.0) g/dL Slides for Path Review YES - Radiology Exams Ordered Rad Exams-Entire Visit: Radiology Procedures Category Date Time Status ABDOMEN AND PELVIS W/0 CONTRAS [CT] Routine Exams 11/02/22 05:07 Completed - Procedures and Test Procedures and Tests throughout Hospitalization: Therapy Orders & Screens 10/30/22 18:30 Oxygen Nasal Cannula 2 lpm Comment: Diagnosis: c/o severe abdominal pain for 1 day Discharge Exam General Appearance: no apparent distress, alert Neurologic Exam: oriented x 3, cooperative Eye Exam: eyes nml inspection Ears, Nose, Throat Exam: moist mucous membranes Neck Exam: normal inspection Respiratory Exam: normal breath sounds, lungs clear, No crackles/rales, No rhonchi, No wheezing Cardiovascular Exam: regular rate/rhythm, normal heart sounds, No murmur Gastrointestinal/Abdomen Exam: soft, tenderness (mild ttp LLQ), No normal bowel sounds (hypoactive but present), No distention, No mass, No guarding, No rebound Back Exam: normal inspection, No rash Extremity Exam: normal inspection, No pedal edema, No swelling Skin Exam: normal color, warm, dry, No rash Final Diagnosis/Problem List - Final Discharge Diagnosis/Problem (1) Exacerbation of Crohn's disease of large intestine Current Visit: Yes Status: Acute Assessment & Plan: Improved; will continue with 7d total antibiotics (5 more days) and 5 more days of steroid po. Code(s): K50.10 - CROHN'S DISEASE OF LARGE INTESTINE WITHOUT COMPLICATIONS (2) Intractable nausea and vomiting Current Visit: Yes Status: Resolved Code(s): R11.2 - NAUSEA WITH VOMITING, UNSPECIFIED - Discharge Disposition: Home, Self-Care Condition: Stable Prescriptions: New Prochlorperazine Maleate 5 mg* [Compazine 5 MG] 5 mg PO Q6H #28 tablet Lactobacillus Acidophilus [Acidophilus TABLET] 1 tab PO TID #30 tablet Prednisone 20 mg [Deltasone 20 mg] 20 mg PO DAILY #17 tablet Metronidazole 500 mg [Flagyl 500 MG] 500 mg PO TID #15 tablet Levofloxacin [Levofloxacin 500 MG Tablet] 500 mg PO DAILY 5 Days #5 tablet Famotidine 20 mg [Pepcid 20 MG] 20 mg PO BID #60 tablet Continue Omeprazole 20 MG [Prilosec 20 mg] 20 mg PO DAILY Ascorbic Acid 500 mg [Vitamin C 500 MG] 500 mg PO DAILY Loratadine 10 mg [Claritin 10 mg] 10 mg PO DAILY Mesalamine [Apriso] 1.5 gm PO DAILY Venlafaxine HCl ER 37.5 mg [Effexor ER 37.5 MG] 75 mg PO DAILY Tramadol HCl 50 mg [Ultram 50 mg] 50 mg PO Q6H PRN PRN #28 tablet PRN Reason: Pain Follow up with: BOY EMMANUEL MD [Primary Care Provider] -
[2022-11-03] MEDS ORDERED: solu-MEDROL ONE ×2 (00:04→05:36)
[2022-11-03] MEDS: Lactated Ringers 1,000 ML IV SCH ×2 (00:10→07:36)
[2022-11-03] MEDS: solu-MEDROL 60 MG, Sterile H2O 10 ml 2 ML IV SCH ×4 (00:10→06:19)
[2022-11-03] MEDS: Compazine 10 MG/2 ML IV PRN (03:19)
[2022-11-03] MEDS: Ativan 2 MG/1 ML VIAL IV PRN (03:19)
[2022-11-03] MEDS: FLAGYL 500 MG IVPB 500 MG/100 ML BAG IV SCH (06:19)
[2022-11-03 08:00] VITALS: BP 114/71; PULSE 62; O2SAT 97
--- NOTE | 2022-11-03 09:14 | PCM.DS ---
Discharge Summary Date of Admission: 10/30/22 17:45 Admitting Physician: PEGGY FAIR Primary Care Provider: BOY EMMANUEL Allergies Allergies No Known Drug Allergies Allergy (Verified 10/30/22 08:12) Hospital Summary - Hospital Course Hospital Course: patient admitted with abd pain, crohn's flare, doing much better and tolerating po, minimal pain. - Vitals & Intake/Output Vital Signs: Vital Signs Temperature 99.0 F 11/03/22 07:59 Pulse Rate 62 11/03/22 07:59 Respiratory Rate 18 11/03/22 07:59 Blood Pressure 114/71 11/03/22 07:59 O2 Sat by Pulse Oximetry 97 11/03/22 07:59 Intake & Output: Intake & Output 10/31/22 11/01/22 11/02/22 11/03/22 11:59 11:59 11:59 11:59 Intake Total 2201 6877 4718 1160 Output Total 1 Balance 2200 6877 4718 1160 Weight 93.5 kg 93.5 kg - Lab Result Diagrams: 11/02/22 04:20 11/02/22 04:20 - Radiology Exams Ordered Rad Exams-Entire Visit: Radiology Procedures Category Date Time Status ABDOMEN AND PELVIS W/0 CONTRAS [CT] Routine Exams 11/02/22 05:07 Completed - Procedures and Test Procedures and Tests throughout Hospitalization: Therapy Orders & Screens 10/30/22 18:30 Oxygen Nasal Cannula 2 lpm Comment: Diagnosis: c/o severe abdominal pain for 1 day Discharge Exam General Appearance: no apparent distress Neurologic Exam: alert, oriented x 3 Respiratory Exam: normal breath sounds, lungs clear, No respiratory distress Cardiovascular Exam: regular rate/rhythm, normal heart sounds Gastrointestinal/Abdomen Exam: soft, No tenderness, No distention, No rebound Extremity Exam: normal inspection, normal range of motion Skin Exam: normal color, warm, dry Final Diagnosis/Problem List - Final Discharge Diagnosis/Problem (1) Exacerbation of Crohn's disease of large intestine Current Visit: Yes Status: Acute Assessment & Plan: home on po levaquin and flagyl, norco prn and prednisone ordered. Code(s): K50.10 - CROHN'S DISEASE OF LARGE INTESTINE WITHOUT COMPLICATIONS (2) Intractable nausea and vomiting Current Visit: Yes Status: Resolved Code(s): R11.2 - NAUSEA WITH VOMITING, UNSPECIFIED - Discharge Disposition: Home, Self-Care Condition: Stable Prescriptions: New Prochlorperazine Maleate 5 mg* [Compazine 5 MG] 5 mg PO Q6H #28 tablet Lactobacillus Acidophilus [Acidophilus TABLET] 1 tab PO TID #30 tablet Prednisone 20 mg [Deltasone 20 mg] 20 mg PO DAILY #17 tablet Metronidazole 500 mg [Flagyl 500 MG] 500 mg PO TID #15 tablet Levofloxacin [Levofloxacin 500 MG Tablet] 500 mg PO DAILY 5 Days #5 tablet Famotidine 20 mg [Pepcid 20 MG] 20 mg PO BID #60 tablet Hydrocodone/Acetaminophen [Hydrocodone-Acetamin 5-325 mg] 1 tab PO Q6HPRN PRN #20 tablet MDD 4 PRN Reason: Pain Continue Omeprazole 20 MG [Prilosec 20 mg] 20 mg PO DAILY Ascorbic Acid 500 mg [Vitamin C 500 MG] 500 mg PO DAILY Loratadine 10 mg [Claritin 10 mg] 10 mg PO DAILY Mesalamine [Apriso] 1.5 gm PO DAILY Venlafaxine HCl ER 37.5 mg [Effexor ER 37.5 MG] 75 mg PO DAILY Tramadol HCl 50 mg [Ultram 50 mg] 50 mg PO Q6H PRN PRN #28 tablet PRN Reason: Pain Follow up with: BOY EMMANUEL MD [Primary Care Provider] -
== END 2022-11-03 09:44 | disposition home or self-care (01) | DRG 386 ==
LOC: ED 08:11 → MED SURG 17:38 → OBSVTOIN 17:45 → MED SURG 17:47
PROVIDERS: ADMIT General Practice; ATTEND Family Medicine
DX: K50.10 Crohn's disease of large intestine without complications (principal); K57.92 Diverticulitis of intestine, part unspecified, without perforation or abscess without bleeding; R11.2 Nausea with vomiting, unspecified; K21.9 Gastro-esophageal reflux disease without esophagitis; Z79.899 Other long term (current) drug therapy; Z20.828 Contact with and (suspected) exposure to other viral communicable diseases
CPT/HCPCS: 0241U; 36000; 36415; 74176; 80053; 82150; 83690; 83735; 85025; 94760; 94762; 96360; 96374; 96375; 99285; J1170; J1956; J2060; J2405; J2550; J2930; A9270-GY

== ENCOUNTER 2022-12-27 19:31 | Inpatient (IN) | payer OTHER ==
[2022-12-27] MEDS ORDERED: SUBLIMAZE 100 MCG/2 ML IV ONE (19:48)
[2022-12-27] MEDS ORDERED: Sodium Chloride 0.9% 1000 ML 1,000 ML IV STA (19:48)
[2022-12-27] MEDS ORDERED: Zofran 4 MG/2 ML VIAL IV ONE (19:48)
[2022-12-27] MEDS ORDERED: Zofran 4 MG/2 ML VIAL ONE (19:56)
[2022-12-27] MEDS ORDERED: Sodium Chloride 0.9% 1000 ML 1,000 ML ONE (19:56)
[2022-12-27] MEDS ORDERED: SUBLIMAZE 100 MCG/2 ML ONE (19:56)
[2022-12-27 20:03] LABS: Absolute Neutrophil Ct (ANC) 9.82 x10^3/uL (1.4-6.9); BASOPHIL % 0.2 % (0.0-0.4); Basophil (Absolute #) 0.03 x10^3/uL (0-0.4); Eosinophil (Absolute #) 0.12 x10^3/uL (0-0.5); Hematocrit 41.3 % (42-50); Hemoglobin 14.1 g/dL (12.5-18.0); IMMATURE GRAN # 0.03 x10^3u/L (0.00-0.03); IMMATURE GRAN % 0.2 % (0.00-0.4); Lymphocyte (Absolute #) 1.16 x10^3/uL (1.0-4.6); Lymphocytes % 9.5 % (24.0-44.0); Mean Cell Volume 90.2 fL (78-100); Mean Corpuscular Hemoglobin 30.8 pg (26-32); Mean Corpuscular Hgb Concent. 34.1 g/dL (32-36); Mean Platelet Volume 9.6 fL (7.5-11.0); Monocyte (Absolute #) 1.09 x10^3/uL (0.0-1.3); Monocytes % 8.9 % (0.0-12.0); Neutrophil % 80.2 % (36.0-66.0); Platelet Count 290 x10^3/uL (150-450); Red Blood Count 4.58 x10^6/uL (4.1-5.6); Red Cell Distribution Width 12.1 % (11.5-14.0); White Blood Count 12.3 x10^3/uL (4.0-10.5)
[2022-12-27 20:17] LABS: ALKALINE PHOSPHATASE 47 U/L (38-126); AMYLASE 81 U/L (30-110); BLOOD UREA NITROGEN 16 mg/dL (9-20); CHLORIDE 103 mmol/L (98-107); Calcium 9.4 mg/dL (8.4-10.2); Carbon Dioxide 19 mmol/L (22-30); Creatinine 1 0.62 mg/dL (0.66-1.25); EST GLOMERULAR FILTRATION RATE > 60.0 ML/MIN; Glucose 85 mg/dL (74-106); LIPASE 97 U/L (23-300); Potassium 4.5 mmol/L (3.5-5.1); SGOT/AST 33 U/L (17-59); SGPT/ALT 45 U/L (0-50); SODIUM 133 mmol/L (137-145); Total Protein 7.5 g/dL (6.3-8.2)
[2022-12-27] MEDS ORDERED: Hydromorphone 1 mg/ml Injection IV ONE ×2 (20:27→22:34)
[2022-12-27] MEDS ORDERED: Hydromorphone 1 mg/ml Injection ONE ×2 (20:47→22:49)
--- NOTE | 2022-12-27 21:42 | ERPHSYRPT ---
- History of Present Illness Historian: patient Exam Limitations: no limitations Patient Subjective Stated Complaint: abd pain, nausea, vomiting , diarrhea, and felt like I was gonna pass out. 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 Pt has had diarrhea 4-5 times today and has taken imodium. Pt has vomited several times as well, took 1 zofran at 1925. Pt c/o abd pain all over and some low back pain. Abd soft with active bs x4 quad, tender on palpation. Physician History: 37 yo wm w h/o Crohn's ds presents w LUQ/LLQ abdominal pain since 1400 today. Pt has had N/V/D wo hematemesis/melena/hematochezia. Pain is a 9 and nothing makes it better or worse. Chest pain/dyspnea/fever/dysuria/hematuria are all denied. Timing/Duration: today (1400) Activities at Onset: other (Started while at work ) Quality: sharpness, stabbing Abdominal Pain Onset Location: LUQ, LLQ Pain Radiation: no radiation Modifying Factors: Improves With: nothing Associated Symptoms: diarrhea, nausea, vomiting Previous symptoms: same symptoms as today Allergies/Adverse Reactions: No Known Drug Allergies Allergy (Verified 12/27/22 19:40) Home Medications: Omeprazole 20 MG [Prilosec 20 mg] 20 mg PO DAILY 12/02/13 [History] Ascorbic Acid 500 mg [Vitamin C 500 MG] 500 mg PO DAILY 08/04/15 [History] Loratadine 10 mg [Claritin 10 mg] 10 mg PO DAILY 01/15/17 [History] Mesalamine [Apriso] 1.5 gm PO DAILY 09/18/19 [History] Venlafaxine HCl ER 37.5 mg [Effexor ER 37.5 MG] 75 mg PO DAILY 01/21/22 [History] Hx Tetanus, Diphtheria Vaccination/Date Given: Yes Hx Influenza Vaccination/Date Given: Yes Hx Pneumococcal Vaccination/Date Given: No Immunizations Up to Date: Yes Travel Risk - International Travel Have you traveled outside of the country in past 3 weeks: No - Coronavirus Screening Are you exhibiting any of the following symptoms?: Yes Symptoms: Vomiting/Diarrhea Close contact with a COVID-19 positive Pt in past 14-21 Days: No - Vaccine Status Have you recieved a Covid-19 vaccination: Yes 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 - Review of Systems Constitutional: No Symptoms Eyes: No Symptoms Ears, Nose, & Throat: No Symptoms Respiratory: No Symptoms Cardiac: No Symptoms Abdominal/Gastrointestinal: Abdominal Pain, Nausea, Vomiting, Diarrhea Genitourinary Symptoms: No Symptoms Musculoskeletal: No Symptoms Skin: No Symptoms Neurological: No Symptoms Psychological: No Symptoms Endocrine: No Symptoms Hematologic/Lymphatic: No Symptoms Immunological/Allergic: No Symptoms - Past Medical History Pertinent Past Medical History: Yes Neurological History: No Pertinent History ENT History: No Pertinent History Cardiac History: No Pertinent History Respiratory History: No Pertinent History Endocrine Medical History: Other Musculoskeletal History: No Pertinent History GI Medical History: Crohns Disease, Diverticulitis, GERD, Pancreatitis History: No Pertinent History Psycho-Social History: Depression Male Reproductive Disorders: No Pertinent History Other Medical History: FATTY LIVER, ACID REFLUX, CROHNS. - Past Surgical History Past Surgical History: Yes Neuro Surgical History: No Pertinent History Cardiac: No Pertinent History Respiratory: No Pertinent History Gastrointestinal: Appendectomy, Cholecystectomy Genitourinary: No Pertinent History Musculoskeletal: No Pertinent History Male Surgical History: Vasectomy Other Surgical History: ERCP, RECONSTRUCTIVE SURGERY TO RT SHOULDER, PREVIOUS ALCOHOLIC - Social History Smoking Status: Former smoker Exposure to second hand smoke: No Drug Use: none Patient Lives Alone: Yes - Nursing Vital Signs Nursing Vital Signs: Initial Vital Signs Temperature 97.4 F 12/27/22 19:32 Pulse Rate 85 12/27/22 19:32 Respiratory Rate 18 12/27/22 19:32 Blood Pressure 120/74 12/27/22 19:32 O2 Sat by Pulse Oximetry 100 12/27/22 19:32 Pain Scale Pain Intensity 6 WNL - Physical Exam General Appearance: mild distress Eye Exam: PERRL/EOMI, eyes nml inspection Ears, Nose, Throat Exam: normal ENT inspection, TMs normal, pharynx normal, moist mucous membranes Neck Exam: normal inspection, non-tender, supple, full range of motion, No meningismus, No mass, No Brudzinski, No Kernig's Respiratory Exam: normal breath sounds, lungs clear, airway intact, No respiratory distress Cardiovascular Exam: regular rate/rhythm, normal heart sounds, normal peripheral pulses, capillary refill <2 sec, No murmur Gastrointestinal/Abdomen Exam: normal bowel sounds, tenderness (Mod TTP LUQ=LLQ) Extremity Exam: normal inspection, normal range of motion Neurologic Exam: alert, oriented x 3, cooperative, 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 nml as tested, normal mood/affect, nml cerebellar function, nml station & gait, sensation nml Skin Exam: normal color, warm, dry, No rash Lymphatic Exam: No adenopathy SpO2 Interpretation: normal SpO2: 97 O2 Delivery: Room Air - Course Nursing assessment & vital signs reviewed: Yes - CT Exams Abdomen/Pelvis CT Interpretation: Tele-radiologist Report (CT ab-pelvis w IV Contrast-Small bowel enteritis) Ordered Tests: Active Orders 24 hr Category Date Time Status IV Insertion STAT Care 12/27/22 19:48 Active ABDOMEN AND PELVIS W CONTRAST [CT] Stat Exams 12/27/22 21:35 Taken AMYLASE Stat Lab 12/27/22 19:50 Completed CBC W DIFF Stat Lab 12/27/22 19:50 Completed CMP Stat Lab 12/27/22 19:50 Completed LIPASE Stat Lab 12/27/22 19:50 Completed UA W/RFX UR CULTURE Stat Lab 12/27/22 19:49 Ordered Medication Summary Discontinued Medications Generic Name Dose Route Start Last Admin Trade Name Freq PRN Reason Stop Dose Admin Droperidol 1.25 mg 12/27/22 21:36 12/27/22 21:51 Droperidol 5 Mg/2 Ml Vial IV 12/27/22 21:37 1.25 mg STAT ONE Administration Droperidol Confirm 12/27/22 21:49 Droperidol 5 Mg/2 Ml Vial Administered 12/27/22 21:50 Dose 5 mg .ROUTE .STK-MED ONE Fentanyl Citrate 50 mcg 12/27/22 19:48 12/27/22 19:59 Fentanyl Citrate 100 Mcg/2 Ml* Vial IV 12/27/22 19:49 50 mcg STAT ONE Administration Fentanyl Citrate Confirm 12/27/22 19:56 Fentanyl Citrate 100 Mcg/2 Ml* Vial Administered 12/27/22 19:57 Dose 100 mcg .ROUTE .STK-MED ONE Hydromorphone HCl 1 mg 12/27/22 20:27 12/27/22 20:48 Hydromorphone 1 Mg/1ml Inj 1 Mg/Ml Syringe IV 12/27/22 20:28 1 mg STAT ONE Administration Hydromorphone HCl Confirm 12/27/22 20:47 Hydromorphone 1 Mg/1ml Inj 1 Mg/Ml Syringe Administered 12/27/22 20:48 Dose 1 mg .ROUTE .STK-MED ONE Hydromorphone HCl 1 mg 12/27/22 22:34 Hydromorphone 1 Mg/1ml Inj 1 Mg/Ml Syringe IV 12/27/22 22:35 STAT ONE Sodium Chloride 1,000 mls @ 999 mls/hr 12/27/22 19:48 12/27/22 19:59 Sodium Chloride 0.9% 1000 Ml IV 12/27/22 20:48 999 mls/hr .Q1H1M STA Administration Sodium Chloride Confirm 12/27/22 19:56 Sodium Chloride 0.9% 1000 Ml Administered 12/27/22 19:57 Dose 1,000 mls @ ud .ROUTE .STK-MED ONE Ondansetron HCl 4 mg 12/27/22 19:48 12/27/22 19:59 Ondansetron Hcl 4 Mg/2 Ml Vial IV 12/27/22 19:49 4 mg STAT ONE Administration Ondansetron HCl Confirm 12/27/22 19:56 Ondansetron Hcl 4 Mg/2 Ml Vial Administered 12/27/22 19:57 Dose 4 mg .ROUTE .STK-MED ONE Lab/Rad Data: Laboratory Result Diagrams 12/27/22 19:50 12/27/22 19:50 Laboratory Results 12/27/22 12/27/22 Range/Units 19:50 19:50 WBC 12.3 H (4.0-10.5) x10^3/uL RBC 4.58 (4.1-5.6) x10^6/uL Hgb 14.1 (12.5-18.0) g/dL Hct 41.3 L (42-50) % MCV 90.2 (78-100) fL MCH 30.8 (26-32) pg MCHC 34.1 (32-36) g/dL RDW 12.1 (11.5-14.0) % Plt Count 290 (150-450) x10^3/uL MPV 9.6 (7.5-11.0) fL Gran % 80.2 H (36.0-66.0) % Immature Gran % (Auto) 0.2 (0.00-0.4) % Nucleat RBC Rel Count 0.0 (0.00-0.1) % Eos # (Auto) 0.12 (0-0.5) x10^3/uL Immature Gran # (Auto) 0.03 (0.00-0.03) x10^3u/L Absolute Lymphs (auto) 1.16 (1.0-4.6) x10^3/uL Absolute Monos (auto) 1.09 (0.0-1.3) x10^3/uL Absolute Nucleated RBC 0.00 (0.00-0.01) x10^3u/L Lymphocytes % 9.5 L (24.0-44.0) % Monocytes % 8.9 (0.0-12.0) % Eosinophils % 1.0 (0.00-5.0) % Basophils % 0.2 (0.0-0.4) % Absolute Granulocytes 9.82 H (1.4-6.9) x10^3/uL Basophils # 0.03 (0-0.4) x10^3/uL Sodium 133 L (137-145) mmol/L Potassium 4.5 (3.5-5.1) mmol/L Chloride 103 (98-107) mmol/L Carbon Dioxide 19 L (22-30) mmol/L Anion Gap 15.0 (5-15) MEQ/L BUN 16 (9-20) mg/dL Creatinine 0.62 L (0.66-1.25) mg/dL Estimated GFR > 60.0 ML/MIN Glucose 85 (74-106) mg/dL Calcium 9.4 (8.4-10.2) mg/dL Total Bilirubin 0.60 (0.2-1.3) mg/dL AST 33 (17-59) U/L ALT 45 (0-50) U/L Alkaline Phosphatase 47 (38-126) U/L Serum Total Protein 7.5 (6.3-8.2) g/dL Albumin 5.0 (3.5-5.0) g/dL Amylase 81 (30-110) U/L Lipase 97 (23-300) U/L - Progress Progress Note: 12/27/22 21:43 Nursing note and vital signs reviewed All labs and Ct results reviewed No food or housing insecurities noted 1L NS bolus/50mcg IV fentanyl/1mg IV Zofran wo improvement in pain 1mg IV dilaudid wo improvement in pain Obs per Dr. Walker Observation orders entered 12/27/22 22:52 12/27/22 22:57 Counseled pt/family regarding: lab results, diagnosis, need for follow-up, rad results - Departure Departure Disposition: Observation Clinical Impression: Regional enteritis of small bowel Condition: Stable Critical Care Time: No Referrals: BOY EMMANUEL MD [Primary Care Provider] - Follow up/PCP as directed
[2022-12-27] MEDS: FLAGYL 500 MG IVPB 500 MG/100 ML BAG IV SCH (23:53)
[2022-12-27] MEDS: Sodium Chloride 0.9% 1000 ML 1,000 ML IV SCH (23:54)
[2022-12-28 00:26] LABS: INFLUENZA A NEGATIVE (NEGATIVE); INFLUENZA B NEGATIVE (NEGATIVE); RESPIRATORY SYNCTIAL VIRUS NEGATIVE (Negative); SARS-CoV-2 Xpert Express NEGATIVE (NEGATIVE)
[2022-12-28] MEDS: Hydromorphone 1 mg/ml Injection IV PRN ×2 (03:20→07:38)
[2022-12-28] MEDS: Zofran 4 MG/2 ML VIAL IV PRN ×2 (03:21→10:00)
[2022-12-28 03:25] LABS: Appearance Clear (Clear); Bacteria None Seen /HPF (None Seen); Bilirubin Negative (Negative); Blood Negative (Negative); Epithelial Cells None Seen /HPF (None Seen); Glucose, Urine Negative (Negative); Hyaline Casts NONE SEEN /LPF (0-2); Ketones 40 (Negative); Leukocyte Esterase Negative (Negative); Nitrite Negative (Negative); Ph 5.5 (4.6-8.0); Protein,Urine Dip Negative (Negative); RBC 0-2 /HPF (0-5); Specific Gravity >=1.030 (1.005-1.030); Urobilinogen 0.2 mg/dL (0.2)
[2022-12-28 03:30] LABS: ADD URINE CULTURE? NO (NO)
[2022-12-28 05:08] LABS: Absolute Neutrophil Ct (ANC) 6.11 x10^3/uL (1.4-6.9); BASOPHIL % 0.1 % (0.0-0.4); Basophil (Absolute #) 0.01 x10^3/uL (0-0.4); Eosinophil % 0.7 % (0.00-5.0); Eosinophil (Absolute #) 0.05 x10^3/uL (0-0.5); Hematocrit 39.4 % (42-50); Hemoglobin 13.1 g/dL (12.5-18.0); IMMATURE GRAN # 0.02 x10^3u/L (0.00-0.03); IMMATURE GRAN % 0.3 % (0.00-0.4); Lymphocyte (Absolute #) 0.47 x10^3/uL (1.0-4.6); Lymphocytes % 6.6 % (24.0-44.0); Mean Cell Volume 92.3 fL (78-100); Mean Corpuscular Hemoglobin 30.7 pg (26-32); Mean Corpuscular Hgb Concent. 33.2 g/dL (32-36); Mean Platelet Volume 9.4 fL (7.5-11.0); Monocyte (Absolute #) 0.46 x10^3/uL (0.0-1.3); Monocytes % 6.5 % (0.0-12.0); Neutrophil % 85.8 % (36.0-66.0); Platelet Count 221 x10^3/uL (150-450); Red Blood Count 4.27 x10^6/uL (4.1-5.6); Red Cell Distribution Width 12.1 % (11.5-14.0); White Blood Count 7.1 x10^3/uL (4.0-10.5)
[2022-12-28 05:34] LABS: ALKALINE PHOSPHATASE 44 U/L (38-126); ANION GAP 8.1 MEQ/L (5-15); BLOOD UREA NITROGEN 12 mg/dL (9-20); CHLORIDE 105 mmol/L (98-107); Calcium 7.9 mg/dL (8.4-10.2); Carbon Dioxide 24 mmol/L (22-30); Creatinine 1 0.52 mg/dL (0.66-1.25); EST GLOMERULAR FILTRATION RATE > 60.0 ML/MIN; Glucose 96 mg/dL (74-106); SGOT/AST 23 U/L (17-59); SGPT/ALT 36 U/L (0-50); SODIUM 133 mmol/L (137-145); Total Protein 6.4 g/dL (6.3-8.2)
[2022-12-28 05:39] LABS: Slide Review 1 YES
[2022-12-28] MEDS: FLAGYL 500 MG IVPB 500 MG/100 ML BAG IV SCH ×4 (05:48→23:13)
[2022-12-28] MEDS: Sodium Chloride 0.9% 1000 ML 1,000 ML IV SCH ×2 (05:48→17:28)
--- NOTE | 2022-12-28 08:53 | XRAY ---
Indication: Abdomen pain, nausea, vomiting, diarrhea. History Crohn's disease. Multiple contiguous axial images obtained through the abdomen and pelvis using 80 cc Isovue 370 contrast. Comparison: November 02, 2022 Lung bases again demonstrates minimal subsegmental atelectasis/scarring. No infiltrate or effusion. Heart not enlarged. Noncontrasted stomach and bowel loops nonobstructed. New mild fluid distended small and large bowel loops with fluid leveling favoring ileus versus enterocolitis. Again appendectomy and cholecystectomy. No free fluid/air. Remaining liver, pancreas, spleen, adrenal glands, kidneys, ureters, bladder, and aorta are normal in CT appearance and attenuation. Osseous structures intact. Impression: New mild fluid distended small and large bowel loops with fluid leveling, ileus versus enterocolitis. Comment: Preliminary interpretation made by [facility]. No critical discrepancy.
[2022-12-28] MEDS ORDERED: HYDROMORPHONE 30 MG/30 ML-NS PCA IV PRN (09:44)
--- NOTE | 2022-12-28 09:47 | PCM.HP ---
History of Present Illness - Chief Complaint Chief Complaint: Small Bowel Enteritis History of Present Illness: is a 37 year old male with a known history of crohn's disease, he presented with severe abdominal pain, vomiting and diarrhea to the ER yesterday. His symptoms are consistent with a typical flare of crohn's for him, he has been having increased frequency of exacerbations. - Review of Systems Constitutional: No Symptoms Respiratory: No Cough, No Short Of Breath Cardiac: No Chest Pain, No Edema, No Syncope Abdominal/Gastrointestinal: Abdominal Pain, Nausea, Vomiting, Diarrhea Skin: No Rash All Other Systems: Reviewed and Negative Medications & Allergies Home Medications: Home Medication List Omeprazole 20 MG [Prilosec 20 mg] 20 mg PO DAILY 12/02/13 [History Confirmed 12/27/22] Ascorbic Acid 500 mg [Vitamin C 500 MG] 500 mg PO DAILY 08/04/15 [History Confirmed 12/27/22] Loratadine 10 mg [Claritin 10 mg] 10 mg PO DAILY 01/15/17 [History Confirmed 12/27/22] Mesalamine [Apriso] 1.5 gm PO DAILY 09/18/19 [History Confirmed 12/27/22] Venlafaxine HCl ER 37.5 mg [Effexor ER 37.5 MG] 75 mg PO DAILY 01/21/22 [History Confirmed 12/27/22] Prochlorperazine Maleate 5 mg* [Compazine 5 MG] 5 mg PO Q6H #28 tablet 10/30/22 [Rx Confirmed 12/27/22] Allergies/Adverse Reactions: Allergies Allergy/AdvReac Type Severity Reaction Status Date / Time No Known Drug Allergies Allergy Verified 12/27/22 19:40 - Past Medical History Past Medical History: Yes Neurological History: No Pertinent History ENT History: No Pertinent History Cardiac History: No Pertinent History Respiratory History: No Pertinent History Endocrine Medical History: No Pertinent History Musculoskelatal History: No Pertinent History GI Medical History: Crohns Disease, Diverticulitis, GERD, Pancreatitis History: No Pertinent History Pyscho-Social History: Depression Male Reproductive Disorders: No Pertinent History Comment: Fatty Liver; Former Alcoholic - Past Surgical History Past Surgical History: Yes Neuro Surgical History: No Pertinent History Cardiac History: No Pertinent History Respiratory Surgery: No Pertinent History GI Surgical History: Appendectomy, Cholecystectomy Genitourinary Surgical Hx: No Pertinent History Musculskeletal Surgical Hx: No Pertinent History Male Surgical History: Vasectomy Other Surgical History: ERCP; Right Shoulder Reconstructive Surgery - Social History Smoking Status: Never smoker Exposure to second hand smoke: No Alcohol: None Drug Use: none - Physical Exam Vital Signs: Vital Signs - 24 hr Temp Pulse Resp BP Pulse Ox 12/28/22 07:00 97.5 F 88 16 120/75 97 12/28/22 04:00 97.3 F 80 16 120/65 95 12/28/22 00:58 97.5 F 85 16 118/71 96 12/28/22 00:13 83 16 120/71 96 12/27/22 22:58 97 12/27/22 22:54 86 16 103/63 97 12/27/22 22:00 96 H 20 113/72 97 12/27/22 21:00 86 18 120/76 97 12/27/22 20:00 82 18 118/77 99 12/27/22 19:32 97.4 F 85 18 120/74 100 General Appearance: mild distress Neurologic Exam: alert, oriented x 3, cooperative Respiratory Exam: normal breath sounds, lungs clear, No respiratory distress Cardiovascular Exam: regular rate/rhythm, normal heart sounds, normal peripheral pulses Gastrointestinal/Abdomen Exam: tenderness (LLQ), No guarding, No rebound Skin Exam: normal color, warm, dry, No rash Results - Labs Lab/Micro Results: Lab Results-Last 24 Hours 12/27/22 12/27/22 12/27/22 Range/Units 19:50 19:50 23:45 WBC 12.3 H (4.0-10.5) x10^3/uL RBC 4.58 (4.1-5.6) x10^6/uL Hgb 14.1 (12.5-18.0) g/dL Hct 41.3 L (42-50) % MCV 90.2 (78-100) fL MCH 30.8 (26-32) pg MCHC 34.1 (32-36) g/dL RDW 12.1 (11.5-14.0) % Plt Count 290 (150-450) x10^3/uL MPV 9.6 (7.5-11.0) fL Gran % 80.2 H (36.0-66.0) % Immature Gran % (Auto) 0.2 (0.00-0.4) % Nucleat RBC Rel Count 0.0 (0.00-0.1) % Eos # (Auto) 0.12 (0-0.5) x10^3/uL Immature Gran # (Auto) 0.03 (0.00-0.03) x10^3u/L Absolute Lymphs (auto) 1.16 (1.0-4.6) x10^3/uL Absolute Monos (auto) 1.09 (0.0-1.3) x10^3/uL Absolute Nucleated RBC 0.00 (0.00-0.01) x10^3u/L Lymphocytes % 9.5 L (24.0-44.0) % Monocytes % 8.9 (0.0-12.0) % Eosinophils % 1.0 (0.00-5.0) % Basophils % 0.2 (0.0-0.4) % Absolute Granulocytes 9.82 H (1.4-6.9) x10^3/uL Basophils # 0.03 (0-0.4) x10^3/uL Sodium 133 L (137-145) mmol/L Potassium 4.5 (3.5-5.1) mmol/L Chloride 103 (98-107) mmol/L Carbon Dioxide 19 L (22-30) mmol/L Anion Gap 15.0 (5-15) MEQ/L BUN 16 (9-20) mg/dL Creatinine 0.62 L (0.66-1.25) mg/dL Estimated GFR > 60.0 ML/MIN Glucose 85 (74-106) mg/dL Calcium 9.4 (8.4-10.2) mg/dL Total Bilirubin 0.60 (0.2-1.3) mg/dL AST 33 (17-59) U/L ALT 45 (0-50) U/L Alkaline Phosphatase 47 (38-126) U/L Serum Total Protein 7.5 (6.3-8.2) g/dL Albumin 5.0 (3.5-5.0) g/dL Amylase 81 (30-110) U/L Lipase 97 (23-300) U/L Urine Color (Yellow) Urine Appearance (Clear) Urine pH (4.6-8.0) Ur Specific [place] (1.005-1.030) Urine Protein (Negative) Urine Glucose (UA) (Negative) mg/dL Urine Ketones (Negative) Urine Blood (Negative) Urine Nitrite (Negative) Urine Bilirubin (Negative) Urine Urobilinogen (0.2) mg/dL Ur Leukocyte Esterase (Negative) U Hyaline Cast (Auto) (0-2) /LPF Urine Microscopic RBC (0-5) /HPF Urine Microscopic WBC (0-5) /HPF Ur Epithelial Cells (None Seen) /HPF Urine Bacteria (None Seen) /HPF Urine Culture Reflexed (NO) Influenza Type A Ag NEGATIVE (NEGATIVE) Influenza Type B Ag NEGATIVE (NEGATIVE) RSV (PCR) NEGATIVE (Negative) SARS-CoV-2 (PCR) NEGATIVE (NEGATIVE) Slides for Path Review 12/28/22 12/28/22 12/28/22 Range/Units 03:13 04:29 04:29 WBC 7.1 (4.0-10.5) x10^3/uL RBC 4.27 (4.1-5.6) x10^6/uL Hgb 13.1 (12.5-18.0) g/dL Hct 39.4 L (42-50) % MCV 92.3 (78-100) fL MCH 30.7 (26-32) pg MCHC 33.2 (32-36) g/dL RDW 12.1 (11.5-14.0) % Plt Count 221 (150-450) x10^3/uL MPV 9.4 (7.5-11.0) fL Gran % 85.8 H (36.0-66.0) % Immature Gran % (Auto) 0.3 (0.00-0.4) % Nucleat RBC Rel Count 0.0 (0.00-0.1) % Eos # (Auto) 0.05 (0-0.5) x10^3/uL Immature Gran # (Auto) 0.02 (0.00-0.03) x10^3u/L Absolute Lymphs (auto) 0.47 L (1.0-4.6) x10^3/uL Absolute Monos (auto) 0.46 (0.0-1.3) x10^3/uL Absolute Nucleated RBC 0.00 (0.00-0.01) x10^3u/L Lymphocytes % 6.6 L (24.0-44.0) % Monocytes % 6.5 (0.0-12.0) % Eosinophils % 0.7 (0.00-5.0) % Basophils % 0.1 (0.0-0.4) % Absolute Granulocytes 6.11 (1.4-6.9) x10^3/uL Basophils # 0.01 (0-0.4) x10^3/uL Sodium 133 L (137-145) mmol/L Potassium 4.0 (3.5-5.1) mmol/L Chloride 105 (98-107) mmol/L Carbon Dioxide 24 (22-30) mmol/L Anion Gap 8.1 (5-15) MEQ/L BUN 12 (9-20) mg/dL Creatinine 0.52 L (0.66-1.25) mg/dL Estimated GFR > 60.0 ML/MIN Glucose 96 (74-106) mg/dL Calcium 7.9 L D (8.4-10.2) mg/dL Total Bilirubin 0.90 (0.2-1.3) mg/dL AST 23 (17-59) U/L ALT 36 (0-50) U/L Alkaline Phosphatase 44 (38-126) U/L Serum Total Protein 6.4 (6.3-8.2) g/dL Albumin 4.0 (3.5-5.0) g/dL Amylase (30-110) U/L Lipase (23-300) U/L Urine Color Yellow (Yellow) Urine Appearance Clear (Clear) Urine pH 5.5 (4.6-8.0) Ur Specific [place] >=1.030 A (1.005-1.030) Urine Protein Negative (Negative) Urine Glucose (UA) Negative (Negative) mg/dL Urine Ketones 40 A (Negative) Urine Blood Negative (Negative) Urine Nitrite Negative (Negative) Urine Bilirubin Negative (Negative) Urine Urobilinogen 0.2 (0.2) mg/dL Ur Leukocyte Esterase Negative (Negative) U Hyaline Cast (Auto) NONE SEEN (0-2) /LPF Urine Microscopic RBC 0-2 (0-5) /HPF Urine Microscopic WBC 3-5 (0-5) /HPF Ur Epithelial Cells None Seen (None Seen) /HPF Urine Bacteria None Seen (None Seen) /HPF Urine Culture Reflexed NO (NO) Influenza Type A Ag (NEGATIVE) Influenza Type B Ag (NEGATIVE) RSV (PCR) (Negative) SARS-CoV-2 (PCR) (NEGATIVE) Slides for Path Review YES - Radiology Impressions Radiology Exams & Impressions: Radiology Procedures Category Date Time Status ABDOMEN AND PELVIS W CONTRAST [CT] Stat Exams 12/27/22 21:35 Completed Assessment/Plan (1) Exacerbation of Crohn's disease of large intestine Current Visit: No Status: Acute Assessment & Plan: continue IV steroids, levaquin/flagyl and fluids. 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 Code(s): K50.10 - CROHN'S DISEASE OF LARGE INTESTINE WITHOUT COMPLICATIONS
[2022-12-28] MEDS ORDERED: HYDROMORPHONE 30 MG/30 ML-NS PCA IV ONE (10:15)
[2022-12-28] MEDS: PROTONIX 40 MG IV IV SCH (11:21)
[2022-12-28] MEDS: Levofloxacin 500MG/100ML D5W 500 MG/100 ML BAG IV SCH (11:22)
[2022-12-28] MEDS: Compazine 10 MG/2 ML IV PRN ×2 (15:51→23:13)
[2022-12-28] MEDS: Effexor XR 75 MG PO SCH (15:58)
[2022-12-28] MEDS: CLARITIN 10 MG PO SCH (15:58)
[2022-12-28] MEDS ORDERED: Compazine 5 MG PO SCH (18:00)
[2022-12-29] MEDS: Sodium Chloride 0.9% 1000 ML 1,000 ML IV SCH ×3 (01:28→20:02)
[2022-12-29 05:33] LABS: Absolute Neutrophil Ct (ANC) 2.77 x10^3/uL (1.4-6.9); BASOPHIL % 0.2 % (0.0-0.4); Basophil (Absolute #) 0.01 x10^3/uL (0-0.4); Eosinophil % 1.6 % (0.00-5.0); Eosinophil (Absolute #) 0.07 x10^3/uL (0-0.5); Hematocrit 35.7 % (42-50); Hemoglobin 11.9 g/dL (12.5-18.0); IMMATURE GRAN # 0.01 x10^3u/L (0.00-0.03); IMMATURE GRAN % 0.2 % (0.00-0.4); Lymphocyte (Absolute #) 0.95 x10^3/uL (1.0-4.6); Lymphocytes % 21.5 % (24.0-44.0); Mean Cell Volume 93.2 fL (78-100); Mean Corpuscular Hemoglobin 31.1 pg (26-32); Mean Corpuscular Hgb Concent. 33.3 g/dL (32-36); Mean Platelet Volume 9.3 fL (7.5-11.0); Monocytes % 13.6 % (0.0-12.0); Neutrophil % 62.9 % (36.0-66.0); Platelet Count 191 x10^3/uL (150-450); Red Blood Count 3.83 x10^6/uL (4.1-5.6); Red Cell Distribution Width 12.3 % (11.5-14.0); White Blood Count 4.4 x10^3/uL (4.0-10.5)
[2022-12-29 05:44] LABS: ALBUMIN 3.5 g/dL (3.5-5.0); ALKALINE PHOSPHATASE 46 U/L (38-126); BLOOD UREA NITROGEN 10 mg/dL (9-20); CHLORIDE 107 mmol/L (98-107); Calcium 7.9 mg/dL (8.4-10.2); Carbon Dioxide 24 mmol/L (22-30); Creatinine 1 0.61 mg/dL (0.66-1.25); EST GLOMERULAR FILTRATION RATE > 60.0 ML/MIN; Glucose 64 mg/dL (74-106); MAGNESIUM 1.7 mg/dL (1.6-2.3); Potassium 3.9 mmol/L (3.5-5.1); SGOT/AST 23 U/L (17-59); SGPT/ALT 31 U/L (0-50); SODIUM 136 mmol/L (137-145); Total Protein 5.8 g/dL (6.3-8.2)
[2022-12-29] MEDS: FLAGYL 500 MG IVPB 500 MG/100 ML BAG IV SCH ×3 (06:28→18:25)
[2022-12-29] MEDS: Compazine 10 MG/2 ML IV PRN ×2 (08:38→22:00)
[2022-12-29] MEDS: CLARITIN 10 MG PO SCH (08:40)
[2022-12-29] MEDS: Levofloxacin 500MG/100ML D5W 500 MG/100 ML BAG IV SCH (08:40)
[2022-12-29] MEDS: Effexor XR 75 MG PO SCH (08:40)
[2022-12-29] MEDS: PROTONIX 40 MG IV IV SCH (08:41)
[2022-12-29] MEDS: PATIENT OWN MEDICATION PO SCH (08:42)
--- NOTE | 2022-12-29 08:57 | PCM.NOTE ---
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 no vomiting overnight, still has some loose stools but mild Objective Exam General Appearance: no apparent distress Neurologic Exam: alert, oriented x 3 Skin Exam: normal color, warm, dry Respiratory Exam: normal breath sounds, lungs clear, No respiratory distress Cardiovascular Exam: regular rate/rhythm, normal heart sounds Gastrointestinal/Abdomen Exam: tenderness (LLQ improved), No guarding, No rebound Extremity Exam: normal inspection, normal range of motion OBJECTIVE DATA Vital Signs: Vital Signs - 24 hr Temp Pulse Resp BP Pulse Ox 12/29/22 07:45 97.9 F 85 16 138/82 93 L 12/29/22 04:00 97.5 F 68 17 126/77 95 12/28/22 23:54 97.8 F 72 18 116/68 92 L 12/28/22 23:45 18 93 L 12/28/22 20:00 17 95 12/28/22 19:55 97.0 F 90 17 124/80 95 12/28/22 15:59 97.9 F 74 16 108/68 90 L 12/28/22 13:39 94 L 12/28/22 11:27 97.9 F 76 16 126/69 97 Pain Assessment - Last Documented Pain Intensity 5 Pain Scale Used 0-10 Pain Scale Intake and Output: Intake & Output 12/26/22 12/27/22 12/28/22 12/29/22 11:59 11:59 11:59 11:59 Intake Total 500 1857 Balance 500 1857 Weight 95.1 kg 95.1 kg Lab Results: Lab Results-Last 24 Hours 12/29/22 12/29/22 Range/Units 05:05 05:05 WBC 4.4 (4.0-10.5) x10^3/uL RBC 3.83 L (4.1-5.6) x10^6/uL Hgb 11.9 L (12.5-18.0) g/dL Hct 35.7 L (42-50) % MCV 93.2 (78-100) fL MCH 31.1 (26-32) pg MCHC 33.3 (32-36) g/dL RDW 12.3 (11.5-14.0) % Plt Count 191 (150-450) x10^3/uL MPV 9.3 (7.5-11.0) fL Gran % 62.9 (36.0-66.0) % Immature Gran % (Auto) 0.2 (0.00-0.4) % Nucleat RBC Rel Count 0.0 (0.00-0.1) % Eos # (Auto) 0.07 (0-0.5) x10^3/uL Immature Gran # (Auto) 0.01 (0.00-0.03) x10^3u/L Absolute Lymphs (auto) 0.95 L (1.0-4.6) x10^3/uL Absolute Monos (auto) 0.60 (0.0-1.3) x10^3/uL Absolute Nucleated RBC 0.00 (0.00-0.01) x10^3u/L Lymphocytes % 21.5 L (24.0-44.0) % Monocytes % 13.6 H (0.0-12.0) % Eosinophils % 1.6 (0.00-5.0) % Basophils % 0.2 (0.0-0.4) % Absolute Granulocytes 2.77 (1.4-6.9) x10^3/uL Basophils # 0.01 (0-0.4) x10^3/uL Sodium 136 L (137-145) mmol/L Potassium 3.9 (3.5-5.1) mmol/L Chloride 107 (98-107) mmol/L Carbon Dioxide 24 (22-30) mmol/L Anion Gap 9.0 (5-15) MEQ/L BUN 10 (9-20) mg/dL Creatinine 0.61 L (0.66-1.25) mg/dL Estimated GFR > 60.0 ML/MIN Glucose 64 L (74-106) mg/dL Calcium 7.9 L (8.4-10.2) mg/dL Magnesium 1.7 (1.6-2.3) mg/dL Total Bilirubin 0.50 (0.2-1.3) mg/dL AST 23 (17-59) U/L ALT 31 (0-50) U/L Alkaline Phosphatase 46 (38-126) U/L Serum Total Protein 5.8 L (6.3-8.2) g/dL Albumin 3.5 (3.5-5.0) g/dL Radiology Exams: Radiology Procedures Category Date Time Status ABDOMEN AND PELVIS W CONTRAST [CT] Stat Exams 12/27/22 21:35 Completed Assessment/Plan (1) Exacerbation of Crohn's disease of large intestine Current Visit: No Status: Acute Assessment & Plan: continue current management, advance to liquid diet. Code(s): K50.10 - CROHN'S DISEASE OF LARGE INTESTINE WITHOUT COMPLICATIONS
[2022-12-29] MEDS ORDERED: MESALAMINE 0.375 GM PO SCH (10:00)
[2022-12-29] MEDS ORDERED: Effexor ER 37.5 MG PO SCH (10:00)
[2022-12-29] MEDS: Zofran 4 MG/2 ML VIAL IV PRN (17:40)
[2022-12-30] MEDS: FLAGYL 500 MG IVPB 500 MG/100 ML BAG IV SCH ×5 (00:56→23:10)
[2022-12-30] MEDS: Sodium Chloride 0.9% 1000 ML 1,000 ML IV SCH ×3 (04:35→23:15)
[2022-12-30] MEDS: Compazine 10 MG/2 ML IV PRN ×2 (05:22→14:49)
[2022-12-30 05:44] LABS: Absolute Neutrophil Ct (ANC) 2.22 x10^3/uL (1.4-6.9); BASOPHIL % 0.2 % (0.0-0.4); Basophil (Absolute #) 0.01 x10^3/uL (0-0.4); Eosinophil % 2.9 % (0.00-5.0); Eosinophil (Absolute #) 0.12 x10^3/uL (0-0.5); Hematocrit 35.8 % (42-50); Hemoglobin 11.6 g/dL (12.5-18.0); IMMATURE GRAN # 0.01 x10^3u/L (0.00-0.03); IMMATURE GRAN % 0.2 % (0.00-0.4); Lymphocyte (Absolute #) 1.12 x10^3/uL (1.0-4.6); Lymphocytes % 26.8 % (24.0-44.0); Mean Cell Volume 93.5 fL (78-100); Mean Corpuscular Hemoglobin 30.3 pg (26-32); Mean Corpuscular Hgb Concent. 32.4 g/dL (32-36); Monocytes % 16.7 % (0.0-12.0); Neutrophil % 53.2 % (36.0-66.0); Platelet Count 215 x10^3/uL (150-450); Red Blood Count 3.83 x10^6/uL (4.1-5.6); Red Cell Distribution Width 11.9 % (11.5-14.0); White Blood Count 4.2 x10^3/uL (4.0-10.5)
[2022-12-30 05:59] LABS: ALBUMIN 3.5 g/dL (3.5-5.0); ALKALINE PHOSPHATASE 42 U/L (38-126); ANION GAP 7.2 MEQ/L (5-15); BLOOD UREA NITROGEN 5 mg/dL (9-20); CHLORIDE 105 mmol/L (98-107); Calcium 8.3 mg/dL (8.4-10.2); Carbon Dioxide 29 mmol/L (22-30); Creatinine 1 0.62 mg/dL (0.66-1.25); EST GLOMERULAR FILTRATION RATE > 60.0 ML/MIN; Glucose 85 mg/dL (74-106); Potassium 3.8 mmol/L (3.5-5.1); SGOT/AST 22 U/L (17-59); SGPT/ALT 30 U/L (0-50); SODIUM 138 mmol/L (137-145); Total Protein 5.8 g/dL (6.3-8.2)
--- NOTE | 2022-12-30 07:53 | PCM.NOTE ---
Date and Time: 12/30/22 075 Subjective Assessment: patient reports improvement in his pain and clinical condition, tolerating liquids. Objective Exam General Appearance: no apparent distress Neurologic Exam: alert, oriented x 3 Respiratory Exam: normal breath sounds, lungs clear, No respiratory distress Cardiovascular Exam: regular rate/rhythm, normal heart sounds Gastrointestinal/Abdomen Exam: tenderness (much improved), No distention, No mass, No guarding, No rebound Extremity Exam: normal inspection, normal range of motion OBJECTIVE DATA Vital Signs: Vital Signs - 24 hr Temp Pulse Resp BP Pulse Ox 12/30/22 07:20 97.8 F 62 18 134/88 96 12/30/22 07:00 16 94 L 12/30/22 04:00 97.3 F 66 16 134/79 94 L 12/30/22 03:00 18 96 12/30/22 00:00 97.7 F 68 16 127/80 94 L 12/29/22 23:00 16 98 12/29/22 20:00 97.6 F 68 16 137/93 97 12/29/22 18:12 98 12/29/22 15:40 97.7 F 70 16 119/76 93 L 12/29/22 14:12 94 L 12/29/22 11:22 97.9 F 80 16 135/85 93 L Pain Assessment - Last Documented Pain Intensity 5 Pain Scale Used 0-10 Pain Scale Intake and Output: Intake & Output 12/27/22 12/28/22 12/29/22 12/30/22 11:59 11:59 11:59 11:59 Intake Total 500 1857 1999 Balance 500 1857 1999 Weight 95.1 kg 95.1 kg 95.1 kg Lab Results: Lab Results-Last 24 Hours 12/30/22 12/30/22 Range/Units 05:21 05:21 WBC 4.2 (4.0-10.5) x10^3/uL RBC 3.83 L (4.1-5.6) x10^6/uL Hgb 11.6 L (12.5-18.0) g/dL Hct 35.8 L (42-50) % MCV 93.5 (78-100) fL MCH 30.3 (26-32) pg MCHC 32.4 (32-36) g/dL RDW 11.9 (11.5-14.0) % Plt Count 215 (150-450) x10^3/uL MPV 9.0 (7.5-11.0) fL Gran % 53.2 (36.0-66.0) % Immature Gran % (Auto) 0.2 (0.00-0.4) % Nucleat RBC Rel Count 0.0 (0.00-0.1) % Eos # (Auto) 0.12 (0-0.5) x10^3/uL Immature Gran # (Auto) 0.01 (0.00-0.03) x10^3u/L Absolute Lymphs (auto) 1.12 (1.0-4.6) x10^3/uL Absolute Monos (auto) 0.70 (0.0-1.3) x10^3/uL Absolute Nucleated RBC 0.00 (0.00-0.01) x10^3u/L Lymphocytes % 26.8 (24.0-44.0) % Monocytes % 16.7 H (0.0-12.0) % Eosinophils % 2.9 (0.00-5.0) % Basophils % 0.2 (0.0-0.4) % Absolute Granulocytes 2.22 (1.4-6.9) x10^3/uL Basophils # 0.01 (0-0.4) x10^3/uL Sodium 138 (137-145) mmol/L Potassium 3.8 (3.5-5.1) mmol/L Chloride 105 (98-107) mmol/L Carbon Dioxide 29 (22-30) mmol/L Anion Gap 7.2 (5-15) MEQ/L BUN 5 L (9-20) mg/dL Creatinine 0.62 L (0.66-1.25) mg/dL Estimated GFR > 60.0 ML/MIN Glucose 85 (74-106) mg/dL Calcium 8.3 L (8.4-10.2) mg/dL Total Bilirubin 0.40 (0.2-1.3) mg/dL AST 22 (17-59) U/L ALT 30 (0-50) U/L Alkaline Phosphatase 42 (38-126) U/L Serum Total Protein 5.8 L (6.3-8.2) g/dL Albumin 3.5 (3.5-5.0) g/dL Multi-Disciplinary Progress Notes: Multi-Disciplinary Progress Notes 12/29/22 09:20 Case Management Note by Arabella Rosales NO CHANGE IN DC PLANS AT THIS TIME Initialized on 12/29/22 09:20 - END OF NOTE Assessment/Plan (1) Exacerbation of Crohn's disease of large intestine Current Visit: No Status: Acute Assessment & Plan: continue IV solu medrol, levaquin and flagyl. will advance to bland diet Code(s): K50.10 - CROHN'S DISEASE OF LARGE INTESTINE WITHOUT COMPLICATIONS
[2022-12-30] MEDS: HYDROMORPHONE 30 MG/30 ML-NS PCA IV PRN (08:44)
[2022-12-30] MEDS: PROTONIX 40 MG IV IV SCH (09:16)
[2022-12-30] MEDS: solu-MEDROL 40 MG, Sterile H2O 10 ml 1 ML IV SCH ×6 (09:16→23:10)
[2022-12-30] MEDS: CLARITIN 10 MG PO SCH (09:17)
[2022-12-30] MEDS: PATIENT OWN MEDICATION PO SCH (09:17)
[2022-12-30] MEDS: Levofloxacin 500MG/100ML D5W 500 MG/100 ML BAG IV SCH (09:17)
[2022-12-30] MEDS: Effexor XR 75 MG PO SCH (09:17)
[2022-12-30] MEDS ORDERED: NARCAN 2 MG/2 ML IV PRN (15:21)
[2022-12-30] MEDS ORDERED: BENADRYL 50 MG/ML IV ONE (15:25)
[2022-12-30] MEDS ORDERED: Ativan 2 MG/1 ML VIAL IV ONE ×2 (15:26→15:49)
[2022-12-30] MEDS ORDERED: Ativan 2 MG/1 ML VIAL IV PRN (15:36)
[2022-12-30] MEDS: BENADRYL 50 MG/ML IV SCH (22:29)
[2022-12-31] MEDS: FLAGYL 500 MG IVPB 500 MG/100 ML BAG IV SCH (05:37)
[2022-12-31] MEDS: solu-MEDROL 40 MG, Sterile H2O 10 ml 1 ML IV SCH ×2 (05:38)
[2022-12-31 05:39] VITALS: BP 117/75; PULSE 77
[2022-12-31 05:49] LABS: Absolute Neutrophil Ct (ANC) 8.42 x10^3/uL (1.4-6.9); BASOPHIL % 0.1 % (0.0-0.4); Basophil (Absolute #) 0.01 x10^3/uL (0-0.4); Eosinophil (Absolute #) 0 x10^3/uL (0-0.5); Hematocrit 36.4 % (42-50); Hemoglobin 12.4 g/dL (12.5-18.0); IMMATURE GRAN # 0.03 x10^3u/L (0.00-0.03); IMMATURE GRAN % 0.3 % (0.00-0.4); Lymphocyte (Absolute #) 0.86 x10^3/uL (1.0-4.6); Lymphocytes % 8.7 % (24.0-44.0); Mean Cell Volume 91.7 fL (78-100); Mean Corpuscular Hemoglobin 31.2 pg (26-32); Mean Corpuscular Hgb Concent. 34.1 g/dL (32-36); Mean Platelet Volume 9.3 fL (7.5-11.0); Monocyte (Absolute #) 0.58 x10^3/uL (0.0-1.3); Monocytes % 5.9 % (0.0-12.0); Platelet Count 284 x10^3/uL (150-450); Red Blood Count 3.97 x10^6/uL (4.1-5.6); Red Cell Distribution Width 11.9 % (11.5-14.0); White Blood Count 9.9 x10^3/uL (4.0-10.5)
[2022-12-31 06:18] LABS: ALBUMIN 3.8 g/dL (3.5-5.0); ALKALINE PHOSPHATASE 48 U/L (38-126); ANION GAP 10.3 MEQ/L (5-15); BLOOD UREA NITROGEN 5 mg/dL (9-20); CHLORIDE 105 mmol/L (98-107); Calcium 8.7 mg/dL (8.4-10.2); Carbon Dioxide 25 mmol/L (22-30); Creatinine 1 0.61 mg/dL (0.66-1.25); EST GLOMERULAR FILTRATION RATE > 60.0 ML/MIN; Glucose 137 mg/dL (74-106); MAGNESIUM 1.6 mg/dL (1.6-2.3); Potassium 4.1 mmol/L (3.5-5.1); SGOT/AST 17 U/L (17-59); SGPT/ALT 29 U/L (0-50); SODIUM 136 mmol/L (137-145); Total Protein 6.2 g/dL (6.3-8.2)
[2022-12-31] MEDS: HYDROMORPHONE 30 MG/30 ML-NS PCA IV PRN (07:20)
[2022-12-31 07:22] VITALS: O2SAT 96
--- NOTE | 2022-12-31 08:23 | PCM.DS ---
Discharge Summary Date of Admission: 12/28/22 00:46 Admitting Physician: JUAN LUIS RAMIREZ DO Primary Care Provider: BOY EMMANUEL Allergies Allergies prochlorperazine [From Compazine] Adverse Reaction (Severe, Verified 12/30/22 15:48) Dystonia Code rapid was called for patient having acute dystonia, went away a few minutes after benadryl and lorazepam were administered. This drug was suspected to be the culprit. Patient was also taking Venlafaxine. Hospital Summary - Hospital Course Hospital Course: patient was admitted with abd pain, vomiting and diarrhea. he has a known history of crohn's with exacerbation, he was treated with levaquin and flagyl and steroids. he is tolerating po well and pain is much improved. he developed a dystonic reaction yesterday and had a code rapid, believed related to compazine in conjunction with his effexor, these problems are resolved today. - Vitals & Intake/Output Vital Signs: Vital Signs Temperature 97.8 F 12/31/22 08:16 Pulse Rate 77 12/31/22 08:16 Respiratory Rate 16 12/31/22 08:16 Blood Pressure 117/75 12/31/22 08:16 O2 Sat by Pulse Oximetry 96 12/31/22 08:16 Intake & Output: Intake & Output 12/28/22 12/29/22 12/30/22 12/31/22 11:59 11:59 11:59 11:59 Intake Total 500 1857 2840 7817 Balance 500 1857 2840 7817 Weight 95.1 kg 95.1 kg 95.1 kg 98.5 kg - Lab Result Diagrams: 12/31/22 04:00 12/31/22 05:29 Lab Results-Last 24 Hrs: Lab Results-Last 24 Hours 12/30/22 12/31/22 12/31/22 Range/Units 16:14 04:00 05:29 WBC 9.9 (4.0-10.5) x10^3/uL RBC 3.97 L (4.1-5.6) x10^6/uL Hgb 12.4 L (12.5-18.0) g/dL Hct 36.4 L (42-50) % MCV 91.7 (78-100) fL MCH 31.2 (26-32) pg MCHC 34.1 (32-36) g/dL RDW 11.9 (11.5-14.0) % Plt Count 284 (150-450) x10^3/uL MPV 9.3 (7.5-11.0) fL Gran % 85.0 H (36.0-66.0) % Immature Gran % (Auto) 0.3 (0.00-0.4) % Nucleat RBC Rel Count 0.0 (0.00-0.1) % Eos # (Auto) 0 (0-0.5) x10^3/uL Immature Gran # (Auto) 0.03 (0.00-0.03) x10^3u/L Absolute Lymphs (auto) 0.86 L (1.0-4.6) x10^3/uL Absolute Monos (auto) 0.58 (0.0-1.3) x10^3/uL Absolute Nucleated RBC 0.00 (0.00-0.01) x10^3u/L Lymphocytes % 8.7 L (24.0-44.0) % Monocytes % 5.9 (0.0-12.0) % Eosinophils % 0.0 (0.00-5.0) % Basophils % 0.1 (0.0-0.4) % Absolute Granulocytes 8.42 H (1.4-6.9) x10^3/uL Basophils # 0.01 (0-0.4) x10^3/uL Sodium 136 L (137-145) mmol/L Potassium 4.1 (3.5-5.1) mmol/L Chloride 105 (98-107) mmol/L Carbon Dioxide 25 (22-30) mmol/L Anion Gap 10.3 (5-15) MEQ/L BUN 5 L (9-20) mg/dL Creatinine 0.61 L (0.66-1.25) mg/dL Estimated GFR > 60.0 ML/MIN Glucose 137 H (74-106) mg/dL POC Glucometer 172 H (74 to 106) mg/dL Calcium 8.7 (8.4-10.2) mg/dL Magnesium 1.6 (1.6-2.3) mg/dL Total Bilirubin 0.30 (0.2-1.3) mg/dL AST 17 (17-59) U/L ALT 29 (0-50) U/L Alkaline Phosphatase 48 (38-126) U/L Serum Total Protein 6.2 L (6.3-8.2) g/dL Albumin 3.8 (3.5-5.0) g/dL Discharge Exam General Appearance: no apparent distress Neurologic Exam: alert, oriented x 3 Respiratory Exam: normal breath sounds, lungs clear, No respiratory distress Cardiovascular Exam: regular rate/rhythm, normal heart sounds Gastrointestinal/Abdomen Exam: soft, No tenderness, No mass Extremity Exam: normal inspection, normal range of motion Skin Exam: normal color, warm, dry Final Diagnosis/Problem List - Final Discharge Diagnosis/Problem (1) Exacerbation of Crohn's disease of large intestine Current Visit: No Status: Acute Assessment & Plan: home today, levaquin/flagyl and prednisone. has upcoming appt with new GI in [place] as he seems currently not well controlled Code(s): K50.10 - CROHN'S DISEASE OF LARGE INTESTINE WITHOUT COMPLICATIONS - Discharge Disposition: Home, Self-Care Condition: Good Prescriptions: New Metronidazole 500 mg [Flagyl 500 MG] 500 mg PO TID #21 tablet Hydrocodone/Acetaminophen [Hydrocodone-Acetamin 5-325 mg] 1 tab PO Q6HPRN PRN #28 tablet MDD 4 PRN Reason: Pain Levofloxacin [Levofloxacin 500 MG Tablet] 500 mg PO DAILY #7 tablet Ondansetron ODT 4 MG [Zofran Odt 4 mg] 4 mg PO Q6HPRN PRN #30 tab PRN Reason: Nausea Continue Omeprazole 20 MG [Prilosec 20 mg] 20 mg PO DAILY Ascorbic Acid 500 mg [Vitamin C 500 MG] 500 mg PO DAILY Loratadine 10 mg [Claritin 10 mg] 10 mg PO DAILY Mesalamine [Apriso] 1.5 gm PO DAILY Venlafaxine HCl ER 37.5 mg [Effexor ER 37.5 MG] 75 mg PO DAILY Discontinued Prochlorperazine Maleate 5 mg* [Compazine 5 MG] 5 mg PO Q6HPRN PRN PRN Reason: Nausea/Vomiting Follow up with: BOY EMMANUEL MD [Primary Care Provider] -
[2022-12-31] MEDS: BENADRYL 50 MG/ML IV SCH (09:19)
== END 2022-12-31 09:13 | disposition home or self-care (01) | DRG 387 ==
LOC: ED 19:31 → OBSVTOIN 12-28 00:46 → MED SURG 12-28 00:46
PROVIDERS: ADMIT Family Medicine; ATTEND Family Medicine
DX: K50.10 Crohn's disease of large intestine without complications (principal); Z79.899 Other long term (current) drug therapy; Z20.828 Contact with and (suspected) exposure to other viral communicable diseases
CPT/HCPCS: 0241U; 36000; 36415; 74177; 80053; 81001; 82150; 82947; 83690; 83735; 85025; 94762; 96365; 96374; 96375; 96376; 99285; J1170; J1200; J1956; J2060; J2405; J2920; J3010; A9270-GY